=== PATIENT | female | born 1935 | race Caucasian/White ===

== ENCOUNTER 2016-11-08 08:08 | Inpatient (IN) | payer MEDICARE, OTHER ==
[~2016-11-08] VITALS: Ht 152.4 cm; Wt 62.0 kg
[~2016-11-08 08:08] MED LIST: ACAR25TA8 PO; ATOR80TA18 PO; BENA40TA41 PO; CALC1TAB80 PO; CHOL2000 GTB; CIPR500T4 PO; ESOM40CA PO; IBUP-1542 PO; KRIL1CAP22 PO; PHEN-537 PO; VALS160T20 PO
[2016-11-08 08:12] VITALS: Ht 152.4 cm; Wt 62.0 kg
[2016-11-08] MEDS ORDERED: FAMOTIDINE 20 MG INJ IV STA (08:20)
[2016-11-08] MEDS ORDERED: SOD CHLORIDE 0.9% 1,000 ML IV STA (08:20)
[2016-11-08] MEDS ORDERED: ONDANSETRON 4 MG INJ IV STA (08:20)
[2016-11-08] MEDS ORDERED: morphine 4 MG/ML VIAL IV STA ×2 (08:20→10:49)
[2016-11-08 09:04] LABS: ADD SCAN DIFF NO
[2016-11-08 09:08] LABS: BASOPHIL # 0.1 10^3/ul (0.0-0.1); BASOPHILS % 0.2 % (0.0-2.0); HEMOGLOBIN 10.7 g/dl (12.0-16.0); LYMPHOCYTES % 4.7 % (15.0-51.0); MEAN CORPUSCULAR HEMOGLOBIN 27.2 pg (29.0-33.0); MEAN CORPUSCULAR HGB CONC 32.4 g/dl (32.0-37.0); MEAN CORPUSCULAR VOLUME 83.8 fl (82.0-101.0); MEAN PLATELET VOLUME 9.3 fl (7.4-10.4); MONOCYTE # 1.4 10^3/ul (0.3-0.9); MONOCYTES % 6.9 % (0.0-11.0); NEUTROPHILS % 87.6 % (39.0-77.0); PLATELET COUNT 398 10^3/UL (140-415); RED BLOOD COUNT 3.94 10^6/ul (4.20-5.40); RED CELL DISTRIBUTION WIDTH 16.1 % (11.5-14.5); WHITE BLOOD COUNT 20.6 10^3/ul (4.8-10.8)
[2016-11-08 09:22] LABS: ALBUMIN 3.7 g/dl (3.3-4.9); ALBUMIN/GLOBULIN RATIO 1.02; BILIRUBIN,INDIRECT 0.7 mg/dl (0-1.1); BILIRUBIN,TOTAL 0.7 mg/dl (0.2-1.3); CREATININE 0.51 mg/dl (0.44-1.00); POTASSIUM 3.3 mmol/L (3.5-5.1); TOTAL PROTEIN 7.3 g/dl (6.1-8.1)
--- NOTE | 2016-11-08 09:34 | RADRPT ---
PROCEDURE: CT Abdomen and Pelvis without contrast. CLINICAL INDICATION: Right upper quadrant and flank pain. TECHNIQUE: CT scan of the abdomen and pelvis without contrast was performed on a multidetector hig h-resolution CT scanner. The patient was scanned without intravenous contrast. Coronal and sagittal reformatted images were obtained from the axial source images. Images were reviewed on a high-resol [employer] PACS workstation. The total exam CTDI equals 9.58 mGy and the total exam DLP equals 511.76 mGy -cm. One or more of the following dose reduction techniques were used: Automated exposure control. Adjustment of the mA and/or kV according to patient size. Use of iterative reconstruction technique. COMPARISON: CT abdomen and pelvis 11/26/2014. FINDINGS: CT abdomen: The lung bases are remarkable for focal bronchiectasis in the medial right middle lobe and lingular segment. The heart size is normal, without pericardial thickening or effusion. The liver is normal in size and density without focal mass or intrahepatic biliary dilatation. The spleen is normal in size and homogeneous in density. The stomach is partially collapsed, but is gr ossly unremarkable. The pancreas as visualized is normal. The gallbladder is markedly distended wi th mild surrounding fatty stranding. There is no evidence of biliary dilatation. The adrenal glands are symmetric and normal. The kidneys are symmetrically unremarkable as well. No renal calculus o r obstructive uropathy or mass lesion is seen. There are multiple bilateral renal cysts. The aorta is of normal caliber. Aortic vascular calcifications are present. There is no retroperit prieto lymphadenopathy. The ann marie hepatis region is clear. There is diverticulosis of the descending and sigmoid colon without evidence of acute diverticulitis. There is moderate hiatal hernia. CT pelvis: The small bowel loops situated within the pelvis are unremarkable. The pelvic organs are normal. T he pelvic sidewalls and inguinal regions are clear. The sigmoid colon and rectum are remarkable for sigmoid diverticulosis. No mass, lymphadenopathy, or free fluid is seen. No acute inflammation is seen. The surrounding osseous structures are remarkable for degenerative spondylosis of the spine. No osteolytic or osteoblastic lesion is detected. IMPRESSION: 1. Markedly distended gallbladder with mild surrounding inflammation suggesting acute cholecystitis. Consider ultrasound for further evaluation. 2. Diverticulosis of the descending and sigmoid colon without evidence of acute diverticulitis. 3. Multiple bilateral renal cortical and parapelvic cysts. 4. Aortoiliac atherosclerosis. 5. Moderate hiatal hernia. 6. Bronchiectasis in the right middle lobe and left lingular segment. RPTAT: BB .Rojas Crane MD, Date Time Electronically viewed and signed by .Rojas Crane MD, on 11/08/2016 09:33 .O/
[2016-11-08] MEDS ORDERED: CEFTRIAXONE 1 GM/50 ML (PMX) 50 ML IVPB ONE (10:00)
[2016-11-08] MEDS ORDERED: metroNIDAZOLE 500 MG/NS (PMX) 100 ML IVPB ONE (10:00)
[2016-11-08 10:08] LABS: ADD UMIC YES; URINE BILIRUBIN (Dip) NEGATIVE (NEGATIVE); URINE BLOOD (Dip) 3+ (NEGATIVE); URINE COLOR LT. YELLOW (YELLOW); URINE GLUCOSE (Dip) NEGATIVE (NEGATIVE); URINE KETONES (Dip) 40 (NEGATIVE); URINE LEUKOCYTE ESTERASE (Dip) NEGATIVE (NEGATIVE); URINE NITRITE (Dip) NEGATIVE (NEGATIVE); URINE TOTAL PROTEIN (Dip) NEGATIVE (NEGATIVE); URINE UROBILINOGEN (Dip) 2.0 E.U./dL (0.1-1.0)
[2016-11-08] MEDS ORDERED: ACAR50TA PO (10:22)
[2016-11-08] MEDS ORDERED: LEVO50TA71 PO (10:23)
[2016-11-08 10:24] LABS: BACTERIA,URINE FEW; URINE RBCS 25-50 /HPF (0)
[2016-11-08] MEDS ORDERED: CHOL100062 PO (10:24)
[2016-11-08] MEDS ORDERED: MET25 PO (10:24)
--- NOTE | 2016-11-08 10:29 | RADRPT ---
PROCEDURE: Right Upper Quadrant Ultrasound. CLINICAL INDICATION: cholecystitis, abdominal pain TECHNIQUE: Multiple real-time images were acquired of the patient's right upper quadrant abdomen a nd retroperitoneum utilizing a high resolution transducer. COMPARISON: None FINDINGS: The liver measures 12.4 cm, and demonstrates normal echogenicity. The main portal vein is patent wit h proper directional flow. There is no intrahepatic biliary ductal dilatation. The extrahepatic comm on bile duct measures 9 mm. The gallbladder is without stones, wall thickening, or pericholecystic fluid. The pancreas is not visualized. The right kidney measures 10.6 cm and demonstrates normal echotexture. There is no right renal calcu garcia or hydronephrosis. The visualized abdominal aorta and IVC are grossly unremarkable. IMPRESSION: There is no cholelithiasis or acute cholecystitis however the common bile duct is mild to moderately dilated to 9 mm. A HIDA scan or MRCP can be obtained for further evaluation of possible common felecia e duct obstruction. Correlation with a bilirubin level for signs of cholestasis is recommended. RPTAT: EE Physician Janessa Date Time Electronically viewed and signed by Physician Janessa on 11/08/2016 10:29 /
[2016-11-08] MEDS ORDERED: SOD CHLORIDE 0.9% 1,000 ML IV SCH (11:03)
--- NOTE | 2016-11-08 11:15 | ERA ---
ER Documentation Chief Complaint Date/Time DATE: 11/08/16 TIME: 11:11 Chief Complaint pt bib self with c/o abd pain starting a few days ago rad to right flank HPI This is an 80-year-old female who presents to the emergency room with her family for evaluation of abdominal pain. The patient states that she has had abdominal pain for the past 12 hours. She localizes it to the midportion of her abdomen, she states that it does radiate to her back. She states that it is sharp and achy pain associated with mild nausea. The patient denies any fevers associated with this, denies any relieving factors for her pain and came to the emergency room for evaluation ROS All systems reviewed and are negative except as per history of present illness. Medications Home Meds Reported Medications Cholecalciferol* (Vitamin D3*) 1,000 Unit Tablet, 5000 UNIT PO DAILY, TAB 11/08/16 Methotrexate* (Methotrexate*) 2.5 Mg Tab, 7.5 MG PO BID, TAB 11/08/16 Levothyroxine Sodium* (Levoxyl*) 50 Mcg Tablet, 50 MCG PO BEFORE BREAKFAST, #30 TAB 11/08/16 Acarbose* (Precose*) 50 Mg Tablet, 50 MG PO WITH BREAKFAST, TAB 11/08/16 Valsartan* (Diovan*) 160 Mg Tablet, 160 MG PO DAILY, TAB 07/09/16 Esomeprazole Mag Trihydrate (Nexium) 40 Mg Capsule.dr, 40 MG PO DAILY 05/23/12 Atorvastatin (Lipitor) 80 Mg Tablet, 80 MG PO DAILY 05/23/12 Discontinued Reported Medications Krill/Om-3/Dha/Epa/Phospho/Ast (Megared [place]-3 Krill Oil Sfgl) 1 Each Capsule, 1 EACH PO, CAP 07/09/16 Benazepril Hcl* (Benazepril Hcl*) 40 Mg Tablet, 40 MG PO DAILY, #30 TAB 07/09/16 Acarbose* (Precose*) 25 Mg Tablet, 25 MG PO WITH BREAKFAST, TAB 07/09/16 Ibuprofen* (Motrin*) 600 Mg Tab, 600 MG PO Q8H Y for PAIN, TAB 07/09/16 Calcium Carbonate/Vitamin D3 ([place] 500+D Tablet) 1 Tab Tablet, 1 TAB PO DAILY 05/23/12 Cholecalciferol* (Vitamin D3*) 2,000 Unit Cap, 2000 UNIT GTB DAILY 05/23/12 Discontinued Scripts Phenazopyridine Hcl* (Pyridium*) 100 Mg Tab, 100 MG PO TID Y for URINARY PAIN, # 8 TAB Prov:ZEYNEP VIVEROS DO 07/09/16 Ciprofloxacin Hcl* (Ciprofloxacin Hcl*) 500 Mg Tablet, 500 MG PO BID for 3 Days , TAB Prov:ZEYNEP VIVEROS DO 07/09/16 Allergies Allergies: Coded Allergies: penicillin G (Verified Allergy, Intermediate, RASH, HEADACHE, 07/09/16) PMhx/Soc History of Surgery: No Anesthesia Reaction: No Hx Neurological Disorder: No Hx Respiratory Disorders: No Hx Cardiac Disorders: Yes (HTN) Hx Psychiatric Problems: No Hx Miscellaneous Medical Probl: Yes (hyperlipidemia , OSTEOPOROSIS , ARTHRITIS ) Hx Alcohol Use: No Hx Substance Use: No Hx Tobacco Use: No Smoking Status: Never smoker Physical Exam Vitals Vital Signs Date Time Temp Pulse Resp B/P Pulse Ox O2 Delivery O2 Flow Rate FiO2 11/08/16 09:59 99.4 83 18 152/61 98 Room Air 11/08/16 08:55 98.8 83 18 119/73 100 Room Air 11/08/16 08:12 98.3 87 18 134/60 100 Physical Exam INITIAL VITAL SIGNS: Reviewed by me GENERAL: The patient is well developed and appropriate for usual state of health who appears to have mild abdominal pain HEENT: Pupils equal, round, and reactive to light. EOMI. There is no scleral icterus. NECK: C-spine is soft and supple, there is no meningismus. There is no cervical lymphadenopathy. LUNGS: Clear to auscultation bilaterally. There are no rales, wheezes or rhonchi. HEART: Regular rate and rhythm, no murmurs, clicks, rubs or gallops. ABDOMEN: Positive Pickering sign, otherwise no CVAT, soft, non-tender, non- distended. There are bowel sounds in all four quadrants. No rebound or guarding. EXTREMITIES: There is no peripheral cyanosis or edema. No focal swelling or erythema. NEUROLOGICAL: The patient moves all four extremities with 5/5 strength. Cranial nerves II - XII are intact. Normal gait. Alert and oriented SKIN: There is no apparent rash or petechiae. HEME/LYMPHATIC: There is no evidence of excessive bruising or lymphedema. PSYCHIATRIC: The patient does not appear anxious or depressed. Result Diagram: 11/08/16 0840 11/08/16 0840 Results 24 hrs Laboratory Tests Test 11/08/16 08:40 11/08/16 09:42 White Blood Count 20.610^3/ul Red Blood Count 3.9410^6/ul Hemoglobin 10.7g/dl Hematocrit 33.0% Mean Corpuscular Volume 83.8fl Mean Corpuscular Hemoglobin 27.2pg Mean Corpuscular Hemoglobin Concent 32.4g/dl Red Cell Distribution Width 16.1% Platelet Count 66077^3/UL Mean Platelet Volume 9.3fl Neutrophils % 87.6% Lymphocytes % 4.7% Monocytes % 6.9% Eosinophils % 0.0% Basophils % 0.2% Nucleated Red Blood Cells % 0.0/100WBC Neutrophils # 18.010^3/ul Lymphocytes # 1.010^3/ul Monocytes # 1.410^3/ul Eosinophils # 0.010^3/ul Basophils # 0.110^3/ul Nucleated Red Blood Cells # 0.010^3/ul Sodium Level 134mmol/L Potassium Level 3.3mmol/L Chloride Level 100mmol/L Carbon Dioxide Level 26mmol/L Anion Gap 11 Blood Urea Nitrogen 8mg/dl Creatinine 0.51mg/dl Glucose Level 154mg/dl Calcium Level 9.0mg/dl Total Bilirubin 0.7mg/dl Direct Bilirubin 0.00mg/dl Indirect Bilirubin 0.7mg/dl Aspartate Amino Transf (AST/SGOT) 20IU/L Alanine Aminotransferase (ALT/SGPT) 26IU/L Alkaline Phosphatase 182IU/L Troponin I < 0.010ng/ml Total Protein 7.3g/dl Albumin 3.7g/dl Globulin 3.60g/dl Albumin/Globulin Ratio 1.02 Lipase 18U/L Urine Color LT. YELLOW Urine Clarity CLEAR Urine pH 8.0 Urine Specific [place] 1.010 Urine Ketones 40 Urine Nitrite NEGATIVE Urine Bilirubin NEGATIVE Urine Urobilinogen 2.0 E.U./dL Urine Leukocyte Esterase NEGATIVE Urine Microscopic RBC 25-50/HPF Urine Microscopic WBC 0-2/HPF Urine Epithelial Cells FEW Urine Bacteria FEW Urine Hemoglobin 3+ Urine Glucose NEGATIVE% Urine Total Protein NEGATIVE Current Medications Medications (Trade) Dose Ordered Sig/Hector Route PRN Reason Start Time Stop Time Status Last Admin Dose Admin Sodium Chloride (NS) 1,000 ml @ 1,000 mls/hr Q1H STAT IV 11/08/16 08:20 11/08/16 09:19 DC 11/08/16 08:53 Morphine Sulfate (morphine) 4 mg ONCE STAT IV 11/08/16 08:20 11/08/16 08:21 DC 11/08/16 08:51 Ondansetron HCl (Zofran Inj) 4 mg ONCE STAT IV 11/08/16 08:20 11/08/16 08:21 DC 11/08/16 08:48 Famotidine 20 mg 20 mg ONCE STAT IV 11/08/16 08:20 11/08/16 08:21 DC 11/08/16 08:50 Ceftriaxone Sodium 50 ml @ 100 mls/hr ONCE ONCE IVPB 11/08/16 10:00 11/08/16 10:29 DC 11/08/16 10:38 Metronidazole (Flagyl 500 Mg (Pmx)) 100 ml @ 100 mls/hr ONCE ONCE IVPB 11/08/16 10:00 11/08/16 10:59 DC Morphine Sulfate 4 mg 4 mg ONCE STAT IV 11/08/16 10:49 11/08/16 10:50 DC Sodium Chloride (NS) 1,000 ml @ 80 mls/hr [id number] IV 11/08/16 11:03 11/08/16 23:32 Ondansetron HCl (Zofran Inj) 4 mg BRIDGE ORDER PRN IV NAUSEA AND/OR VOMITING 11/08/16 11:30 11/09/16 11:29 Acetaminophen (Tylenol Tab) 650 mg ER BRIDGE PRN PO MILD PAIN/FEVER 11/08/16 11:30 11/09/16 11:29 Procedures/MDM CT abdomen pelvis without: 1. Markedly distended gallbladder with mild surrounding inflammation suggesting acute cholecystitis. Consider ultrasound for further evaluation. 2. Diverticulosis of the descending and sigmoid colon without evidence of acute diverticulitis. 3. Multiple bilateral renal cortical and parapelvic cysts. 4. Aortoiliac atherosclerosis. 5. Moderate hiatal hernia. 6. Bronchiectasis in the right middle lobe and left lingular segment. Ultrasound gallbladder: There is no cholelithiasis or acute cholecystitis however the common bile duct is mild to moderately dilated to 9 mm. A HIDA scan or MRCP can be obtained for further evaluation of possible common bile duct obstruction. Correlation with a bilirubin level for signs of cholestasis is recommended. This 80-year-old female presents to the emergency room for evaluation of abdominal pain. When I did evaluate this patient she appeared to be in a mild amount of distress. Her pain was exacerbated with palpation of the right upper quadrant. I did obtain an ultrasound which shows a dilated gallbladder with a moderately dilated common bile duct at [address] of the abdomen and pelvis does not show any signs of appendicitis or any other intra-abdominal process. This patient was found to have a leukocytosis greater than 20,000. She was given Rocephin and Flagyl here in the emergency room. I have spoken to this patient' s admitting physician, Dr. Camejo, and I discussed my concern for possible choledocholithiasis. He agrees that this patient should be placed for admission at this time. I have paged our floorman that he requested, Dr. ba, and I am awaiting his call back. I did order an MRCP. This patient 's pain is controlled with morphine in the emergency room. Departure Diagnosis: Primary Impression: Choledocholithiasis Additional Impressions: Abdominal pain Leukocytosis Condition: DINORAH Martinez DO Nov 08, 2016 11:15
[2016-11-08] MEDS ORDERED: DIPHENHYDRAMINE 50 MG INJ IV ONE (11:30)
[2016-11-08] MEDS ORDERED: ONDANSETRON 4 MG INJ IV PRN (11:30)
[2016-11-08] MEDS ORDERED: ACETAMINOPHEN 325 MG TAB PO PRN (11:30)
--- NOTE | 2016-11-08 12:13 | CONS ---
DATE OF ADMISSION: 11/08/2016 DATE OF CONSULTATION: 11/08/2016 TYPE OF CONSULTATION: Gastroenterology. Dear Dr. Ambrose: Thank you for asking me to see Mrs. Salmon in GI consultation. HISTORY OF PRESENT ILLNESS: The patient, as you know, is an 80-year-old female who was bro ught to the hospital because of right upper quadrant pain she has been experiencing for the past 3 d ays. She has been nauseated. She has been vomiting. She has had some fever, but no chills, no shawna rrhea, no history of GI bleeding, no history of jaundice. MEDICATIONS: She has been on multiple medications prior to the admission, which include: 1. Methotrexate for rheumatoid arthritis. 2. Lipitor. 3. Diovan. 4. Nexium. 5. Precose 6. Levoxyl. 7. Vitamin D3. REVIEW OF SYSTEM: Positive for rheumatoid arthritis and also history of hypertension, history of di abetes. PAST SURGICAL HISTORY: No surgeries in the past. SOCIAL HISTORY: No history of alcoholism. PHYSICAL EXAMINATION: GENERAL: The patient is an 80-year-old female who at this time is alert, she is well built . VITAL SIGNS: She does have a temperature of 99.4, blood pressure 152/61, pulse 83. CARDIOVASCULAR: Normal heart sounds. RESPIRATORY: Normal breath sounds. ABDOMEN: Showed unremarkable findings except right upper quadrant tenderness. LABORATORY DATA: WBC is 20,600, hemoglobin is 10.7. The potassium 3.3, BUN 8, creatinine 0.5, bili ferrer 0.7, AST 20, ALT 26, alkaline phosphatase 182. The CAT scan of the abdomen showed evidence of dilated common bile duct, probably dilated gallbladde r as well. Ultrasound showed evidence of a dilated common bile duct. CLINICAL IMPRESSION: The patient presenting with history of abdominal pain, dilated bile duct on e CAT scan and ultrasound, elevated alkaline phosphatase, it is quite possible that we may be dealin g with choledocholithiasis. At this time, MRCP is pending. Depending upon MRCP, the patient may need ERCP. Once again, Dr. Ambrose, thank you for this consultation. Dictated By: ARLYN PAGE/HERACLIO Conf#: [id number] DID#: [id number] CC: MUSA AMBROSE MD; ARLYN MATIAS MD;*EndCC*
[2016-11-08 15:40] VITALS: TEMP 98.8
--- NOTE | 2016-11-08 15:46 | RADRPT ---
PROCEDURE: MRCP. CLINICAL INDICATION: Abdominal pain. TECHNIQUE: MRCP was performed. Patient was examined without contrast. 3-D coronal rotating MIP i mages of the biliary tree are available for review. COMPARISON: CT and ultrasound, 11/08/2016 FINDINGS: The gallbladder is distended. Gallbladder wall thickening and trace pericholecystic fluid are ident ified. No definite evidence of gallstone is seen. There is no intra or extrahepatic biliary dilata tion. No common duct stone, stricture or filling defect is seen. Pancreatic duct is normal in hermelinda killian. Liver, pancreas, spleen, adrenal glands and kidneys are unremarkable except for bilateral benign avtar al cysts. There is no obstructive uropathy. Moderate to large hiatal hernia is present. Abdominal aorta is normal in caliber. There is no retroperitoneal or ann marie hepatis lymphadenopathy. Colonic diverticulosis is seen without evidence for diverticulitis. There is no evidence of bowel obstruction. Urinary bladder appears significantly distended, concerning for urinary retention. T he surrounding osseous structures are remarkable for scoliosis and degenerative spondylosis of the s pine. IMPRESSION: 1. The gallbladder is distended. Gallbladder wall thickening and trace pericholecystic fluid are i dentified, concerning for cholecystitis. No definite evidence of gallstone is seen. Consider nucle ar medicine HIDA scan for further evaluation, if clinically warranted. 2. No biliary dilatation or choledocholithiasis is identified. Common bile duct maximal diameter i s 4 mm. 3. Moderate to large hiatal hernia is present. 4. Colonic diverticulosis is seen without diverticulitis. 5. Urinary bladder is significantly distended, concerning for urinary retention. RPTAT: PP .Lester Mansfield MD, Date Time Electronically viewed and signed by .Lester Mansfield MD, on 11/08/2016 15:45 .R/
[2016-11-08 16:25] VITALS: BP 137/64; PULSE 81; RESP 18
[2016-11-08] MEDS ORDERED: GLUCOSE GEL 15 GRAM TUBE BUCCAL PRN ×2 (18:00→19:00)
[2016-11-08] MEDS ORDERED: GLUCAGON 1 MG INJ IM PRN ×2 (18:00→19:00)
[2016-11-08] MEDS ORDERED: GLUCOSE GEL 15 GRAM TUBE PO PRN ×4 (18:00→19:00)
[2016-11-08] MEDS ORDERED: DEXTROSE 50% 50 ML SYRINGE IV PRN ×4 (18:00→19:00)
[2016-11-08] MEDS ORDERED: ACETAMINOPHEN 650 MG SUPP PR PRN (18:00)
[2016-11-08] MEDS ORDERED: morphine 2 MG INJ IV PRN (18:30)
--- NOTE | 2016-11-08 18:59 | HP ---
DATE OF ADMISSION: 11/08/2016 CHIEF COMPLAINT: Right upper quadrant pain. HISTORY OF PRESENT ILLNESS: The patient is an 80-year-old female with a past medical history positi ve for hypertension, hyperlipidemia, being prediabetic, rheumatoid arthritis and hypothyroidism. Gennaro man was in her usual health until 3 days ago when the patient developed right upper quadrant pain. It got extremely worse over the last 12 hours. The patient stated the pain was sharp and associat ed with mild nausea. Patient denies any fevers, denies chills, denies chest pain, denies shortness of breath, denies bilateral lower extremities edema. Denied vomiting. On admission to the emergenc y room, patient had leukocytosis with white blood cells being elevated at 20.6. Patient underwent a gallbladder ultrasound which revealed no cholelithiasis; however, the common bile duct is mild to m oderately dilated. The patient also underwent a CT of the abdomen and pelvis which revealed distended gallbladder with mild surrounding inflammation suggesting for acute cholecystitis, diverticulosis of the descending a nd sigmoid colon without evidence of diverticulitis, multiple bilateral renal cortical and parapelvi c cysts, aortoiliac atherosclerosis, moderate hiatal hernia, bronchiectasis in the right middle lobe and left lingular segment. The patient was given Zofran for nausea and morphine for pain and was admitted for further evaluatio n and management to medical/surgical floor. PAST MEDICAL HISTORY: Positive for hypertension, hyperlipidemia, gastritis, prediabetes and rheumat oid arthritis. Patient is followed by Dr. Jack in rheumatology consultation was started on meth otrexate and also a history of hypothyroidism. PAST SURGICAL HISTORY: Patient had a colonoscopy a couple of years ago. Denies any other surgeries . FAMILY HISTORY: Noncontributory. SOCIAL HISTORY: Patient lives at home with his son. Patient denies any tobacco use, denies any ill icit drug use and denies any alcohol use. ALLERGIES: PATIENT IS ALLERGIC TO PENICILLIN G. MEDICATIONS ON ADMISSION: 1. Acarbose 2. Methotrexate. 3. Valsartan. 4. Atorvastatin. 5. Esomeprazole. 6. Levothyroxine. REVIEW OF SYSTEMS: A 12-point review of systems is negative unless what mentioned in the HPI. PHYSICAL ASSESSMENT GENERAL: Well-developed, well-nourished female, awake, alert. VITAL SIGNS: Temperature is 99.1, pulse is 81, blood pressure is 137/64, respiratory rate 18, oxyge n saturation 95% on room air. HEENT: Head is atraumatic, normocephalic. Pupils equal bilaterally. Reactive to light and accommo dation. Oral mucosa is pink and moist. NECK: Supple, no cervical lymphadenopathy, no thyromegaly. RESPIRATORY: Lungs were clear bilaterally. There is no rhonchi, wheezes, rales noted. CARDIOVASCULAR: Normal S1, S2. No murmurs, gallops, clicks, rubs noted. GASTROINTESTINAL: Abdomen is round, soft, nondistended. Patient has right upper quadrant tendernes s. EXTREMITIES: There is no edema, clubbing, cyanosis. Pulses equal bilaterally 2+. SKIN: There is no rash, petechiae noted. NEUROLOGIC: Patient is alert and oriented x4. No focal deficits noted. Motor strength 5/5 in lowe r extremities. LABORATORY DATA: On admission, CBC: White blood cells 20.6, hemoglobin 10.7, hematocrit 33.0, plat elets 398. Chemistry: Sodium was 134, potassium 3.3, chloride 100, carbon dioxide 26, anion gap 11 , BUN is 8, creatinine 0.51 and glucose 154, AST 20, ALT 26, alkaline phosphatase 182. Troponin les s than 0.01. Lipase is 18. Urine is negative for nitrite, negative for leukocyte esterase. ASSESSMENT AND PLAN: 1. Possible acute cholecystitis. The patient is given Flagyl and Rocephin in the emergency room. Will start patient on Zosyn. 2. Systemic inflammatory response syndrome with leukocytosis secondary to acute cholecystitis. Con tinue antibiotics. Will obtain blood cultures to rule out bacteremia. 3. Rule out choledocholithiasis. The patient will undergo MRCP. Dr. Estrella was asked to see patie nt in gastroenterology consultation. We will ask Dr. Auguste to see patient in general surgery cons ultation. 4. Hypertension. We will continue the patient on Diovan 5. Hydralazine p.r.n. for systolic blood pressure above 170. 6. Rheumatoid arthritis. Continue methotrexate. 7. Hypoparathyroidism. Continue Synthroid. 8. Hyperlipidemia. Continue statin. 9. Gastritis by history. Continue Protonix for peptic ulcer disease prophylaxis. We will continue sequential compression device for deep venous thrombosis prophylaxis. Further recommendations base d on clinical course. Plan of care discussed with Dr. Ambrose. Dictated By: BOB HUBER MIDDLEWARE ADMINISTRATOR for MUSA AMBROSE MD SR/NTS Conf#: [id number] DID#: [id number]
[2016-11-08] MEDS: D5-NS + KCL 20 MEQ 1,000 ML IV SCH (19:53)
[2016-11-08] MEDS ORDERED: FLUCONAZOLE 100 MG/NS (PMX) 50 ML IVPB SCH (20:00)
[2016-11-08 20:51] VITALS: BP 101/62; RESP 19
[2016-11-08] MEDS: morphine 2 MG INJ IV PRN (21:51)
[2016-11-08] MEDS: metroNIDAZOLE 500 MG/NS (PMX) 100 ML IVPB SCH (21:53)
[2016-11-08] MEDS ORDERED: PIPER-TAZO 3.375 GM IV (PMX) 100 ML IVPB SCH (22:00)
[2016-11-09] VITALS (19 sets, daily range): BP systolic 131–173; BP diastolic 51–86; PULSE 58–68; RESP 14–20
--- NOTE | 2016-11-09 05:06 | CONS ---
DATE OF ADMISSION: 11/08/2016 DATE OF CONSULTATION: 11/08/2016 TYPE OF CONSULTATION: Surgical. REFERRING PHYSICIAN: 1. Dr. Ferdinand Estrella. 2. Janna Bergman DIRECTOR [employer]. CHIEF COMPLAINT: 1. Abdominal pain. 2. Significant leukocytosis. 3. Possible cholecystitis (possibly acalculous). 4. Dilated biliary tree, possible obstruction. 5. Anemia. 6. Abnormal and elevated alkaline phosphatase. HISTORY OF PRESENT ILLNESS: Mely Salmon is an 80-year-old female with multiple comorbidities who presents with 3 days of abdominal pain, worse in the past day, associated with nausea but no vom iting, fevers or chills. No chest pain or shortness of breath. No visual or neurologic changes. N o dysuria or vaginal discharge. No trauma or sick contacts. No cough. Positive bowel function. In the emergency room, she was found to be afebrile with stable vitals. White count, however, is el evated at 20,000. Sodium is low at 134, potassium low at 3.3. Alkaline phosphatase is elevated at 182. Urine is negative for leukocytes or nitrites. The patient had an abdominal ultrasound which does not identify cholelithiasis or acute cholecystiti s; however, there is common bile duct dilatation to 9 mm. The patient had a CT scan of the abdomen and pelvis with identification of a markedly distended gallbladder with mild surrounding inflammatio n suggestive of acute cholecystitis, diverticulosis and multiple bilateral renal cortical and parape lvic cysts. There is aortoiliac atherosclerosis and moderate hiatal hernia with bronchiectasis of t he right middle lobe and left lingular segment. The patient also had an MRCP which reports gallbladder distention with wall thickening and trace per icholecystic fluid. No other significant gallstones are seen. On the MRCP report, there is no bili allyson dilatation and choledocholithiasis. However, per my review, there is some dilation with possibl e papillary area paucity of contrast, which may suggest a lesion or stone. There is moderately larg e hiatal hernia, colonic diverticulosis and distended bladder. Surgical consult was obtained for f urther evaluation and treatment. PAST MEDICAL HISTORY 1. Prediabetes. 2. Hypertension. 3. Diverticulosis. 4. Bilateral renal cortical and parapelvic cysts. 5. Aortoiliac atherosclerosis. 6. Hiatal hernia. 7. Bronchiectasis. 8. Possibly dilated biliary tree with filling defect. 9. Significant leukocytosis. 10. Hyponatremia. 11. Hyperkalemia. 12. Elevated alkaline phosphatase. 13. Anemia. 14. Hypothyroidism. 15. Gastritis. 16. Arthritis. PAST SURGICAL HISTORY: Colonoscopy. MEDICATIONS: As per MAR includin. Methotrexate. 2. Cortisone shots. FAMILY HISTORY: Noncontributory. SOCIAL HISTORY: Denies alcohol, drugs or tobacco. REVIEW OF SYSTEMS: A 12-point of systems was negative unless addressed in the HPI. No significant weight changes. PHYSICAL EXAMINATION: VITAL SIGNS: Temperature 99.1, pulse 81, blood pressure 137/64, satting 95% on room air. GENERAL: No acute distress, however, uncomfortable. HEENT: Pupils equal, reactive. No scleral icterus. Mucous membranes are moist. NECK: Supple, no JVD, no lymphadenopathy. PULMONARY: Normal respiratory effort. No wheezing. HEART: S1, S2 present and regular. ABDOMEN: Soft, tender in her right upper quadrant without Pickering's. No rebound, no guarding, not rigid, but somewhat distended. EXTREMITIES: No edema. VASCULAR: Cap refill less than 2 seconds. NEUROLOGIC: Alert, oriented, moves all 4 extremities grossly. LABORATORY AND RADIOGRAPHIC: As per chart and HPI. ASSESSMENT AND PLAN: Mely Salmon is an 80-year-old female with multiple comorbidities. 1. Abdominal pain, leukocytosis, and multiple imagings are suggestive of a cholecystitis, possibly acalculous; however, may need to rule out cholangitis as well. Continue antibiotics, supportive car e, and based on my read, and Dr. Estrella's reads of the MRCP, the patient will benefit from an ERCP f or further investigation. 2. Possibly dilated biliary tree per some of the imagings. As above, we will proceed with ERCP per GI. 3. Significant leukocytosis secondary to above. Continue antibiotics and supportive care and treat ment as above. 4. Hypertension. Continue nutrition and medication optimization. 5. Prediabetes. Continue nutrition and medication optimization. 6. Rheumatoid arthritis, on methotrexate and steroids shots. Continue medical optimization. 7. Hypothyroidism. Continue Synthroid. 8. Hyperlipidemia. Continue diet and medication optimization. 9. History of gastritis. Continue proton pump inhibitor and encourage nutritional and lifestyle op timization. 10. Anemia without evidence of acute blood loss, continue monitoring. 11. Electrolyte abnormalities with hypokalemia and hyponatremia. Please correct with fluid and nut ritional management. Thank you very much for consulting me in this patient's care. Dictated By: RICK RAMEY/HERACLIO Conf#: [id number] DID#: [id number]
[2016-11-09] MEDS: LEVOTHYROXINE 50 MCG TAB PO SCH (05:28)
[2016-11-09] MEDS: metroNIDAZOLE 500 MG/NS (PMX) 100 ML IVPB SCH ×3 (05:30→21:56)
[2016-11-09] MEDS ORDERED: LEVOTHYROXINE 100 MCG VIAL IV SCH (06:00)
[2016-11-09 06:10] LABS: ADD SCAN DIFF NO
[2016-11-09 06:35] LABS: CREATININE 0.47 mg/dl (0.44-1.00)
[2016-11-09 06:36] LABS: CALCIUM 7.9 mg/dl (8.4-10.2)
[2016-11-09] MEDS ORDERED: LIDOCAINE 2% (SDV) 5 ML INJ ONE (07:00)
[2016-11-09] MEDS ORDERED: ROCURONIUM 50 MG INJ ONE (07:00)
[2016-11-09] MEDS ORDERED: GLYCOPYRROLATE 0.4 MG INJ ONE (07:00)
[2016-11-09] MEDS ORDERED: SUCCINYLCHOLINE CHLORIDE 100 MG/5 ML SYG IV ONE (07:00)
[2016-11-09] MEDS ORDERED: NEOSTIGMINE 3 MG/3 ML SYRINGE ONE (07:00)
[2016-11-09 07:21] LABS: BASOPHILS % 0.2 % (0.0-2.0); EOSINOPHILS # 0.1 10^3/ul (0.0-0.5); EOSINOPHILS % 0.4 % (0.0-7.0); HEMATOCRIT 28.6 % (37.0-47.0); HEMOGLOBIN 9.2 g/dl (12.0-16.0); LYMPHOCYTES # 1.4 10^3/ul (0.8-2.9); LYMPHOCYTES % 10.1 % (15.0-51.0); MEAN CORPUSCULAR HEMOGLOBIN 27.1 pg (29.0-33.0); MEAN CORPUSCULAR HGB CONC 32.2 g/dl (32.0-37.0); MEAN CORPUSCULAR VOLUME 84.1 fl (82.0-101.0); MEAN PLATELET VOLUME 9.5 fl (7.4-10.4); MONOCYTE # 1.2 10^3/ul (0.3-0.9); NEUTROPHIL # 10.9 10^3/ul (1.6-7.5); NEUTROPHILS % 79.8 % (39.0-77.0); PLATELET COUNT 389 10^3/UL (140-415); RED CELL DISTRIBUTION WIDTH 16.3 % (11.5-14.5); WHITE BLOOD COUNT 13.6 10^3/ul (4.8-10.8)
[2016-11-09] MEDS: ACARBOSE 50 MG TAB PO SCH ×3 (07:35→18:07)
[2016-11-09] MEDS: VALSARTAN 160 MG TAB PO SCH (08:21)
[2016-11-09] MEDS: METHOTREXATE 2.5 MG TAB PO SCH (08:22)
[2016-11-09] MEDS ORDERED: POTASSIUM CHLORIDE 250 ML IVPB ONE (08:30)
[2016-11-09] MEDS: D5-NS + KCL 20 MEQ 1,000 ML IV SCH ×2 (08:48→19:33)
[2016-11-09] MEDS: CEFTRIAXONE 1 GM/50 ML (PMX) 50 ML IVPB SCH (09:37)
[2016-11-09] MEDS ORDERED: IOHEXOL 300MG/ML 30 ML BTL ONE (09:59)
[2016-11-09] MEDS ORDERED: INDOMETHACIN 50 MG SUPP PR ONE (09:59)
[2016-11-09] MEDS ORDERED: ONDANSETRON 4 MG INJ IV PRN (12:30)
[2016-11-09] MEDS ORDERED: MEPERIDINE 25 MG INJ IV PRN (12:30)
[2016-11-09] MEDS ORDERED: DIPHENHYDRAMINE 50 MG INJ IV PRN (12:30)
[2016-11-09] MEDS ORDERED: METOCLOPRAMIDE 10 MG INJ IV PRN (12:30)
[2016-11-09] MEDS ORDERED: FENTAnyl 50 MCG/ML VIAL IV PRN (12:30)
[2016-11-09] MEDS ORDERED: HYDROmorphONE (0.2 MG/ML) 10ML SYG IV PRN ×2 (12:30)
--- NOTE | 2016-11-09 13:19 | RADRPT ---
PROCEDURE: Intraoperative imaging for ERCP with fluoroscopy. CLINICAL INDICATION: Right upper quadrant pain. Intraoperative. TECHNIQUE: 13 images of the right upper quadrant of the abdomen were obtained in the operating tyler m with an image intensifier. No radiologist was in attendance. 2 minutes, 44 seconds of fluoroscop y time was used. COMPARISON: MRCP dated 11/08/2016. FINDINGS: Images demonstrate the endoscope in position. Contrast was injected into the common bile duct and a common bile duct stent was placed. The pancreatic duct was not injected. IMPRESSION: 1. ERCP as described above. RPTAT: QQ .Jamie Strong MD, MD Date Time Electronically viewed and signed by .Jamie Strong MD, on 11/09/2016 13:19 .R/
[2016-11-09] MEDS ORDERED: PROPOFOL 100 ML ONE (13:33)
--- NOTE | 2016-11-09 15:23 | PN ---
Date/Time of Note Date/Time of Note DATE: 11/09/16 TIME: 15:16 Assessment/Plan VTE Prophylaxis VTE Prophylaxis Intervention: SCD's Lines/Catheters IV Catheter Type (from Nrs): Peripheral IV Assessment/Plan Assessment/Plan 1. Possible acute cholecystitis. - per GI -sp ERCP/Stent placement 2. Systemic inflammatory response syndrome with leukocytosis secondary to acute cholecystitis. Continue antibiotics. Will obtain blood cultures to rule out bacteremia. 3. Rule out choledocholithiasis. The patient will undergo MRCP. Dr. Estrella was asked to see patient in gastroenterology consultation. We will ask Dr. Auguste to see patient in general surgery consultation. 4. Hypertension. We will continue the patient on Diovan 5. Hydralazine p.r.n. for systolic blood pressure above 170. 6. Rheumatoid arthritis. Continue methotrexate. 7. Hypoparathyroidism. Continue Synthroid. 8. Hyperlipidemia. Continue statin. 9. Gastritis by history. - Protonix for peptic ulcer disease prophylaxis. 10. Hypokalemia- replet K, am labs 10.Sequential compression device for deep venous thrombosis prophylaxis. Further recommendations based on clinical course. Plan of care discussed with Dr. Shipman. Subjective 24 Hr Interval Summary Eyes: no complaints ENT: no complaints Respiratory: no complaints Cardiovascular: no complaints Gastrointestinal: pain Genitourinary: no complaints Musculoskeletal: no complaints Skin: no complaints Neurologic: no complaints Endocrine: no complaints Lymphatic: no complaints Psychological: no complaints Immunologic: no complaints Exam/Review of Systems Vital Signs Vitals Vital Signs Date Time Temp Pulse Resp B/P Pulse Ox O2 Delivery O2 Flow Rate FiO2 11/09/16 14:01 63 18 156/68 100 Nasal Cannula 2.0 11/09/16 12:13 98.2 Intake and Output 11/08/16 11/08/16 11/09/16 15:00 23:00 07:00 Intake Total 1050 ml 660 ml 800 ml Output Total 2000 ml Balance 1050 ml 660 ml -1200 ml Exam Constitutional: alert, other (sleepy but awakens when called by name.), well developed Psych: nl mood/affect Head: atraumatic Eyes: EOMI, nl sclera ENMT: nl external ears & nose Neck: non-tender Respiratory: clear to auscultation Cardiovascular: nl pulses Gastrointestinal: soft, tender (RUQ tenderness ) Musculoskeletal: nl extremities to inspection Extremities: normal pulses Neurological: BOTTLE PACKING MACHINE CLEANER II-XII intact, other Skin: nl turgor Lymph: nontender Results Result Diagram: 11/09/1652611/09/16526 Results 24 hrs Laboratory Tests Test 11/09/16 05:27 White Blood Count 13.6 #H Red Blood Count 3.40 L Hemoglobin 9.2 L Hematocrit 28.6 L Mean Corpuscular Volume 84.1 Mean Corpuscular Hemoglobin 27.1 L Mean Corpuscular Hemoglobin Concent 32.2 Red Cell Distribution Width 16.3 H Platelet Count 389 Mean Platelet Volume 9.5 Neutrophils % 79.8 H Lymphocytes % 10.1 L Monocytes % 9.0 Eosinophils % 0.4 Basophils % 0.2 Nucleated Red Blood Cells % 0.0 Neutrophils # 10.9 H Lymphocytes # 1.4 Monocytes # 1.2 H Eosinophils # 0.1 Basophils # 0.0 Nucleated Red Blood Cells # 0.0 Sodium Level 138 Potassium Level 3.0 L Chloride Level 106 Carbon Dioxide Level 24 Anion Gap 11 Blood Urea Nitrogen 8 Creatinine 0.47 Glucose Level 142 Calcium Level 7.9 L Medications Medications Current Medications Acetaminophen (Tylenol Supp) 650 mg Q6H PRN [place] fever; Start 11/08/16 at 18:00 Morphine Sulfate (morphine) 1 mg Q4H PRN IV PAIN Last administered on 11/08/16t 21:51; Admin Dose 1 MG; Start 11/08/16 at 18:00 Levothyroxine Sodium (Synthroid) 50 mcg DAILY@06 PO ; Start 11/09/16 at 06:00 Valsartan (Diovan) 160 mg DAILY PO ; Start 11/09/16 at 09:00 Methotrexate (Methotrexate) 2.5 mg DAILY PO ; Start 11/09/16 at 09:00 Miscellaneous Information 1 ea NOTE XX ; Start 11/08/16 at 18:00 Glucose (Glutose) 15 gm Q15M PRN PO DECREASED GLUCOSE; Start 11/08/16 at 18:00 Glucose (Glutose) 22.5 gm Q15M PRN PO DECREASED GLUCOSE; Start 11/08/16 at 18:00 Dextrose (D50w Syringe) 25 ml Q15M PRN IV DECREASED GLUCOSE; Start 11/08/16 at 18:00 Dextrose (D50w Syringe) 50 ml Q15M PRN IV DECREASED GLUCOSE; Start 11/08/16 at 18:00 Glucagon (Glucagen) 1 mg Q15M PRN IM DECREASED GLUCOSE; Start 11/08/16 at 18:00 Glucose 15 gm 15 gm Q15M PRN BUCCAL DECREASED GLUCOSE; Start 11/08/16 at 18:00 Potassium Chloride/Dextrose/ Sod Cl (D5-NS + KCl 20 Meq) 1,000 ml @ 70 mls/hr [id number] IV Last administered on 11/08/16 19:53; Admin Dose 70 MLS/HR; Start 11/08/16 at 18:30 Levothyroxine Sodium (Synthroid Iv) 25 mcg DAILY@06 IV Last administered on 11/09 05:32; Admin Dose 25 MCG; Start 11/09/16 at 06:00; Status Future Hold Hydralazine HCl (Apresoline) 10 mg Q6H PRN IV SBP>170; Start 11/08/16 at 18:30 Ondansetron HCl (Zofran Inj) 4 mg Q6H PRN IV NAUSEA AND/OR VOMITING; Start 11/08 at 18:30 Morphine Sulfate 2 mg 2 mg Q4H PRN IV PAIN; Start 11/08/16 at 18:30 Ceftriaxone Sodium 50 ml @ 100 mls/hr Q24H IVPB Last administered on 11/09/16 09:37; Admin Dose 100 MLS/HR; Start 11/09/16 at 10:00 Metronidazole (Flagyl 500 Mg (Pmx)) 100 ml @ 100 mls/hr Q8 IVPB Last administered on 11/09/16 05:30; Admin Dose 100 MLS/HR; Start 11/08/16 at 22:00 RONEY SAMPSON Nov 09, 2016 15:23
[2016-11-09] MEDS: ONDANSETRON 4 MG INJ IV PRN (15:40)
[2016-11-09] MEDS: AL HYDROX/MG HYDROX/SIMETH 30 ML CUP PO PRN (20:55)
[2016-11-10] MEDS: ONDANSETRON 4 MG INJ IV PRN (00:34)
[2016-11-10] MEDS: AL HYDROX/MG HYDROX/SIMETH 30 ML CUP PO PRN ×3 (03:18→23:51)
[2016-11-10 05:31] LABS: ADD SCAN DIFF NO
[2016-11-10 05:36] LABS: BASOPHILS % 0.3 % (0.0-2.0); EOSINOPHILS # 0.1 10^3/ul (0.0-0.5); EOSINOPHILS % 1.1 % (0.0-7.0); HEMATOCRIT 28.7 % (37.0-47.0); HEMOGLOBIN 9.3 g/dl (12.0-16.0); MEAN CORPUSCULAR HGB CONC 32.4 g/dl (32.0-37.0); MEAN CORPUSCULAR VOLUME 83.2 fl (82.0-101.0); MEAN PLATELET VOLUME 9.5 fl (7.4-10.4); MONOCYTE # 0.9 10^3/ul (0.3-0.9); NEUTROPHILS % 81.2 % (39.0-77.0); PLATELET COUNT 386 10^3/UL (140-415); RED BLOOD COUNT 3.45 10^6/ul (4.20-5.40); RED CELL DISTRIBUTION WIDTH 16.3 % (11.5-14.5)
[2016-11-10] MEDS: metroNIDAZOLE 500 MG/NS (PMX) 100 ML IVPB SCH ×3 (06:00→22:39)
[2016-11-10] MEDS: LEVOTHYROXINE 50 MCG TAB PO SCH (06:00)
[2016-11-10] MEDS: PANTOPRAZOLE (EC) 40 MG TAB PO SCH (06:00)
[2016-11-10 06:16] LABS: POTASSIUM 3.1 mmol/L (3.5-5.1)
[2016-11-10 06:19] LABS: CALCIUM 8.1 mg/dl (8.4-10.2); CREATININE 0.5 mg/dl (0.44-1.00)
[2016-11-10 08:00] VITALS: BP 139/63; RESP 18
[2016-11-10] MEDS ORDERED: POTASSIUM CHLORIDE 250 ML IVPB ONE (08:00)
[2016-11-10] MEDS: METHOTREXATE 2.5 MG TAB PO SCH (09:00)
[2016-11-10] MEDS: VALSARTAN 160 MG TAB PO SCH (09:20)
[2016-11-10] MEDS: ACARBOSE 50 MG TAB PO SCH ×3 (09:20→17:36)
[2016-11-10] MEDS: CEFTRIAXONE 1 GM/50 ML (PMX) 50 ML IVPB SCH (11:08)
[2016-11-10] MEDS: D5-NS + KCL 20 MEQ 1,000 ML IV SCH (13:24)
--- NOTE | 2016-11-10 14:37 | GILP ---
DATE OF PROCEDURE: PROCEDURE: Endoscopic retrograde cholangiopancreatography. PREOPERATIVE DIAGNOSIS: Patient presenting with a history of cholangitis and severe sepsis. Ultras ound and CAT scan showed a dilated gallbladder with pericholecystic fluid and thickening of the gall bladder, a dilated common bile duct up to 9 mm noted. MRCP was not very helpful in this regard. There is evidence of a lack of contrast in the distal part of the CBD. Stone or tumor cannot be exc luded, or a stricture. POSTOPERATIVE DIAGNOSES: 1. Pyobilia. 2. Sludge and pus drained from the common bile duct. A 10 x 7 Bledsoe type of CBD stent was placed. DESCRIPTION OF PROCEDURE: After the informed written consent was obtained, the patient was intubate d by anesthesiologist, Dr. Horta. While the patient was in the prone position the Olympus video side-viewing duodenoscope was inserted into the oropharynx, then into the esophagus, subsequently i nto the stomach, and then into the duodenum. The ampulla was located in the normal location, with n ormal morphology. There is evidence of a large diverticulum noted in the second part of the duodenu m. By using the Dreamtome, cannulation of the common bile duct was performed. There is evidence of no large filling defects noted, although there were some filling defects noted distally which may b e air bubbles or which may be sludge. At this time pus started draining out of the bile duct during this manipulation of the cannulation. At this time no major filling defects were noted in the bile duct. The gallbladder was visualized. A speckled appearance of the gallbladder was noted. This could be cholesterolosis, sludge, or adenomyosis; however, a sphincterotomy was performed. Abou t an 8-mm cut of the ampulla was made by using the cutting wire of the Dreamtome. Following the sph incterotomy the balloon was inserted into the common hepatic duct and balloon sweeping was performed . A large amount of pus was drained from the common bile duct, also mixed with sludge. At the end of multiple sweepings no more filling defects were noted and at this time a 10 x 7 Bledsoe-type of endobiliary prosthesis was inserted into the bile duct, across the ampulla, into the duodenum. Bev tographs were obtained and the procedure was terminated. PLAN: Recommend continued antibiotic therapy and recommend to proceed with a laparoscopic cholecyst ectomy. Dictated By: ARLYN MATIAS MD NC/NTS Conf#: [id number] DID#: [id number] CC: RICK JACKSON MD;*EndCC*
--- NOTE | 2016-11-10 19:09 | PN ---
Date/Time of Note Date/Time of Note DATE: 11/10/16 TIME: 19:08 Assessment/Plan Lines/Catheters IV C[facility]ter Type (from [facility]): Peripheral IV Urinary Cath still in place: No Assessment/Plan Assessment/Plan 1. Possible acute cholecystitis. - per GI -sp ERCP/Stent placement 2. Systemic inflammatory response syndrome with leukocytosis secondary to acute cholecystitis. Continue antibiotics. Will obtain blood cultures to rule out bacteremia. 3. Rule out choledocholithiasis. The patient will undergo MRCP. Dr. Estrella was asked to see patient in gastroenterology consultation. We will ask Dr. Auguste to see patient in general surgery consultation. 4. Hypertension. We will continue the patient on Diovan 5. Hydralazine p.r.n. for systolic blood pressure above 170. 6. Rheumatoid arthritis. Continue methotrexate. 7. Hypoparathyroidism. Continue Synthroid. 8. Hyperlipidemia. Continue statin. 9. Gastritis by history. - Protonix for peptic ulcer disease prophylaxis. 10. Hypokalemia- replet K, am labs 10.Sequential compression device for deep venous thrombosis prophylaxis. Further recommendations based on clinical course. Plan of care discussed with Dr. Shipman. Subjective 24 Hr Interval Summary Eyes: no complaints ENT: no complaints Respiratory: no complaints Cardiovascular: no complaints Gastrointestinal: pain Genitourinary: no complaints Musculoskeletal: no complaints Skin: no complaints Neurologic: no complaints Endocrine: no complaints Lymphatic: no complaints Psychological: no complaints Immunologic: no complaints Exam/Review of Systems Vital Signs Vitals Vital Signs Date Time Temp Pulse Resp B/P Pulse Ox O2 Delivery O2 Flow Rate FiO2 11/10/16 08:00 98.4 79 18 139/63 95 11/09/16 14:01 Nasal Cannula 2.0 Intake and Output 11/09/16 11/09/16 11/10/16 15:00 23:00 07:00 Intake Total 50 ml 750 ml 750 ml Balance 50 ml 750 ml 750 ml Exam Constitutional: alert, oriented Psych: nl mood/affect Head: atraumatic Eyes: EOMI ENMT: nl external ears & nose Neck: non-tender Respiratory: clear to auscultation Cardiovascular: nl pulses Gastrointestinal: soft, tender (diffuse ) Musculoskeletal: nl extremities to inspection Extremities: normal pulses Neurological: nl mental status, nl speech Skin: nl turgor Lymph: nontender Results Result Diagram: 11/10/16 0427 11/10/16 0427 Results 24 hrs Laboratory Tests Test 11/10/16 04:27 White Blood Count 11.0 H Red Blood Count 3.45 L Hemoglobin 9.3 L Hematocrit 28.7 L Mean Corpuscular Volume 83.2 Mean Corpuscular Hemoglobin 27.0 L Mean Corpuscular Hemoglobin Concent 32.4 Red Cell Distribution Width 16.3 H Platelet Count 386 Mean Platelet Volume 9.5 Neutrophils % 81.2 H Lymphocytes % 9.0 L Monocytes % 8.0 Eosinophils % 1.1 Basophils % 0.3 Nucleated Red Blood Cells % 0.0 Neutrophils # 9.0 H Lymphocytes # 1.0 Monocytes # 0.9 Eosinophils # 0.1 Basophils # 0.0 Nucleated Red Blood Cells # 0.0 Sodium Level 139 Potassium Level 3.1 L Chloride Level 106 Carbon Dioxide Level 25 Anion Gap 11 Blood Urea Nitrogen 8 Creatinine 0.50 Glucose Level 144 Calcium Level 8.1 L Medications Medications Current Medications Acetaminophen (Tylenol Supp) 650 mg Q6H PRN [place] fever; Start 11/08/16 at 18:00 Morphine Sulfate (morphine) 1 mg Q4H PRN IV PAIN Last administered on 11/08/16 21:51; Admin Dose 1 MG; Start 11/08/16 at 18:00 Levothyroxine Sodium (Synthroid) 50 mcg DAILY@06 PO Last administered on 06:00; Admin Dose 50 MCG; Start 11/09/16 at 06:00 Valsartan (Diovan) 160 mg DAILY PO Last administered on 11/10/16 09:20; Admin Dose 160 MG; Start 11/09/16 at 09:00 Miscellaneous Information 1 ea NOTE XX ; Start 11/08/16 at 18:00 Glucose (Glutose) 15 gm Q15M PRN PO DECREASED GLUCOSE; Start 11/08/16 at 18:00 Glucose (Glutose) 22.5 gm Q15M PRN PO DECREASED GLUCOSE; Start 11/08/16 at 18:00 Dextrose (D50w Syringe) 25 ml Q15M PRN IV DECREASED GLUCOSE; Start 11/08/16 at 18:00 Dextrose (D50w Syringe) 50 ml Q15M PRN IV DECREASED GLUCOSE; Start 11/08/16 at 18:00 Glucagon (Glucagen) 1 mg Q15M PRN IM DECREASED GLUCOSE; Start 11/08/16 at 18:00 Glucose 15 gm 15 gm Q15M PRN BUCCAL DECREASED GLUCOSE; Start 11/08/16 at 18:00 Potassium Chloride/Dextrose/ Sod Cl (D5-NS + KCl 20 Meq) 1,000 ml @ 70 mls/hr [id number] IV Last administered on 11/09/16 19:33; Admin Dose 70 MLS/HR; Start 11/08/16 at 18:30 Levothyroxine Sodium (Synthroid Iv) 25 mcg DAILY@06 IV Last administered on 11/09 05:32; Admin Dose 25 MCG; Start 11/09/16 at 06:00; Status Future Hold Hydralazine HCl (Apresoline) 10 mg Q6H PRN IV SBP>170; Start 11/08/16 at 18:30 Ondansetron HCl (Zofran Inj) 4 mg Q6H PRN IV NAUSEA AND/OR VOMITING Last administered on 11/10/16 00:34; Admin Dose 4 MG; Start 11/08/16 at 18:30 Morphine Sulfate 2 mg 2 mg Q4H PRN IV PAIN; Start 11/08/16 at 18:30 Ceftriaxone Sodium 50 ml @ 100 mls/hr Q24H IVPB Last administered on 11/10/16 11:08; Admin Dose 100 MLS/HR; Start 11/09/16 at 10:00 Metronidazole (Flagyl 500 Mg (Pmx)) 100 ml @ 100 mls/hr Q8 IVPB Last administered on 11/10/16 15:49; Admin Dose 100 MLS/HR; Start 11/08/16 at 22:00 Pantoprazole (Protonix Tab) 40 mg DAILY@06 PO Last administered on 11/10/16 06: 00; Admin Dose 40 MG; Start 11/10/16 at 06:00 Al Hydrox/Mg Hydrox/Simethicone (Mag-Al Plus) 30 ml Q6H PRN PO GASTROINTESTINAL UPSET Last administered on 11/10/16 09:26; Admin Dose 30 ML; Start 11/09/16 at 21:00 Docusate Sodium (Colace) 100 mg BID PO ; Start 11/10/16 at 21:00 RONEY SAMPSON Nov 10, 2016 19:09
--- NOTE | 2016-11-10 20:35 | PN ---
Date/Time of Note Date/Time of Note DATE: 11/09/16 TIME: 20:29 Assessment/Plan Lines/Catheters IV Catheter Type (from [facility]): Peripheral IV Mera in Place (from [facility]): No Assessment/Plan Chief Complaint/Hosp Course 1. Abdominal pain, & leukocytosis 2nd Cholangitis and ? Cholecystitis ( probably acalculous) s/p ERCP 11/09. -antibiotics -supportive care -lap homero may help but will allow her to become more optimized prior to surgery since acute process relieved by ERCP 2. Sepsis 2nd above. Improving -as above 3. Electrolyte abnormalities with hypokalemia. Please correct with fluid and nutritional management. 4. Hypertension. Continue nutrition and medication optimization. 5. Prediabetes. Continue nutrition and medication optimization. 6. Rheumatoid arthritis, on methotrexate and steroids shots. Continue medical optimization. 7. Hypothyroidism. Continue Synthroid. 8. Hyperlipidemia. Continue diet and medication optimization. 9. History of gastritis. Continue proton pump inhibitor and encourage nutritional and lifestyle optimization. 10. Anemia without evidence of acute blood loss, continue monitoring. Thank you Late entry 11/09 Problems: Subjective 24 Hr Interval Summary s/p ERCP and drainage of pus by Dr. Estrella 11/09. Fevers improved. No chills. No cough. No sz. No rash. No n/v. No cp/sob. Min pain. Exam/Review of Systems Vital Signs Vitals Vital Signs Date Time Temp Pulse Resp B/P Pulse Ox O2 Delivery O2 Flow Rate FiO2 11/10/16 08:00 98.4 79 18 139/63 95 11/09/16 14:01 Nasal Cannula 2.0 Intake and Output 11/09/16 11/09/16 11/10/16 15:00 23:00 07:00 Intake Total 50 ml 750 ml 750 ml Balance 50 ml 750 ml 750 ml Exam Free Text/Dictation GENERAL: No acute distress, however, uncomfortable. HEENT: Pupils equal, reactive. No scleral icterus. Mucous membranes are moist. NECK: Supple, no JVD, no lymphadenopathy. PULMONARY: Normal respiratory effort. No wheezing. HEART: S1, S2 present and regular. ABDOMEN: Soft, min tender in her right upper quadrant without Pickering's. No rebound, no guarding, not rigid, but somewhat distended. EXTREMITIES: No edema. VASCULAR: Cap refill less than 2 seconds. NEUROLOGIC: Alert, oriented, moves all 4 extremities grossly. Results Result Diagram: 11/10/16 0427 11/10/16 0427 RICK JACKSON MD Nov 10, 2016 20:35
--- NOTE | 2016-11-10 20:36 | PN ---
Date/Time of Note Date/Time of Note DATE: 11/10/16 TIME: 20:35 Assessment/Plan Lines/Catheters IV Catheter Type (from [facility]): Peripheral IV Mera in Place (from [facility]): No Assessment/Plan Chief Complaint/Hosp Course 1. Abdominal pain, & leukocytosis 2nd Cholangitis and ? Cholecystitis ( probably acalculous) s/p ERCP 11/09. Improving. -antibiotics -supportive care -patient and daughter not eager for surgery if it can be avoided. since leukocytosis resolving and pain improving, we maybe able to avoid surgery at this point. however, i advised that if not improving or worsening needs to proceed with surgery. i also advised that recommendation is to proceed with surgery at this point based on her clinical picture but once again they prefer to wait since she is improving. 2. Sepsis 2nd above. Improving -as above 3. Electrolyte abnormalities with hypokalemia. Please correct with fluid and nutritional management. 4. Hypertension. Continue nutrition and medication optimization. 5. Prediabetes. Continue nutrition and medication optimization. 6. Rheumatoid arthritis, on methotrexate and steroids shots. Continue medical optimization. 7. Hypothyroidism. Continue Synthroid. 8. Hyperlipidemia. Continue diet and medication optimization. 9. History of gastritis. Continue proton pump inhibitor and encourage nutritional and lifestyle optimization. 10. Anemia without evidence of acute blood loss, continue monitoring. Thank you Problems: Subjective 24 Hr Interval Summary s/p ERCP and drainage of pus by Dr. Estrella 11/09. No f/c. No cough. No sz. No rash. No n/v currently but vomited after ERCP. No cp/sob. Min pain (10>5). Bowel function. Patient and daughter not eager for surgery if it can be avoided. Exam/Review of Systems Vital Signs Vitals Vital Signs Date Time Temp Pulse Resp B/P Pulse Ox O2 Delivery O2 Flow Rate FiO2 11/10/16 21:25 98.4 68 18 181/79 97 11/09/16 14:01 Nasal Cannula 2.0 Intake and Output 11/09/16 11/09/16 11/10/16 15:00 23:00 07:00 Intake Total 50 ml 750 ml 750 ml Balance 50 ml 750 ml 750 ml Exam Free Text/Dictation GENERAL: No acute distress, however, uncomfortable. HEENT: Pupils equal, reactive. No scleral icterus. Mucous membranes are moist. NECK: Supple, no JVD, no lymphadenopathy. PULMONARY: Normal respiratory effort. No wheezing. HEART: S1, S2 present and regular. ABDOMEN: Soft, min tender in her right upper quadrant without Pickering's. No rebound, no guarding, not rigid, but somewhat distended. EXTREMITIES: No edema. VASCULAR: Cap refill less than 2 seconds. NEUROLOGIC: Alert, oriented, moves all 4 extremities grossly. Results Result Diagram: 11/10/16 0427 11/10/16 0427 RICK JACKSON MD Nov 10, 2016 20:36
[2016-11-10 21:25] VITALS: BP 181/79; RESP 18
[2016-11-10] MEDS: hydrALAzine 20 MG INJ IV PRN (22:38)
[2016-11-10] MEDS: DOCUSATE SODIUM 100 MG CAP PO SCH (22:38)
[2016-11-10] MEDS: morphine 2 MG INJ IV PRN (22:39)
[2016-11-10 23:05] VITALS: BP 145/72
[2016-11-11] MEDS: D5-NS + KCL 20 MEQ 1,000 ML IV SCH ×3 (01:12→23:30)
[2016-11-11] MEDS: LEVOTHYROXINE 50 MCG TAB PO SCH (05:29)
[2016-11-11] MEDS: PANTOPRAZOLE (EC) 40 MG TAB PO SCH (05:29)
[2016-11-11] MEDS: metroNIDAZOLE 500 MG/NS (PMX) 100 ML IVPB SCH ×3 (05:29→21:38)
[2016-11-11] MEDS: ACARBOSE 50 MG TAB PO SCH ×3 (07:35→18:10)
[2016-11-11] MEDS: DOCUSATE SODIUM 100 MG CAP PO SCH ×2 (08:17→20:42)
[2016-11-11] MEDS: ONDANSETRON 4 MG INJ IV PRN ×3 (08:17→21:28)
[2016-11-11] MEDS: VALSARTAN 160 MG TAB PO SCH (08:17)
[2016-11-11 08:42] VITALS: BP 164/76; RESP 18
[2016-11-11 09:27] LABS: ADD SCAN DIFF NO
[2016-11-11 09:33] LABS: BASOPHILS % 0.4 % (0.0-2.0); EOSINOPHILS # 0.2 10^3/ul (0.0-0.5); EOSINOPHILS % 1.9 % (0.0-7.0); HEMATOCRIT 31.1 % (37.0-47.0); HEMOGLOBIN 9.9 g/dl (12.0-16.0); LYMPHOCYTES # 1.3 10^3/ul (0.8-2.9); LYMPHOCYTES % 12.6 % (15.0-51.0); MEAN CORPUSCULAR HEMOGLOBIN 26.5 pg (29.0-33.0); MEAN CORPUSCULAR HGB CONC 31.8 g/dl (32.0-37.0); MEAN CORPUSCULAR VOLUME 83.4 fl (82.0-101.0); MEAN PLATELET VOLUME 8.9 fl (7.4-10.4); MONOCYTE # 0.8 10^3/ul (0.3-0.9); MONOCYTES % 7.8 % (0.0-11.0); NEUTROPHIL # 7.6 10^3/ul (1.6-7.5); NEUTROPHILS % 76.1 % (39.0-77.0); PLATELET COUNT 472 10^3/UL (140-415); RED BLOOD COUNT 3.73 10^6/ul (4.20-5.40); RED CELL DISTRIBUTION WIDTH 16.5 % (11.5-14.5)
[2016-11-11 09:42] LABS: CALCIUM 8.4 mg/dl (8.4-10.2); CREATININE 0.45 mg/dl (0.44-1.00); MAGNESIUM 2.2 mg/dl (1.7-2.5); POTASSIUM 3.7 mmol/L (3.5-5.1)
--- NOTE | 2016-11-11 11:06 | PN ---
DATE: 11/11/2016 COMPLAINT: At this time she has minimal right upper quadrant pain, no nausea, no vomiting, no fever , no jaundice at this time. No diarrhea, no GI bleeding. PHYSICAL EXAMINATION: GENERAL: The patient appears to be well, not in distress. VITAL SIGNS: Show pulse is 75, blood pressure is 164/76. ABDOMEN: Nontender, nondistended. LABORATORY: WBC is 10,000. CLINICAL IMPRESSION: The patient improving from the cholangitis. The patient has a cholecystitis. PLAN: Cholecystectomy is as per surgeon. Dictated By: ARLYN MATIAS MD NC/NTS Conf#: [id number] DID#: [id number] CC: ARLYN MATIAS MD;*EndCC*
[2016-11-11] MEDS: hydrALAzine 20 MG INJ IV PRN ×2 (11:44→20:56)
[2016-11-11] MEDS: CEFTRIAXONE 1 GM/50 ML (PMX) 50 ML IVPB SCH (11:44)
[2016-11-11 11:58] LABS: ALBUMIN 2.8 g/dl (3.3-4.9); BILIRUBIN,INDIRECT 0.2 mg/dl (0-1.1); BILIRUBIN,TOTAL 0.2 mg/dl (0.2-1.3); TOTAL PROTEIN 5.9 g/dl (6.1-8.1)
[2016-11-11] MEDS: INSULIN ASPART [NOVOLOG] 3 ML PEN SC SCH ×3 (12:00→21:00)
--- NOTE | 2016-11-11 12:18 | PN ---
Date/Time of Note Date/Time of Note DATE: 11/11/16 TIME: 12:17 Assessment/Plan Lines/Catheters IV Catheter Type (from Nrs): Peripheral IV Mera in Place (from Nrs): No Assessment/Plan Chief Complaint/Hosp Course 1. Abdominal pain, & leukocytosis 2nd Cholangitis and ? Cholecystitis ( probably acalculous) s/p ERCP 11/09. Improving. -antibiotics -supportive care -patient and daughter not eager for surgery if it can be avoided. since leukocytosis resolving and pain improving, we maybe able to avoid surgery at this point. however, i advised that if not improving or worsening needs to proceed with surgery. i also advised that recommendation is to proceed with surgery at this point based on her clinical picture but once again they prefer to wait since she is improving. 2. Sepsis 2nd above. Improved -as above 3. Electrolyte abnormalities with hypokalemia. Please correct with fluid and nutritional management. 4. Hypertension. Continue nutrition and medication optimization. 5. Prediabetes. Continue nutrition and medication optimization. 6. Rheumatoid arthritis, on methotrexate and steroids shots. Continue medical optimization. 7. Hypothyroidism. Continue Synthroid. 8. Hyperlipidemia. Continue diet and medication optimization. 9. History of gastritis. Continue proton pump inhibitor and encourage nutritional and lifestyle optimization. 10. Anemia without evidence of acute blood loss, continue monitoring. Thank you Problems: Subjective 24 Hr Interval Summary Feels better overall and prefers to avoid surgery at this time. s/p ERCP and drainage of pus by Dr. Estrella 11/09. No f/c. No cough. No sz. No rash. No n/ v. No cp/sob. Min pain (10>3 or 4). Bowel function. Exam/Review of Systems Vital Signs Vitals Vital Signs Date Time Temp Pulse Resp B/P Pulse Ox O2 Delivery O2 Flow Rate FiO2 11/11/16 08:42 98.1 75 18 164/76 98 11/09/16 14:01 Nasal Cannula 2.0 Intake and Output 11/10/16 11/10/16 11/11/16 15:00 23:00 07:00 Intake Total 300 ml 1440 ml 1340 ml Balance 300 ml 1440 ml 1340 ml Results Result Diagram: 11/11/16 0910 11/11/16 0910 RICK JACKSON MD Nov 11, 2016 12:18
[2016-11-11] MEDS: CHOLECALCIFEROL 2,000 UNIT CAP PO SCH (12:46)
--- NOTE | 2016-11-11 20:38 | DES ---
Date/Time of Note Date/Time of Note DATE: 11/11/16 TIME: 20:38 Discharge/ Summary Admission/Discharge Info Admit Date/Time Nov 08, 2016 at 11:04 Discharge Date/Time Hospital Course 1. Abdominal pain, & leukocytosis 2nd Cholangitis and ? Cholecystitis ( probably acalculous) s/p ERCP 11/09. Improving. -antibiotics -supportive care -patient and daughter not eager for surgery if it can be avoided. since leukocytosis resolving and pain improving, we maybe able to avoid surgery at this point. however, i advised that if not improving or worsening needs to proceed with surgery. i also advised that recommendation is to proceed with surgery at this point based on her clinical picture but once again they prefer to wait since she is improving. 2. Sepsis 2nd above. Improved -as above 3. Electrolyte abnormalities with hypokalemia. Please correct with fluid and nutritional management. 4. Hypertension. Continue nutrition and medication optimization. 5. Prediabetes. Continue nutrition and medication optimization. 6. Rheumatoid arthritis, on methotrexate and steroids shots. Continue medical optimization. 7. Hypothyroidism. Continue Synthroid. 8. Hyperlipidemia. Continue diet and medication optimization. 9. History of gastritis. Continue proton pump inhibitor and encourage nutritional and lifestyle optimization. 10. Anemia without evidence of acute blood loss, continue monitoring. Thank you Pending Labs/Cultures Laboratory Tests Test 11/11/16 09:10 11/11/16 12:18 11/11/16 17:27 White Blood Count 10.010^3/ul (4.8-10.8) Red Blood Count 3.7310^6/ul (4.20-5.40) Hemoglobin 9.9g/dl (12.0-16.0) Hematocrit 31.1% (37.0-47.0) Mean Corpuscular Volume 83.4fl (82.0-101.0) Mean Corpuscular Hemoglobin 26.5pg (29.0-33.0) Mean Corpuscular Hemoglobin Concent 31.8g/dl (32.0-37.0) Red Cell Distribution Width 16.5% (11.5-14.5) Platelet Count 80687^3/UL (140-415) Mean Platelet Volume 8.9fl (7.4-10.4) Neutrophils % 76.1% (39.0-77.0) Lymphocytes % 12.6% (15.0-51.0) Monocytes % 7.8% (0.0-11.0) Eosinophils % 1.9% (0.0-7.0) Basophils % 0.4% (0.0-2.0) Nucleated Red Blood Cells % 0.0/100WBC (0.0-0.0) Neutrophils # 7.610^3/ul (1.6-7.5) Lymphocytes # 1.310^3/ul (0.8-2.9) Monocytes # 0.810^3/ul (0.3-0.9) Eosinophils # 0.210^3/ul (0.0-0.5) Basophils # 0.010^3/ul (0.0-0.1) Nucleated Red Blood Cells # 0.010^3/ul (0.0-0.0) Sodium Level 133mmol/L (135-144) Potassium Level 3.7mmol/L (3.5-5.1) Chloride Level 107mmol/L (97-110) Carbon Dioxide Level 23mmol/L (21-31) Anion Gap 7 (8-16) Blood Urea Nitrogen 6mg/dl (7-20) Creatinine 0.45mg/dl (0.44-1.00) Glucose Level 152mg/dl (70-220) Calcium Level 8.4mg/dl (8.4-10.2) Magnesium Level 2.2mg/dl (1.7-2.5) Total Bilirubin 0.2mg/dl (0.2-1.3) Direct Bilirubin 0.00mg/dl (0.00-0.20) Indirect Bilirubin 0.2mg/dl (0-1.1) Aspartate Amino Transf (AST/SGOT) 29IU/L (15-46) Alanine Aminotransferase (ALT/SGPT) 90IU/L (13-69) Alkaline Phosphatase 238IU/L (42-121) Total Protein 5.9g/dl (6.1-8.1) Albumin 2.8g/dl (3.3-4.9) Bedside Glucose 171mg/dL (70-220) 133mg/dL (70-220) RONEY SAMPSON Nov 11, 2016 20:38
--- NOTE | 2016-11-11 20:38 | PN ---
Date/Time of Note Date/Time of Note DATE: 11/11/16 TIME: 20:36 Assessment/Plan VTE Prophylaxis VTE Prophylaxis Intervention: SCD's Lines/Catheters IV C[facility] Type [facility] Peripheral IV Urinary Cath still in place: No Assessment/Plan Assessment/Plan 1. Possible acute cholecystitis. - per GI -sp ERCP/Stent placement 2. Systemic inflammatory response syndrome with leukocytosis secondary to acute cholecystitis. Continue antibiotics. Will obtain blood cultures to rule out bacteremia. 3. Rule out choledocholithiasis. The patient will undergo MRCP. Dr. Estrella was asked to see patient in gastroenterology consultation. We will ask Dr. Auguste to see patient in general surgery consultation. 4. Hypertension. We will continue the patient on Diovan 5. Hydralazine p.r.n. for systolic blood pressure above 170. 6. Rheumatoid arthritis. Continue methotrexate. 7. Hypoparathyroidism. Continue Synthroid. 8. Hyperlipidemia. Continue statin. 9. Gastritis by history. - Protonix for peptic ulcer disease prophylaxis. 10. Hypokalemia- resolved 10.Sequential compression device for deep venous thrombosis prophylaxis. Further recommendations based on clinical Subjective 24 Hr Interval Summary Constitutional: improved Eyes: no complaints ENT: no complaints Respiratory: no complaints Cardiovascular: no complaints Gastrointestinal: pain Genitourinary: no complaints Musculoskeletal: no complaints Skin: no complaints Neurologic: no complaints Endocrine: no complaints Lymphatic: no complaints Psychological: no complaints Immunologic: no complaints Exam/Review of Systems Vital Signs Vitals Vital Signs Date Time Temp Pulse Resp B/P Pulse Ox O2 Delivery O2 Flow Rate FiO2 11/11/16 08:42 98.1 75 18 164/76 98 11/09/16 14:01 Nasal Cannula 2.0 Intake and Output 11/10/16 11/10/16 11/11/16 15:00 23:00 07:00 Intake Total 300 ml 1440 ml 1340 ml Balance 300 ml 1440 ml 1340 ml Exam Constitutional: alert, well developed Psych: nl mood/affect Head: atraumatic Eyes: EOMI ENMT: nl external ears & nose Neck: supple Cardiovascular: nl pulses Gastrointestinal: non-tender, soft Musculoskeletal: nl extremities to inspection Extremities: normal pulses Neurological: nl mental status, nl speech Skin: nl turgor Lymph: nontender Results Result Diagram: 11/11/16 0910 11/11/16 0910 Results 24 hrs Laboratory Tests Test 11/11/16 09:10 11/11/16 12:18 11/11/16 17:27 White Blood Count 10.0 Red Blood Count 3.73 L Hemoglobin 9.9 L Hematocrit 31.1 L Mean Corpuscular Volume 83.4 Mean Corpuscular Hemoglobin 26.5 L Mean Corpuscular Hemoglobin Concent 31.8 L Red Cell Distribution Width 16.5 H Platelet Count 472 #H Mean Platelet Volume 8.9 Neutrophils % 76.1 Lymphocytes % 12.6 L Monocytes % 7.8 Eosinophils % 1.9 Basophils % 0.4 Nucleated Red Blood Cells % 0.0 Neutrophils # 7.6 H Lymphocytes # 1.3 Monocytes # 0.8 Eosinophils # 0.2 Basophils # 0.0 Nucleated Red Blood Cells # 0.0 Sodium Level 133 L Potassium Level 3.7 Chloride Level 107 Carbon Dioxide Level 23 Anion Gap 7 L Blood Urea Nitrogen 6 L Creatinine 0.45 Glucose Level 152 Calcium Level 8.4 Magnesium Level 2.2 Total Bilirubin 0.2 Direct Bilirubin 0.00 Indirect Bilirubin 0.2 Aspartate Amino Transf (AST/SGOT) 29 Alanine Aminotransferase (ALT/SGPT) 90 H Alkaline Phosphatase 238 H Total Protein 5.9 L Albumin 2.8 L Bedside Glucose 171 133 Medications Medications Current Medications Acetaminophen (Tylenol Supp) 650 mg Q6H PRN [place] fever; Start 11/08/16 at 18:00 Morphine Sulfate (morphine) 1 mg Q4H PRN IV PAIN Last administered on 11/10/16 22:39; Admin Dose 1 MG; Start 11/08/16 at 18:00 Levothyroxine Sodium (Synthroid) 50 mcg DAILY@06 PO Last administered on 05:29; Admin Dose 50 MCG; Start 11/09/16 at 06:00 Valsartan (Diovan) 160 mg DAILY PO Last administered on 11/11/16 08:17; Admin Dose 160 MG; Start 11/09/16 at 09:00 Miscellaneous Information 1 ea NOTE XX ; Start 11/08/16 at 18:00 Glucose (Glutose) 15 gm Q15M PRN PO DECREASED GLUCOSE; Start 11/08/16 at 18:00 Glucose (Glutose) 22.5 gm Q15M PRN PO DECREASED GLUCOSE; Start 11/08/16 at 18:00 Dextrose (D50w Syringe) 25 ml Q15M PRN IV DECREASED GLUCOSE; Start 11/08/16 at 18:00 Dextrose (D50w Syringe) 50 ml Q15M PRN IV DECREASED GLUCOSE; Start 11/08/16 at 18:00 Glucagon (Glucagen) 1 mg Q15M PRN IM DECREASED GLUCOSE; Start 11/08/16 at 18:00 Glucose 15 gm 15 gm Q15M PRN BUCCAL DECREASED GLUCOSE; Start 11/08/16 at 18:00 Potassium Chloride/Dextrose/ Sod Cl (D5-NS + KCl 20 Meq) 1,000 ml @ 70 mls/hr [id number] IV Last administered on 11/11/16 01:12; Admin Dose 70 MLS/HR; Start at 18:30 Levothyroxine Sodium (Synthroid Iv) 25 mcg DAILY@06 IV Last administered on 11/09 05:32; Admin Dose 25 MCG; Start 11/09/16 at 06:00; Status Future Hold Hydralazine HCl (Apresoline) 10 mg Q6H PRN IV SBP>170 Last administered on 11/11 11:44; Admin Dose 10 MG; Start 11/08/16 at 18:30 Ondansetron HCl (Zofran Inj) 4 mg Q6H PRN IV NAUSEA AND/OR VOMITING Last administered on 11/11/16 18:10; Admin Dose 4 MG; Start 11/08/16 at 18:30 Morphine Sulfate 2 mg 2 mg Q4H PRN IV PAIN; Start 11/08/16 at 18:30 Ceftriaxone Sodium 50 ml @ 100 mls/hr Q24H IVPB Last administered on 11:44; Admin Dose 100 MLS/HR; Start 11/09/16 at 10:00 Metronidazole (Flagyl 500 Mg (Pmx)) 100 ml @ 100 mls/hr Q8 IVPB Last administered on 11/11/16 15:18; Admin Dose 100 MLS/HR; Start 11/08/16 at 22:00 Pantoprazole (Protonix Tab) 40 mg DAILY@06 PO Last administered on 11/11/16 05 :29; Admin Dose 40 MG; Start 11/10/16 at 06:00 Al Hydrox/Mg Hydrox/Simethicone (Mag-Al Plus) 30 ml Q6H PRN PO GASTROINTESTINAL UPSET Last administered on 11/10/16 23:51; Admin Dose 30 ML; Start 11/09/16 at 21:00 Docusate Sodium (Colace) 100 mg BID PO Last administered on 11/11/16 08:17; Admin Dose 100 MG; Start 11/10/16 at 21:00 Atorvastatin Calcium (Lipitor) 80 mg HS PO ; Start 11/11/16 at 21:00 Diagnostic Test (Pha) (Accu-Chek) 1 ea 02 XX ; Start 11/12/16 at 02:00 Cholecalciferol (Vitamin D) 4,000 unit DAILY PO Last administered on 11/11/16 12:46; Admin Dose 4,000 UNIT; Start 11/11/16 at 12:00 RONEY SAMPSON Nov 11, 2016 20:38
[2016-11-11] MEDS: ATORVASTATIN 80 MG TAB PO SCH (20:42)
[2016-11-11 20:48] VITALS: BP 178/76; RESP 19
[2016-11-11 21:34] VITALS: BP 149/74
[2016-11-12] MEDS: ACCU-CHEK XX SCH (02:00)
[2016-11-12] MEDS: LEVOTHYROXINE 50 MCG TAB PO SCH (06:07)
[2016-11-12] MEDS: metroNIDAZOLE 500 MG/NS (PMX) 100 ML IVPB SCH ×3 (06:07→21:36)
[2016-11-12] MEDS: PANTOPRAZOLE (EC) 40 MG TAB PO SCH (06:07)
[2016-11-12] MEDS: INSULIN ASPART [NOVOLOG] 3 ML PEN SC SCH ×5 (07:57→21:00)
[2016-11-12] MEDS: DOCUSATE SODIUM 100 MG CAP PO SCH ×2 (08:00→21:33)
[2016-11-12] MEDS: CHOLECALCIFEROL 2,000 UNIT CAP PO SCH (08:00)
[2016-11-12] MEDS: ONDANSETRON 4 MG INJ IV PRN (08:00)
[2016-11-12] MEDS: VALSARTAN 160 MG TAB PO SCH (08:01)
[2016-11-12] MEDS: ACARBOSE 50 MG TAB PO SCH ×3 (08:01→17:50)
[2016-11-12 08:23] VITALS: BP 164/74; RESP 18
--- NOTE | 2016-11-12 10:16 | RADRPT ---
Vent Rate: 71 bpm RR Interval: 0 msec FL Interval: 150 msec QRS Duration: 90 msec QT Interval: 398 msec QTC Interval: 432 msec P-R-T [place]: 50 - 7 - 31 degrees Normal sinus rhythm Inverted T in V3 Abnormal ECG Electronically Signed By: Tiago Adams [id number]
[2016-11-12] MEDS: CEFTRIAXONE 1 GM/50 ML (PMX) 50 ML IVPB SCH (10:37)
[2016-11-12 11:20] LABS: ADD SCAN DIFF NO
[2016-11-12 11:24] LABS: BASOPHIL # 0.1 10^3/ul (0.0-0.1); BASOPHILS % 0.6 % (0.0-2.0); EOSINOPHILS # 0.2 10^3/ul (0.0-0.5); EOSINOPHILS % 2.1 % (0.0-7.0); HEMATOCRIT 31.5 % (37.0-47.0); HEMOGLOBIN 10.1 g/dl (12.0-16.0); LYMPHOCYTES # 1.6 10^3/ul (0.8-2.9); LYMPHOCYTES % 15.4 % (15.0-51.0); MEAN CORPUSCULAR HEMOGLOBIN 26.9 pg (29.0-33.0); MEAN CORPUSCULAR HGB CONC 32.1 g/dl (32.0-37.0); MEAN CORPUSCULAR VOLUME 83.8 fl (82.0-101.0); MEAN PLATELET VOLUME 9.1 fl (7.4-10.4); MONOCYTE # 0.9 10^3/ul (0.3-0.9); MONOCYTES % 8.9 % (0.0-11.0); NEUTROPHIL # 7.3 10^3/ul (1.6-7.5); NEUTROPHILS % 70.2 % (39.0-77.0); PLATELET COUNT 539 10^3/UL (140-415); RED BLOOD COUNT 3.76 10^6/ul (4.20-5.40); WHITE BLOOD COUNT 10.3 10^3/ul (4.8-10.8)
[2016-11-12 11:49] LABS: CALCIUM 8.6 mg/dl (8.4-10.2); CREATININE 0.47 mg/dl (0.44-1.00); POTASSIUM 3.8 mmol/L (3.5-5.1)
[2016-11-12] MEDS: D5-NS + KCL 20 MEQ 1,000 ML IV SCH (17:50)
--- NOTE | 2016-11-12 19:17 | PN ---
Date/Time of Note Date/Time of Note DATE: 11/12/16 TIME: 19:16 Assessment/Plan Lines/Catheters IV Catheter Type (from [facility]): Peripheral IV Mera in Place (from [facility]): No Assessment/Plan Chief Complaint/Hosp Course 1. Abdominal pain, & leukocytosis 2nd Cholangitis and ? Cholecystitis ( probably acalculous) s/p ERCP 11/09. Improved -antibiotics -supportive care -dc planning ok from surgical standpoint > f/u as outpt for possible elective cholecystectomy -she had to f/u with dr ba for stent removal 2. Sepsis 2nd above. Resolved. -as above 3. Electrolyte abnormalities with hypokalemia. Please correct with fluid and nutritional management. 4. Hypertension. Continue nutrition and medication optimization. 5. Prediabetes. Continue nutrition and medication optimization. 6. Rheumatoid arthritis, on methotrexate and steroids shots. Continue medical optimization. 7. Hypothyroidism. Continue Synthroid. 8. Hyperlipidemia. Continue diet and medication optimization. 9. History of gastritis. Continue proton pump inhibitor and encourage nutritional and lifestyle optimization. 10. Anemia without evidence of acute blood loss, continue monitoring. Thank you Problems: Subjective 24 Hr Interval Summary Pain resolved. Feels great. No f/c. No cough. No sz. No rash. No n/v. No cp/sob. Bowel function. Exam/Review of Systems Vital Signs Vitals Vital Signs Date Time Temp Pulse Resp B/P Pulse Ox O2 Delivery O2 Flow Rate FiO2 11/12/16 08:23 98.3 77 18 164/74 96 11/09/16 14:01 Nasal Cannula 2.0 Intake and Output 11/11/16 11/11/16 11/12/16 15:00 23:00 07:00 Intake Total 50 ml 1210 ml 740 ml Balance 50 ml 1210 ml 740 ml Exam Free Text/Dictation GENERAL: No acute distress, however, uncomfortable. HEENT: Pupils equal, reactive. No scleral icterus. Mucous membranes are moist. NECK: Supple, no JVD, no lymphadenopathy. PULMONARY: Normal respiratory effort. No wheezing. HEART: S1, S2 present and regular. ABDOMEN: Soft, NT. No rebound, no guarding, not rigid EXTREMITIES: No edema. VASCULAR: Cap refill less than 2 seconds. NEUROLOGIC: Alert, oriented, moves all 4 extremities grossly. Results Result Diagram: 11/12/16 1043 11/12/16 1043 RICK JACKSON MD Nov 12, 2016 19:17 RICK JACKSON MD Nov 12, 2016 19:17
--- NOTE | 2016-11-12 19:25 | PN ---
DATE: SUBJECTIVE: The patient feels better, less abdominal pain, vomited this morning, but she was able t o keep the lunch. She has been eating food at this time, no history of GI bleeding, no fever. PHYSICAL EXAMINATION: VITAL SIGNS: Temperature 98.3. Pulse is 77, blood pressure 164/74. CARDIOVASCULAR: Normal heart sounds. RESPIRATORY: Normal breath sounds. ABDOMEN: Shows soft abdomen. LABORATORY WORKUP: WBC count 10,300, hemoglobin 10.1, potassium 3.8. The AST is 29, ALT 90. Alkal ine phosphatase is 238. CLINICAL IMPRESSION: The patient presenting with history of status post ERCP, stent placement . White count improved to 10,300. Liver function shows some cholangitis. The patient has acute ch olecystitis as well. PLAN: At this time, the patient's family is reluctant to have any surgery for gallbladder removal. We will continue present management with antibiotics. Dictated By: ARLYN PAGE/HERACLIO Conf#: [id number] DID#: [id number]
[2016-11-12] MEDS: ATORVASTATIN 80 MG TAB PO SCH (21:00)
[2016-11-12 21:29] VITALS: BP 174/77; RESP 20
--- NOTE | 2016-11-12 21:33 | PN ---
Date/Time of Note Date/Time of Note DATE: 11/12/16 TIME: 21:32 Assessment/Plan VTE Prophylaxis VTE Prophylaxis Intervention: SCD's Lines/Catheters IV C[facility]ter Type (from [facility]): Peripheral IV Urinary Cath still in place: No Assessment/Plan Assessment/Plan 1. Possible acute cholecystitis. - per GI -sp ERCP/Stent placement 2. Systemic inflammatory response syndrome with leukocytosis secondary to acute cholecystitis. Continue antibiotics. Will obtain blood cultures to rule out bacteremia. 3. Rule out choledocholithiasis. The patient will undergo MRCP. Dr. Estrella was asked to see patient in gastroenterology consultation. We will ask Dr. Auguste to see patient in general surgery consultation. 4. Hypertension. We will continue the patient on Diovan 5. Hydralazine p.r.n. for systolic blood pressure above 170. 6. Rheumatoid arthritis. Continue methotrexate. 7. Hypoparathyroidism. Continue Synthroid. 8. Hyperlipidemia. Continue statin. 9. Gastritis by history. - Protonix for peptic ulcer disease prophylaxis. 10. Hypokalemia- resolved 10.Sequential compression device for deep venous thrombosis prophylaxis. Further recommendations based on clinical Subjective 24 Hr Interval Summary Free Text/Dictation nad, up in bed, family at bed side. dw staff. Constitutional: improved Eyes: no complaints ENT: no complaints Respiratory: no complaints Cardiovascular: no complaints Gastrointestinal: no complaints, other (feels better) Genitourinary: no complaints Musculoskeletal: no complaints Skin: no complaints Neurologic: no complaints Endocrine: no complaints Lymphatic: no complaints Psychological: no complaints Immunologic: no complaints Exam/Review of Systems Vital Signs Vitals Vital Signs Date Time Temp Pulse Resp B/P Pulse Ox O2 Delivery O2 Flow Rate FiO2 11/12/16 21:29 98.0 76 20 174/77 98 11/09/16 14:01 Nasal Cannula 2.0 Intake and Output 11/11/16 11/11/16 11/12/16 15:00 23:00 07:00 Intake Total 50 ml 1210 ml 740 ml Balance 50 ml 1210 ml 740 ml Exam Constitutional: alert, oriented, well developed Psych: nl mood/affect Head: atraumatic Eyes: EOMI, PERRL, nl sclera ENMT: nl external ears & nose Neck: non-tender Respiratory: normal air movement Cardiovascular: nl pulses Gastrointestinal: non-tender, soft Musculoskeletal: nl extremities to inspection Neurological: nl mental status, nl speech Skin: nl turgor Lymph: nontender Results Result Diagram: 11/12/16 1043 11/12/16 1043 Results 24 hrs Laboratory Tests Test 11/12/16 07:53 11/12/16 10:43 11/12/16 11:58 11/12/16 16:26 Bedside Glucose 128 147 145 White Blood Count 10.3 Red Blood Count 3.76 L Hemoglobin 10.1 L Hematocrit 31.5 L Mean Corpuscular Volume 83.8 Mean Corpuscular Hemoglobin 26.9 L Mean Corpuscular Hemoglobin Concent 32.1 Red Cell Distribution Width 17.0 H Platelet Count 539 H Mean Platelet Volume 9.1 Neutrophils % 70.2 Lymphocytes % 15.4 Monocytes % 8.9 Eosinophils % 2.1 Basophils % 0.6 Nucleated Red Blood Cells % 0.0 Neutrophils # 7.3 Lymphocytes # 1.6 Monocytes # 0.9 Eosinophils # 0.2 Basophils # 0.1 Nucleated Red Blood Cells # 0.0 Sodium Level 134 L Potassium Level 3.8 Chloride Level 106 Carbon Dioxide Level 23 Anion Gap 9 Blood Urea Nitrogen 6 L Creatinine 0.47 Glucose Level 141 Calcium Level 8.6 Medications Medications Current Medications Acetaminophen (Tylenol Supp) 650 mg Q6H PRN [place] fever; Start 11/08/16 at 18:00 Morphine Sulfate (morphine) 1 mg Q4H PRN IV PAIN Last administered on 11/10/16 22:39; Admin Dose 1 MG; Start 11/08/16 at 18:00 Levothyroxine Sodium (Synthroid) 50 mcg DAILY@06 PO Last administered on 06:07; Admin Dose 50 MCG; Start 11/09/16 at 06:00 Valsartan (Diovan) 160 mg DAILY PO Last administered on 11/12/16 08:01; Admin Dose 160 MG; Start 11/09/16 at 09:00 Miscellaneous Information 1 ea NOTE XX ; Start 11/08/16 at 18:00 Glucose (Glutose) 15 gm Q15M PRN PO DECREASED GLUCOSE; Start 11/08/16 at 18:00 Glucose (Glutose) 22.5 gm Q15M PRN PO DECREASED GLUCOSE; Start 11/08/16 at 18:00 Dextrose (D50w Syringe) 25 ml Q15M PRN IV DECREASED GLUCOSE; Start 11/08/16 at 18:00 Dextrose (D50w Syringe) 50 ml Q15M PRN IV DECREASED GLUCOSE; Start 11/08/16 at 18:00 Glucagon (Glucagen) 1 mg Q15M PRN IM DECREASED GLUCOSE; Start 11/08/16 at 18:00 Glucose 15 gm 15 gm Q15M PRN BUCCAL DECREASED GLUCOSE; Start 11/08/16 at 18:00 Potassium Chloride/Dextrose/ Sod Cl (D5-NS + KCl 20 Meq) 1,000 ml @ 70 mls/hr [id number] IV Last administered on 11/12/16 17:50; Admin Dose 70 MLS/HR; Start at 18:30 Levothyroxine Sodium (Synthroid Iv) 25 mcg DAILY@06 IV Last administered on 11/09 05:32; Admin Dose 25 MCG; Start 11/09/16 at 06:00; Status Future Hold Hydralazine HCl (Apresoline) 10 mg Q6H PRN IV SBP>170 Last administered on 11/11 20:56; Admin Dose 10 MG; Start 11/08/16 at 18:30 Ondansetron HCl (Zofran Inj) 4 mg Q6H PRN IV NAUSEA AND/OR VOMITING Last administered on 11/12/16 08:00; Admin Dose 4 MG; Start 11/08/16 at 18:30 Morphine Sulfate 2 mg 2 mg Q4H PRN IV PAIN; Start 11/08/16 at 18:30 Ceftriaxone Sodium 50 ml @ 100 mls/hr Q24H IVPB Last administered on 10:37; Admin Dose 100 MLS/HR; Start 11/09/16 at 10:00 Metronidazole (Flagyl 500 Mg (Pmx)) 100 ml @ 100 mls/hr Q8 IVPB Last administered on 11/12/16 13:27; Admin Dose 100 MLS/HR; Start 11/08/16 at 22:00 Pantoprazole (Protonix Tab) 40 mg DAILY@06 PO Last administered on 11/12/16 06 :07; Admin Dose 40 MG; Start 11/10/16 at 06:00 Al Hydrox/Mg Hydrox/Simethicone (Mag-Al Plus) 30 ml Q6H PRN PO GASTROINTESTINAL UPSET Last administered on 11/10/16 23:51; Admin Dose 30 ML; Start 11/09/16 at 21:00 Docusate Sodium (Colace) 100 mg BID PO Last administered on 11/12/16 08:00; Admin Dose 100 MG; Start 11/10/16 at 21:00 Atorvastatin Calcium (Lipitor) 80 mg HS PO Last administered on 11/11/16 20:42 ; Admin Dose 80 MG; Start 11/11/16 at 21:00 Diagnostic Test (Pha) (Accu-Chek) 1 ea 02 XX ; Start 11/12/16 at 02:00 Cholecalciferol (Vitamin D) 4,000 unit DAILY PO Last administered on 11/12/16 08:00; Admin Dose 4,000 UNIT; Start 11/11/16 at 12:00 ORNEY SAMPSON Nov 12, 2016 21:33
[2016-11-12 22:00] VITALS: BP 148/70
[2016-11-13] MEDS: ACCU-CHEK XX SCH (02:00)
[2016-11-13] MEDS: metroNIDAZOLE 500 MG/NS (PMX) 100 ML IVPB SCH (06:00)
[2016-11-13] MEDS: PANTOPRAZOLE (EC) 40 MG TAB PO SCH (06:01)
[2016-11-13] MEDS: LEVOTHYROXINE 50 MCG TAB PO SCH (06:01)
[2016-11-13 07:35] VITALS: BP 152/68; RESP 20
[2016-11-13] MEDS: INSULIN ASPART [NOVOLOG] 3 ML PEN SC SCH ×2 (08:00→12:00)
[2016-11-13] MEDS: CHOLECALCIFEROL 2,000 UNIT CAP PO SCH (08:07)
[2016-11-13] MEDS: ACARBOSE 50 MG TAB PO SCH ×2 (08:07→12:34)
[2016-11-13] MEDS: VALSARTAN 160 MG TAB PO SCH (08:07)
[2016-11-13] MEDS: DOCUSATE SODIUM 100 MG CAP PO SCH (08:08)
[2016-11-13 09:42] LABS: ADD SCAN DIFF NO
[2016-11-13 09:46] LABS: BASOPHIL # 0.1 10^3/ul (0.0-0.1); BASOPHILS % 0.7 % (0.0-2.0); EOSINOPHILS # 0.3 10^3/ul (0.0-0.5); EOSINOPHILS % 2.6 % (0.0-7.0); HEMATOCRIT 34.4 % (37.0-47.0); HEMOGLOBIN 10.6 g/dl (12.0-16.0); LYMPHOCYTES # 2.2 10^3/ul (0.8-2.9); LYMPHOCYTES % 18.8 % (15.0-51.0); MEAN CORPUSCULAR HEMOGLOBIN 25.8 pg (29.0-33.0); MEAN CORPUSCULAR HGB CONC 30.8 g/dl (32.0-37.0); MEAN CORPUSCULAR VOLUME 83.7 fl (82.0-101.0); MONOCYTES % 8.4 % (0.0-11.0); NEUTROPHIL # 7.6 10^3/ul (1.6-7.5); NEUTROPHILS % 66.7 % (39.0-77.0); PLATELET COUNT 561 10^3/UL (140-415); RED BLOOD COUNT 4.11 10^6/ul (4.20-5.40); RED CELL DISTRIBUTION WIDTH 17.4 % (11.5-14.5); WHITE BLOOD COUNT 11.4 10^3/ul (4.8-10.8)
[2016-11-13 09:59] LABS: CALCIUM 8.9 mg/dl (8.4-10.2); CREATININE 0.45 mg/dl (0.44-1.00); POTASSIUM 3.7 mmol/L (3.5-5.1)
[2016-11-13] MEDS: D5-NS + KCL 20 MEQ 1,000 ML IV SCH (10:28)
[2016-11-13] MEDS: CEFTRIAXONE 1 GM/50 ML (PMX) 50 ML IVPB SCH (10:28)
[2016-11-13] MEDS ORDERED: DOCU-216 PO (12:32)
[2016-11-13] MEDS ORDERED: LEVO50TA83 PO (12:32)
[2016-11-13] MEDS ORDERED: PANT40TA4 PO (12:32)
[2016-11-13] MEDS ORDERED: LEVO500T72 PO (12:40)
[2016-11-13] MEDS ORDERED: HYDR-906 PO (12:40)
--- NOTE | 2016-11-13 13:39 | PN ---
Date/Time of Note Date/Time of Note DATE: 11/13/16 TIME: 13:38 Assessment/Plan Lines/Catheters IV Catheter Type (from [facility]): Peripheral IV Mera in Place (from [facility]): No Assessment/Plan Chief Complaint/Hosp Course 1. Abdominal pain, & leukocytosis 2nd Cholangitis and ? Cholecystitis ( probably acalculous) s/p ERCP 11/09. Improved -antibiotics -supportive care -dc planning ok from surgical standpoint > f/u as outpt for possible elective cholecystectomy -she had to f/u with dr ba for stent removal 2. Sepsis 2nd above. Resolved. -as above 3. Electrolyte abnormalities with hypokalemia. Please correct with fluid and nutritional management. 4. Hypertension. Continue nutrition and medication optimization. 5. Prediabetes. Continue nutrition and medication optimization. 6. Rheumatoid arthritis, on methotrexate and steroids shots. Continue medical optimization. 7. Hypothyroidism. Continue Synthroid. 8. Hyperlipidemia. Continue diet and medication optimization. 9. History of gastritis. Continue proton pump inhibitor and encourage nutritional and lifestyle optimization. 10. Anemia without evidence of acute blood loss, continue monitoring. Thank you Problems: Subjective 24 Hr Interval Summary Pain resolved. Feels great. No f/c. No cough. No sz. No rash. No n/v. No cp/sob. Bowel function. Exam/Review of Systems Vital Signs Vitals Vital Signs Date Time Temp Pulse Resp B/P Pulse Ox O2 Delivery O2 Flow Rate FiO2 11/13/16 07:35 98.2 76 20 152/68 96 11/09/16 14:01 Nasal Cannula 2.0 Intake and Output 11/12/16 11/12/16 11/13/16 14:59 22:59 06:59 Intake Total 50 ml 1265 ml 955 ml Balance 50 ml 1265 ml 955 ml Exam Free Text/Dictation GENERAL: No acute distress, however, uncomfortable. HEENT: Pupils equal, reactive. No scleral icterus. Mucous membranes are moist. NECK: Supple, no JVD, no lymphadenopathy. PULMONARY: Normal respiratory effort. No wheezing. HEART: S1, S2 present and regular. ABDOMEN: Soft, NT. No rebound, no guarding, not rigid EXTREMITIES: No edema. VASCULAR: Cap refill less than 2 seconds. NEUROLOGIC: Alert, oriented, moves all 4 extremities grossly. Results Result Diagram: 11/13/16 0940 11/13/16 0940 RICK JACKSON MD Nov 13, 2016 13:38
== END 2016-11-13 14:32 | disposition home or self-care (01) | DRG 872 ==
LOC: E/R 08:08 → PP2 11:04
PROVIDERS: ADMIT Internal Medicine; ATTEND Internal Medicine
PROC: 0F9C8ZZ Drainage of Ampulla of Vater, Via Natural or Artificial Opening Endoscopic (ICD-10-PCS; 2016-11-09)
PROC: BF111ZZ Fluoroscopy of Biliary and Pancreatic Ducts using Low Osmolar Contrast (ICD-10-PCS; 2016-11-09)
PROC: 0F798DZ Dilation of Common Bile Duct with Intraluminal Device, Via Natural or Artificial Opening Endoscopic (ICD-10-PCS; principal; 2016-11-09 10:30)
DX: A41.9 Sepsis, unspecified organism (principal); K83.0 Cholangitis; K80.42 Calculus of bile duct with acute cholecystitis without obstruction; E87.1 Hypo-osmolality and hyponatremia; M32.0 Drug-induced systemic lupus erythematosus; K83.8 Other specified diseases of biliary tract; M06.9 Rheumatoid arthritis, unspecified; K82.9 Disease of gallbladder, unspecified; E87.6 Hypokalemia; I10 Essential (primary) hypertension; E20.9 Hypoparathyroidism, unspecified; E78.5 Hyperlipidemia, unspecified; R73.03 Prediabetes; D64.9 Anemia, unspecified
CPT/HCPCS: 36415; 74176; 74181; 74330; 76705; 80048; 80053; 80076; 81001; 81003; 82247; 82248; 82962; 83690; 83735; 84484; 85025; 93005; 96361; 96365; 96375; 96376; C2617; J0330; J0360; J0696; J1170; J1200; J1450; J1815; J2270; J2405; J2710; J3480; J7030; Q9967

== ENCOUNTER 2016-11-19 12:29 | Inpatient (IN) | payer MEDICARE, OTHER ==
[~2016-11-19] VITALS: Ht 160 cm; Wt 59.0 kg
[~2016-11-19 12:29] MED LIST changes: -ACAR25TA8 PO; +ACAR50TA PO; -BENA40TA41 PO; -CALC1TAB80 PO; +CHOL100062 PO; -CHOL2000 GTB; -CIPR500T4 PO; +DOCU-216 PO; +HYDR-906 PO; -IBUP-1542 PO; -KRIL1CAP22 PO; +LEVO500T72 PO; +LEVO50TA71 PO; +LEVO50TA83 PO; +MET25 PO; +PANT40TA4 PO; -PHEN-537 PO
--- NOTE | 2016-11-19 14:49 | ERA ---
ER Documentation Chief Complaint Date/Time DATE: 11/19/16 TIME: 14:48 Chief Complaint ABNORMAL LAB WWORK.EELEVATED WBC.SENT BY PMD LAURO The patient is a 80-year-old female, presenting to the ER because of abnormal WBC of 36,000 from the blood test drawn yesterday by her physician. She was sent to the ER for further evaluation. She was recently treated for suspected cholangitis and cholecystitis with IV antibiotic. She is currently taking Levaquin, complains of constipation. She denies fever, chills, neck pain, chest pain, dyspnea. She complains of diffuse abdominal pain, no nausea no vomiting. She does not smoke or drink Past medical history: Hypertension, dyslipidemia, rheumatoid arthritis, hypothyroidism Past surgical history: ERCP recently by Dr. Sameer YO All systems reviewed and are negative except as per history of present illness. Medications Home Meds Active Scripts Levofloxacin* (Levaquin*) 500 Mg Tablet, 500 MG PO DAILY for 7 Days, TAB Prov:RONEY SAMPSON 11/13/16 Docusate Sodium (Dok) 100 Mg Capsule, 100 MG PO BID for 30 Days, CAP Prov:RONEY SAMPSON 11/13/16 Reported Medications Cholecalciferol* (Vitamin D3*) 1,000 Unit Tablet, 5000 UNIT PO DAILY, TAB 11/08/16 Levothyroxine Sodium* (Levoxyl*) 50 Mcg Tablet, 50 MCG PO BEFORE BREAKFAST, #30 TAB 11/08/16 Acarbose* (Precose*) 50 Mg Tablet, 50 MG PO WITH BREAKFAST, TAB 11/08/16 Valsartan* (Diovan*) 160 Mg Tablet, 160 MG PO DAILY, TAB 07/09/16 Esomeprazole Mag Trihydrate (Nexium) 40 Mg Capsule.dr, 40 MG PO DAILY 05/23/12 Discontinued Reported Medications Methotrexate* (Methotrexate*) 2.5 Mg Tab, 7.5 MG PO BID, TAB 11/08/16 Atorvastatin (Lipitor) 80 Mg Tablet, 80 MG PO DAILY 05/23/12 Discontinued Scripts Hydrocodone/Acetaminophen ([place] 5-325 Tablet) 1 Each Tablet, 1 EACH PO Q6 Y for PAIN LEVEL 7-10, #20 TAB Prov:RONEY SAMPSON 11/13/16 Pantoprazole* (Pantoprazole*) 40 Mg Tablet.dr, 40 MG PO DAILY@06 for 30 Days Prov:RONEY SAMPSON 11/13/16 Levothyroxine Sodium* (Synthroid*) 50 Mcg Tablet, 50 MCG PO DAILY@06 for 30 Days , TAB Prov:RONEY SAMPSON 11/13/16 Allergies Allergies: Coded Allergies: penicillin G (Verified Allergy, Intermediate, RASH, HEADACHE, 11/19/16) PMhx/Soc History of Surgery: Yes (Hx: biopsy) Anesthesia Reaction: No Hx Neurological Disorder: No Hx Respiratory Disorders: No Hx Cardiac Disorders: No Hx Psychiatric Problems: No Hx Miscellaneous Medical Probl: No Hx Alcohol Use: No Hx Substance Use: No Hx Tobacco Use: No Physical Exam Vitals Vital Signs Date Time Temp Pulse Resp B/P Pulse Ox O2 Delivery O2 Flow Rate FiO2 11/19/16 17:37 98.7 73 15 130/54 100 Room Air 11/19/16 12:52 98.6 78 18 136/63 98 Physical Exam Const: No acute distress. Head: Atraumatic. Eyes: Normal Conjunctiva. ENT: Normal External Ears, Nose and Mouth. Neck: Full range of motion. No meningismus. Resp: Clear to auscultation bilaterally. Cardio: Regular rate and rhythm, no murmurs. Abd: Soft, non distended, normal bowel sounds, diffuse abdominal tenderness, more tender than left lower quadrant, no rigidity, rebound, CVA tenderness Skin: No petechiae or rashes. Back: No midline or flank tenderness. Ext: No cyanosis, or edema. Neur: Awake and alert. No focal deficit Psych: Normal Mood and Affect. Result Diagram: 11/19/16 1510 11/19/16 1510 Results 24 hrs Laboratory Tests Test 11/19/16 15:10 11/19/16 15:30 11/19/16 16:49 11/19/16 17:11 White Blood Count 23.410^3/ul Red Blood Count 4.0910^6/ul Hemoglobin 10.7g/dl Hematocrit 33.8% Mean Corpuscular Volume 82.6fl Mean Corpuscular Hemoglobin 26.2pg Mean Corpuscular Hemoglobin Concent 31.7g/dl Red Cell Distribution Width 16.9% Platelet Count 82846^3/UL Mean Platelet Volume 9.4fl Neutrophils % 95.0% Lymphocytes % 3.0% Monocytes % 1.0% Eosinophils % 1.0% Neutrophils # 22.210^3/ul Lymphocytes # 0.710^3/ul Monocytes # 0.210^3/ul Eosinophils # 0.210^3/ul Platelet Estimate PLT APPEAR INCREASED Large Platelets OCCASIONAL Prothrombin Time 14.1Sec Prothrombin Time Ratio 1.1 INR International Normalized Ratio 1.09 Activated Partial Thromboplast Time 35.2Sec Sodium Level 133mmol/L Potassium Level 2.5mmol/L Chloride Level 94mmol/L Carbon Dioxide Level 27mmol/L Anion Gap 15 Blood Urea Nitrogen 8mg/dl Creatinine 0.58mg/dl Glucose Level 112mg/dl Calcium Level 9.3mg/dl Total Bilirubin 0.2mg/dl Direct Bilirubin 0.00mg/dl Indirect Bilirubin 0.2mg/dl Aspartate Amino Transf (AST/SGOT) 52IU/L Alanine Aminotransferase (ALT/SGPT) 58IU/L Alkaline Phosphatase 173IU/L Troponin I < 0.012ng/ml Total Protein 6.9g/dl Albumin 3.4g/dl Globulin 3.50g/dl Albumin/Globulin Ratio 0.97 Lactic Acid Level 2.0mmol/L Magnesium Level 2.3mg/dl Urine Color LT. YELLOW Urine Clarity CLEAR Urine pH 6.0 Urine Specific [place] <=1.005 Urine Ketones NEGATIVE Urine Nitrite NEGATIVE Urine Bilirubin NEGATIVE Urine Urobilinogen 0.2 E.U./dL Urine Leukocyte Esterase NEGATIVE Urine Microscopic RBC 0-2/HPF Urine Microscopic WBC 0-2/HPF Urine Squamous Epithelial Cells FEW Urine Hemoglobin 2+ Urine Glucose NEGATIVE% Urine Total Protein NEGATIVE Current Medications Medications (Trade) Dose Ordered Sig/Hector Route PRN Reason Start Time Stop Time Status Last Admin Dose Admin Sodium Chloride 1,640 ml @ 1,640 mls/hr BOLUS X1 ONCE IV 11/19/16 17:30 11/19/16 18:29 DC 11/19/16 17:36 Potassium Chloride 250 ml @ 62.5 mls/hr ONCE ONCE IVPB 11/19/16 17:30 11/19/16 21:29 Ciprofloxacin/ Dextrose 200 ml @ 200 mls/hr ONCE ONCE IVPB 11/19/16 17:30 11/19/16 18:29 DC 11/19/16 19:37 Metronidazole (Flagyl 500 Mg (Pmx)) 100 ml @ 100 mls/hr ONCE ONCE IVPB 11/19/16 17:30 11/19/16 18:29 DC 11/19/16 17:36 IV Flush 10 ml 10 ml STK-MED ONCE .ROUTE 11/19/16 18:06 11/19/16 18:07 DC 11/19/16 18:22 Sodium Chloride (NS) 100 ml @ ud STK-MED ONCE .ROUTE 11/19/16 18:06 11/19/16 18:07 DC 11/19/16 18:22 Iohexol (Omnipaque 300mg/ ml) 150 ml STK-MED ONCE .ROUTE 11/19/16 18:06 11/19/16 18:07 DC 11/19/16 18:22 Procedures/MDM [place] [address] Radiology Main Line: [phone] DIAGNOSTIC IMAGING REPORT Patient: MANDEEP DYER : 1935 Age: 80 Sex: F MR #: [id number] DOS: 11/19/16 1449 Ordering MD: OLEKSANDR POSADA MD Location: E/R Room/Bed: PROCEDURE: XR Chest. CLINICAL INDICATION: Sepsis TECHNIQUE: Single frontal chest x-ray. COMPARISON: None. FINDINGS: The lungs are clear of acute infiltrates, edema, effusions, or masses.. The cardiomediastinal silhouette is unremarkable. The osseous structures are intact. There is mild scoliosis of the thoracic spine. IMPRESSION: No acute cardiopulmonary disease. RPTAT: JJ .Harlan Rae MD, MD Date Time Electronically viewed and signed by .Harlan Rae MD, on 11/19/2016 15:42 .L/ CC: OLEKSANDR POSADA MD [place] [address] Radiology Main Line: [phone] DIAGNOSTIC IMAGING REPORT Patient: MANDEEP DYER : 1935 Age: 80 Sex: F MR #: [id number] [facility] #: [id number] DOS: 11/19/16 1537 Ordering MD: OLEKSANDR POSADA MD Location: E/R Room/Bed: PROCEDURE: CT abdomen and pelvis with contrast. CLINICAL INDICATION: Abdominal pain. TECHNIQUE: CT of the abdomen/pelvis was performed utilizing axial images with reconstructions in sagittal and coronal planes following the intravenous administration of 90 cc of Omnipaque-300 contrast. The administered radiation dose is CTDI 8.25 mGy, DLP 367.68 mGy-cm. COMPARISON: Noncontrast CT of the abdomen/pelvis from November 08, 2016. FINDINGS: Lung bases: The lung bases are clear.The heart is normal size without pericardial effusion. CT ABDOMEN: Gastrointestinal tract: There is a moderate hiatal hernia measuring 5.2 cm. There is no bowel obstruction.The appendix is normal size without inflammatory changes. There are extensive colonic diverticula with descending pericolonic stranding suggesting acute diverticulitis. There is no pericolonic fluid collection/abscess. There is no pneumoperitoneum. Liver: The liver is normal in size without focal lesion. A biliary stent is noted with distal tip within the duodenum. There is mild left hepatic pneumobilia which is likely postoperative. There is no intrahepatic ductal dilatation. Gallbladder: The gallbladder is grossly unremarkable. Pancreas: The pancreas is grossly unremarkable. Spleen: The spleen is normal in size without focal lesion. Kidneys: The kidneys are normal in size and contour.No renal calculi are identified.There is no evidence of hydronephrosis. There are bilateral renal cysts with the largest on the left measuring 2.7 cm. Adrenal glands: The bilateral adrenal glands are unremarkable. Retroperitoneum: There is no retroperitoneal adenopathy.The aorta is normal in caliber. CT PELVIS: Pelvic organs: The uterus is present. Bladder: The bladder is unremarkable. There is no pelvic free fluid.No pelvic adenopathy is identified. Osseous structures: No destructive lytic or blastic osseous lesion is identified. IMPRESSION: 1. Numerous colonic diverticula with descending pericolonic inflammatory changes most compatible with acute diverticulitis. There is no pericolonic fluid collection/abscess. 2. New biliary stent with mild left hepatic pneumobilia which is likely postoperative. The gallbladder is no longer distended. 3. Moderate hiatal hernia. 4. Bilateral renal cysts. Further findings as detailed above. RPTAT: PP .Fercho Mejia MD, MD Date Time Electronically viewed and signed by .Fercho Mejia MD, MD on 11/19/2016 18:49 .F/ CC: OLEKSANDR POSADA MD EKG: Read by emergency physician Rate/Rhythm: Normal Sinus Rhythm 70 beats/min QRS, ST, T-waves: No ST elevation, no T inversion, PAC, LVH Impression: Abnormal EKG MEDICAL MAKING DECISION: The patient is a 80-year-old female, presenting with acute diverticulitis, acute severe sepsis, acute hypokalemia. She was treated with normal saline 30 mL/kg IV, Cipro IV, Flagyl IV, potassium chloride 40 mEq IV The differential diagnoses considered include but are not limited to cholelithiasis, cholecystitis, cystitis, pancreatitis, hepatitis, gastritis, peptic ulcer disease, gastric ulcer, appendicitis, diverticulitis, cholangitis, choledocholithiasis, partial small bowel obstruction. Admit MDM: Patient's infectious symptoms have not stabilized and the patient is at risk of rapid decompensation. The patient will be admitted for careful hydration, antibiotic therapy, and infectious source control. Severe Sepsis criteria: Infectious source: Cholecystitis End organ damage indicated by: Lactate > 2.0 mmol/L Sepsis Management: Time of recognition of severe sepsis/septic shock:15:40 hr Within 3 hours of recognition: Blood cultures x 2 before broad-spectrum antibiotics: Yes 30 ml/kg NS bolus completed Initial lactate 2 Repeat lactate pending Critical Care: Critical care time 35 minutes Emergent fluid management while maintaining close respiratory support. Provision of immediate and broad-spectrum antibiotic therapy. Simultaneous assessment for possible sources in order to direct targeted therapy. Consideration for invasive and chemical support to prevent cardiopulmonary collapse. Septic Shock Assessment: Any lactic acid > 4.0 no Persistent hypotension (SBP < 90 or 40 mmHg drop, MAP < 65) despite 30 mL/kg IV fluid bolusno Consultation: I discussed the patient with her general surgeon Dr. Auguste and a manager engagement Dr. Estrella, who were made aware of the lab, treatment, the patient condition. They accepted the consults Departure Diagnosis: Primary Impression: Acute diverticulitis Additional Impressions: Severe sepsis Hypokalemia Anemia Condition: Stable Comments I discussed the findings with the patient. I discussed the patient with her physician Dr. Shipman who was made aware of the lab, the treatment, the patient condition and my discussion with the consultants the patient is admitted to [facility] at 5:55pm OLEKSANDR POSADA MD Nov 19, 2016 14:49
[2016-11-19 15:38] LABS: ADD SCAN DIFF NO
[2016-11-19 15:39] LABS: HEMATOCRIT 33.8 % (37.0-47.0); HEMOGLOBIN 10.7 g/dl (12.0-16.0); MEAN CORPUSCULAR HEMOGLOBIN 26.2 pg (29.0-33.0); MEAN CORPUSCULAR HGB CONC 31.7 g/dl (32.0-37.0); MEAN CORPUSCULAR VOLUME 82.6 fl (82.0-101.0); MEAN PLATELET VOLUME 9.4 fl (7.4-10.4); PLATELET COUNT 628 10^3/UL (140-415); RED BLOOD COUNT 4.09 10^6/ul (4.20-5.40); RED CELL DISTRIBUTION WIDTH 16.9 % (11.5-14.5); WHITE BLOOD COUNT 23.4 10^3/ul (4.8-10.8)
--- NOTE | 2016-11-19 15:43 | RADRPT ---
PROCEDURE: XR Chest. CLINICAL INDICATION: Sepsis TECHNIQUE: Single frontal chest x-ray. COMPARISON: None. FINDINGS: The lungs are clear of acute infiltrates, edema, effusions, or masses.. The cardiomediastinal silho uette is unremarkable. The osseous structures are intact. There is mild scoliosis of the thoracic s pine. IMPRESSION: No acute cardiopulmonary disease. RPTAT: JJ .Harlan Rae MD, MD Date Time Electronically viewed and signed by .Harlan Rae MD, MD on 11/19/2016 15:42 .L/
[2016-11-19 15:50] LABS: INR 1.09; PROTIME 14.1 Sec (12.2-14.2); PT RATIO 1.1
[2016-11-19 15:51] LABS: PARTIAL THROMBOPLASTIN TIME 35.2 Sec (25.0-35.0)
[2016-11-19 15:53] LABS: ALBUMIN 3.4 g/dl (3.3-4.9); CHLORIDE 94 mmol/L (97-110); SODIUM 133 mmol/L (135-144)
[2016-11-19 15:55] LABS: CREATININE 0.58 mg/dl (0.44-1.00)
[2016-11-19 15:56] LABS: ALANINE AMINOTRANSFERASE 58 IU/L (13-69); ALBUMIN/GLOBULIN RATIO 0.97; ALKALINE PHOSPHATASE 173 IU/L (42-121); ASPARTATE AMINO TRANSFERASE 52 IU/L (15-46); BILIRUBIN,INDIRECT 0.2 mg/dl (0-1.1); BILIRUBIN,TOTAL 0.2 mg/dl (0.2-1.3); BLOOD UREA NITROGEN 8 mg/dl (7-20); CALCIUM 9.3 mg/dl (8.4-10.2); CARBON DIOXIDE 27 mmol/L (21-31); GLUCOSE 112 mg/dl (70-220); TOTAL PROTEIN 6.9 g/dl (6.1-8.1)
[2016-11-19 16:11] LABS: ANION GAP 15 (8-16); TROPONIN-I < 0.012 ng/ml (0.00-0.12)
[2016-11-19 16:14] LABS: POTASSIUM 2.5 mmol/L (3.5-5.1)
[2016-11-19 16:45] LABS: EOSINOPHILS # 0.2 10^3/ul (0.0-0.5); LYMPHOCYTES # 0.7 10^3/ul (0.8-2.9); MONOCYTE # 0.2 10^3/ul (0.3-0.9); NEUTROPHIL # 22.2 10^3/ul (1.6-7.5)
[2016-11-19 16:48] LABS: PLATELET ESTIMATE PLT APPEAR INCREASED
[2016-11-19] MEDS ORDERED: POTASSIUM CHLORIDE 250 ML IVPB ONE (17:30)
[2016-11-19] MEDS ORDERED: CIPROFLOXACIN 400MG/D5W 200 ML IVPB ONE (17:30)
[2016-11-19] MEDS ORDERED: SOD CHLORIDE 0.9% IV ONE (17:30)
[2016-11-19] MEDS ORDERED: metroNIDAZOLE 500 MG/NS (PMX) 100 ML IVPB ONE (17:30)
[2016-11-19 17:37] VITALS: TEMP 98.7
[2016-11-19 17:41] LABS: ADD UMIC YES; URINE BILIRUBIN (Dip) NEGATIVE (NEGATIVE); URINE BLOOD (Dip) 2+ (NEGATIVE); URINE COLOR LT. YELLOW (YELLOW); URINE GLUCOSE (Dip) NEGATIVE (NEGATIVE); URINE KETONES (Dip) NEGATIVE (NEGATIVE); URINE LEUKOCYTE ESTERASE (Dip) NEGATIVE (NEGATIVE); URINE NITRITE (Dip) NEGATIVE (NEGATIVE); URINE TOTAL PROTEIN (Dip) NEGATIVE (NEGATIVE); URINE UROBILINOGEN (Dip) 0.2 E.U./dL (0.1-1.0)
[2016-11-19 18:03] LABS: URINE RBCS 0-2 /HPF (0)
[2016-11-19] MEDS ORDERED: SOD CHLORIDE 0.9% 100 ML ONE (18:06)
[2016-11-19] MEDS ORDERED: IOHEXOL 300MG/ML 150 ML BTL ONE (18:06)
[2016-11-19 18:11] LABS: SQUAMOUS EPITHELIAL CELL,UR FEW
--- NOTE | 2016-11-19 18:49 | RADRPT ---
PROCEDURE: CT abdomen and pelvis with contrast. CLINICAL INDICATION: Abdominal pain. TECHNIQUE: CT of the abdomen/pelvis was performed utilizing axial images with reconstructions in s agittal and coronal planes following the intravenous administration of 90 cc of Omnipaque-[address] The administered radiation dose is CTDI 8.25 mGy, DLP 367.68 mGy-cm. COMPARISON: Noncontrast CT of the abdomen/pelvis from November 08, 2016. FINDINGS: Lung bases: The lung bases are clear.The heart is normal size without pericardial effusion. CT ABDOMEN: Gastrointestinal tract: There is a moderate hiatal hernia measuring 5.2 cm. There is no bowel obstr uction.The appendix is normal size without inflammatory changes. There are extensive colonic diverti cula with descending pericolonic stranding suggesting acute diverticulitis. There is no pericolonic fluid collection/abscess. There is no pneumoperitoneum. Liver: The liver is normal in size without focal lesion. A biliary stent is noted with distal tip wi thin the duodenum. There is mild left hepatic pneumobilia which is likely postoperative. There is no intrahepatic ductal dilatation. Gallbladder: The gallbladder is grossly unremarkable. Pancreas: The pancreas is grossly unremarkable. Spleen: The spleen is normal in size without focal lesion. Kidneys: The kidneys are normal in size and contour.No renal calculi are identified.There is no evid ence of hydronephrosis. There are bilateral renal cysts with the largest on the left measuring 2.7 c m. Adrenal glands: The bilateral adrenal glands are unremarkable. Retroperitoneum: There is no retroperitoneal adenopathy.The aorta is normal in caliber. CT PELVIS: Pelvic organs: The uterus is present. Bladder: The bladder is unremarkable. There is no pelvic free fluid.No pelvic adenopathy is identified. Osseous structures: No destructive lytic or blastic osseous lesion is identified. IMPRESSION: 1. Numerous colonic diverticula with descending pericolonic inflammatory changes most compatible wi th acute diverticulitis. There is no pericolonic fluid collection/abscess. 2. New biliary stent with mild left hepatic pneumobilia which is likely postoperative. The gallblad melly is no longer distended. 3. Moderate hiatal hernia. 4. Bilateral renal cysts. Further findings as detailed above. RPTAT: PP .Fercho Mejia MD, MD Date Time Electronically viewed and signed by .Fercho Mejia MD, MD on 11/19/2016 18:49 .F/
[2016-11-20] VITALS: BP 136/63; RESP 20
[2016-11-20 00:07] VITALS: Ht 160 cm; Wt 59.0 kg
--- NOTE | 2016-11-20 00:14 | HP ---
DATE OF ADMISSION: 11/19/2016 CHIEF COMPLAINT: Abdominal pain. HISTORY OF PRESENT ILLNESS: The patient is an 80-year-old female with history of hypertension, dysl ipidemia, rheumatoid arthritis, hypothyroidism and also history of diverticulosis was recently admit call[facility] to [facility] for right upper quadrant pain and was diagnosed with possible ac [place] cholecystitis. The patient at that time was seen by Dr. Estrella and Dr. Auguste. The patient un derwent ERCP. Did have CT scan of abdomen and MRI at that time, which did reveal colonic diverticul osis and moderate to large hiatal hernia and possible acute cholecystitis without gallstones. The p atmakenzie underwent ERCP and stent placement and was discharged home recently on Levaquin after she rec eived several days of IV Zosyn. The patient went to see Dr. Grimm for routine followup and was com plaining of constipation and abdominal pain. The patient was given laxative and did have a bowel mo vement today. However, due to abdominal pain, patient underwent CBC and CMP as an outpatient. Her white count came back as 36,000 from the CBC drawn yesterday. The patient was sent to ER for furthe r evaluation and management. The patient did have a bowel movement today. Denies any vomiting. Th e patient does have abdominal pain mostly in the left lower quadrant and only minimal in the left lo wer quadrant. No reported leg edema. No reported chest pain, shortness of breath. No reported fev er or chills. No reported acute skin rash. No reported dysuria or hematuria. No reported bleeding from any site. No reported headache, dizziness, syncope. No history of sore throat, cough, shortn ess of breath. REVIEW OF SYSTEMS: A total of 12 systems were reviewed and all pertinent positive and negative find ings have been described in HPI. The patient was seen in the ER and a repeat evaluation. CBC today revealed white count 23.4 thousan d with 95% neutrophils. CT of the abdomen and pelvis done in the ER revealed acute diverticulitis w ithout pericolonic fluid or abscess, a new biliary stent with mild left hepatic pneumobilia, which i s likely postoperative, moderate hiatal hernia. The patient is being admitted for further evaluatio n and management. Gallbladder was not distended and was normal. Dr. Auguste has been called from s urgical standpoint by Dr. Arteaga. PAST MEDICAL HISTORY: As stated above. The patient did have a colonoscopy back in 2009, which had revealed extensive diverticulosis. That was done by Dr. Floyd. The patient has known hiatal kendal ia. Past medical history is significant for rheumatoid arthritis for which patient is being followe d by Dr. Jack and was recently started on methotrexate. PAST SURGICAL HISTORY: None. The patient is status post recent ERCP. FAMILY HISTORY: Noncontributory for patient's condition. SOCIAL HISTORY: The patient lives with the family. No smoking, no alcohol. ALLERGIES: PENICILLIN. MEDICATIONS: Prior to admission, the patient was on: 1. Levaquin. 2. Diovan. 3. Colace. 4. Nexium. 5. Precose for prediabetic condition. 6. Levoxyl. 7. Vitamin D. PHYSICAL EXAMINATION: GENERAL: The patient is conscious, awake, alert, fairly oriented. VITAL SIGNS: Temperature 98.7, pulse 70, respirations 15, blood pressure 130/54, O2 saturation 100% on room air. HEENT: Atraumatic, normocephalic. Conjunctivae and lids normal. Extraocular movements intact. Or opharynx clear. NECK: Supple. No mass, no thyromegaly. CHEST: Fairly clear. No use of accessory muscles. CARDIOVASCULAR: S1, S2 normal. No murmur, gallop, or rub. ABDOMEN: Soft, nondistended. Left lower quadrant tenderness present. There is minimal tenderness in the right side of the right upper abdomen also, but only minimal. No guarding or rigidity. Concha l sounds plus. EXTREMITIES: No leg edema. No clubbing or cyanosis. SKIN: Without acute rash or ulcer. NEUROLOGIC: The patient is awake, alert, fairly oriented with no gross focal deficit. LABORATORY: WBC 23.4, hemoglobin 10.7, platelets 628. Chemistry: Sodium 133, potassium 2.5, BUN 8 , creatinine 0.5, glucose 112. Lactic acid 2. Repeat lactic acid 1.3. AST 52, ALT 58, alkaline ph osphatase 173. Troponin negative. IMPRESSION: 1. Acute cholecystitis. 2. History of recent acute cholecystitis, although gallbladder ultrasound was negative for stone, s tatus post ERCP and stenting. 3. Hypertension. 4. Rheumatoid arthritis. 5. Hypothyroidism. 6. Dyslipidemia. PLAN: The patient will be admitted on medical floor. The patient will be started on aztreonam and Flagyl. The patient will be given IV fluid. For hypertension, the patient will be continued on Mahad van. As far as the hypothyroidism, will continue Levoxyl. Will hold off on her rheumatoid arthriti s medication for now, especially in fact will be seen by Dr. Jack as an outpatient for further f ollowup on her rheumatoid arthritis. The patient's glucose is only 112. Will continue to monitor. Will give Lovenox for DVT prophylaxis. We will start her on clear liquid diet for now and will adv ance as tolerated. Will do followup labs in the morning. Plan of care discussed with the ER physic marty, Dr. Arteaga, and the patient's daughter. Further recommendation depends on the patient's hospital course. Dictated By: MUSA MAYES/HERACLIO Conf#: [id number] DID#: [id number]
[2016-11-20] MEDS ORDERED: hydrALAzine 20 MG INJ IV PRN (00:30)
[2016-11-20] MEDS ORDERED: ONDANSETRON 4 MG INJ IV PRN (00:30)
[2016-11-20] MEDS ORDERED: morphine 2 MG INJ IV PRN (00:30)
[2016-11-20] MEDS ORDERED: ACETAMINOPHEN 500 MG TAB PO PRN (00:30)
[2016-11-20] MEDS: POTASSIUM CHLORIDE 30 MEQ in SOD CHLORIDE 0.45% 1,000 ML IV SCH ×2 (01:23→14:02)
[2016-11-20] MEDS: AZTREONAM 1 GM/NS (PMX) 50 ML IVPB SCH ×4 (01:29→22:05)
[2016-11-20] MEDS: metroNIDAZOLE 500 MG/NS (PMX) 100 ML IVPB SCH ×4 (02:05→22:43)
[2016-11-20] MEDS ORDERED: GLUCOSE GEL 15 GRAM TUBE BUCCAL PRN (03:45)
[2016-11-20] MEDS ORDERED: DEXTROSE 50% 50 ML SYRINGE IV PRN ×2 (03:45)
[2016-11-20] MEDS ORDERED: GLUCOSE GEL 15 GRAM TUBE PO PRN ×2 (03:45)
[2016-11-20] MEDS ORDERED: GLUCAGON 1 MG INJ IM PRN (03:45)
[2016-11-20 06:00] LABS: ADD SCAN DIFF NO
[2016-11-20 06:05] LABS: BASOPHIL # 0.1 10^3/ul (0.0-0.1); BASOPHILS % 0.6 % (0.0-2.0); EOSINOPHILS # 0.1 10^3/ul (0.0-0.5); EOSINOPHILS % 1.2 % (0.0-7.0); HEMATOCRIT 26.8 % (37.0-47.0); HEMOGLOBIN 8.6 g/dl (12.0-16.0); LYMPHOCYTES # 1.7 10^3/ul (0.8-2.9); LYMPHOCYTES % 14.6 % (15.0-51.0); MEAN CORPUSCULAR HEMOGLOBIN 26.8 pg (29.0-33.0); MEAN CORPUSCULAR HGB CONC 32.1 g/dl (32.0-37.0); MEAN CORPUSCULAR VOLUME 83.5 fl (82.0-101.0); MEAN PLATELET VOLUME 9.3 fl (7.4-10.4); MONOCYTE # 0.8 10^3/ul (0.3-0.9); MONOCYTES % 6.9 % (0.0-11.0); NEUTROPHILS % 75.9 % (39.0-77.0); PLATELET COUNT 501 10^3/UL (140-415); RED BLOOD COUNT 3.21 10^6/ul (4.20-5.40); RED CELL DISTRIBUTION WIDTH 16.9 % (11.5-14.5); WHITE BLOOD COUNT 11.9 10^3/ul (4.8-10.8)
[2016-11-20 06:20] LABS: CREATININE 0.42 mg/dl (0.44-1.00)
[2016-11-20 06:21] LABS: CALCIUM 7.8 mg/dl (8.4-10.2)
[2016-11-20 06:37] LABS: POTASSIUM 2.8 mmol/L (3.5-5.1)
[2016-11-20] MEDS ORDERED: POTASSIUM CHLORIDE 250 ML IVPB ONE (07:00)
[2016-11-20] MEDS ORDERED: POTASSIUM CHLORIDE (SR) 20 MEQ TAB PO ONE (07:00)
[2016-11-20 07:31] VITALS: BP 143/67; RESP 16
[2016-11-20] MEDS: LEVOTHYROXINE 50 MCG TAB PO SCH (07:33)
[2016-11-20] MEDS: PANTOPRAZOLE (EC) 40 MG TAB PO SCH (07:33)
[2016-11-20] MEDS: INSULIN ASPART [NOVOLOG] 3 ML PEN SC SCH ×3 (08:15→17:30)
[2016-11-20] MEDS: SENNA TAB PO SCH ×2 (08:56→21:00)
[2016-11-20] MEDS: CHOLECALCIFEROL 1,000 UNIT TAB PO SCH (08:56)
[2016-11-20] MEDS: VALSARTAN 160 MG TAB PO SCH (08:56)
[2016-11-20] MEDS: ACARBOSE 50 MG TAB PO SCH (09:00)
[2016-11-20] MEDS: ENOXAPARIN 40 MG/0.4 ML SYG SC SCH (09:00)
--- NOTE | 2016-11-20 14:45 | PN ---
Date/Time of Note Date/Time of Note DATE: 11/20/16 TIME: 14:39 Assessment/Plan VTE Prophylaxis VTE Prophylaxis Intervention: SCD's Lines/Catheters IV Catheter Type (from [facility]): Peripheral IV Urinary Cath still in place: No Assessment/Plan Chief Complaint/Hosp Course 1. Acute diverticulitis. Continue aztreonam and Flagyl. 2. History of recent acute cholecystitis, although gallbladder ultrasound was negative for stone, status post ERCP and stenting. 3. Hypertension. Continue Diovan. 4. Rheumatoid arthritis. 5. Hypothyroidism. Continue levothyroxine. 6. Dyslipidemia. Further recommendations based on clinical course. Plan of care discussed with Dr. Shipman. Problems: Subjective 24 Hr Interval Summary Free Text/Dictation Patient stated improvement in abdominal pain, able to tolerate liquid diet well , white blood cells trending down. Exam/Review of Systems Vital Signs Vitals Vital Signs Date Time Temp Pulse Resp B/P Pulse Ox O2 Delivery O2 Flow Rate FiO2 11/20/16 07:31 97.6 69 16 143/67 96 11/19/16 23:00 Room Air Intake and Output 11/19/16 11/19/16 11/20/16 15:00 23:00 07:00 Intake Total 1940 ml 670 ml Output Total 800 ml Balance 1940 ml -130 ml Exam Constitutional: alert, well developed Psych: no complaints Head: atraumatic, normocephalic Eyes: nl conjunctiva ENMT: nl external ears & nose Neck: non-tender, supple Respiratory: clear to auscultation, normal air movement Cardiovascular: nl pulses, regular rate and rhythm Gastrointestinal: soft, tender Musculoskeletal: nl extremities to inspection Extremities: normal pulses Neurological: CORROSION CONTROL FITTER II-XII intact Results Result Diagram: 11/20/16 0553 11/20/16 0533 Results 24 hrs Laboratory Tests Test 11/19/16 15:10 11/19/16 15:30 11/19/16 16:49 11/19/16 17:11 White Blood Count 23.4 #H Red Blood Count 4.09 L Hemoglobin 10.7 L Hematocrit 33.8 L Mean Corpuscular Volume 82.6 Mean Corpuscular Hemoglobin 26.2 L Mean Corpuscular Hemoglobin Concent 31.7 L Red Cell Distribution Width 16.9 H Platelet Count 628 H Mean Platelet Volume 9.4 Neutrophils % 95.0 H Lymphocytes % 3.0 L Monocytes % 1.0 Eosinophils % 1.0 Neutrophils # 22.2 H Lymphocytes # 0.7 L Monocytes # 0.2 L Eosinophils # 0.2 Platelet Estimate PLT APPEAR INCREASED Large Platelets OCCASIONAL Prothrombin Time 14.1 Prothrombin Time Ratio 1.1 INR International Normalized Ratio 1.09 Activated Partial Thromboplast Time 35.2 H Sodium Level 133 L Potassium Level 2.5 *L Chloride Level 94 L Carbon Dioxide Level 27 Anion Gap 15 Blood Urea Nitrogen 8 Creatinine 0.58 Glucose Level 112 Calcium Level 9.3 Total Bilirubin 0.2 Direct Bilirubin 0.00 Indirect Bilirubin 0.2 Aspartate Amino Transf (AST/SGOT) 52 H Alanine Aminotransferase (ALT/SGPT) 58 Alkaline Phosphatase 173 H Troponin I < 0.012 Total Protein 6.9 Albumin 3.4 Globulin 3.50 H Albumin/Globulin Ratio 0.97 Lactic Acid Level 2.0 Magnesium Level 2.3 Urine Color LT. YELLOW Urine Clarity CLEAR Urine pH 6.0 Urine Specific [place] <=1.005 L Urine Ketones NEGATIVE Urine Nitrite NEGATIVE Urine Bilirubin NEGATIVE Urine Urobilinogen 0.2 E.U./dL Urine Leukocyte Esterase NEGATIVE Urine Microscopic RBC 0-2 Urine Microscopic WBC 0-2 Urine Squamous Epithelial Cells FEW Urine Hemoglobin 2+ H Urine Glucose NEGATIVE Urine Total Protein NEGATIVE Test 11/19/16 19:45 11/19/16 21:25 11/20/16 05:33 11/20/16 05:53 Lactic Acid Level 1.3 1.8 Sodium Level 139 Potassium Level 2.8 *L Chloride Level 107 # Carbon Dioxide Level 24 Anion Gap 11 Blood Urea Nitrogen 4 L Creatinine 0.42 L Glucose Level 118 Calcium Level 7.8 L Magnesium Level 2.0 White Blood Count 11.9 #H Red Blood Count 3.21 #L Hemoglobin 8.6 L Hematocrit 26.8 #L Mean Corpuscular Volume 83.5 Mean Corpuscular Hemoglobin 26.8 L Mean Corpuscular Hemoglobin Concent 32.1 Red Cell Distribution Width 16.9 H Platelet Count 501 #H Mean Platelet Volume 9.3 Neutrophils % 75.9 Lymphocytes % 14.6 L Monocytes % 6.9 Eosinophils % 1.2 Basophils % 0.6 Nucleated Red Blood Cells % 0.0 Neutrophils # 9.0 H Lymphocytes # 1.7 Monocytes # 0.8 Eosinophils # 0.1 Basophils # 0.1 Nucleated Red Blood Cells # 0.0 Test 11/20/16 07:51 11/20/16 12:18 Bedside Glucose 108 114 Medications Medications Current Medications Hydralazine HCl 10 mg 10 mg Q6H PRN IV SBP ABOVE 170; Start 11/20/16 at 00:30 Aztreonam 50 ml @ 100 mls/hr Q8 IVPB Last administered on 11/20/16 07:31; Admin Dose 100 MLS/HR; Start 11/20/16 at 00:30 Metronidazole (Flagyl 500 Mg (Pmx)) 100 ml @ 100 mls/hr Q8 IVPB Last administered on 11/20/16 02:05; Admin Dose 100 MLS/HR; Start 11/20/16 at 00:30 Acetaminophen (Tylenol Tab) 500 mg Q4H PRN PO PAIN AND OR ELEVATED TEMP; Start 11/20/16 at 00:30 Morphine Sulfate (morphine) 2 mg Q4H PRN IV PAIN; Start 11/20/16 at 00:30 Enoxaparin Sodium 40 mg 40 mg DAILY SC ; Start 11/20/16 at 09:00 Potassium Chloride/Sodium Chloride (KCl/1/2 NS) 1,015 ml @ 75 mls/hr [id number] IV Last administered on 11/20/16 01:23; Admin Dose 75 MLS/HR; Start 11/20/16 at 00:30 Senna (Senokot) 2 tab BID PO Last administered on 11/20/16 08:56; Admin Dose 2 TAB; Start 11/20/16 at 09:00 Cholecalciferol (Vitamin D) 5,000 unit DAILY PO Last administered on 11/20/16 08:56; Admin Dose 5,000 UNIT; Start 11/20/16 at 09:00 Valsartan (Diovan) 160 mg DAILY PO Last administered on 11/20/16 08:56; Admin Dose 160 MG; Start 11/20/16 at 09:00 Pantoprazole (Protonix Tab) 40 mg DAILY@06 PO Last administered on 11/20/16 07 :33; Admin Dose 40 MG; Start 11/20/16 at 06:00 Ondansetron HCl (Zofran Inj) 4 mg Q4H PRN IV NAUSEA AND/OR VOMITING; Start at 00:30 Miscellaneous Information 1 ea NOTE XX ; Start 11/20/16 at 03:45 Glucose (Glutose) 15 gm Q15M PRN PO DECREASED GLUCOSE; Start 11/20/16 at 03:45 Glucose (Glutose) 22.5 gm Q15M PRN PO DECREASED GLUCOSE; Start 11/20/16 at 03: 45 Dextrose (D50w Syringe) 25 ml Q15M PRN IV DECREASED GLUCOSE; Start 11/20/16 at 03:45 Dextrose (D50w Syringe) 50 ml Q15M PRN IV DECREASED GLUCOSE; Start 11/20/16 at 03:45 Glucagon (Glucagen) 1 mg Q15M PRN IM DECREASED GLUCOSE; Start 11/20/16 at 03:45 Glucose (Glutose) 15 gm Q15M PRN BUCCAL DECREASED GLUCOSE; Start 11/20/16 at 03 :45 BOB HUBER Nov 20, 2016 14:45
[2016-11-20 21:59] VITALS: BP 146/63; RESP 18
--- NOTE | 2016-11-20 23:53 | CONS ---
Date/Time of Note Date/Time of Note DATE: 11/19/16 TIME: 23:38 Assessment/Plan Assessment/Plan Chief Complaint/Hosp Course 1. Abdominal pain, leukocytosis, and CT are suggestive of sigmoid diverticulitis -abx -ivf -supportive 2. Recent Cholangitis and ? Cholecystitis s/p abx, ercp, and stent -GI eval to rule out stent as source 3. Significant leukocytosis secondary to above. Continue antibiotics and supportive care and treatment as above. 4. Hypertension. Continue nutrition and medication optimization. 5. Prediabetes. Continue nutrition and medication optimization. 6. Rheumatoid arthritis, on methotrexate and steroids shots. Continue medical optimization. 7. Hypothyroidism. Continue Synthroid. 8. Hyperlipidemia. Continue diet and medication optimization. 9. History of gastritis. Continue proton pump inhibitor and encourage nutritional and lifestyle optimization. 10. Anemia without evidence of acute blood loss, continue monitoring. 11. Electrolyte abnormalities. Please correct with fluid and nutritional management. Thank you very much for consulting me in this patient's care. Late entry 11/19 Problems: Consultation Date/Type/Reason Admit Date/Time Nov 19, 2016 at 18:59 Date of Consultation: Nov 19, 2016 Type of Consultation: General Surgical Reason for Consultation Abdominal pain Leukocytosis Diverticulitis Recent cholangitis Referring Provider: MUSA AMBROSE MD Hx of Present Illness Mely Salmon is an 80-year-old female with multiple comorbidities who presents with abdominal pain, worse in the past day, associated with constipation but no nausea, vomiting, fevers or chills. No chest pain or shortness of breath. No visual or neurologic changes. No dysuria or vaginal discharge. No trauma or sick contacts. No cough. Positive bowel function. She was referred by Dr. Grimm for further evaluation and treatment. In the emergency room, she was found to be afebrile with stable vitals. White count, however, is elevated at 23,000. CT identifies improved gb but left sided diverticulitis. She is admitted for further care and treatment. Surgical consult was obtained for further evaluation and treatment. 12-point of systems was negative unless addressed in the HPI. No significant weight changes. Psychological: no complaints Past Medical History 1. Prediabetes. 2. Hypertension. 3. Diverticulosis & current diverticulitis 4. Bilateral renal cortical and parapelvic cysts. 5. Aortoiliac atherosclerosis. 6. Hiatal hernia. 7. Bronchiectasis. 8. Cholangitis & Cholecystitis 9. Significant leukocytosis. 10. Hyponatremia. 11. Hyperkalemia. 12. Elevated alkaline phosphatase. 13. Anemia. 14. Hypothyroidism. 15. Gastritis. 16. Arthritis. Past Surgical History Colonoscopy ERCP and stenting Family History Significant Family History: no pertinent family hx Social History Denies alcohol, drugs or tobacco Smoking Status: Never smoker Exam/Review of Systems Vital Signs Vitals Vital Signs Date Time Temp Pulse Resp B/P Pulse Ox O2 Delivery O2 Flow Rate FiO2 11/20/16 21:59 98.4 63 18 146/63 98 11/19/16 23:00 Room Air Intake and Output 11/19/16 11/19/16 11/20/16 15:00 23:00 07:00 Intake Total 1940 ml 670 ml Output Total 800 ml Balance 1940 ml -130 ml Exam GENERAL: No acute distress, however, uncomfortable. HEENT: Pupils equal, reactive. No scleral icterus. Mucous membranes are moist. NECK: Supple, no JVD, no lymphadenopathy. PULMONARY: Normal respiratory effort. No wheezing. HEART: S1, S2 present and regular. ABDOMEN: Soft, tender in left lower quadrant without rebound, nor guarding, nor rigidity. EXTREMITIES: No edema. VASCULAR: Cap refill less than 2 seconds. NEUROLOGIC: Alert, oriented, moves all 4 extremities grossly. Results Result Diagram: 11/20/16 0553 11/20/16 0533 Results 24 hrs Laboratory Tests Test 11/20/16 05:33 11/20/16 05:53 11/20/16 07:51 11/20/16 12:18 Sodium Level 139 Potassium Level 2.8 *L Chloride Level 107 # Carbon Dioxide Level 24 Anion Gap 11 Blood Urea Nitrogen 4 L Creatinine 0.42 L Glucose Level 118 Calcium Level 7.8 L Magnesium Level 2.0 White Blood Count 11.9 #H Red Blood Count 3.21 #L Hemoglobin 8.6 L Hematocrit 26.8 #L Mean Corpuscular Volume 83.5 Mean Corpuscular Hemoglobin 26.8 L Mean Corpuscular Hemoglobin Concent 32.1 Red Cell Distribution Width 16.9 H Platelet Count 501 #H Mean Platelet Volume 9.3 Neutrophils % 75.9 Lymphocytes % 14.6 L Monocytes % 6.9 Eosinophils % 1.2 Basophils % 0.6 Nucleated Red Blood Cells % 0.0 Neutrophils # 9.0 H Lymphocytes # 1.7 Monocytes # 0.8 Eosinophils # 0.1 Basophils # 0.1 Nucleated Red Blood Cells # 0.0 Bedside Glucose 108 114 Test 11/20/16 17:02 Bedside Glucose 100 Medications Medications Current Medications Hydralazine HCl 10 mg 10 mg Q6H PRN IV SBP ABOVE 170; Start 11/20/16 at 00:30 Aztreonam 50 ml @ 100 mls/hr Q8 IVPB Last administered on 11/20/16 22:05; Admin Dose 100 MLS/HR; Start 11/20/16 at 00:30 Metronidazole (Flagyl 500 Mg (Pmx)) 100 ml @ 100 mls/hr Q8 IVPB Last administered on 11/20/16 22:43; Admin Dose 100 MLS/HR; Start 11/20/16 at 00:30 Acetaminophen (Tylenol Tab) 500 mg Q4H PRN PO PAIN AND OR ELEVATED TEMP; Start 11/20/16 at 00:30 Morphine Sulfate (morphine) 2 mg Q4H PRN IV PAIN; Start 11/20/16 at 00:30 Enoxaparin Sodium 40 mg 40 mg DAILY SC ; Start 11/20/16 at 09:00 Potassium Chloride/Sodium Chloride (KCl/1/2 NS) 1,015 ml @ 75 mls/hr [id number] IV Last administered on 11/20/16 01:23; Admin Dose 75 MLS/HR; Start 11/20/16 at 00:30 Senna (Senokot) 2 tab BID PO Last administered on 11/20/16 08:56; Admin Dose 2 TAB; Start 11/20/16 at 09:00 Cholecalciferol (Vitamin D) 5,000 unit DAILY PO Last administered on 11/20/16 08:56; Admin Dose 5,000 UNIT; Start 11/20/16 at 09:00 Valsartan (Diovan) 160 mg DAILY PO Last administered on 11/20/16 08:56; Admin Dose 160 MG; Start 11/20/16 at 09:00 Pantoprazole (Protonix Tab) 40 mg DAILY@06 PO Last administered on 11/20/16 07 :33; Admin Dose 40 MG; Start 11/20/16 at 06:00 Ondansetron HCl (Zofran Inj) 4 mg Q4H PRN IV NAUSEA AND/OR VOMITING; Start at 00:30 Miscellaneous Information 1 ea NOTE XX ; Start 11/20/16 at 03:45 Glucose (Glutose) 15 gm Q15M PRN PO DECREASED GLUCOSE; Start 11/20/16 at 03:45 Glucose (Glutose) 22.5 gm Q15M PRN PO DECREASED GLUCOSE; Start 11/20/16 at 03: 45 Dextrose (D50w Syringe) 25 ml Q15M PRN IV DECREASED GLUCOSE; Start 11/20/16 at 03:45 Dextrose (D50w Syringe) 50 ml Q15M PRN IV DECREASED GLUCOSE; Start 11/20/16 at 03:45 Glucagon (Glucagen) 1 mg Q15M PRN IM DECREASED GLUCOSE; Start 11/20/16 at 03:45 Glucose (Glutose) 15 gm Q15M PRN BUCCAL DECREASED GLUCOSE; Start 11/20/16 at 03 :45 RICK JACKSON MD Nov 20, 2016 23:48
--- NOTE | 2016-11-20 23:56 | PN ---
Date/Time of Note Date/Time of Note DATE: 11/20/16 TIME: 23:53 Assessment/Plan Lines/Catheters IV Catheter Type (from [facility]): Peripheral IV Mera in Place (from [facility]): No Assessment/Plan Chief Complaint/Hosp Course 1. Abdominal pain, leukocytosis, and CT are suggestive of sigmoid diverticulitis. Improving -abx -ivf -supportive 2. Recent Cholangitis and ? Cholecystitis s/p abx, ercp, and stent -GI eval to rule out stent as source 3. Leukocytosis secondary to above. Continue antibiotics and supportive care and treatment as above. Improved. 4. Hypertension. Continue nutrition and medication optimization. 5. Prediabetes. Continue nutrition and medication optimization. 6. Rheumatoid arthritis, on methotrexate and steroids shots. Continue medical optimization. 7. Hypothyroidism. Continue Synthroid. 8. Hyperlipidemia. Continue diet and medication optimization. 9. History of gastritis. Continue proton pump inhibitor and encourage nutritional and lifestyle optimization. 10. Anemia without evidence of acute blood loss, continue monitoring. 11. Electrolyte abnormalities. Please correct with fluid and nutritional management. Thank you, Problems: Subjective 24 Hr Interval Summary No f/c. No n/v. No cp/sob. Pain has improved. No cough. No osorio/dizzy/visual or neurological changes. Leukocytosis improved. Exam/Review of Systems Vital Signs Vitals Vital Signs Date Time Temp Pulse Resp B/P Pulse Ox O2 Delivery O2 Flow Rate FiO2 11/20/16 21:59 98.4 63 18 146/63 98 11/19/16 23:00 Room Air Intake and Output 11/19/16 11/19/16 11/20/16 15:00 23:00 07:00 Intake Total 1940 ml 670 ml Output Total 800 ml Balance 1940 ml -130 ml Exam Free Text/Dictation GENERAL: No acute distress, however, uncomfortable. HEENT: Pupils equal, reactive. No scleral icterus. Mucous membranes are moist. NECK: Supple, no JVD, no lymphadenopathy. PULMONARY: Normal respiratory effort. No wheezing. HEART: S1, S2 present and regular. ABDOMEN: Soft, very min tenderness in left lower quadrant without rebound, nor guarding, nor rigidity. EXTREMITIES: No edema. VASCULAR: Cap refill less than 2 seconds. NEUROLOGIC: Alert, oriented, moves all 4 extremities grossly. Results Result Diagram: 11/20/16 0553 11/20/16 0533 RICK JACKSON MD Nov 20, 2016 23:55
[2016-11-21] MEDS: POTASSIUM CHLORIDE 30 MEQ in SOD CHLORIDE 0.45% 1,000 ML IV SCH ×3 (00:18→17:09)
[2016-11-21 05:55] LABS: ADD SCAN DIFF NO
[2016-11-21] MEDS: AZTREONAM 1 GM/NS (PMX) 50 ML IVPB SCH ×3 (06:11→21:44)
[2016-11-21] MEDS: LEVOTHYROXINE 50 MCG TAB PO SCH (06:13)
[2016-11-21] MEDS: PANTOPRAZOLE (EC) 40 MG TAB PO SCH (06:13)
[2016-11-21 06:18] LABS: BASOPHIL # 0.1 10^3/ul (0.0-0.1); BASOPHILS % 0.7 % (0.0-2.0); EOSINOPHILS # 0.2 10^3/ul (0.0-0.5); EOSINOPHILS % 2.2 % (0.0-7.0); HEMATOCRIT 28.1 % (37.0-47.0); HEMOGLOBIN 8.8 g/dl (12.0-16.0); LYMPHOCYTES # 1.7 10^3/ul (0.8-2.9); LYMPHOCYTES % 19.4 % (15.0-51.0); MEAN CORPUSCULAR HEMOGLOBIN 26.1 pg (29.0-33.0); MEAN CORPUSCULAR HGB CONC 31.3 g/dl (32.0-37.0); MEAN CORPUSCULAR VOLUME 83.4 fl (82.0-101.0); MEAN PLATELET VOLUME 9.3 fl (7.4-10.4); MONOCYTE # 0.6 10^3/ul (0.3-0.9); MONOCYTES % 6.9 % (0.0-11.0); NEUTROPHIL # 6.2 10^3/ul (1.6-7.5); NEUTROPHILS % 69.8 % (39.0-77.0); PLATELET COUNT 586 10^3/UL (140-415); RED BLOOD COUNT 3.37 10^6/ul (4.20-5.40); RED CELL DISTRIBUTION WIDTH 17.2 % (11.5-14.5); WHITE BLOOD COUNT 8.8 10^3/ul (4.8-10.8)
[2016-11-21 06:31] LABS: POTASSIUM 3.4 mmol/L (3.5-5.1)
[2016-11-21 06:33] LABS: CREATININE 0.41 mg/dl (0.44-1.00)
[2016-11-21 06:34] LABS: CALCIUM 8.5 mg/dl (8.4-10.2)
[2016-11-21] MEDS: metroNIDAZOLE 500 MG/NS (PMX) 100 ML IVPB SCH ×3 (06:53→23:08)
[2016-11-21 07:45] VITALS: BP 139/65; RESP 20
[2016-11-21] MEDS: INSULIN ASPART [NOVOLOG] 3 ML PEN SC SCH ×3 (08:15→17:24)
[2016-11-21] MEDS: SENNA TAB PO SCH ×3 (08:57→21:44)
[2016-11-21] MEDS: CHOLECALCIFEROL 1,000 UNIT TAB PO SCH ×2 (08:57→09:00)
[2016-11-21] MEDS: ACARBOSE 50 MG TAB PO SCH (08:57)
[2016-11-21] MEDS: VALSARTAN 160 MG TAB PO SCH (08:57)
[2016-11-21] MEDS: ENOXAPARIN 40 MG/0.4 ML SYG SC SCH (08:59)
--- NOTE | 2016-11-21 10:42 | PN ---
Date/Time of Note Date/Time of Note DATE: 11/21/16 TIME: 10:38 Assessment/Plan VTE Prophylaxis VTE Prophylaxis Intervention: SCD's Lines/Catheters IV Catheter Type (from [facility]): Peripheral IV Urinary Cath still in place: No Assessment/Plan Assessment/Plan -Hypokalemia-replete potassium, a.m. labs - Acute diverticulitis-denies any abdominal pain at present. Tolerates liquid diet will advance to soft diet. - Continue aztreonam and Flagyl. - History of recent acute cholecystitis, although gallbladder ultrasound was negative for stone, status post ERCP and stenting. - Hypertension. Continue Diovan. - Rheumatoid arthritis. - Hypothyroidism. Continue levothyroxine. - Dyslipidemia. Plan of care discussed with daughter Megan. Total time spent with patient regarding discussing plan of care with daughter, patient, staff =30 minutes. Further recommendations based on clinical course. Plan of care discussed with Dr. Shipman. Subjective 24 Hr Interval Summary Eyes: no complaints ENT: no complaints Respiratory: no complaints Cardiovascular: no complaints Gastrointestinal: no complaints, other (Complain of abdominal pain at times, none at present. Tolerating clear liquid diet denies any nausea vomiting) Genitourinary: no complaints Musculoskeletal: no complaints Skin: no complaints Neurologic: no complaints Exam/Review of Systems Vital Signs Vitals Vital Signs Date Time Temp Pulse Resp B/P Pulse Ox O2 Delivery O2 Flow Rate FiO2 11/21/16 07:45 98.4 68 20 139/65 99 11/19/16 23:00 Room Air Intake and Output 11/20/16 11/20/16 11/21/16 14:59 22:59 06:59 Intake Total 300 ml 2450 ml 1140 ml Output Total 1150 ml 2350 ml Balance 300 ml 1300 ml -1210 ml Exam Constitutional: alert, oriented, well developed Psych: nl mood/affect Head: atraumatic Eyes: EOMI, PERRL, nl sclera ENMT: nl external ears & nose Neck: non-tender Respiratory: clear to auscultation Cardiovascular: nl pulses Gastrointestinal: non-tender, other, soft Musculoskeletal: nl extremities to inspection Extremities: normal pulses Neurological: nl mental status, nl speech Skin: nl turgor Lymph: nontender Results Result Diagram: 11/21/16 0510 11/21/16 0510 Results 24 hrs Laboratory Tests Test 11/20/16 12:18 11/20/16 17:02 11/21/16 05:10 11/21/16 08:08 Bedside Glucose 114 100 101 White Blood Count 8.8 # Red Blood Count 3.37 L Hemoglobin 8.8 L Hematocrit 28.1 L Mean Corpuscular Volume 83.4 Mean Corpuscular Hemoglobin 26.1 L Mean Corpuscular Hemoglobin Concent 31.3 L Red Cell Distribution Width 17.2 H Platelet Count 586 H Mean Platelet Volume 9.3 Neutrophils % 69.8 Lymphocytes % 19.4 Monocytes % 6.9 Eosinophils % 2.2 Basophils % 0.7 Nucleated Red Blood Cells % 0.0 Neutrophils # 6.2 Lymphocytes # 1.7 Monocytes # 0.6 Eosinophils # 0.2 Basophils # 0.1 Nucleated Red Blood Cells # 0.0 Sodium Level 138 Potassium Level 3.4 L Chloride Level 107 Carbon Dioxide Level 23 Anion Gap 11 Blood Urea Nitrogen 2 L Creatinine 0.41 L Glucose Level 103 Calcium Level 8.5 Medications Medications Current Medications Hydralazine HCl 10 mg 10 mg Q6H PRN IV SBP ABOVE 170; Start 11/20/16 at 00:30 Aztreonam 50 ml @ 100 mls/hr Q8 IVPB Last administered on 11/21/16 06:11; Admin Dose 100 MLS/HR; Start 11/20/16 at 00:30 Metronidazole (Flagyl 500 Mg (Pmx)) 100 ml @ 100 mls/hr Q8 IVPB Last administered on 11/21/16 06:53; Admin Dose 100 MLS/HR; Start 11/20/16 at 00:30 Acetaminophen (Tylenol Tab) 500 mg Q4H PRN PO PAIN AND OR ELEVATED TEMP; Start 11/20/16 at 00:30 Morphine Sulfate (morphine) 2 mg Q4H PRN IV PAIN; Start 11/20/16 at 00:30 Enoxaparin Sodium 40 mg 40 mg DAILY SC ; Start 11/20/16 at 09:00 Potassium Chloride/Sodium Chloride (KCl/1/2 NS) 1,015 ml @ 75 mls/hr [id number] IV Last administered on 11/21/16 00:18; Admin Dose 75 MLS/HR; Start 11/20/16 at 00:30 Senna (Senokot) 2 tab BID PO Last administered on 11/20/16 08:56; Admin Dose 2 TAB; Start 11/20/16 at 09:00 Cholecalciferol (Vitamin D) 5,000 unit DAILY PO Last administered on 11/20/16 08:56; Admin Dose 5,000 UNIT; Start 11/20/16 at 09:00 Valsartan (Diovan) 160 mg DAILY PO Last administered on 11/21/16 08:57; Admin Dose 160 MG; Start 11/20/16 at 09:00 Pantoprazole (Protonix Tab) 40 mg DAILY@06 PO Last administered on 11/21/16 06 :13; Admin Dose 40 MG; Start 11/20/16 at 06:00 Ondansetron HCl (Zofran Inj) 4 mg Q4H PRN IV NAUSEA AND/OR VOMITING; Start at 00:30 Miscellaneous Information 1 ea NOTE XX ; Start 11/20/16 at 03:45 Glucose (Glutose) 15 gm Q15M PRN PO DECREASED GLUCOSE; Start 11/20/16 at 03:45 Glucose (Glutose) 22.5 gm Q15M PRN PO DECREASED GLUCOSE; Start 11/20/16 at 03: 45 Dextrose (D50w Syringe) 25 ml Q15M PRN IV DECREASED GLUCOSE; Start 11/20/16 at 03:45 Dextrose (D50w Syringe) 50 ml Q15M PRN IV DECREASED GLUCOSE; Start 11/20/16 at 03:45 Glucagon (Glucagen) 1 mg Q15M PRN IM DECREASED GLUCOSE; Start 11/20/16 at 03:45 Glucose (Glutose) 15 gm Q15M PRN BUCCAL DECREASED GLUCOSE; Start 11/20/16 at 03 :45 RONEY SAMPSON Nov 21, 2016 10:42
[2016-11-21 20:25] VITALS: BP 164/71; RESP 16
--- NOTE | 2016-11-21 20:46 | PN ---
Date/Time of Note Date/Time of Note DATE: 11/21/16 TIME: 20:46 Assessment/Plan Lines/Catheters IV Catheter Type (from [facility]): Saline Lock Mera in Place (from [facility]): No Assessment/Plan Chief Complaint/Hosp Course 1. Abdominal pain, leukocytosis, and CT are suggestive of sigmoid diverticulitis. Improving -abx -diet as tolerated 2. Recent Cholangitis and ? Cholecystitis s/p abx, ercp, and stent -GI eval to rule out stent as source 3. Leukocytosis secondary to above. Continue antibiotics and supportive care and treatment as above. Improved. 4. Hypertension. Continue nutrition and medication optimization. 5. Prediabetes. Continue nutrition and medication optimization. 6. Rheumatoid arthritis, on methotrexate and steroids shots. Continue medical optimization. 7. Hypothyroidism. Continue Synthroid. 8. Hyperlipidemia. Continue diet and medication optimization. 9. History of gastritis. Continue proton pump inhibitor and encourage nutritional and lifestyle optimization. 10. Anemia without evidence of acute blood loss, continue monitoring. 11. Electrolyte abnormalities. Please correct with fluid and nutritional management. Thank you, Problems: Subjective 24 Hr Interval Summary No f/c. No n/v. No cp/sob. Pain has improved. No cough. No osorio/dizzy/visual or neurological changes. Leukocytosis improved. Exam/Review of Systems Vital Signs Vitals Vital Signs Date Time Temp Pulse Resp B/P Pulse Ox O2 Delivery O2 Flow Rate FiO2 11/21/16 20:25 98.4 72 16 164/71 98 11/19/16 23:00 Room Air Intake and Output 11/20/16 11/20/16 11/21/16 15:00 23:00 07:00 Intake Total 300 ml 2450 ml 1140 ml Output Total 1150 ml 2350 ml Balance 300 ml 1300 ml -1210 ml Exam Free Text/Dictation GENERAL: No acute distress, however, uncomfortable. HEENT: Pupils equal, reactive. No scleral icterus. Mucous membranes are moist. NECK: Supple, no JVD, no lymphadenopathy. PULMONARY: Normal respiratory effort. No wheezing. HEART: S1, S2 present and regular. ABDOMEN: Soft, very min tenderness in left lower quadrant without rebound, nor guarding, nor rigidity. EXTREMITIES: No edema. VASCULAR: Cap refill less than 2 seconds. NEUROLOGIC: Alert, oriented, moves all 4 extremities grossly. Results Result Diagram: 11/21/16 0510 11/21/16 0510 RICK JACKSON MD Nov 21, 2016 20:46
[2016-11-21 23:00] VITALS: BP 143/65; RESP 16
[2016-11-22 06:06] LABS: ADD SCAN DIFF NO
[2016-11-22] MEDS: LEVOTHYROXINE 50 MCG TAB PO SCH (06:19)
[2016-11-22] MEDS: PANTOPRAZOLE (EC) 40 MG TAB PO SCH (06:19)
[2016-11-22] MEDS: metroNIDAZOLE 500 MG/NS (PMX) 100 ML IVPB SCH ×3 (06:19→23:08)
[2016-11-22] MEDS: AZTREONAM 1 GM/NS (PMX) 50 ML IVPB SCH ×3 (06:19→22:29)
[2016-11-22] MEDS: POTASSIUM CHLORIDE 30 MEQ in SOD CHLORIDE 0.45% 1,000 ML IV SCH ×3 (06:19→20:10)
[2016-11-22 07:01] LABS: CREATININE 0.45 mg/dl (0.44-1.00); POTASSIUM 3.8 mmol/L (3.5-5.1)
[2016-11-22 08:11] VITALS: BP 136/65; RESP 18
[2016-11-22] MEDS: INSULIN ASPART [NOVOLOG] 3 ML PEN SC SCH ×3 (08:15→17:07)
[2016-11-22] MEDS: ENOXAPARIN 40 MG/0.4 ML SYG SC SCH (09:00)
[2016-11-22] MEDS: SENNA TAB PO SCH ×2 (09:04→20:52)
[2016-11-22] MEDS: VALSARTAN 160 MG TAB PO SCH (09:04)
[2016-11-22] MEDS: CHOLECALCIFEROL 1,000 UNIT TAB PO SCH (09:05)
[2016-11-22] MEDS: ACARBOSE 50 MG TAB PO SCH (09:07)
--- NOTE | 2016-11-22 10:50 | PN ---
Date/Time of Note Date/Time of Note DATE: 11/22/16 TIME: 10:49 Assessment/Plan Lines/Catheters IV Catheter Type (from [facility]): Saline Lock Mera in Place (from [facility]): No Assessment/Plan Chief Complaint/Hosp Course 1. Abdominal pain, leukocytosis, and CT are suggestive of sigmoid diverticulitis. Improved -abx -diet as tolerated 2. Recent Cholangitis and ? Cholecystitis s/p abx, ercp, and stent -GI f/u 3. Leukocytosis secondary to above. Continue antibiotics and supportive care and treatment as above. Improved. 4. Hypertension. Continue nutrition and medication optimization. 5. Prediabetes. Continue nutrition and medication optimization. 6. Rheumatoid arthritis, on methotrexate and steroids shots. Continue medical optimization. 7. Hypothyroidism. Continue Synthroid. 8. Hyperlipidemia. Continue diet and medication optimization. 9. History of gastritis. Continue proton pump inhibitor and encourage nutritional and lifestyle optimization. 10. Anemia without evidence of acute blood loss, continue monitoring. 11. Electrolyte abnormalities. Please correct with fluid and nutritional management. Thank you, Problems: Subjective 24 Hr Interval Summary No f/c. No n/v. No cp/sob. Pain has improved. No cough. No osorio/dizzy/visual or neurological changes. Leukocytosis resolved. Exam/Review of Systems Vital Signs Vitals Vital Signs Date Time Temp Pulse Resp B/P Pulse Ox O2 Delivery O2 Flow Rate FiO2 11/22/16 08:11 97.9 64 18 136/65 98 11/19/16 23:00 Room Air Intake and Output 11/21/16 11/21/16 11/22/16 15:00 23:00 07:00 Intake Total 50 ml 1650 ml 1125 ml Balance 50 ml 1650 ml 1125 ml Exam Free Text/Dictation GENERAL: No acute distress, however, uncomfortable. HEENT: Pupils equal, reactive. No scleral icterus. Mucous membranes are moist. NECK: Supple, no JVD, no lymphadenopathy. PULMONARY: Normal respiratory effort. No wheezing. HEART: S1, S2 present and regular. ABDOMEN: Soft, very min tenderness in left lower quadrant without rebound, nor guarding, nor rigidity. EXTREMITIES: No edema. VASCULAR: Cap refill less than 2 seconds. NEUROLOGIC: Alert, oriented, moves all 4 extremities grossly. Results Result Diagram: 11/21/16 0510 11/22/16 0501 RICK JACKSON MD Nov 22, 2016 10:50
[2016-11-22] MEDS ORDERED: FOSFOMYCIN 3 GM PACKET PO ONE (11:30)
[2016-11-22 13:05] LABS: HEMATOCRIT 28.4 % (37.0-47.0); HEMOGLOBIN 8.9 g/dl (12.0-16.0); MEAN CORPUSCULAR HEMOGLOBIN 26.6 pg (29.0-33.0); MEAN CORPUSCULAR HGB CONC 31.3 g/dl (32.0-37.0); MEAN PLATELET VOLUME 9.4 fl (7.4-10.4); PLATELET COUNT 572 10^3/UL (140-415); RED BLOOD COUNT 3.34 10^6/ul (4.20-5.40); RED CELL DISTRIBUTION WIDTH 17.2 % (11.5-14.5); WHITE BLOOD COUNT 7.3 10^3/ul (4.8-10.8)
[2016-11-22 14:01] LABS: BASOPHIL # 0.1 10^3/ul (0.0-0.1); BASOPHILS % 1.4 % (0.0-2.0); EOSINOPHILS # 0.2 10^3/ul (0.0-0.5); EOSINOPHILS % 2.7 % (0.0-7.0); LYMPHOCYTES % 27.8 % (15.0-51.0); MONOCYTE # 0.6 10^3/ul (0.3-0.9); MONOCYTES % 8.7 % (0.0-11.0); NEUTROPHIL # 4.3 10^3/ul (1.6-7.5); NEUTROPHILS % 58.2 % (39.0-77.0)
[2016-11-22 15:10] LABS: TOTAL CELLS COUNTED % 100
--- NOTE | 2016-11-22 17:09 | PN ---
Date/Time of Note Date/Time of Note DATE: 11/22/16 TIME: 17:07 Assessment/Plan VTE Prophylaxis VTE Prophylaxis Intervention: SCD's Lines/Catheters IV C[facility]ter Type (from [facility]): Peripheral IV Urinary Cath still in place: No Assessment/Plan Chief Complaint/Hosp Course 1. Acute diverticulitis. Continue aztreonam and Flagyl. 2. History of recent acute cholecystitis, although gallbladder ultrasound was negative for stone, status post ERCP and stenting. 3. Hypertension. Continue Diovan. 4. Rheumatoid arthritis. 5. Hypothyroidism. Continue levothyroxine. 6. Dyslipidemia. 7. VRE urine, s/p Fosfomycin. Patient's condition and plan of care discussed in details with patient and patient's daughter at the bedside. Further recommendations based on clinical course. Plan of care discussed with Dr. Shipman. Problems: Subjective 24 Hr Interval Summary Free Text/Dictation Patient tolerates diet well, continues to have left lower quadrant pain however stated it decreased to compare to admission. Exam/Review of Systems Vital Signs Vitals Vital Signs Date Time Temp Pulse Resp B/P Pulse Ox O2 Delivery O2 Flow Rate FiO2 11/22/16 08:11 97.9 64 18 136/65 98 11/19/16 23:00 Room Air Intake and Output 11/21/16 11/21/16 11/22/16 15:00 23:00 07:00 Intake Total 50 ml 1650 ml 1125 ml Balance 50 ml 1650 ml 1125 ml Exam Constitutional: alert, well developed Psych: no complaints Head: atraumatic, normocephalic Eyes: nl conjunctiva ENMT: nl external ears & nose Neck: non-tender, supple Respiratory: clear to auscultation, normal air movement Cardiovascular: nl pulses, regular rate and rhythm Gastrointestinal: soft, tender Musculoskeletal: nl extremities to inspection Extremities: normal pulses Neurological: GUARD IMMIGRATION II-XII intact Results Result Diagram: 11/22/16 0501 11/22/16 0501 Results 24 hrs Laboratory Tests Test 11/22/16 05:01 11/22/16 08:14 11/22/16 11:47 White Blood Count 7.3 Red Blood Count 3.34 L Hemoglobin 8.9 L Hematocrit 28.4 L Mean Corpuscular Volume 85.0 Mean Corpuscular Hemoglobin 26.6 L Mean Corpuscular Hemoglobin Concent 31.3 L Red Cell Distribution Width 17.2 H Platelet Count 572 H Mean Platelet Volume 9.4 Neutrophils % 58.2 Lymphocytes % 27.8 Monocytes % 8.7 Eosinophils % 2.7 Basophils % 1.4 Nucleated Red Blood Cells % 0.0 Neutrophils # 4.3 Lymphocytes # 2.0 Monocytes # 0.6 Eosinophils # 0.2 Basophils # 0.1 Nucleated Red Blood Cells # 0.0 Sodium Level 136 Potassium Level 3.8 Chloride Level 108 Carbon Dioxide Level 25 Anion Gap 7 L Blood Urea Nitrogen 6 L Creatinine 0.45 Glucose Level 105 Calcium Level 9.0 Bedside Glucose 107 100 Medications Medications Current Medications Hydralazine HCl 10 mg 10 mg Q6H PRN IV SBP ABOVE 170; Start 11/20/16 at 00:30 Aztreonam 50 ml @ 100 mls/hr Q8 IVPB Last administered on 11/22/16 13:32; Admin Dose 100 MLS/HR; Start 11/20/16 at 00:30 Metronidazole (Flagyl 500 Mg (Pmx)) 100 ml @ 100 mls/hr Q8 IVPB Last administered on 11/22/16 14:25; Admin Dose 100 MLS/HR; Start 11/20/16 at 00:30 Acetaminophen (Tylenol Tab) 500 mg Q4H PRN PO PAIN AND OR ELEVATED TEMP; Start 11/20/16 at 00:30 Morphine Sulfate (morphine) 2 mg Q4H PRN IV PAIN; Start 11/20/16 at 00:30 Enoxaparin Sodium 40 mg 40 mg DAILY SC ; Start 11/20/16 at 09:00 Potassium Chloride/Sodium Chloride (KCl/1/2 NS) 1,015 ml @ 75 mls/hr [id number] IV Last administered on 11/22/16 12:37; Admin Dose 75 MLS/HR; Start 11/20/16 at 00:30 Senna (Senokot) 2 tab BID PO Last administered on 11/22/16 09:04; Admin Dose 2 TAB; Start 11/20/16 at 09:00 Cholecalciferol (Vitamin D) 5,000 unit DAILY PO Last administered on 11/22/16 09:05; Admin Dose 5,000 UNIT; Start 11/20/16 at 09:00 Valsartan (Diovan) 160 mg DAILY PO Last administered on 11/22/16 09:04; Admin Dose 160 MG; Start 11/20/16 at 09:00 Pantoprazole (Protonix Tab) 40 mg DAILY@06 PO Last administered on 11/22/16 06 :19; Admin Dose 40 MG; Start 11/20/16 at 06:00 Ondansetron HCl (Zofran Inj) 4 mg Q4H PRN IV NAUSEA AND/OR VOMITING; Start at 00:30 Miscellaneous Information 1 ea NOTE XX ; Start 11/20/16 at 03:45 Glucose (Glutose) 15 gm Q15M PRN PO DECREASED GLUCOSE; Start 11/20/16 at 03:45 Glucose (Glutose) 22.5 gm Q15M PRN PO DECREASED GLUCOSE; Start 11/20/16 at 03: 45 Dextrose (D50w Syringe) 25 ml Q15M PRN IV DECREASED GLUCOSE; Start 11/20/16 at 03:45 Dextrose (D50w Syringe) 50 ml Q15M PRN IV DECREASED GLUCOSE; Start 11/20/16 at 03:45 Glucagon (Glucagen) 1 mg Q15M PRN IM DECREASED GLUCOSE; Start 11/20/16 at 03:45 Glucose (Glutose) 15 gm Q15M PRN BUCCAL DECREASED GLUCOSE; Start 11/20/16 at 03 :45 Doxycycline Hyclate (Vibramycin) 100 mg BID PO ; Start 11/22/16 at 21:00 BOB HUBER Nov 22, 2016 17:09
[2016-11-22 19:33] VITALS: BP 141/66; RESP 18
[2016-11-22] MEDS: DOXYCYCLINE 100 MG TAB PO SCH (20:54)
[2016-11-23] MEDS: POTASSIUM CHLORIDE 30 MEQ in SOD CHLORIDE 0.45% 1,000 ML IV SCH ×3 (03:27→21:29)
[2016-11-23 06:23] LABS: ADD SCAN DIFF NO
[2016-11-23 06:25] LABS: BASOPHIL # 0.1 10^3/ul (0.0-0.1); BASOPHILS % 1.1 % (0.0-2.0); EOSINOPHILS # 0.2 10^3/ul (0.0-0.5); HEMATOCRIT 30.8 % (37.0-47.0); HEMOGLOBIN 9.6 g/dl (12.0-16.0); LYMPHOCYTES # 2.1 10^3/ul (0.8-2.9); LYMPHOCYTES % 24.7 % (15.0-51.0); MEAN CORPUSCULAR HEMOGLOBIN 26.3 pg (29.0-33.0); MEAN CORPUSCULAR HGB CONC 31.2 g/dl (32.0-37.0); MEAN CORPUSCULAR VOLUME 84.4 fl (82.0-101.0); MEAN PLATELET VOLUME 9.2 fl (7.4-10.4); MONOCYTE # 0.8 10^3/ul (0.3-0.9); MONOCYTES % 8.9 % (0.0-11.0); NEUTROPHIL # 5.2 10^3/ul (1.6-7.5); NEUTROPHILS % 61.1 % (39.0-77.0); PLATELET COUNT 547 10^3/UL (140-415); RED BLOOD COUNT 3.65 10^6/ul (4.20-5.40); RED CELL DISTRIBUTION WIDTH 17.4 % (11.5-14.5); WHITE BLOOD COUNT 8.6 10^3/ul (4.8-10.8)
[2016-11-23 06:48] LABS: POTASSIUM 3.6 mmol/L (3.5-5.1)
[2016-11-23 06:50] LABS: CREATININE 0.44 mg/dl (0.44-1.00)
[2016-11-23 06:51] LABS: CALCIUM 9.4 mg/dl (8.4-10.2)
[2016-11-23] MEDS: LEVOTHYROXINE 50 MCG TAB PO SCH (06:52)
[2016-11-23] MEDS: PANTOPRAZOLE (EC) 40 MG TAB PO SCH (06:52)
[2016-11-23] MEDS: AZTREONAM 1 GM/NS (PMX) 50 ML IVPB SCH ×3 (06:53→21:30)
[2016-11-23] MEDS: metroNIDAZOLE 500 MG/NS (PMX) 100 ML IVPB SCH ×3 (06:55→22:46)
[2016-11-23] MEDS: INSULIN ASPART [NOVOLOG] 3 ML PEN SC SCH ×3 (08:00→17:13)
[2016-11-23 08:01] VITALS: BP 151/67; PULSE 62; RESP 18
[2016-11-23] MEDS: SENNA TAB PO SCH ×2 (08:41→20:37)
[2016-11-23] MEDS: DOXYCYCLINE 100 MG TAB PO SCH ×2 (08:41→20:37)
[2016-11-23] MEDS: CHOLECALCIFEROL 1,000 UNIT TAB PO SCH (08:42)
[2016-11-23] MEDS: ACARBOSE 50 MG TAB PO SCH (08:43)
[2016-11-23] MEDS: VALSARTAN 160 MG TAB PO SCH (08:43)
[2016-11-23] MEDS: ENOXAPARIN 40 MG/0.4 ML SYG SC SCH (08:50)
--- NOTE | 2016-11-23 12:35 | PN ---
Date/Time of Note Date/Time of Note DATE: 11/23/16 TIME: 12:34 Assessment/Plan VTE Prophylaxis VTE Prophylaxis Intervention: other Lines/Catheters IV C[facility] Type (from [facility]): Peripheral IV Urinary Cath still in place: No Assessment/Plan Assessment/Plan 1. Acute diverticulitis. Continue aztreonam and Flagyl. 2. History of recent acute cholecystitis, although gallbladder ultrasound was negative for stone, status post ERCP and stenting. 3. Hypertension. Continue Diovan. 4. Rheumatoid arthritis. 5. Hypothyroidism. Continue levothyroxine. 6. Dyslipidemia. 7. VRE urine, s/p Fosfomycin. Further recommendations based on clinical course. Plan of care discussed with Dr. Shipman. Subjective 24 Hr Interval Summary Eyes: no complaints ENT: no complaints Respiratory: no complaints Cardiovascular: no complaints Gastrointestinal: no complaints Genitourinary: no complaints Musculoskeletal: no complaints Skin: no complaints Neurologic: no complaints Endocrine: no complaints Lymphatic: no complaints Psychological: no complaints Immunologic: no complaints Exam/Review of Systems Vital Signs Vitals Vital Signs Date Time Temp Pulse Resp B/P Pulse Ox O2 Delivery O2 Flow Rate FiO2 11/23/16 08:01 98.7 62 18 151/67 97 Room Air Intake and Output 11/22/16 11/22/16 11/23/16 15:00 23:00 07:00 Intake Total 1200 ml 1070 ml 1475 ml Balance 1200 ml 1070 ml 1475 ml Exam Constitutional: alert, oriented, well developed Psych: nl mood/affect Head: atraumatic Eyes: EOMI ENMT: nl external ears & nose Neck: non-tender Respiratory: clear to auscultation Cardiovascular: nl pulses Gastrointestinal: soft, tender (mild tenderness noted) Extremities: normal pulses Neurological: nl mental status, nl speech Skin: nl turgor Lymph: nontender Results Result Diagram: 11/23/16 0507 11/23/16 0507 Results 24 hrs Laboratory Tests Test 11/22/16 17:00 11/23/16 05:07 11/23/16 07:59 11/23/16 12:21 Bedside Glucose 108 98 78 White Blood Count 8.6 Red Blood Count 3.65 L Hemoglobin 9.6 L Hematocrit 30.8 L Mean Corpuscular Volume 84.4 Mean Corpuscular Hemoglobin 26.3 L Mean Corpuscular Hemoglobin Concent 31.2 L Red Cell Distribution Width 17.4 H Platelet Count 547 H Mean Platelet Volume 9.2 Neutrophils % 61.1 Lymphocytes % 24.7 Monocytes % 8.9 Eosinophils % 2.0 Basophils % 1.1 Nucleated Red Blood Cells % 0.0 Neutrophils # 5.2 Lymphocytes # 2.1 Monocytes # 0.8 Eosinophils # 0.2 Basophils # 0.1 Nucleated Red Blood Cells # 0.0 Sodium Level 138 Potassium Level 3.6 Chloride Level 106 Carbon Dioxide Level 24 Anion Gap 12 Blood Urea Nitrogen 6 L Creatinine 0.44 Glucose Level 98 Calcium Level 9.4 Medications Medications Current Medications Hydralazine HCl 10 mg 10 mg Q6H PRN IV SBP ABOVE 170; Start 11/20/16 at 00:30 Aztreonam 50 ml @ 100 mls/hr Q8 IVPB Last administered on 11/23/16 06:53; Admin Dose 100 MLS/HR; Start 11/20/16 at 00:30 Metronidazole (Flagyl 500 Mg (Pmx)) 100 ml @ 100 mls/hr Q8 IVPB Last administered on 11/23/16 06:55; Admin Dose 100 MLS/HR; Start 11/20/16 at 00:30 Acetaminophen (Tylenol Tab) 500 mg Q4H PRN PO PAIN AND OR ELEVATED TEMP; Start 11/20/16 at 00:30 Morphine Sulfate (morphine) 2 mg Q4H PRN IV PAIN; Start 11/20/16 at 00:30 Enoxaparin Sodium 40 mg 40 mg DAILY SC ; Start 11/20/16 at 09:00 Potassium Chloride/Sodium Chloride (KCl/1/2 NS) 1,015 ml @ 75 mls/hr [id number] IV Last administered on 11/23/16 03:27; Admin Dose 75 MLS/HR; Start 11/20/16 at 00:30 Senna (Senokot) 2 tab BID PO Last administered on 11/23/16 08:41; Admin Dose 2 TAB; Start 11/20/16 at 09:00 Cholecalciferol (Vitamin D) 5,000 unit DAILY PO Last administered on 11/23/16 08:42; Admin Dose 5,000 UNIT; Start 11/20/16 at 09:00 Valsartan (Diovan) 160 mg DAILY PO Last administered on 11/23/16 08:43; Admin Dose 160 MG; Start 11/20/16 at 09:00 Pantoprazole (Protonix Tab) 40 mg DAILY@06 PO Last administered on 11/23/16 06 :52; Admin Dose 40 MG; Start 11/20/16 at 06:00 Ondansetron HCl (Zofran Inj) 4 mg Q4H PRN IV NAUSEA AND/OR VOMITING; Start at 00:30 Miscellaneous Information 1 ea NOTE XX ; Start 11/20/16 at 03:45 Glucose (Glutose) 15 gm Q15M PRN PO DECREASED GLUCOSE; Start 11/20/16 at 03:45 Glucose (Glutose) 22.5 gm Q15M PRN PO DECREASED GLUCOSE; Start 11/20/16 at 03: 45 Dextrose (D50w Syringe) 25 ml Q15M PRN IV DECREASED GLUCOSE; Start 11/20/16 at 03:45 Dextrose (D50w Syringe) 50 ml Q15M PRN IV DECREASED GLUCOSE; Start 11/20/16 at 03:45 Glucagon (Glucagen) 1 mg Q15M PRN IM DECREASED GLUCOSE; Start 11/20/16 at 03:45 Glucose (Glutose) 15 gm Q15M PRN BUCCAL DECREASED GLUCOSE; Start 11/20/16 at 03 :45 Doxycycline Hyclate (Vibramycin) 100 mg BID PO Last administered on 11/23/16 08:41; Admin Dose 100 MG; Start 11/22/16 at 21:00 RONEY SAMPSON Nov 23, 2016 12:35
[2016-11-23 19:55] VITALS: BP 153/67; RESP 20
[2016-11-24] MEDS: AZTREONAM 1 GM/NS (PMX) 50 ML IVPB SCH ×2 (05:46→14:00)
[2016-11-24] MEDS: PANTOPRAZOLE (EC) 40 MG TAB PO SCH (05:46)
[2016-11-24] MEDS: metroNIDAZOLE 500 MG/NS (PMX) 100 ML IVPB SCH ×2 (05:46→14:00)
[2016-11-24] MEDS: LEVOTHYROXINE 50 MCG TAB PO SCH (06:12)
[2016-11-24 06:40] LABS: ADD SCAN DIFF NO
[2016-11-24 06:48] LABS: CALCIUM 9.4 mg/dl (8.4-10.2); CREATININE 0.44 mg/dl (0.44-1.00); POTASSIUM 3.9 mmol/L (3.5-5.1)
[2016-11-24 06:53] LABS: BASOPHIL # 0.1 10^3/ul (0.0-0.1); BASOPHILS % 1.1 % (0.0-2.0); EOSINOPHILS # 0.2 10^3/ul (0.0-0.5); EOSINOPHILS % 2.8 % (0.0-7.0); HEMATOCRIT 29.4 % (37.0-47.0); HEMOGLOBIN 9.3 g/dl (12.0-16.0); LYMPHOCYTES # 2.1 10^3/ul (0.8-2.9); LYMPHOCYTES % 24.5 % (15.0-51.0); MEAN CORPUSCULAR HEMOGLOBIN 26.2 pg (29.0-33.0); MEAN CORPUSCULAR HGB CONC 31.6 g/dl (32.0-37.0); MEAN CORPUSCULAR VOLUME 82.8 fl (82.0-101.0); MEAN PLATELET VOLUME 9.2 fl (7.4-10.4); MONOCYTE # 0.7 10^3/ul (0.3-0.9); MONOCYTES % 8.4 % (0.0-11.0); NEUTROPHIL # 5.2 10^3/ul (1.6-7.5); NEUTROPHILS % 61.3 % (39.0-77.0); PLATELET COUNT 596 10^3/UL (140-415); RED BLOOD COUNT 3.55 10^6/ul (4.20-5.40); RED CELL DISTRIBUTION WIDTH 17.5 % (11.5-14.5); WHITE BLOOD COUNT 8.5 10^3/ul (4.8-10.8)
[2016-11-24 07:24] VITALS: BP 151/67; RESP 19
[2016-11-24] MEDS: INSULIN ASPART [NOVOLOG] 3 ML PEN SC SCH ×2 (08:12→12:15)
[2016-11-24] MEDS: ENOXAPARIN 40 MG/0.4 ML SYG SC SCH (09:00)
[2016-11-24] MEDS: ACARBOSE 50 MG TAB PO SCH (09:25)
[2016-11-24] MEDS: VALSARTAN 160 MG TAB PO SCH (09:26)
[2016-11-24] MEDS: CHOLECALCIFEROL 1,000 UNIT TAB PO SCH (09:26)
[2016-11-24] MEDS: SENNA TAB PO SCH (09:26)
[2016-11-24] MEDS: DOXYCYCLINE 100 MG TAB PO SCH (09:26)
[2016-11-24] MEDS: POTASSIUM CHLORIDE 30 MEQ in SOD CHLORIDE 0.45% 1,000 ML IV SCH (12:46)
--- NOTE | 2016-11-24 13:21 | PDOCDIS ---
Discharge Instructions CONDITION Patient Condition: Stable HOME CARE INSTRUCTIONS: Special Diet: clear liquid ACTIVITY: Activity Restrictions: Slowly Increase Activity Rest between Activity Avoid heavy lifting Bathing Restrictions: Sponge Bath FOLLOW UP/APPOINTMENTS Appointments Follow with primary MD in 1 week Follow-up with surgery as recommended Call 911 or go to the nearest hospital if the symptoms get worse. Patient verbalized understanding of discharge instructions discussed with staff, Dr. Shipman, patient. SCHOOL/WORK RELEASE May return to School/Work on: Nov 28, 2016 School/Work Release Comment: Date of admission- 11/19/2016. Date of Discharge- . RONEY SAMPSON Nov 24, 2016 13:21
--- NOTE | 2016-11-24 13:22 | DS ---
Date/Time of Note Date/Time of Note DATE: 11/24/16 TIME: 13:22 Discharge Summary Admission/Discharge Info Admit Date/Time Nov 19, 2016 at 18:59 Discharge Date/Time Patient Condition: Stable Hospital Course 1. Acute diverticulitis. Continue aztreonam and Flagyl. 2. History of recent acute cholecystitis, although gallbladder ultrasound was negative for stone, status post ERCP and stenting. 3. Hypertension. Continue Diovan. 4. Rheumatoid arthritis. 5. Hypothyroidism. Continue levothyroxine. 6. Dyslipidemia. 7. VRE urine, s/p Fosfomycin. Patient's condition and plan of care discussed in details with patient and patient's daughter at the bedside. Further recommendations based on clinical course. Plan of care discussed with Dr. Shipman. Home Meds Active Scripts Levofloxacin* (Levaquin*) 500 Mg Tablet, 500 MG PO DAILY for 7 Days, TAB Prov:RONEY SAMPSON 11/13/16 Docusate Sodium (Dok) 100 Mg Capsule, 100 MG PO BID for 30 Days, CAP Prov:RONEY SAMPSON 11/13/16 Reported Medications Cholecalciferol* (Vitamin D3*) 1,000 Unit Tablet, 5000 UNIT PO DAILY, TAB 11/08/16 Levothyroxine Sodium* (Levoxyl*) 50 Mcg Tablet, 50 MCG PO BEFORE BREAKFAST, #30 TAB 11/08/16 Acarbose* (Precose*) 50 Mg Tablet, 50 MG PO WITH BREAKFAST, TAB 11/08/16 Valsartan* (Diovan*) 160 Mg Tablet, 160 MG PO DAILY, TAB 07/09/16 Esomeprazole Mag Trihydrate (Nexium) 40 Mg Capsule.dr, 40 MG PO DAILY 05/23/12 Discontinued Reported Medications Methotrexate* (Methotrexate*) 2.5 Mg Tab, 7.5 MG PO BID, TAB 11/08/16 Atorvastatin (Lipitor) 80 Mg Tablet, 80 MG PO DAILY 05/23/12 Discontinued Scripts Hydrocodone/Acetaminophen ([place] 5-325 Tablet) 1 Each Tablet, 1 EACH PO Q6 Y for PAIN LEVEL 7-10, #20 TAB Prov:RONEY SAMPSON 11/13/16 Pantoprazole* (Pantoprazole*) 40 Mg Tablet., 40 MG PO DAILY@06 for 30 Days Prov:RONEY SAMPSON 11/13/16 Levothyroxine Sodium* (Synthroid*) 50 Mcg Tablet, 50 MCG PO DAILY@06 for 30 Days , TAB Prov:RONEY SAMPSON 11/13/16 Pending Labs Laboratory Tests Test 11/23/16 17:12 11/24/16 05:34 11/24/16 08:03 11/24/16 12:04 Bedside Glucose 146mg/dL (70-220) 103mg/dL (70-220) 106mg/dL (70-220) White Blood Count 8.510^3/ul (4.8-10.8) Red Blood Count 3.5510^6/ul (4.20-5.40) Hemoglobin 9.3g/dl (12.0-16.0) Hematocrit 29.4% (37.0-47.0) Mean Corpuscular Volume 82.8fl (82.0-101.0) Mean Corpuscular Hemoglobin 26.2pg (29.0-33.0) Mean Corpuscular Hemoglobin Concent 31.6g/dl (32.0-37.0) Red Cell Distribution Width 17.5% (11.5-14.5) Platelet Count 36625^3/UL (140-415) Mean Platelet Volume 9.2fl (7.4-10.4) Neutrophils % 61.3% (39.0-77.0) Lymphocytes % 24.5% (15.0-51.0) Monocytes % 8.4% (0.0-11.0) Eosinophils % 2.8% (0.0-7.0) Basophils % 1.1% (0.0-2.0) Nucleated Red Blood Cells % 0.0/100WBC (0.0-0.0) Neutrophils # 5.210^3/ul (1.6-7.5) Lymphocytes # 2.110^3/ul (0.8-2.9) Monocytes # 0.710^3/ul (0.3-0.9) Eosinophils # 0.210^3/ul (0.0-0.5) Basophils # 0.110^3/ul (0.0-0.1) Nucleated Red Blood Cells # 0.010^3/ul (0.0-0.0) Sodium Level 135mmol/L (135-144) Potassium Level 3.9mmol/L (3.5-5.1) Chloride Level 107mmol/L (97-110) Carbon Dioxide Level 26mmol/L (21-31) Anion Gap 6 (8-16) Blood Urea Nitrogen 8mg/dl (7-20) Creatinine 0.44mg/dl (0.44-1.00) Glucose Level 98mg/dl (70-220) Calcium Level 9.4mg/dl (8.4-10.2) RONEY SAMPSON Nov 24, 2016 13:22
[2016-11-24] MEDS ORDERED: DOCU-144 PO (13:27)
[2016-11-24] MEDS ORDERED: HYDR-906 PO (13:27)
[2016-11-24] MEDS ORDERED: METR500T PO (13:48)
[2016-11-24] MEDS ORDERED: LEVO500T72 PO (13:48)
--- NOTE | 2016-11-25 12:45 | PN ---
Date/Time of Note Date/Time of Note DATE: 11/23/16 TIME: 12:45 Assessment/Plan Lines/Catheters IV Catheter Type (from [facility]): Saline Lock Mera in Place (from [facility]): No Assessment/Plan Chief Complaint/Hosp Course 1. Abdominal pain, leukocytosis, and CT are suggestive of sigmoid diverticulitis. Improved -abx -diet as tolerated 2. Recent Cholangitis and ? Cholecystitis s/p abx, ercp, and stent -GI f/u 3. Leukocytosis secondary to above. Continue antibiotics and supportive care and treatment as above. Improved. 4. Hypertension. Continue nutrition and medication optimization. 5. Prediabetes. Continue nutrition and medication optimization. 6. Rheumatoid arthritis, on methotrexate and steroids shots. Continue medical optimization. 7. Hypothyroidism. Continue Synthroid. 8. Hyperlipidemia. Continue diet and medication optimization. 9. History of gastritis. Continue proton pump inhibitor and encourage nutritional and lifestyle optimization. 10. Anemia without evidence of acute blood loss, continue monitoring. 11. Electrolyte abnormalities. Please correct with fluid and nutritional management. Thank you, Late entry 11/23 Problems: Subjective 24 Hr Interval Summary No f/c. No n/v. No cp/sob. Pain has improved. No cough. No osorio/dizzy/visual or neurological changes. Leukocytosis resolved. Exam/Review of Systems Vital Signs Vitals Vital Signs Date Time Temp Pulse Resp B/P Pulse Ox O2 Delivery O2 Flow Rate FiO2 11/24/16 07:24 98.2 74 19 151/67 98 11/23/16 08:01 Room Air Intake and Output 11/24/16 11/24/16 11/25/16 14:59 22:59 06:59 Intake Total 500 ml 1090 ml Balance 500 ml 1090 ml Exam Free Text/Dictation GENERAL: No acute distress, however, uncomfortable. HEENT: Pupils equal, reactive. No scleral icterus. Mucous membranes are moist. NECK: Supple, no JVD, no lymphadenopathy. PULMONARY: Normal respiratory effort. No wheezing. HEART: S1, S2 present and regular. ABDOMEN: Soft, very min tenderness in left lower quadrant without rebound, nor guarding, nor rigidity. EXTREMITIES: No edema. VASCULAR: Cap refill less than 2 seconds. NEUROLOGIC: Alert, oriented, moves all 4 extremities grossly. Results Result Diagram: 11/24/16 0534 11/24/1634 RICK JACKSON MD Nov 25, 2016 12:45
--- NOTE | 2016-11-25 12:47 | PN ---
Date/Time of Note Date/Time of Note DATE: 11/24/16 TIME: 12:45 Assessment/Plan Lines/Catheters IV Catheter Type (from [facility]): Saline Lock Mera in Place (from [facility]): No Assessment/Plan Chief Complaint/Hosp Course 1. Abdominal pain, leukocytosis, and CT are suggestive of sigmoid diverticulitis. Improved s/p abx -diet as tolerated 2. Recent Cholangitis and ? Cholecystitis s/p abx, ercp, and stent -GI f/u 3. Leukocytosis secondary to above. Continue antibiotics and supportive care and treatment as above. Improved. 4. Hypertension. Continue nutrition and medication optimization. 5. Prediabetes. Continue nutrition and medication optimization. 6. Rheumatoid arthritis, on methotrexate and steroids shots. Continue medical optimization. 7. Hypothyroidism. Continue Synthroid. 8. Hyperlipidemia. Continue diet and medication optimization. 9. History of gastritis. Continue proton pump inhibitor and encourage nutritional and lifestyle optimization. 10. Anemia without evidence of acute blood loss, continue monitoring. 11. Electrolyte abnormalities. Please correct with fluid and nutritional management. Thank you, Late entry 11/24 Problems: Subjective 24 Hr Interval Summary No f/c. No n/v. No cp/sob. Pain has improved. No cough. No osorio/dizzy/visual or neurological changes. Exam/Review of Systems Vital Signs Vitals Vital Signs Date Time Temp Pulse Resp B/P Pulse Ox O2 Delivery O2 Flow Rate FiO2 11/24/16 07:24 98.2 74 19 151/67 98 11/23/16 08:01 Room Air Intake and Output 11/24/16 11/24/16 11/25/16 14:59 22:59 06:59 Intake Total 500 ml 1090 ml Balance 500 ml 1090 ml Exam Free Text/Dictation GENERAL: No acute distress, however, uncomfortable. HEENT: Pupils equal, reactive. No scleral icterus. Mucous membranes are moist. NECK: Supple, no JVD, no lymphadenopathy. PULMONARY: Normal respiratory effort. No wheezing. HEART: S1, S2 present and regular. ABDOMEN: Soft,NT, no rebound, nor guarding, nor rigidity. EXTREMITIES: No edema. VASCULAR: Cap refill less than 2 seconds. NEUROLOGIC: Alert, oriented, moves all 4 extremities grossly. Results Result Diagram: 11/24/16 0534 11/24/16 0534 RICK JACKSON MD Nov 25, 2016 12:47
== END 2016-11-24 16:10 | disposition home or self-care (01) | DRG 392 ==
LOC: E/R 12:29 → MS2 18:59
PROVIDERS: ADMIT Internal Medicine; ATTEND Internal Medicine
DX: K57.32 Diverticulitis of large intestine without perforation or abscess without bleeding (principal); M06.9 Rheumatoid arthritis, unspecified; D64.9 Anemia, unspecified; I10 Essential (primary) hypertension; E87.6 Hypokalemia; E03.9 Hypothyroidism, unspecified; E78.5 Hyperlipidemia, unspecified; K44.9 Diaphragmatic hernia without obstruction or gangrene; Z87.19 Personal history of other diseases of the digestive system; R73.03 Prediabetes; Z79.52 Long term (current) use of systemic steroids; Z79.899 Other long term (current) drug therapy; Z96.89 Presence of other specified functional implants
CPT/HCPCS: 36415; 71010; 74177; 80048; 80053; 81001; 81003; 82962; 83605; 83735; 84484; 85025; 85610; 85730; 87040; 87045; 87081; 87086; 93005; 96365; 96366; 96367; 96368; J0744; J1650; J1815; J3480; J7030; Q9967

== ENCOUNTER 2017-06-19 11:54 | Inpatient (IN) | payer MEDICARE, OTHER ==
[~2017-06-19] VITALS: Ht 127 cm; Wt 51.1 kg
[~2017-06-19 11:54] MED LIST changes: -ATOR80TA18 PO; +DOCU-144 PO; -LEVO50TA83 PO; -MET25 PO; +METR500T PO; -PANT40TA4 PO
[2017-06-19 11:58] VITALS: Ht 127 cm; Wt 51.1 kg
--- NOTE | 2017-06-19 13:04 | RADRPT ---
PROCEDURE: CT ABDOMEN AND PELVIS WITHOUT CONTRAST. CLINICAL INDICATION: Abdominal pain and elevated WBC. TECHNIQUE: CT scan of the abdomen and pelvis without contrast was performed on a multidetector hig h-resolution CT scanner. The patient was scanned without intravenous contrast. Coronal and sagittal reformatted images were obtained from the axial source images. Images were reviewed on a high-resol [employer] PACS workstation. The total exam CTDI equals 6.9 mGy and the total exam DLP equals 354.8 mGy-c m. One or more of the following dose reduction techniques were used: Automated exposure control. Adjustment of the mA and/or kV according to patient size. Use of iterative reconstruction technique. DICOM images are available COMPARISON: CT 11/19/2016 FINDINGS: CT abdomen: The lung bases are clear. The heart size is within normal limits. There is no significant pericardia l effusion. Hepatic morphology is within limits. No gross contour deforming masses. Status post cholecystectomy. There is a complex ill-defined collection measuring 5.3 x 3.9 cm within the gallbladder fossa, cont aining several foci of air. The spleen and pancreas are within normal limits. Both adrenal glands are within normal limits. Both kidneys are and normal anatomic position. There is a right-sided renal cyst, measuring 2.2 cm. There is a left-sided renal cyst, measuring 2.2 cm. No gross renal/ureteric calculi. No evidence of obstruction or hydronephrosis. The visualized GI tract demonstrates possible mild inflammation of the adjacent hepatic flexure. The re is a yalnotjl-mo-jzvso hiatal hernia. There is diffuse colonic diverticulosis. No evidence of bow el obstruction. Atherosclerotic calcification of the aorta is identified. There is retroperitoneal lymphadenopathy. CT pelvis: The bladder is within limits. The uterus is retroverted and calcified. The rectosigmoid colon demons trates extensive diverticulosis. No significant free fluid. No same pelvic lymphadenopathy. The visualized osseous structures demonstrates mild scoliosis and degenerative changes of the spine. IMPRESSION: 1. COMPLEX COLLECTION WITH ILL-DEFINED BORDERS MEASURING 5.3 X 3.9 CM WITHIN THE GALLBLADDER FOSSA, WITH SEVERAL FOCI OF AIR. ALTHOUGH FINDINGS MAY REPRESENT POSTSURGICAL CHANGES, EARLY ABSCESS FORMAT ION OR BILOMA IS NOT EXCLUDED. 2. There may be mild inflammation of the adjacent hepatic flexure. Diffuse colonic diverticulosis. N o evidence of bowel obstruction. Several fluid filled loops of small bowel within the abdomen sugges tive of ileus. 3. Eoowzrhi-ze-mvtzt hiatal hernia. 4. Bilateral renal cysts. No obstruction or hydronephrosis. 5. Atherosclerotic disease of the aorta. RPTAT: AAPP Dorothea Veliz Physician Date Time Electronically viewed and signed by Dorothea Veliz Physician on 06/19/2017 13:04 DAVID/
--- NOTE | 2017-06-19 13:15 | RADRPT ---
PROCEDURE: XR Chest. CLINICAL INDICATION: Shortness of breath TECHNIQUE: Single portable view of the chest was obtained COMPARISON: November 26, 2014 FINDINGS: The trachea is midline. The cardiac silhouette and pulmonary vascularity are within normal limits. T he lungs are clear. The costophrenic angles are sharp. IMPRESSION: 1. No evidence of acute cardiopulmonary disease. RPTAT: AAPP Physician Zachary Date Time Electronically viewed and signed by Dorothea Veliz Physician on 06/19/2017 13:14 DAVID/
[2017-06-19 13:20] LABS: BASOPHIL # 0.1 10^3/ul (0.0-0.1); BASOPHILS % 0.5 % (0.0-2.0); EOSINOPHILS # 0.1 10^3/ul (0.0-0.5); EOSINOPHILS % 0.5 % (0.0-7.0); HEMATOCRIT 30.1 % (37.0-47.0); HEMOGLOBIN 9.4 g/dl (12.0-16.0); LYMPHOCYTES # 1.9 10^3/ul (0.8-2.9); LYMPHOCYTES % 15.3 % (15.0-51.0); MEAN CORPUSCULAR HEMOGLOBIN 26.3 pg (29.0-33.0); MEAN CORPUSCULAR HGB CONC 31.2 g/dl (32.0-37.0); MEAN CORPUSCULAR VOLUME 84.1 fl (82.0-101.0); MEAN PLATELET VOLUME 9.3 fl (7.4-10.4); MONOCYTE # 0.6 10^3/ul (0.3-0.9); MONOCYTES % 5.1 % (0.0-11.0); NEUTROPHIL # 9.8 10^3/ul (1.6-7.5); NEUTROPHILS % 78.2 % (39.0-77.0); PLATELET COUNT 520 10^3/UL (140-415); RED BLOOD COUNT 3.58 10^6/ul (4.20-5.40); RED CELL DISTRIBUTION WIDTH 16.8 % (11.5-14.5); WHITE BLOOD COUNT 12.5 10^3/ul (4.8-10.8)
[2017-06-19] MEDS ORDERED: EZET10TA3 PO (13:25)
[2017-06-19 13:29] LABS: ADD UMIC YES; UR ASCORBIC ACID NEGATIVE (NEGATIVE); UR BILIRUBIN (Dip) NEGATIVE (NEGATIVE); UR BLOOD (Dip) 1+ mg/dL (NEGATIVE); UR CLARITY CLEAR (CLEAR); UR COLOR YELLOW (YELLOW); UR GLUCOSE (Dip) NEGATIVE (NEGATIVE); UR KETONES (Dip) NEGATIVE (NEGATIVE); UR LEUKOCYTE ESTERASE (Dip) NEGATIVE Leu/ul (NEGATIVE); UR NITRITE (Dip) NEGATIVE (NEGATIVE); UR RBC 1 /HPF (0-5); UR SPECIFIC GRAVITY (Dip) 1.005 (1.003-1.030); UR TOTAL PROTEIN (Dip) NEGATIVE (NEGATIVE); UR UROBILINOGEN (Dip) 2+ mg/dL (NEGATIVE)
[2017-06-19 13:39] LABS: ALBUMIN 3.5 g/dl (3.3-4.9); BILIRUBIN,INDIRECT 0.2 mg/dl (0-1.1); BILIRUBIN,TOTAL 0.2 mg/dl (0.2-1.3); CALCIUM 9.1 mg/dl (8.4-10.2); CREATININE 0.65 mg/dl (0.44-1.00); POTASSIUM 3.7 mmol/L (3.5-5.1)
[2017-06-19] MEDS ORDERED: SODIUM CHLORIDE 0.9% 1L BAG IV* STA (13:47)
[2017-06-19] MEDS ORDERED: AZTREONAM 1 GM/NS (PMX) 50 ML IVPB STA (13:47)
[2017-06-19] MEDS ORDERED: ONDANSETRON 4 MG INJ IV PRN (14:00)
[2017-06-19] MEDS ORDERED: VANCOMYCIN 1 GM (PMX) 250 ML IVPB ONE (14:00)
[2017-06-19] MEDS ORDERED: ACETAMINOPHEN 325 MG TAB PO PRN (14:00)
--- NOTE | 2017-06-19 14:03 | ERD ---
ER Documentation Chief Complaint Chief Complaint pt bib family for eval of high WBC, sent for blood work and CT HPI Patient is a 81-year-old female who presents with abdominal pain and high white blood cell count. The patient was sent by Dr. Auguste the surgeon who did a cholecystectomy on May 28. The patient had a high white blood cell count of 17 and dysuria over the past few days. Dr. Auguste wanted the patient to get a CT scan of the abdomen pelvis, urinalysis, CBC, and CMP. The patient denies fevers. She has had no recent antibiotics. The pain is in the right upper quadrant. ROS All systems reviewed and are negative except as per history of present illness. Medications Home Meds Active Scripts Docusate Sodium* (Colace*) 100 Mg Capsule, 100 MG PO DAILY, #30 CAP Prov:RONEY SAMPSON 11/24/16 Hydrocodone/Acetaminophen ([place] 5-325 Tablet) 1 Each Tablet, 1 EACH PO Q6, #14 TAB Prov:RONEY SAMPSON 11/24/16 Reported Medications Ezetimibe* (Zetia*) 10 Mg Tablet, 10 MG PO HS, TAB 06/19/17 Cholecalciferol* (Vitamin D3*) 1,000 Unit Tablet, 5000 UNIT PO DAILY, TAB 11/08/16 Levothyroxine Sodium* (Levoxyl*) 50 Mcg Tablet, 50 MCG PO BEFORE BREAKFAST, #30 TAB 11/08/16 Acarbose* (Precose*) 50 Mg Tablet, 50 MG PO WITH BREAKFAST, TAB 11/08/16 Valsartan* (Diovan*) 160 Mg Tablet, 160 MG PO DAILY, TAB 07/09/16 Esomeprazole Mag Trihydrate (Nexium) 40 Mg Capsule.dr, 40 MG PO DAILY 05/23/12 Discontinued Scripts Metronidazole* (Flagyl*) 500 Mg Tablet, 500 MG PO TID for 7 Days, TAB Prov:RONEY SAMPSON 11/24/16 Levofloxacin* (Levaquin*) 500 Mg Tablet, 500 MG PO DAILY for 7 Days, TAB Prov:RONEY SAMPSON 11/24/16 Levofloxacin* (Levaquin*) 500 Mg Tablet, 500 MG PO DAILY for 7 Days, TAB Prov:RONEY SAMPSON 11/13/16 Docusate Sodium (Dok) 100 Mg Capsule, 100 MG PO BID for 30 Days, CAP Prov:RONEY SAMPSON 11/13/16 Allergies Allergies: Coded Allergies: penicillin G (Verified Allergy, Intermediate, RASH, HEADACHE, 11/19/16) PMhx/Soc History of Surgery: No Anesthesia Reaction: No Hx Neurological Disorder: No Hx Respiratory Disorders: No Hx Cardiac Disorders: Yes (htn) Hx Psychiatric Problems: No Hx Miscellaneous Medical Probl: No Hx Alcohol Use: No Hx Substance Use: No Hx Tobacco Use: No FmHx Family History: No diabetes Physical Exam Vitals Vital Signs Date Time Temp Pulse Resp B/P Pulse Ox O2 Delivery O2 Flow Rate FiO2 06/19/17 11:58 97.4 82 16 195/77 98 Physical Exam Const: No acute distress Head: Atraumatic Eyes: Normal Conjunctiva ENT: Normal External Ears, Nose and Mouth. Neck: Full range of motion..~ No meningismus. Resp: Clear to auscultation bilaterally Cardio: Regular rate and rhythm, no murmurs Abd: Soft, right upper quadrant tenderness to palpation without rebound or guarding Skin: No petechiae or rashes Back: No midline or flank tenderness Ext: No cyanosis, or edema Neur: Awake and alert Psych: Normal Mood and Affect Result Diagram: 06/19/17 1235 06/19/17 1235 Results 24 hrs Laboratory Tests Test 06/19/17 12:35 06/19/17 13:00 White Blood Count 12.510^3/ul Red Blood Count 3.5810^6/ul Hemoglobin 9.4g/dl Hematocrit 30.1% Mean Corpuscular Volume 84.1fl Mean Corpuscular Hemoglobin 26.3pg Mean Corpuscular Hemoglobin Concent 31.2g/dl Red Cell Distribution Width 16.8% Platelet Count 50394^3/UL Mean Platelet Volume 9.3fl Neutrophils % 78.2% Lymphocytes % 15.3% Monocytes % 5.1% Eosinophils % 0.5% Basophils % 0.5% Nucleated Red Blood Cells % 0.0/100WBC Neutrophils # 9.810^3/ul Lymphocytes # 1.910^3/ul Monocytes # 0.610^3/ul Eosinophils # 0.110^3/ul Basophils # 0.110^3/ul Nucleated Red Blood Cells # 0.010^3/ul Sodium Level 140mmol/L Potassium Level 3.7mmol/L Chloride Level 104mmol/L Carbon Dioxide Level 24mmol/L Anion Gap 16 Blood Urea Nitrogen 9mg/dl Creatinine 0.65mg/dl Glucose Level 143mg/dl Calcium Level 9.1mg/dl Total Bilirubin 0.2mg/dl Direct Bilirubin 0.00mg/dl Indirect Bilirubin 0.2mg/dl Aspartate Amino Transf (AST/SGOT) 23IU/L Alanine Aminotransferase (ALT/SGPT) 36IU/L Alkaline Phosphatase 161IU/L Total Protein 7.0g/dl Albumin 3.5g/dl Globulin 3.50g/dl Albumin/Globulin Ratio 1.00 Lipase 40U/L Urine Color YELLOW Urine Clarity CLEAR Urine pH 7.0 Urine Specific [place] 1.005 Urine Ketones NEGATIVEmg/dL Urine Nitrite NEGATIVEmg/dL Urine Bilirubin NEGATIVEmg/dL Urine Urobilinogen 2+mg/dL Urine Leukocyte Esterase NEGATIVELeu/ul Urine Microscopic RBC 1/HPF Urine Microscopic WBC 1/HPF Urine Hemoglobin 1+mg/dL Urine Glucose NEGATIVEmg/dL Urine Total Protein NEGATIVEmg/dl Lactic Acid Level 1.8mmol/L Current Medications Medications (Trade) Dose Ordered Sig/Hector Route PRN Reason Start Time Stop Time Status Last Admin Dose Admin Sodium Chloride 1610 ml 1,610 ml BOLUS OVER 2 HOURS STAT IV* 06/19/17 13:47 06/19/17 13:48 DC 06/19/17 13:58 Vancomycin HCl 250 ml @ 125 mls/hr ONCE ONCE IVPB 06/19/17 14:00 06/19/17 15:59 Aztreonam (Azactam 1gm/NS (Pmx)) 50 ml @ 100 mls/hr ONCE STAT IVPB 06/19/17 13:47 06/19/17 14:16 Procedures/MDM CT abdomen and pelvis shows a 5 x 3 cm fluid collection in the right upper quadrant consistent with postop infection versus biloma per radiology. Patient is a 81-year-old female who presents with a postop infection from previous cholecystectomy. The patient was given broad-spectrum antibiotics with vancomycin and aztreonam after blood cultures were drawn. At this point I doubt sepsis as she has no SIRS criteria. The patient will be admitted to the care of Dr. Bard ojeda who is covering for Dr. Grimm the patient's primary doctor. I spoke with Dr. Auguste the surgeon who will see the patient in consultation. The patient will likely benefit from percutaneous drainage. Departure Diagnosis: Primary Impression: Postoperative abscess Encounter type: initial encounter Qualified Code: T81.4XXA - Postoperative abscess, initial encounter Condition: ANJEL Smith MD Jun 19, 2017 14:02
[2017-06-19 15:00] VITALS: TEMP 98.3
--- NOTE | 2017-06-19 15:58 | HP ---
Date/Time of Note Date/Time of Note DATE: 06/19/17 TIME: 15:46 Assessment/Plan VTE Prophylaxis VTE Prophylaxis Intervention: other Lines/Catheters Central line still needed: Yes Assessment/Plan Assessment/Plan -Postoperative abscess -S/p laparoscopic cholecystectomy 06/29/17. -Status post ERCP with stent placement status post subsequent stent removal -Hypertension -Hypothyroidism -RA Further recommendations based on clinical course. Plan of care discussed with Dr. Shipman HPI/ROS Admit Date/Time Admit Date/Time Hx of Present Illness Patient is 81-year-old pleasant female who underwent laparoscopic cholecystectomy in [address] Auguste. Patient was evaluated by Dr. Auguste in the office and noted to have leukocytosis and patient was sent for further evaluation and management to emergency room. Patient complains of nausea, especially in the morning, also complains of dysuria, denies any shortness of breath, denies any chest pain. Patient underwent CT abdomen and pelvis revealed fluid collection in the right upper quadrant consistent with postop infection versus biloma per radiology. Urinalysis did not reveal reveal any signs of infection. Chest x-ray is unremarkable. Patient will be admitted for further evaluation and management. ROS Per HPI PMH/Family/Social Past Medical History Medical History: hypertension, hypothyroid, other (Rheumatoid arthritis) Past Surgical History That is post laparoscopic cholecystectomy in May 28, 2017 That is post ERCP and stent placement and status post subsequent subsequent stent removal Dr. [place] Family History Significant Family History: no pertinent family hx Social History Alcohol Use: none Smoking Status: Never smoker Drug Use: none Exam/Review of Systems Vital Signs Vitals Vital Signs Date Time Temp Pulse Resp B/P Pulse Ox O2 Delivery O2 Flow Rate FiO2 06/19/17 15:00 98.3 72 18 143/46 100 Room Air Exam Constitutional: alert, oriented Head: normocephalic Neck: supple Respiratory: normal air movement Cardiovascular: nl pulses Gastrointestinal: non-tender, soft Musculoskeletal: nl extremities to inspection Extremities: normal pulses Neurological: nl mental status Labs Result Diagram: 06/19/17 1235 06/19/17 1235 Medications Medications Current Medications Vancomycin HCl (Vancocin) 250 ml @ 125 mls/hr ONCE ONCE IVPB Last administered on 06/19/17t 15:34; Admin Dose 125 MLS/HR; Start 06/19/17 at 14: 00; Stop 06/19/17 at 15:59 BOB HUBER Jun 19, 2017 15:57
[2017-06-19 16:00] VITALS: BP 151/67; PULSE 77; RESP 16
--- NOTE | 2017-06-19 17:32 | CONS ---
Date/Time of Note Date/Time of Note DATE: 06/19/17 TIME: 17:24 Assessment/Plan Assessment/Plan Chief Complaint/Hosp Course 1. Complex collection in gb fossa: ?abscess vs biloma -ir drain -abx -pain management 2. Leukocytosis: likely 2/2 #1 -as above 3. Elevated alk phos: likely 2/2 #1 -as above 4. Diverticulosis -medical management 3. Hiatal hernia: asymptomatic -outpatient surgical correction if becomes symptomatic 4. Atherosclerosis -medical management Thank you. Patient seen and examined in collaboration with Dr. Varun Auguste. Problems: Consultation Date/Type/Reason Admit Date/Time Date of Consultation: Jun 19, 2017 Type of Consultation: surgical Reason for Consultation s/p cholecystectomy Referring Provider: BOB FLORES of Present Illness Mely Salmon is an 81-year-old pleasant female who underwent laparoscopic cholecystectomy on May 28 by our service. She was seen today in the office and noted to have persistent leukocytosis and dysuria and was sent for further evaluation and management to emergency room. Associated symptoms include nausea , especially in the morning. She denies shortness of breath, chest pain, palpitations, nausea, vomiting, diarrhea. CT abdomen and pelvis showed fluid collection in the right upper quadrant consistent with postop infection versus biloma per radiology. Urinalysis did not reveal reveal any signs of infection. General surgery was asked to evaluate. Constitutional: No chills, No febrile Eyes: No discharge, No visual change ENT: No congestion, No sore throat Respiratory: No cough, No shortness of breath Cardiovascular: No chest pain, No edema, No lightheadedness Gastrointestinal: No constipation, No diarrhea, No nausea, No pain, No vomiting Genitourinary: dysuria, No hematuria Musculoskeletal: No restricted range of motion Skin: No bruising, No erythema Neurologic: No focal-weakness Psychological: No anxiety, No confusion Past Medical History Medical History: hypertension, hypothyroid, other (Rheumatoid arthritis) Past Surgical History ERCP and stent placement and status post subsequent subsequent stent removal laparoscopic cholecystectomy in May 28, 2017 Social History Alcohol Use: none Smoking Status: Never smoker Drug Use: none Exam/Review of Systems Vital Signs Vitals Vital Signs Date Time Temp Pulse Resp B/P Pulse Ox O2 Delivery O2 Flow Rate FiO2 06/19/17 15:00 98.3 72 18 143/46 100 Room Air Exam Constitutional: alert, oriented Psych: nl mood/affect Head: atraumatic, normocephalic Eyes: nl lids, nl sclera ENMT: mucosa pink and moist, nl nasal mucosa & septum Neck: non-tender, supple Respiratory: clear to auscultation, normal air movement Cardiovascular: nl pulses, regular rate and rhythm Gastrointestinal: non-tender, soft, surgical scars (dry without drainage/ bruising/discoloration) Genitourinary - Female: nl adnexae, nl external genitalia Musculoskeletal: nl extremities to inspection, nl gait and stance Extremities: normal pulses Neurological: nl mental status, nl speech, nl strength Skin: nl turgor, rash or lesions Lymph: nl lymph nodes Results Result Diagram: 06/19/17 1235 06/19/17 1235 Results 24 hrs Laboratory Tests Test 06/19/17 12:35 06/19/17 13:00 06/19/17 16:22 White Blood Count 12.5 #H Red Blood Count 3.58 L Hemoglobin 9.4 L Hematocrit 30.1 L Mean Corpuscular Volume 84.1 Mean Corpuscular Hemoglobin 26.3 L Mean Corpuscular Hemoglobin Concent 31.2 L Red Cell Distribution Width 16.8 H Platelet Count 520 H Mean Platelet Volume 9.3 Neutrophils % 78.2 H Lymphocytes % 15.3 Monocytes % 5.1 Eosinophils % 0.5 Basophils % 0.5 Nucleated Red Blood Cells % 0.0 Neutrophils # 9.8 H Lymphocytes # 1.9 Monocytes # 0.6 Eosinophils # 0.1 Basophils # 0.1 Nucleated Red Blood Cells # 0.0 Sodium Level 140 Potassium Level 3.7 Chloride Level 104 Carbon Dioxide Level 24 Anion Gap 16 Blood Urea Nitrogen 9 Creatinine 0.65 Glucose Level 143 Calcium Level 9.1 Total Bilirubin 0.2 Direct Bilirubin 0.00 Indirect Bilirubin 0.2 Aspartate Amino Transf (AST/SGOT) 23 Alanine Aminotransferase (ALT/SGPT) 36 Alkaline Phosphatase 161 H Total Protein 7.0 Albumin 3.5 Globulin 3.50 H Albumin/Globulin Ratio 1.00 Lipase 40 Urine Color YELLOW Urine Clarity CLEAR Urine pH 7.0 Urine Specific [place] 1.005 Urine Ketones NEGATIVE Urine Nitrite NEGATIVE Urine Bilirubin NEGATIVE Urine Urobilinogen 2+ H Urine Leukocyte Esterase NEGATIVE Urine Microscopic RBC 1 Urine Microscopic WBC 1 Urine Hemoglobin 1+ H Urine Glucose NEGATIVE Urine Total Protein NEGATIVE Lactic Acid Level 1.8 Bedside Glucose 115 Medications Medications Current Medications Meropenem/Sodium Chloride (Merrem 500mg/50 ml(Pmx)) 50 ml @ 100 mls/hr Q8 IVPB ; Start 06/19/17 at 22:00 MARGARETTE MENJIVAR NP Jun 19, 2017 17:32
[2017-06-19 20:00] VITALS: BP 141/63; RESP 19
[2017-06-19] MEDS: MEROPENEM 500MG/50 ML (PMX) 50 ML IVPB SCH (21:30)
[2017-06-20 03:00] VITALS: BP 132/82; RESP 19
[2017-06-20 05:58] LABS: BASOPHIL # 0.1 10^3/ul (0.0-0.1); BASOPHILS % 0.7 % (0.0-2.0); EOSINOPHILS # 0.2 10^3/ul (0.0-0.5); EOSINOPHILS % 1.6 % (0.0-7.0); HEMATOCRIT 26.5 % (37.0-47.0); HEMOGLOBIN 8.3 g/dl (12.0-16.0); LYMPHOCYTES # 2.2 10^3/ul (0.8-2.9); LYMPHOCYTES % 23.7 % (15.0-51.0); MEAN CORPUSCULAR HEMOGLOBIN 26.8 pg (29.0-33.0); MEAN CORPUSCULAR HGB CONC 31.3 g/dl (32.0-37.0); MEAN CORPUSCULAR VOLUME 85.5 fl (82.0-101.0); MEAN PLATELET VOLUME 9.4 fl (7.4-10.4); MONOCYTE # 0.6 10^3/ul (0.3-0.9); MONOCYTES % 6.9 % (0.0-11.0); NEUTROPHIL # 6.1 10^3/ul (1.6-7.5); NEUTROPHILS % 66.7 % (39.0-77.0); RED CELL DISTRIBUTION WIDTH 16.7 % (11.5-14.5); WHITE BLOOD COUNT 9.1 10^3/ul (4.8-10.8)
[2017-06-20] MEDS: MEROPENEM 500MG/50 ML (PMX) 50 ML IVPB SCH ×3 (06:16→21:15)
[2017-06-20 06:21] LABS: INR 1.04; PROTIME 13.6 Sec (12.2-14.2); PT RATIO 1.1
[2017-06-20 06:22] LABS: PARTIAL THROMBOPLASTIN TIME 29.9 Sec (25.0-35.0)
[2017-06-20 06:26] LABS: CALCIUM 8.5 mg/dl (8.4-10.2); CREATININE 0.57 mg/dl (0.44-1.00); POTASSIUM 3.6 mmol/L (3.5-5.1)
[2017-06-20 07:10] LABS: PLATELET COUNT 413 10^3/UL (140-415)
[2017-06-20 08:00] VITALS: BP 132/60; RESP 18
[2017-06-20] MEDS ORDERED: FENTAnyl 50 MCG/ML VIAL ONE (09:16)
[2017-06-20] MEDS ORDERED: SOD CHLORIDE 0.9% 500 ML ONE (09:16)
[2017-06-20] MEDS ORDERED: LIDOCAINE 1% (MDV) 20 ML INJ ONE (09:16)
[2017-06-20] MEDS ORDERED: MIDAZOLAM 1 MG/ML 2 ML INJ ONE (09:16)
--- NOTE | 2017-06-20 11:00 | RADRPT ---
PROCEDURE: CT guided drainage of the abscess in the cholecystectomy bed drainage. CLINICAL INDICATION: Abscess in the cholecystectomy bed TECHNIQUE: Informed consent was obtained. The procedure, risks, benefits, complications and alternatives were explained to the patient or the patient's family. Risks including bleeding and infection were explai moises. The patient or the patient's family understood and was willing to proceed. A procedural pause was performed. The patient's name, date of , and procedure to be performed were verified. One or more of the following dose reduction techniques were used: Automated exposure control, adjustmen t of the mA and/or kV according to patient size, use of iterative reconstruction technique. DICOM im ages are available. Using local anesthetic, sterile technique and CT guidance, a 19-gauge Yueh needle was advanced into the fluid collection in the cholecystectomy bed. CT scan was performed confirming position. Purule nt fluid was also aspirated confirming position. The needle from the Yueh catheter was removed, demetrius ving the Yueh catheter in place within the fluid collection. A 0.035-inch Amplatz guidewire was adv anced through the Yueh catheter into the fluid collection. The Yueh catheter was removed. The trac t was dilated to 10-[place] and a 10-[place] multipurpose drainage catheter was advanced over the guid ewire into the fluid collection. The guidewire was removed. Additional scanning was performed conf irming position. The catheter was then sutured to the patient's skin with 2-0 silk. Approximately 49 ml of purulent fluid was aspirated. The catheter was connected to a drainage bag. A dressing wa s applied. The patient tolerated procedure well. COMPARISON: CT scan of the abdomen and pelvis dated 06/19/2017. FINDINGS: Final images demonstrate the drainage catheter in satisfactory position within the abscess in the ch olecystectomy bed. IMPRESSION: 1. Successful CT guided drainage of the abscess in the cholecystectomy bed . RPTAT: QQ .Jamie Strong MD, Date Time Electronically viewed and signed by .Jamie Strong MD, on 06/20/2017 10:59 .R/
--- NOTE | 2017-06-20 11:09 | PN ---
Date/Time of Note Date/Time of Note DATE: 06/20/17 TIME: 11:07 Assessment/Plan VTE Prophylaxis VTE Prophylaxis Intervention: SCD's Lines/Catheters [facility] Saline Lock Urinary Cath still in place: No Assessment/Plan Chief Complaint/Hosp Course Pt is taken to radiology for abscess drainage, no acute events reported prior to procedure. Assessment/Plan -Postoperative abscess, undergoing drainage by radiology -S/p laparoscopic cholecystectomy 06/29/17. -Status post ERCP with stent placement status post subsequent stent removal -Hypertension -Hypothyroidism -RA Further recommendations based on clinical course. Plan of care discussed with Dr. Shipman Problems: Exam/Review of Systems Vital Signs Vitals Vital Signs Date Time Temp Pulse Resp B/P Pulse Ox O2 Delivery O2 Flow Rate FiO2 06/20/17 08:00 98.3 62 18 132/60 99 06/19/17 16:00 Room Air Intake and Output 06/19/17 06/19/17 06/20/17 15:00 23:00 07:00 Intake Total 350 ml 530 ml Balance 350 ml 530 ml Results Result Diagram: 06/20/17 0524 06/20/17 0524 Results 24 hrs Laboratory Tests Test 06/19/17 12:35 06/19/17 13:00 06/19/17 16:22 06/20/17 05:24 White Blood Count 12.5 #H 9.1 # Red Blood Count 3.58 L 3.10 L Hemoglobin 9.4 L 8.3 L Hematocrit 30.1 L 26.5 L Mean Corpuscular Volume 84.1 85.5 Mean Corpuscular Hemoglobin 26.3 L 26.8 L Mean Corpuscular Hemoglobin Concent 31.2 L 31.3 L Red Cell Distribution Width 16.8 H 16.7 H Platelet Count 520 H 413 # Mean Platelet Volume 9.3 9.4 Neutrophils % 78.2 H 66.7 Lymphocytes % 15.3 23.7 Monocytes % 5.1 6.9 Eosinophils % 0.5 1.6 Basophils % 0.5 0.7 Nucleated Red Blood Cells % 0.0 0.0 Neutrophils # 9.8 H 6.1 Lymphocytes # 1.9 2.2 Monocytes # 0.6 0.6 Eosinophils # 0.1 0.2 Basophils # 0.1 0.1 Nucleated Red Blood Cells # 0.0 0.0 Sodium Level 140 141 Potassium Level 3.7 3.6 Chloride Level 104 111 H Carbon Dioxide Level 24 25 Anion Gap 16 9 # Blood Urea Nitrogen 9 7 Creatinine 0.65 0.57 Glucose Level 143 99 # Calcium Level 9.1 8.5 Total Bilirubin 0.2 Direct Bilirubin 0.00 Indirect Bilirubin 0.2 Aspartate Amino Transf (AST/SGOT) 23 Alanine Aminotransferase (ALT/SGPT) 36 Alkaline Phosphatase 161 H Total Protein 7.0 Albumin 3.5 Globulin 3.50 H Albumin/Globulin Ratio 1.00 Lipase 40 Urine Color YELLOW Urine Clarity CLEAR Urine pH 7.0 Urine Specific [place] 1.005 Urine Ketones NEGATIVE Urine Nitrite NEGATIVE Urine Bilirubin NEGATIVE Urine Urobilinogen 2+ H Urine Leukocyte Esterase NEGATIVE Urine Microscopic RBC 1 Urine Microscopic WBC 1 Urine Hemoglobin 1+ H Urine Glucose NEGATIVE Urine Total Protein NEGATIVE Lactic Acid Level 1.8 Bedside Glucose 115 Prothrombin Time 13.6 Prothrombin Time Ratio 1.1 INR International Normalized Ratio 1.04 Activated Partial Thromboplast Time 29.9 Medications Medications Current Medications Meropenem/Sodium Chloride (Merrem 500mg/50 ml(Pmx)) 50 ml @ 100 mls/hr Q8 IVPB Last administered on 06/20/17 06:16; Admin Dose 100 MLS/HR; Start 06/19/17 at 22:00 BOB HUBER Jun 20, 2017 11:09
[2017-06-20] MEDS ORDERED: hydrALAzine 20 MG INJ IV PRN (11:30)
[2017-06-20 12:10] VITALS: BP 164/70; RESP 18
[2017-06-20] MEDS: morphine 2 MG INJ IV PRN ×2 (13:38→21:00)
[2017-06-20] MEDS: ONDANSETRON 4 MG INJ IV PRN (13:38)
[2017-06-20 16:01] VITALS: BP 129/61; RESP 18
--- NOTE | 2017-06-20 17:19 | PN ---
Date/Time of Note Date/Time of Note DATE: 06/20/17 TIME: 17:08 Assessment/Plan Lines/Catheters IV [facility] Saline Lock Mera in Place (from Nrs): No Assessment/Plan Chief Complaint/Hosp Course 1. Complex collection in gb fossa: abscess: s/p ir drain -abx -pain management 2. Leukocytosis: likely 2/2 #1 -as above 3. Elevated alk phos: likely 2/2 #1 -as above 4. Diverticulosis -medical management 3. Hiatal hernia: asymptomatic -outpatient surgical correction if becomes symptomatic 4. Atherosclerosis -medical management Thank you. Patient seen and examined in collaboration with Dr. Varun Auguste. Problems: Subjective 24 Hr Interval Summary S/p CT guided abscess drainage. Min tenderness. No fevers, chills, sob, congested cough, cp, palpitations, osorio, dizziness, n/v/d/dysuria. Exam/Review of Systems Vital Signs Vitals Vital Signs Date Time Temp Pulse Resp B/P Pulse Ox O2 Delivery O2 Flow Rate FiO2 06/20/17 16:01 98.6 82 18 129/61 97 06/19/17 16:00 Room Air Intake and Output 06/19/17 06/19/17 06/20/17 15:00 23:00 07:00 Intake Total 350 ml 530 ml Balance 350 ml 530 ml Exam Free Text/Dictation Constitutional: alert, oriented Psych: nl mood/affect Head: atraumatic, normocephalic Eyes: nl lids, nl sclera ENMT: mucosa pink and moist, nl nasal mucosa & septum Neck: non-tender, supple Respiratory: clear to auscultation, normal air movement Cardiovascular: nl pulses, regular rate and rhythm Gastrointestinal: non-tender, soft, surgical scars (dry without drainage/ bruising/discoloration), krystal drain Genitourinary - Female: nl adnexae, nl external genitalia Musculoskeletal: nl extremities to inspection, nl gait and stance Extremities: normal pulses Neurological: nl mental status, nl speech, nl strength Skin: nl turgor, rash or lesions Lymph: nl lymph nodes Results Result Diagram: 06/20/17 0524 06/20/17 0524 MARGARETTE MENJIVAR NP Jun 20, 2017 17:19
[2017-06-20 20:00] VITALS: BP 121/56; RESP 18
[2017-06-20] MEDS ORDERED: AL HYDROX/MG HYDROX/SIMETH 30 ML CUP PO PRN (20:00)
[2017-06-21 03:14] VITALS: BP 113/53; RESP 19
[2017-06-21] MEDS: MEROPENEM 500MG/50 ML (PMX) 50 ML IVPB SCH ×3 (05:21→21:45)
[2017-06-21] MEDS: ONDANSETRON 4 MG INJ IV PRN (05:21)
[2017-06-21] MEDS: PANTOPRAZOLE (EC) 40 MG TAB PO SCH (05:21)
[2017-06-21] MEDS ORDERED: FOLI-49 PO (06:45)
[2017-06-21] MEDS ORDERED: IBUP800T25 PO ×2 (06:45→06:48)
[2017-06-21] MEDS ORDERED: ACAR50TA PO (06:50)
[2017-06-21 08:00] VITALS: BP_SYST 134; BP_SYST 168; BP_DIAS 74; RESP 16; RESP 19
[2017-06-21] MEDS ORDERED: CHOLECALCIFEROL 1,000 UNIT TAB PO SCH (10:00)
[2017-06-21] MEDS: FOLIC ACID 1 MG TAB PO SCH (11:25)
[2017-06-21] MEDS: VALSARTAN 160 MG TAB PO SCH (11:26)
--- NOTE | 2017-06-21 12:11 | PN ---
Date/Time of Note Date/Time of Note DATE: 06/21/17 TIME: 11:59 Assessment/Plan VTE Prophylaxis VTE Prophylaxis Intervention: ambulation Lines/Catheters IV Catheter Type (from Nrs): Saline Lock Urinary Cath still in place: No Assessment/Plan Assessment/Plan -S/p CT guided abscess drainage- 06/20/2017Min tenderness at site. - Inadequate po fluid intake- Cont IVF -S/p laparoscopic cholecystectomy 05/29/17. -Status post ERCP with stent placement status post subsequent stent removal -Hypertension -Hypothyroidism -RA Further recommendations based on clinical course. Plan of care discussed with Dr. Shipman Subjective 24 Hr Interval Summary Constitutional: requiring IVF Respiratory: no complaints Cardiovascular: no complaints Gastrointestinal: pain Genitourinary: no complaints Musculoskeletal: no complaints Exam/Review of Systems Vital Signs Vitals Vital Signs Date Time Temp Pulse Resp B/P Pulse Ox O2 Delivery O2 Flow Rate FiO2 06/21/17 08:00 98.2 69 16 134/74 95 06/19/17 16:00 Room Air Intake and Output 06/20/17 06/20/17 06/21/17 15:00 23:00 07:00 Intake Total 400 ml 480 ml 250 ml Output Total 98 ml Balance 302 ml 480 ml 250 ml Exam Constitutional: alert, oriented, well developed Respiratory: clear to auscultation, diminished breath sounds Cardiovascular: nl pulses, other (s1s2) Gastrointestinal: other (surgical drain noted), soft, tender Musculoskeletal: nl extremities to inspection Extremities: normal pulses Neurological: nl mental status, nl speech Results Result Diagram: 06/20/17 0506/20/17 0524 Results 24 hrs Laboratory Tests Test 06/20/17 12:30 Bedside Glucose 101 Medications Medications Current Medications Meropenem/Sodium Chloride (Merrem 500mg/50 ml(Pmx)) 50 ml @ 100 mls/hr Q8 IVPB Last administered on 06/21/17 05:21; Admin Dose 100 MLS/HR; Start 06/19/17 at 22:00 Hydralazine HCl (Apresoline) 10 mg Q6H PRN IV SBP>170; Start 06/20/17 at 11:30 Morphine Sulfate (morphine) 1 mg Q4H PRN IV PAIN Last administered on 21:00; Admin Dose 1 MG; Start 11/17/17 at 12:30 Ondansetron HCl (Zofran Inj) 4 mg Q4H PRN IV NAUSEA AND/OR VOMITING Last administered on 06/21/17 05:21; Admin Dose 4 MG; Start 06/20/17 at 13:00 Acetaminophen (Tylenol Tab) 650 mg Q4H PRN PO PAIN AND OR ELEVATED TEMP; Start 06/20/17 at 13:00 Pantoprazole (Protonix Tab) 40 mg DAILY@06 PO Last administered on 06/21/17 05:21; Admin Dose 40 MG; Start 06/21/17 at 06:00 Al Hydrox/Mg Hydrox/Simethicone (Mag-Al Plus) 30 ml Q6H PRN PO GASTROINTESTINAL UPSET; Start 06/20/17 at 20:00 Folic Acid (Folic Acid) 1 mg DAILY PO Last administered on 06/21/17 11:25; Admin Dose 1 MG; Start 06/21/17 at 10:00 Levothyroxine Sodium (Synthroid) 50 mcg DAILY@06 PO ; Start 06/22/17 at 06:00 Valsartan (Diovan) 160 mg DAILY PO Last administered on 06/21/17 11:26; Admin Dose 160 MG; Start 06/21/17 at 10:00 EZETIMIBE (Zetia) 10 mg DAILY PO ; Start 06/21/17 at 10:00 Ibuprofen (Motrin) 800 mg Q6H PRN PO PAIN; Start 06/21/17 at 10:00 Cholecalciferol (Vitamin D) 5,000 unit DAILY PO Last administered on 11:22; Admin Dose 5,000 UNIT; Start 06/21/17 at 10:00 RONEY SAMPSON Jun 21, 2017 12:10 RONEY SAMPSON Jun 21, 2017 12:10
[2017-06-21] MEDS: EZETIMIBE 10 MG TAB PO SCH (12:20)
[2017-06-21] MEDS: SOD CHLORIDE 0.9% 1,000 ML IV SCH (12:26)
[2017-06-21] MEDS ORDERED: traMADol 50 MG TAB PO PRN (12:30)
[2017-06-21 13:28] LABS: ALBUMIN 3.5 g/dl (3.3-4.9); BILIRUBIN,INDIRECT 0.3 mg/dl (0-1.1); BILIRUBIN,TOTAL 0.3 mg/dl (0.2-1.3); TOTAL PROTEIN 7.1 g/dl (6.1-8.1)
--- NOTE | 2017-06-21 15:29 | PN ---
Date/Time of Note Date/Time of Note DATE: 06/21/17 TIME: 15:27 Assessment/Plan Lines/Catheters IV Catheter Type (from Nrs): Saline Lock Mera in Place (from Nrs): No Assessment/Plan Chief Complaint/Hosp Course 1. Gallbladder fossa abscess s/p ir drain. Color more dark brown/?green -hida -abx -pain management 2. Leukocytosis: likely 2/2 #1. Resolved -as above 3. Elevated alk phos: likely 2/2 #1 -as above 4. Diverticulosis -diet/lifestyle optimization 3. Hiatal hernia: asymptomatic -monitor 4. Atherosclerosis -diet/exercise optimization Thank you, Problems: Subjective 24 Hr Interval Summary Leukocytosis resolved. Drain color changed. Min tenderness at drain site. No fevers, chills, sob, congested cough, cp, palpitations, osorio, dizziness, n/v/d/ dysuria. Exam/Review of Systems Vital Signs Vitals Vital Signs Date Time Temp Pulse Resp B/P Pulse Ox O2 Delivery O2 Flow Rate FiO2 06/21/17 08:00 98.2 69 16 134/74 95 06/19/17 16:00 Room Air Intake and Output 06/20/17 06/20/17 06/21/17 15:00 23:00 07:00 Intake Total 400 ml 480 ml 250 ml Output Total 98 ml Balance 302 ml 480 ml 250 ml Exam Free Text/Dictation Constitutional: alert, oriented Psych: nl mood/affect Head: atraumatic, normocephalic Eyes: nl lids, nl sclera ENMT: mucosa pink and moist, nl nasal mucosa & septum Neck: non-tender, supple Respiratory: clear to auscultation, normal air movement Cardiovascular: nl pulses, regular rate and rhythm Gastrointestinal: min-tender at drain site, soft, surgical scars (dry without drainage/bruising/discoloration), drain with dark brown fluid Musculoskeletal: nl extremities to inspection, nl gait and stance Extremities: normal pulses Neurological: nl mental status, nl speech, nl strength Skin: nl turgor, rash or lesions Lymph: nl lymph nodes Results Result Diagram: 06/20/17 0524 06/20/17 0524 RICK JACKSON MD Jun 21, 2017 15:29
--- NOTE | 2017-06-21 20:47 | RADRPT ---
PROCEDURE: Nuclear medicine HIDA scan CLINICAL INDICATION: Abdominal pain. Postoperative abscess after cholecystectomy. TECHNIQUE: 8.3 mCi of technetium-99m Choletec was administered intravenously. Planar imaging of th e hepatobiliary system was performed. Delayed images were obtained. Images were reviewed on the hi gh resolution PACS workstation. COMPARISON: CT for aspiration procedure dated 06/20/[address] dated 06/19/2017. FINDINGS: There is normal uptake throughout the hepatobiliary system. There is excretion of radiot racer into the biliary tract. There is a small area of radiotracer accumulation in the gallbladder f kathy with subsequent radiotracer identified within the patients drainage catheter, consistent with a bile leak. The common bile duct is patent and there is normal emptying into the small bowel. IMPRESSION: 1. Abnormal examination demonstrating a bile leak in the region of the gallbladder fossa. 2. Patent common bile duct. RPTAT: HLBP .Sammy Ospina MD, Date Time Electronically viewed and signed by .Sammy Ospina MD, MD on 06/21/2017 20:47 .P/
[2017-06-21 21:10] VITALS: BP 132/62; RESP 16
[2017-06-21] MEDS: ACETAMINOPHEN 325 MG TAB PO PRN (23:15)
[2017-06-22] MEDS: SOD CHLORIDE 0.9% 1,000 ML IV SCH ×2 (02:48→06:25)
[2017-06-22 03:07] VITALS: BP 107/53; RESP 16
[2017-06-22] MEDS ORDERED: PANTOPRAZOLE (EC) 40 MG TAB PO SCH (06:00)
[2017-06-22] MEDS: MEROPENEM 500MG/50 ML (PMX) 50 ML IVPB SCH ×3 (06:25→22:06)
[2017-06-22] MEDS: LEVOTHYROXINE 50 MCG TAB PO SCH (06:26)
[2017-06-22] MEDS: PANTOPRAZOLE (EC) 40 MG TAB PO SCH (06:26)
[2017-06-22 06:32] LABS: BASOPHIL # 0.1 10^3/ul (0.0-0.1); BASOPHILS % 0.7 % (0.0-2.0); EOSINOPHILS # 0.2 10^3/ul (0.0-0.5); EOSINOPHILS % 1.9 % (0.0-7.0); HEMATOCRIT 26.9 % (37.0-47.0); HEMOGLOBIN 8.4 g/dl (12.0-16.0); LYMPHOCYTES # 1.6 10^3/ul (0.8-2.9); MEAN CORPUSCULAR HEMOGLOBIN 26.4 pg (29.0-33.0); MEAN CORPUSCULAR HGB CONC 31.2 g/dl (32.0-37.0); MEAN CORPUSCULAR VOLUME 84.6 fl (82.0-101.0); MEAN PLATELET VOLUME 9.4 fl (7.4-10.4); MONOCYTE # 0.9 10^3/ul (0.3-0.9); MONOCYTES % 10.1 % (0.0-11.0); NEUTROPHIL # 6.3 10^3/ul (1.6-7.5); NEUTROPHILS % 68.7 % (39.0-77.0); PLATELET COUNT 383 10^3/UL (140-415); RED BLOOD COUNT 3.18 10^6/ul (4.20-5.40); RED CELL DISTRIBUTION WIDTH 16.6 % (11.5-14.5); WHITE BLOOD COUNT 9.1 10^3/ul (4.8-10.8)
[2017-06-22 06:52] LABS: CALCIUM 8.1 mg/dl (8.4-10.2); CREATININE 0.51 mg/dl (0.44-1.00); POTASSIUM 3.2 mmol/L (3.5-5.1)
[2017-06-22] MEDS: ACARBOSE 50 MG TAB PO SCH ×2 (07:30→17:35)
[2017-06-22] MEDS: ACCU-CHEK XX SCH ×4 (07:30→21:00)
[2017-06-22 08:00] VITALS: BP 135/62; RESP 18
[2017-06-22] MEDS: EZETIMIBE 10 MG TAB PO SCH (09:08)
[2017-06-22] MEDS: CHOLECALCIFEROL 2,000 UNIT CAP PO SCH (09:08)
[2017-06-22] MEDS: FOLIC ACID 1 MG TAB PO SCH (09:09)
[2017-06-22] MEDS: VALSARTAN 160 MG TAB PO SCH (09:09)
[2017-06-22] MEDS: CHOLECALCIFEROL 1,000 UNIT TAB PO SCH (09:09)
--- NOTE | 2017-06-22 12:48 | PN ---
Date/Time of Note Date/Time of Note DATE: 06/22/17 TIME: 12:44 Assessment/Plan VTE Prophylaxis VTE Prophylaxis Intervention: other Lines/Catheters [facility] Peripheral IV Urinary Cath still in place: No Assessment/Plan Assessment/Plan - hypokalemia- replace K, am BMP - VRE Wound - ID consult- Dr Mckeon notified - contact isolation -S/p CT guided abscess drainage- 06/20/2017Min tenderness at site. - Inadequate po fluid intake- cont IVF -S/p laparoscopic cholecystectomy 05/29/17. -Status post ERCP with stent placement status post subsequent stent removal -Hypertension -Hypothyroidism -RA Further recommendations based on clinical course. Plan of care discussed with Dr. Shipman Subjective 24 Hr Interval Summary Free Text/Dictation sitting up in chair, seems comfortable - VRE wound- Dr Mckeon notified - talked to her daughter Megan- all Qs answered- dw staff Respiratory: no complaints Cardiovascular: no complaints Gastrointestinal: pain Musculoskeletal: no complaints Exam/Review of Systems Vital Signs Vitals Vital Signs Date Time Temp Pulse Resp B/P Pulse Ox O2 Delivery O2 Flow Rate FiO2 06/22/17 08:00 98.1 67 18 135/62 96 06/19/17 16:00 Room Air Intake and Output 06/21/17 06/21/17 06/22/17 15:00 23:00 07:00 Intake Total 840 ml 1275 ml Output Total 100 ml 20 ml Balance -100 ml 840 ml 1255 ml Exam Constitutional: alert, well developed Respiratory: clear to auscultation, diminished breath sounds Cardiovascular: nl pulses, other (s1s2) Gastrointestinal: other (RUQ drain ), soft, tender Musculoskeletal: nl extremities to inspection Extremities: normal pulses Neurological: nl mental status, nl speech Results Result Diagram: 06/22/17 0605 06/22/17 0535 Results 24 hrs Laboratory Tests Test 06/21/17 12:45 06/21/17 17:55 06/22/17 05:35 06/22/17 06:05 Total Bilirubin 0.3 Direct Bilirubin 0.00 Indirect Bilirubin 0.3 Aspartate Amino Transf (AST/SGOT) 20 Alanine Aminotransferase (ALT/SGPT) 31 Alkaline Phosphatase 142 H Total Protein 7.1 Albumin 3.5 Bedside Glucose 115 Sodium Level 140 Potassium Level 3.2 L Chloride Level 110 Carbon Dioxide Level 27 Anion Gap 6 L Blood Urea Nitrogen 5 L Creatinine 0.51 Glucose Level 102 Calcium Level 8.1 L White Blood Count 9.1 Red Blood Count 3.18 L Hemoglobin 8.4 L Hematocrit 26.9 L Mean Corpuscular Volume 84.6 Mean Corpuscular Hemoglobin 26.4 L Mean Corpuscular Hemoglobin Concent 31.2 L Red Cell Distribution Width 16.6 H Platelet Count 383 Mean Platelet Volume 9.4 Neutrophils % 68.7 Lymphocytes % 18.0 Monocytes % 10.1 Eosinophils % 1.9 Basophils % 0.7 Nucleated Red Blood Cells % 0.0 Neutrophils # 6.3 Lymphocytes # 1.6 Monocytes # 0.9 Eosinophils # 0.2 Basophils # 0.1 Nucleated Red Blood Cells # 0.0 Test 06/22/17 08:18 06/22/17 12:21 Bedside Glucose 106 116 Medications Medications Current Medications Meropenem/Sodium Chloride (Merrem 500mg/50 ml(Pmx)) 50 ml @ 100 mls/hr Q8 IVPB Last administered on 06/22/17 06:25; Admin Dose 100 MLS/HR; Start 06/19/17 at 22:00 Hydralazine HCl (Apresoline) 10 mg Q6H PRN IV SBP>170; Start 06/20/17 at 11:30 Morphine Sulfate (morphine) 1 mg Q4H PRN IV PAIN Last administered on 21:00; Admin Dose 1 MG; Start 06/20/17 at 12:30 Ondansetron HCl (Zofran Inj) 4 mg Q4H PRN IV NAUSEA AND/OR VOMITING Last administered on 06/21/17 05:21; Admin Dose 4 MG; Start 06/20/17 at 13:00 Acetaminophen (Tylenol Tab) 650 mg Q4H PRN PO PAIN AND OR ELEVATED TEMP Last administered on 06/21/17 23:15; Admin Dose 650 MG; Start 06/20/17 at 13:00 Pantoprazole (Protonix Tab) 40 mg DAILY@06 PO Last administered on 06/22/17 06:26; Admin Dose 40 MG; Start 06/21/17 at 06:00 Al Hydrox/Mg Hydrox/Simethicone (Mag-Al Plus) 30 ml Q6H PRN PO GASTROINTESTINAL UPSET; Start 06/20/17 at 20:00 Folic Acid (Folic Acid) 1 mg DAILY PO Last administered on 06/22/17 09:09; Admin Dose 1 MG; Start 06/21/17 at 10:00 Levothyroxine Sodium (Synthroid) 50 mcg DAILY@06 PO Last administered on 06:26; Admin Dose 50 MCG; Start 06/22/17 at 06:00 Valsartan (Diovan) 160 mg DAILY PO Last administered on 06/22/17 09:09; Admin Dose 160 MG; Start 06/21/17 at 10:00 EZETIMIBE (Zetia) 10 mg DAILY PO Last administered on 06/22/17 09:08; Admin Dose 10 MG; Start 06/21/17 at 10:00 Ibuprofen 800 mg 800 mg Q6H PRN PO PAIN; Start 06/21/17 at 10:00 Sodium Chloride (NS) 1,000 ml @ 70 mls/hr [id number] IV Last administered on 06:25; Admin Dose 70 MLS/HR; Start 06/21/17 at 12:30 Tramadol HCl (Ultram) 50 mg Q6H PRN PO PAIN LEVEL 7-10; Start 06/21/17 at 12: 30 Cholecalciferol (Vitamin D) 4,000 unit DAILY PO Last administered on 09:08; Admin Dose 4,000 UNIT; Start 06/22/17 at 09:00 Cholecalciferol (Vitamin D) 1,000 unit DAILY PO Last administered on 09:09; Admin Dose 1,000 UNIT; Start 06/22/17 at 09:00 RONYE SAMPSON Jun 22, 2017 12:48
--- NOTE | 2017-06-22 13:13 | CONS ---
Date/Time of Note Date/Time of Note DATE: 06/22/17 TIME: 13:13 Consultation Date/Type/Reason Admit Date/Time Constitutional: No chills, No febrile Eyes: No discharge, No visual change ENT: No congestion, No sore throat Respiratory: no complaints Cardiovascular: no complaints Gastrointestinal: pain Genitourinary: dysuria, No hematuria Musculoskeletal: no complaints Skin: No bruising, No erythema Neurologic: No focal-weakness Psychological: nl mood/affect Past Medical History Medical History: hypertension, hypothyroid, other (Rheumatoid arthritis) Social History Alcohol Use: none Smoking Status: Never smoker Drug Use: none Exam/Review of Systems Vital Signs Vitals Vital Signs Date Time Temp Pulse Resp B/P Pulse Ox O2 Delivery O2 Flow Rate FiO2 06/22/17 08:00 98.1 67 18 135/62 96 06/19/17 16:00 Room Air Intake and Output 06/21/17 06/21/17 06/22/17 15:00 23:00 07:00 Intake Total 840 ml 1275 ml Output Total 100 ml 20 ml Balance -100 ml 840 ml 1255 ml Results Result Diagram: 06/22/17 0605 06/22/17 0535 Results 24 hrs Laboratory Tests Test 06/21/17 17:55 06/22/17 05:35 06/22/17 06:05 06/22/17 08:18 Bedside Glucose 115 106 Sodium Level 140 Potassium Level 3.2 L Chloride Level 110 Carbon Dioxide Level 27 Anion Gap 6 L Blood Urea Nitrogen 5 L Creatinine 0.51 Glucose Level 102 Calcium Level 8.1 L White Blood Count 9.1 Red Blood Count 3.18 L Hemoglobin 8.4 L Hematocrit 26.9 L Mean Corpuscular Volume 84.6 Mean Corpuscular Hemoglobin 26.4 L Mean Corpuscular Hemoglobin Concent 31.2 L Red Cell Distribution Width 16.6 H Platelet Count 383 Mean Platelet Volume 9.4 Neutrophils % 68.7 Lymphocytes % 18.0 Monocytes % 10.1 Eosinophils % 1.9 Basophils % 0.7 Nucleated Red Blood Cells % 0.0 Neutrophils # 6.3 Lymphocytes # 1.6 Monocytes # 0.9 Eosinophils # 0.2 Basophils # 0.1 Nucleated Red Blood Cells # 0.0 Test 06/22/17 12:21 Bedside Glucose 116 Medications Medications Current Medications Meropenem/Sodium Chloride (Merrem 500mg/50 ml(Pmx)) 50 ml @ 100 mls/hr Q8 IVPB Last administered on 06/22/17 06:25; Admin Dose 100 MLS/HR; Start 06/19/17 at 22:00 Hydralazine HCl (Apresoline) 10 mg Q6H PRN IV SBP>170; Start 06/20/17 at 11:30 Morphine Sulfate (morphine) 1 mg Q4H PRN IV PAIN Last administered on 21:00; Admin Dose 1 MG; Start 06/20/17 at 12:30 Ondansetron HCl (Zofran Inj) 4 mg Q4H PRN IV NAUSEA AND/OR VOMITING Last administered on 06/21/17 05:21; Admin Dose 4 MG; Start 06/20/17 at 13:00 Acetaminophen (Tylenol Tab) 650 mg Q4H PRN PO PAIN AND OR ELEVATED TEMP Last administered on 06/21/17 23:15; Admin Dose 650 MG; Start 06/20/17 at 13:00 Pantoprazole (Protonix Tab) 40 mg DAILY@06 PO Last administered on 06/22/17 06:26; Admin Dose 40 MG; Start 06/21/17 at 06:00 Al Hydrox/Mg Hydrox/Simethicone (Mag-Al Plus) 30 ml Q6H PRN PO GASTROINTESTINAL UPSET; Start 06/20/17 at 20:00 Folic Acid (Folic Acid) 1 mg DAILY PO Last administered on 06/22/17 09:09; Admin Dose 1 MG; Start 06/21/17 at 10:00 Levothyroxine Sodium (Synthroid) 50 mcg DAILY@06 PO Last administered on 06:26; Admin Dose 50 MCG; Start 06/22/17 at 06:00 Valsartan (Diovan) 160 mg DAILY PO Last administered on 06/22/17 09:09; Admin Dose 160 MG; Start 06/21/17 at 10:00 EZETIMIBE (Zetia) 10 mg DAILY PO Last administered on 06/22/17 09:08; Admin Dose 10 MG; Start 06/21/17 at 10:00 Ibuprofen 800 mg 800 mg Q6H PRN PO PAIN; Start 06/21/17 at 10:00 Sodium Chloride (NS) 1,000 ml @ 70 mls/hr [id number] IV Last administered on 06:25; Admin Dose 70 MLS/HR; Start 06/21/17 at 12:30 Tramadol HCl (Ultram) 50 mg Q6H PRN PO PAIN LEVEL 7-10; Start 06/21/17 at 12: 30 Cholecalciferol (Vitamin D) 4,000 unit DAILY PO Last administered on 09:08; Admin Dose 4,000 UNIT; Start 06/22/17 at 09:00 Cholecalciferol (Vitamin D) 1,000 unit DAILY PO Last administered on 09:09; Admin Dose 1,000 UNIT; Start 06/22/17 at 09:00 TING BERRY MD Jun 22, 2017 13:13
[2017-06-22 14:00] VITALS: BP 122/60; RESP 19
[2017-06-22] MEDS: LINEZOLID 600 MG/D5W (PMX) 300 ML IVPB SCH (17:22)
--- NOTE | 2017-06-22 18:34 | PN ---
Date/Time of Note Date/Time of Note DATE: 06/22/17 TIME: 18:33 Assessment/Plan Lines/Catheters IV Catheter Type (from Nrs): Peripheral IV Mera in Place (from Nrs): No Assessment/Plan Chief Complaint/Hosp Course 1. Gallbladder fossa abscess/bile leak. +HIDA -continue drain -d/w Dr. Estrella for ERCP and ? stent -abx -pain management 2. Leukocytosis: likely 2/2 #1. Resolved -as above 3. Elevated alk phos: likely 2/2 #1 -as above 4. Diverticulosis -diet/lifestyle optimization 3. Hiatal hernia: asymptomatic -monitor 4. Atherosclerosis -diet/exercise optimization Thank you, Problems: Subjective 24 Hr Interval Summary HIDA with leak but patent cbd. Leukocytosis resolved. Drain color dark green/ brown. Min tenderness at drain site. No fevers, chills, sob, congested cough, cp, palpitations, osorio, dizziness, n/v/d/dysuria. Exam/Review of Systems Vital Signs Vitals Vital Signs Date Time Temp Pulse Resp B/P Pulse Ox O2 Delivery O2 Flow Rate FiO2 06/22/17 08:00 98.1 67 18 135/62 96 06/19/17 16:00 Room Air Intake and Output 06/21/17 06/21/17 06/22/17 15:00 23:00 07:00 Intake Total 840 ml 1275 ml Output Total 100 ml 20 ml Balance -100 ml 840 ml 1255 ml Exam Free Text/Dictation Constitutional: alert, oriented Psych: nl mood/affect Head: atraumatic, normocephalic Eyes: nl lids, nl sclera ENMT: mucosa pink and moist, nl nasal mucosa & septum Neck: non-tender, supple Respiratory: clear to auscultation, normal air movement Cardiovascular: nl pulses, regular rate and rhythm Gastrointestinal: min-tender at drain site, soft, surgical scars (dry without drainage/bruising/discoloration), drain with dark green/brown fluid Musculoskeletal: nl extremities to inspection, nl gait and stance Extremities: normal pulses Neurological: nl mental status, nl speech, nl strength Skin: nl turgor, rash or lesions Lymph: nl lymph nodes Results Result Diagram: 06/22/17 0605 06/22/17 0535 RICK JACKSON MD Jun 22, 2017 18:34
[2017-06-22 20:35] VITALS: BP 154/70; RESP 18
[2017-06-22] MEDS ORDERED: VITAMIN A & D 5 GM OINT PACKET TOP ONE (20:59)
[2017-06-23] MEDS ORDERED: POTASSIUM CHLORIDE 20 MEQ in DEXTROSE 5% 100 ML IVPB ONE (00:45)
[2017-06-23] MEDS: SOD CHLORIDE 0.9% 1,000 ML IV SCH ×2 (01:55→21:42)
[2017-06-23] MEDS: ACETAMINOPHEN 325 MG TAB PO PRN (02:37)
[2017-06-23 02:44] VITALS: BP 144/65; RESP 16
[2017-06-23 05:58] LABS: BASOPHIL # 0.1 10^3/ul (0.0-0.1); BASOPHILS % 0.6 % (0.0-2.0); EOSINOPHILS # 0.2 10^3/ul (0.0-0.5); EOSINOPHILS % 2.2 % (0.0-7.0); HEMATOCRIT 25.9 % (37.0-47.0); HEMOGLOBIN 8.3 g/dl (12.0-16.0); LYMPHOCYTES # 1.6 10^3/ul (0.8-2.9); LYMPHOCYTES % 15.5 % (15.0-51.0); MEAN CORPUSCULAR HEMOGLOBIN 26.9 pg (29.0-33.0); MEAN CORPUSCULAR VOLUME 83.8 fl (82.0-101.0); MEAN PLATELET VOLUME 9.4 fl (7.4-10.4); MONOCYTE # 0.8 10^3/ul (0.3-0.9); MONOCYTES % 8.2 % (0.0-11.0); NEUTROPHIL # 7.4 10^3/ul (1.6-7.5); NEUTROPHILS % 72.9 % (39.0-77.0); PLATELET COUNT 413 10^3/UL (140-415); RED BLOOD COUNT 3.09 10^6/ul (4.20-5.40); RED CELL DISTRIBUTION WIDTH 16.6 % (11.5-14.5); WHITE BLOOD COUNT 10.2 10^3/ul (4.8-10.8)
[2017-06-23] MEDS: PANTOPRAZOLE (EC) 40 MG TAB PO SCH (06:00)
[2017-06-23] MEDS: MEROPENEM 500MG/50 ML (PMX) 50 ML IVPB SCH ×2 (06:13→13:41)
[2017-06-23] MEDS: LEVOTHYROXINE 50 MCG TAB PO SCH (06:14)
[2017-06-23] MEDS: LINEZOLID 600 MG/D5W (PMX) 300 ML IVPB SCH ×2 (06:23→16:03)
[2017-06-23 06:42] LABS: CALCIUM 8.1 mg/dl (8.4-10.2); CREATININE 0.49 mg/dl (0.44-1.00); POTASSIUM 3.7 mmol/L (3.5-5.1)
[2017-06-23] MEDS ORDERED: ROCURONIUM 50 MG INJ ONE (07:00)
[2017-06-23] MEDS ORDERED: PROPOFOL 200 MG INJ ONE (07:00)
[2017-06-23] MEDS ORDERED: LIDOCAINE 2% (SDV) 5 ML INJ ONE (07:00)
[2017-06-23] MEDS: ACCU-CHEK XX SCH ×4 (07:30→22:46)
[2017-06-23] MEDS: ACARBOSE 50 MG TAB PO SCH ×2 (07:30→16:08)
[2017-06-23 07:57] VITALS: BP 171/77; RESP 18
[2017-06-23] MEDS: CHOLECALCIFEROL 1,000 UNIT TAB PO SCH (08:03)
[2017-06-23] MEDS: FOLIC ACID 1 MG TAB PO SCH (08:03)
[2017-06-23] MEDS: VALSARTAN 160 MG TAB PO SCH (08:03)
[2017-06-23] MEDS: CHOLECALCIFEROL 2,000 UNIT CAP PO SCH (08:03)
[2017-06-23] MEDS: EZETIMIBE 10 MG TAB PO SCH (08:04)
[2017-06-23] MEDS: ONDANSETRON 4 MG INJ IV PRN (10:24)
[2017-06-23] MEDS: DEXTROSE 5%-0.45% NACL 1,000 ML IV SCH ×2 (10:52→21:40)
--- NOTE | 2017-06-23 12:28 | PN ---
Date/Time of Note Date/Time of Note DATE: 06/23/17 TIME: 12:25 Assessment/Plan Lines/Catheters IV Catheter Type (from Nrs): Peripheral IV Mera in Place (from Nrs): No Assessment/Plan Chief Complaint/Hosp Course 1. Gallbladder fossa abscess/bile leak. +HIDA. ERCP today. I had a long d/w patient and daughter regarding the leak, possible source, and treatment plan. They both understand. -continue drain -abx -pain management 2. Leukocytosis: likely 2/2 #1. Resolved -as above 3. Elevated alk phos: likely 2/2 #1 -as above 4. Diverticulosis -diet/lifestyle optimization 3. Hiatal hernia: asymptomatic -monitor 4. Atherosclerosis -diet/exercise optimization Thank you, Problems: Subjective 24 Hr Interval Summary Drain 120>40>20/day. HIDA with leak but patent cbd. ERCP this afternoon by Dr. Estrella. Min tenderness at drain site. No fevers, chills, sob, congested cough, cp, palpitations, osorio, dizziness, n/v/d/dysuria. Exam/Review of Systems Vital Signs Vitals Vital Signs Date Time Temp Pulse Resp B/P Pulse Ox O2 Delivery O2 Flow Rate FiO2 06/23/17 07:57 97.8 65 18 171/77 98 06/19/17 16:00 Room Air Intake and Output 06/22/17 06/22/17 06/23/17 15:00 23:00 07:00 Intake Total 50 ml 1560 ml 1020 ml Output Total 40 ml Balance 50 ml 1520 ml 1020 ml Exam Free Text/Dictation Constitutional: alert, oriented Psych: nl mood/affect Head: atraumatic, normocephalic Eyes: nl lids, nl sclera ENMT: mucosa pink and moist, nl nasal mucosa & septum Neck: non-tender, supple Respiratory: clear to auscultation, normal air movement Cardiovascular: nl pulses, regular rate and rhythm Gastrointestinal: min-tender at drain site, soft, surgical scars (dry without drainage/bruising/discoloration), drain with dark green/brown fluid (min) Musculoskeletal: nl extremities to inspection, nl gait and stance Extremities: normal pulses Neurological: nl mental status, nl speech, nl strength Skin: nl turgor, rash or lesions Lymph: nl lymph nodes Results Result Diagram: 06/23/17 0519 06/23/17 0519 RICK JACKSON MD Jun 23, 2017 12:28
--- NOTE | 2017-06-23 12:30 | PN ---
Date/Time of Note Date/Time of Note DATE: 06/23/17 TIME: 12:26 Assessment/Plan VTE Prophylaxis VTE Prophylaxis Intervention: other Lines/Catheters IV [facility]ter Type (from [facility]): Peripheral IV Urinary Cath still in place: No Assessment/Plan Assessment/Plan -S/p CT guided abscess drainage- 06/20/2017Min tenderness at site. - ERCP today - hypokalemia- reSOLVED - VRE Wound -per ID- Dr Mckeon - contact isolation - Inadequate po fluid intake- cont IVF -S/p laparoscopic cholecystectomy 05/29/17. -Status post ERCP with stent placement status post subsequent stent removal -Hypertension -Hypothyroidism -RA Further recommendations based on clinical course. Plan of care discussed with Dr. Shipman Subjective 24 Hr Interval Summary Free Text/Dictation - Schedule for ERCP today, daughter at the bedside all questions answered- - VRE wound ID follow-up- -discussed with staff Respiratory: no complaints Cardiovascular: no complaints Gastrointestinal: blood Genitourinary: no complaints Musculoskeletal: no complaints Exam/Review of Systems Vital Signs Vitals Vital Signs Date Time Temp Pulse Resp B/P Pulse Ox O2 Delivery O2 Flow Rate FiO2 06/23/17 07:57 97.8 65 18 171/77 98 06/19/17 16:00 Room Air Intake and Output 06/22/17 06/22/17 06/23/17 15:00 23:00 07:00 Intake Total 50 ml 1560 ml 1020 ml Output Total 40 ml Balance 50 ml 1520 ml 1020 ml Exam Constitutional: alert, well developed Respiratory: diminished breath sounds, normal air movement Cardiovascular: nl pulses, other Gastrointestinal: soft, tender Musculoskeletal: nl extremities to inspection Extremities: normal pulses Neurological: nl mental status, nl speech Results Result Diagram: 06/23/1751806/23/17518 Results 24 hrs Laboratory Tests Test 06/22/17 17:44 06/22/17 22:01 06/23/17 05:19 06/23/17 07:54 Bedside Glucose 111 123 142 White Blood Count 10.2 Red Blood Count 3.09 L Hemoglobin 8.3 L Hematocrit 25.9 L Mean Corpuscular Volume 83.8 Mean Corpuscular Hemoglobin 26.9 L Mean Corpuscular Hemoglobin Concent 32.0 Red Cell Distribution Width 16.6 H Platelet Count 413 Mean Platelet Volume 9.4 Neutrophils % 72.9 Lymphocytes % 15.5 Monocytes % 8.2 Eosinophils % 2.2 Basophils % 0.6 Nucleated Red Blood Cells % 0.0 Neutrophils # 7.4 Lymphocytes # 1.6 Monocytes # 0.8 Eosinophils # 0.2 Basophils # 0.1 Nucleated Red Blood Cells # 0.0 Sodium Level 138 Potassium Level 3.7 Chloride Level 108 Carbon Dioxide Level 27 Anion Gap 7 L Blood Urea Nitrogen 3 L Creatinine 0.49 Glucose Level 113 Calcium Level 8.1 L Test 06/23/17 11:00 Bedside Glucose 96 Medications Medications Current Medications Meropenem/Sodium Chloride (Merrem 500mg/50 ml(Pmx)) 50 ml @ 100 mls/hr Q8 IVPB Last administered on 06/23/17 06:13; Admin Dose 100 MLS/HR; Start 06/19/17 at 22:00 Hydralazine HCl (Apresoline) 10 mg Q6H PRN IV SBP>170; Start 06/20/17 at 11:30 Morphine Sulfate (morphine) 1 mg Q4H PRN IV PAIN Last administered on 21:00; Admin Dose 1 MG; Start 06/20/17 at 12:30 Ondansetron HCl (Zofran Inj) 4 mg Q4H PRN IV NAUSEA AND/OR VOMITING Last administered on 06/23/17 10:24; Admin Dose 4 MG; Start 06/20/17 at 13:00 Acetaminophen (Tylenol Tab) 650 mg Q4H PRN PO PAIN AND OR ELEVATED TEMP Last administered on 06/23/17 02:37; Admin Dose 650 MG; Start 06/20/17 at 13:00 Pantoprazole (Protonix Tab) 40 mg DAILY@06 PO Last administered on 06/22/17 06:26; Admin Dose 40 MG; Start 06/21/17 at 06:00 Al Hydrox/Mg Hydrox/Simethicone (Mag-Al Plus) 30 ml Q6H PRN PO GASTROINTESTINAL UPSET; Start 06/20/17 at 20:00 Folic Acid (Folic Acid) 1 mg DAILY PO Last administered on 06/22/17 09:09; Admin Dose 1 MG; Start 06/21/17 at 10:00 Levothyroxine Sodium (Synthroid) 50 mcg DAILY@06 PO Last administered on 06:14; Admin Dose 50 MCG; Start 06/22/17 at 06:00 Valsartan (Diovan) 160 mg DAILY PO Last administered on 06/23/17 08:03; Admin Dose 160 MG; Start 06/21/17 at 10:00 EZETIMIBE (Zetia) 10 mg DAILY PO Last administered on 06/22/17 09:08; Admin Dose 10 MG; Start 06/21/17 at 10:00 Ibuprofen 800 mg 800 mg Q6H PRN PO PAIN; Start 06/21/17 at 10:00 Sodium Chloride (NS) 1,000 ml @ 70 mls/hr [id number] IV Last administered on 01:55; Admin Dose 70 MLS/HR; Start 06/21/17 at 12:30 Tramadol HCl (Ultram) 50 mg Q6H PRN PO PAIN LEVEL 7-10 Last administered on 13:46; Admin Dose 50 MG; Start 06/21/17 at 12:30; Status Future Hold Cholecalciferol (Vitamin D) 4,000 unit DAILY PO Last administered on 09:08; Admin Dose 4,000 UNIT; Start 06/22/17 at 09:00 Cholecalciferol 1000 unit 1,000 unit DAILY PO Last administered on 06/22/17 09:09; Admin Dose 1,000 UNIT; Start 06/22/17 at 09:00 Linezolid 300 ml @ 200 mls/hr Q12H IVPB Last administered on 06/23/17 06:23 ; Admin Dose 200 MLS/HR; Start 06/22/17 at 17:00 Dextrose/Sodium Chloride (D5-1/2ns) 1,000 ml @ 70 mls/hr [id number] IV Last administered on 06/23/17 10:52; Admin Dose 70 MLS/HR; Start 06/23/17 at 11:00 RONEY SAMPSON Jun 23, 2017 12:30
[2017-06-23 15:04] VITALS: BP 124/80; RESP 20
--- NOTE | 2017-06-23 15:13 | CONS ---
Date/Time of Note Date/Time of Note DATE: 06/23/17 TIME: 15:09 Assessment/Plan Assessment/Plan Chief Complaint/Hosp Course 1. Gall bladder fossa abscess with VRE and Bacteroides s/p drainage 2. Hx of HTN and hypothy 3. hx of pcn allergy; tolerated Meropenem R: Linezolid/Metronidazole x 14 days at least repeat imaging prior to cessation of abx will follow closely with you. Problems: Consultation Date/Type/Reason Admit Date/Time Date of Consultation: Jun 23, 2017 Type of Consultation: id Reason for Consultation abx recs Referring Provider: MUSA AMBROSE MD Hx of Present Illness 81 yo female with apparent pcn allergy, s/p Cholecystectomy at tend of May 2017, admitted for post op fever and leukocytosis accompanied by n/v/d. Imaging studies in er revealed a gallbladder fossa abscess. She is s/p Ct guided drainage and HIDA scan. Her recent cxs have revealed VRE and Bacteroides. She was originally empirically on Meropenem which she tolerted well. Constitutional: requiring IVF Eyes: No discharge, No visual change ENT: No congestion, No sore throat Respiratory: no complaints Cardiovascular: no complaints Gastrointestinal: blood Genitourinary: no complaints Musculoskeletal: no complaints Skin: No bruising, No erythema Neurologic: No focal-weakness Psychological: nl mood/affect Past Medical History Medical History: hypertension, hypothyroid, other (Rheumatoid arthritis) Social History Alcohol Use: none Smoking Status: Never smoker Drug Use: none Exam/Review of Systems Vital Signs Vitals Vital Signs Date Time Temp Pulse Resp B/P Pulse Ox O2 Delivery O2 Flow Rate FiO2 06/23/17 15:04 98.3 94 20 124/80 99 06/19/17 16:00 Room Air Intake and Output 06/22/17 06/22/17 06/23/17 14:59 22:59 06:59 Intake Total 100 ml 1560 ml 910 ml Output Total 40 ml Balance 100 ml 1520 ml 910 ml Exam Constitutional: alert, oriented, well developed Psych: nl mood/affect, no complaints Eyes: EOMI, PERRL, nl conjunctiva, nl lids, nl sclera Respiratory: clear to auscultation, normal air movement Cardiovascular: nl pulses, regular rate and rhythm Gastrointestinal: nl liver, spleen, non-tender, other (drain in place; serosanguinous ), soft Results Result Diagram: 06/23/17 0519 06/23/17 0519 Results 24 hrs Laboratory Tests Test 06/22/17 17:44 06/22/17 22:01 06/23/17 05:19 06/23/17 07:54 Bedside Glucose 111 123 142 White Blood Count 10.2 Red Blood Count 3.09 L Hemoglobin 8.3 L Hematocrit 25.9 L Mean Corpuscular Volume 83.8 Mean Corpuscular Hemoglobin 26.9 L Mean Corpuscular Hemoglobin Concent 32.0 Red Cell Distribution Width 16.6 H Platelet Count 413 Mean Platelet Volume 9.4 Neutrophils % 72.9 Lymphocytes % 15.5 Monocytes % 8.2 Eosinophils % 2.2 Basophils % 0.6 Nucleated Red Blood Cells % 0.0 Neutrophils # 7.4 Lymphocytes # 1.6 Monocytes # 0.8 Eosinophils # 0.2 Basophils # 0.1 Nucleated Red Blood Cells # 0.0 Sodium Level 138 Potassium Level 3.7 Chloride Level 108 Carbon Dioxide Level 27 Anion Gap 7 L Blood Urea Nitrogen 3 L Creatinine 0.49 Glucose Level 113 Calcium Level 8.1 L Test 06/23/17 11:00 Bedside Glucose 96 Medications Medications Current Medications Meropenem/Sodium Chloride (Merrem 500mg/50 ml(Pmx)) 50 ml @ 100 mls/hr Q8 IVPB Last administered on 06/23/17 13:41; Admin Dose 100 MLS/HR; Start 06/19/17 at 22:00 Hydralazine HCl (Apresoline) 10 mg Q6H PRN IV SBP>170; Start 06/20/17 at 11:30 Morphine Sulfate (morphine) 1 mg Q4H PRN IV PAIN Last administered on 21:00; Admin Dose 1 MG; Start 06/20/17 at 12:30 Ondansetron HCl (Zofran Inj) 4 mg Q4H PRN IV NAUSEA AND/OR VOMITING Last administered on 06/23/17 10:24; Admin Dose 4 MG; Start 06/20/17 at 13:00 Acetaminophen (Tylenol Tab) 650 mg Q4H PRN PO PAIN AND OR ELEVATED TEMP Last administered on 06/23/17 02:37; Admin Dose 650 MG; Start 06/20/17 at 13:00 Pantoprazole (Protonix Tab) 40 mg DAILY@06 PO Last administered on 06/22/17 06:26; Admin Dose 40 MG; Start 06/21/17 at 06:00 Al Hydrox/Mg Hydrox/Simethicone (Mag-Al Plus) 30 ml Q6H PRN PO GASTROINTESTINAL UPSET; Start 06/20/17 at 20:00 Folic Acid (Folic Acid) 1 mg DAILY PO Last administered on 06/22/17 09:09; Admin Dose 1 MG; Start 06/21/17 at 10:00 Levothyroxine Sodium (Synthroid) 50 mcg DAILY@06 PO Last administered on 06:14; Admin Dose 50 MCG; Start 06/22/17 at 06:00 Valsartan (Diovan) 160 mg DAILY PO Last administered on 06/23/17 08:03; Admin Dose 160 MG; Start 06/21/17 at 10:00 EZETIMIBE (Zetia) 10 mg DAILY PO Last administered on 06/22/17 09:08; Admin Dose 10 MG; Start 06/21/17 at 10:00 Ibuprofen 800 mg 800 mg Q6H PRN PO PAIN; Start 06/21/17 at 10:00 Sodium Chloride (NS) 1,000 ml @ 70 mls/hr [id number] IV Last administered on 01:55; Admin Dose 70 MLS/HR; Start 06/21/17 at 12:30 Tramadol HCl (Ultram) 50 mg Q6H PRN PO PAIN LEVEL 7-10 Last administered on 13:46; Admin Dose 50 MG; Start 06/21/17 at 12:30; Status Future Hold Cholecalciferol (Vitamin D) 4,000 unit DAILY PO Last administered on 09:08; Admin Dose 4,000 UNIT; Start 06/22/17 at 09:00 Cholecalciferol 1000 unit 1,000 unit DAILY PO Last administered on 06/22/17 09:09; Admin Dose 1,000 UNIT; Start 06/22/17 at 09:00 Linezolid 300 ml @ 200 mls/hr Q12H IVPB Last administered on 06/23/17 06:23 ; Admin Dose 200 MLS/HR; Start 06/22/17 at 17:00 Dextrose/Sodium Chloride (D5-1/2ns) 1,000 ml @ 70 mls/hr [id number] IV Last administered on 06/23/17t 10:52; Admin Dose 70 MLS/HR; Start 06/23/17 at 11:00 TING BERRY MD Jun 23, 2017 15:13
[2017-06-23] MEDS ORDERED: FENTAnyl 50 MCG/ML VIAL ONE ×2 (18:06→19:10)
[2017-06-23] MEDS ORDERED: IOHEXOL 300MG/ML 30 ML BTL ONE (18:14)
[2017-06-23] MEDS ORDERED: INDOMETHACIN 50 MG SUPP PR ONE (18:30)
[2017-06-23] MEDS ORDERED: KETOROLAC 30 MG INJ ONE (19:02)
[2017-06-23] MEDS ORDERED: ONDANSETRON 4 MG INJ ONE (19:02)
[2017-06-23] MEDS ORDERED: DEXAMETHASONE 4 MG/ML 1 ML INJ ONE (19:02)
[2017-06-23] MEDS ORDERED: PROPOFOL 80 ML ONE (19:02)
[2017-06-23 20:00] VITALS: BP 177/76; RESP 19
[2017-06-23] MEDS ORDERED: SUGAMMADEX SODIUM 200 MG/2 ML VIAL IV ONE (20:07)
--- NOTE | 2017-06-23 20:26 | OPR ---
Date/Time of Note Date/Time of Note DATE: 06/23/17 TIME: 20:12 Operative Report Preoperative Diagnosis biliary leak Postoperative Diagnosis biliary leak prob from branch of rt hepatic duct 05/10 cbd placed nancy to rt hepatic duct 05/12 stent placed in to lft hepatic duct Operation/Procedure Performed ercp felecia hepatic ducts stents placement Surgeon see signature line Manager Logistic none Anesthesia Type: general Anesthesiologist: MJ PALACIOS Estimated Blood Loss: none Transfusion none Specimen none Grafts/Implants none Tubes/Drains 2 cbd stents placed Complications none Pt Condition Post Procedure: stable Disposition: PACU Indications biliary leak Procedure Description ercp performed poss leak of branch of rt hepatic duct seen one stent placed in to rt hep duct one stent placed in to lft hep duvt ARLYN MATIAS MD Jun 23, 2017 20:23
[2017-06-23] MEDS ORDERED: FENTAnyl 50 MCG/ML VIAL IV PRN ×3 (20:30)
[2017-06-23] MEDS ORDERED: hydrALAzine 20 MG INJ IV PRN (20:30)
[2017-06-23] MEDS ORDERED: ONDANSETRON 4 MG INJ IV PRN (20:30)
[2017-06-23] MEDS ORDERED: EPHEDrine SULFATE 50 MG/5 ML SYG IV PRN (20:30)
[2017-06-23] MEDS ORDERED: morphine (1 MG/ML) 10ML SYRINGE IV PRN ×2 (20:30)
[2017-06-23] MEDS ORDERED: MIDAZOLAM 1 MG/ML 2 ML INJ IV PRN (20:30)
[2017-06-23] MEDS ORDERED: LABETALOL HCL 20MG INJ IV PRN (20:30)
[2017-06-23] MEDS ORDERED: METOCLOPRAMIDE 10 MG INJ IV PRN (20:30)
[2017-06-23] MEDS ORDERED: KETOROLAC 30 MG INJ IV PRN (20:30)
[2017-06-23] MEDS ORDERED: DIPHENHYDRAMINE 50 MG INJ IV PRN (20:30)
[2017-06-23] MEDS: SENNA/DOCUSATE NA (8.6MG/50MG) TAB PO SCH (21:34)
[2017-06-23] MEDS: metroNIDAZOLE 500 MG/NS (PMX) 100 ML IVPB SCH (22:46)
[2017-06-24 02:00] VITALS: BP 123/58; RESP 17
[2017-06-24] MEDS: PANTOPRAZOLE (EC) 40 MG TAB PO SCH (04:33)
[2017-06-24] MEDS: LEVOTHYROXINE 50 MCG TAB PO SCH (04:33)
[2017-06-24] MEDS: metroNIDAZOLE 500 MG/NS (PMX) 100 ML IVPB SCH ×3 (04:33→20:44)
[2017-06-24] MEDS: LINEZOLID 600 MG/D5W (PMX) 300 ML IVPB SCH ×2 (04:33→17:31)
--- NOTE | 2017-06-24 05:40 | GILP ---
DATE OF PROCEDURE: NAME OF PROCEDURE: ERCP and stent placement into the right hepatic duct and left hepatic duct. PREOPERATIVE DIAGNOSIS: Patient presenting with history of a biliary leak after the laparoscopic ch olecystectomy as noted on the CAT scan and also as noted on the HIDA scan. At this time, a biliary leak is suspected. POSTOPERATIVE DIAGNOSES: There seems to be leak of the branch of the right hepatic duct, this could also be leak from the cystic duct. One stent placed into the right hepatic duct, 1 stent placed into the left hepatic duct. DESCRIPTION OF PROCEDURE: After the informed written consent was obtained, the patient was intubate d by anesthesiologist, Dr. Salcedo. While the patient was in the prone position, Olympus video side-vi ovalle duodenoscope was inserted into the oropharynx, then into the esophagus and subsequently into t he stomach and duodenum. Ampulla was located in normal location with normal morphology. At this ti me, by using the Dreamtome, cannulation was performed. When the cannulation was performed bile duct was visualized. Whether there is a leak from the cystic duct or not of the contrast is not very cl ear. When more contrast was injected with the help of a balloon occlusion technique, the branch of the right hepatic duct noted to show evidence of some leakage of the contrast. No other source of l eakage was noted. At this time, there was 1 wire inserted through the Dreamtome into the left hepat ic duct and another wire left into the right hepatic duct. A 10 x 7 [place] type of endobiliary p rosthesis was inserted into the right hepatic duct. Another 10 x 9 [place] type of CBD stent was placed into the left hepatic duct and bile seems to be flowing freely through both these ducts and a t this time photographs were obtained, scope was withdrawn and the procedure was terminated. PLAN: Recommend watch the patient closely. Dictated By: ARLYN MATIAS MD NC/NTS Conf#: [id number] DID#: [id number] CC: RICK JACKSON MD; MUSA AMBROSE MD;*[facility]*
[2017-06-24 06:48] LABS: ABNORMAL IP MESSAGE 1; HEMATOCRIT 26.5 % (37.0-47.0); HEMOGLOBIN 8.5 g/dl (12.0-16.0); LYMPHOCYTES # 0.6 10^3/ul (0.8-2.9); LYMPHOCYTES % 7.4 % (15.0-51.0); MEAN CORPUSCULAR HEMOGLOBIN 26.4 pg (29.0-33.0); MEAN CORPUSCULAR HGB CONC 32.1 g/dl (32.0-37.0); MEAN CORPUSCULAR VOLUME 82.3 fl (82.0-101.0); MEAN PLATELET VOLUME 9.2 fl (7.4-10.4); MONOCYTE # 0.1 10^3/ul (0.3-0.9); MONOCYTES % 1.1 % (0.0-11.0); NEUTROPHIL # 6.7 10^3/ul (1.6-7.5); PLATELET COUNT 424 10^3/UL (140-415); RED BLOOD COUNT 3.22 10^6/ul (4.20-5.40); RED CELL DISTRIBUTION WIDTH 16.1 % (11.5-14.5); WHITE BLOOD COUNT 7.4 10^3/ul (4.8-10.8)
[2017-06-24 07:02] LABS: POSITIVE DIFF @See below
[2017-06-24 07:22] LABS: CALCIUM 7.7 mg/dl (8.4-10.2); CREATININE 0.46 mg/dl (0.44-1.00); POTASSIUM 3.6 mmol/L (3.5-5.1)
[2017-06-24] MEDS: ACCU-CHEK XX SCH ×4 (07:49→20:49)
[2017-06-24] MEDS: ACARBOSE 50 MG TAB PO SCH ×2 (07:49→17:31)
--- NOTE | 2017-06-24 09:01 | RADRPT ---
PROCEDURE: Intraoperative imaging for ERCP with fluoroscopy. CLINICAL INDICATION: Right upper quadrant pain. Intraoperative. TECHNIQUE: 8 images of the right upper quadrant of the abdomen were obtained in the operating room with an image intensifier. No radiologist was in attendance. Fluoroscopy time is 377 seconds. COMPARISON: Nuclear medicine hepatobiliary scan dated 06/21/2017. FINDINGS: The initial images demonstrate the pigtail drainage catheter in the gallbladder bed. Subsequent imag es demonstrate the endoscope in position with contrast injected into the common bile duct. Surgical clips are present from previous cholecystectomy. Stents were placed in the right and left intrahepat ic bile ducts extending into the common bile duct. IMPRESSION: 1. Placement of stents in the right and left intrahepatic bile ducts extending into the common bile duct. RPTAT: QQ .Jamie Strong MD, Date Time Electronically viewed and signed by .Jamie Strong MD, on 06/24/2017 09:01 .R/
[2017-06-24] MEDS: CHOLECALCIFEROL 1,000 UNIT TAB PO SCH (09:34)
[2017-06-24] MEDS: FOLIC ACID 1 MG TAB PO SCH (09:35)
[2017-06-24] MEDS: VALSARTAN 160 MG TAB PO SCH (09:35)
[2017-06-24] MEDS: IBUPROFEN 800 MG TAB PO PRN ×2 (09:35→09:39)
[2017-06-24] MEDS: SENNA/DOCUSATE NA (8.6MG/50MG) TAB PO SCH ×3 (09:35→20:51)
[2017-06-24] MEDS: CHOLECALCIFEROL 2,000 UNIT CAP PO SCH (09:35)
[2017-06-24] MEDS: EZETIMIBE 10 MG TAB PO SCH (09:36)
[2017-06-24] MEDS: ACETAMINOPHEN 325 MG TAB PO PRN (09:42)
[2017-06-24] MEDS: SOD CHLORIDE 0.9% 1,000 ML IV SCH (11:47)
--- NOTE | 2017-06-24 12:02 | CONS ---
KEVIN ELDRIDGE NP 06/24/17 1201: Date/Time of Note Date/Time of Note DATE: 06/24/17 TIME: 11:57 Assessment/Plan Assessment/Plan Chief Complaint/Hosp Course - Gall bladder fossa abscess with VRE and Bacteroides; s/p CT guided drainage - Biliary leak, s/p ERCP and stent placement into the right hepatic duct and left hepatic duct 06/23/2017 - S/p laparoscopic cholecystectomy 05/28/17. - HTN - Hypothyroid - PCN allergy; tolerated meropenem Recommendations: - Continue Linezolid (06/22/2017-) and Metronidazole (06/23/2017-) x 14 days at least - Repeat imaging prior to cessation of abx Management d/w patient, RN DAMARIS, and Dr. Mckeon Problems: Consultation Date/Type/Reason Admit Date/Time Jun 19, 2017 at 14:00 Initial Consult Date 06/23/17 Type of Consultation: Infectious Disease Referring Provider: MUSA AMBROSE MD 24 HR Interval Summary Free Text/Dictation s/p ERCP and stent placement yesterday; tolerating full liquid diet; needs new HL d/t infiltration per d/w nursing Denies abd pain, n/v/d, dysuria. C/o RUE pain 2/2 infiltrated HL Exam/Review of Systems Vital Signs Vitals Vital Signs Date Time Temp Pulse Resp B/P Pulse Ox O2 Delivery O2 Flow Rate FiO2 06/24/17 02:00 97.6 63 17 123/58 96 Intake and Output 06/23/17 06/23/17 06/24/17 15:00 23:00 07:00 Intake Total 590 ml 1010 ml 750 ml Output Total 20 ml 1910 ml 1012 ml Balance 570 ml -900 ml -262 ml Exam Constitutional: alert, oriented, other (sitting in chair in NAD with RN attempting new HL), well developed Psych: nl mood/affect Head: atraumatic, normocephalic Eyes: nl sclera Neck: supple Respiratory: clear to auscultation, normal air movement Cardiovascular: nl pulses, regular rate and rhythm Gastrointestinal: non-tender, other (R sided external drain with dark purulent output), soft Musculoskeletal: nl extremities to inspection Extremities: normal pulses, No edema Neurological: nl mental status Skin: nl turgor, No rash or lesions Results Result Diagram: 06/24/17 0617 06/24/17 0617 Results 24 hrs Laboratory Tests Test 06/23/17 16:07 06/23/17 22:45 06/24/17 06:17 06/24/17 07:47 Bedside Glucose 102 197 224 H White Blood Count 7.4 # Red Blood Count 3.22 L Hemoglobin 8.5 L Hematocrit 26.5 L Mean Corpuscular Volume 82.3 Mean Corpuscular Hemoglobin 26.4 L Mean Corpuscular Hemoglobin Concent 32.1 Red Cell Distribution Width 16.1 H Platelet Count 424 H Mean Platelet Volume 9.2 Neutrophils % 91.0 H Lymphocytes % 7.4 L Monocytes % 1.1 Eosinophils % 0.0 Basophils % 0.0 Nucleated Red Blood Cells % 0.0 Neutrophils # 6.7 Lymphocytes # 0.6 L Monocytes # 0.1 L Eosinophils # 0.0 Basophils # 0.0 Nucleated Red Blood Cells # 0.0 Sodium Level 139 Potassium Level 3.6 Chloride Level 108 Carbon Dioxide Level 24 Anion Gap 11 Blood Urea Nitrogen 6 L Creatinine 0.46 Glucose Level 215 # Calcium Level 7.7 L Test 06/24/17 11:42 Bedside Glucose 194 Medications Medications Current Medications Hydralazine HCl (Apresoline) 10 mg Q6H PRN IV SBP>170; Start 06/20/17 at 11:30 Morphine Sulfate (morphine) 1 mg Q4H PRN IV PAIN Last administered on 21:00; Admin Dose 1 MG; Start 06/20/17 at 12:30 Ondansetron HCl (Zofran Inj) 4 mg Q4H PRN IV NAUSEA AND/OR VOMITING Last administered on 06/23/17 10:24; Admin Dose 4 MG; Start 06/20/17 at 13:00 Acetaminophen (Tylenol Tab) 650 mg Q4H PRN PO PAIN AND OR ELEVATED TEMP Last administered on 06/24/17 09:42; Admin Dose 650 MG; Start 06/20/17 at 13:00 Pantoprazole (Protonix Tab) 40 mg DAILY@06 PO Last administered on 06/24/17 04:33; Admin Dose 40 MG; Start 06/21/17 at 06:00 Al Hydrox/Mg Hydrox/Simethicone (Mag-Al Plus) 30 ml Q6H PRN PO GASTROINTESTINAL UPSET; Start 06/20/17 at 20:00 Folic Acid (Folic Acid) 1 mg DAILY PO Last administered on 06/24/17 09:35; Admin Dose 1 MG; Start 06/21/17 at 10:00 Levothyroxine Sodium (Synthroid) 50 mcg DAILY@06 PO Last administered on 04:33; Admin Dose 50 MCG; Start 06/22/17 at 06:00 Valsartan (Diovan) 160 mg DAILY PO Last administered on 06/24/17 09:35; Admin Dose 160 MG; Start 06/21/17 at 10:00 EZETIMIBE (Zetia) 10 mg DAILY PO Last administered on 06/24/17 09:36; Admin Dose 10 MG; Start 06/21/17 at 10:00 Ibuprofen 800 mg 800 mg Q6H PRN PO PAIN; Start 06/21/17 at 10:00 Sodium Chloride (NS) 1,000 ml @ 70 mls/hr [id number] IV Last administered on 11:47; Admin Dose 70 MLS/HR; Start 06/21/17 at 12:30 Tramadol HCl (Ultram) 50 mg Q6H PRN PO PAIN LEVEL 7-10 Last administered on 13:46; Admin Dose 50 MG; Start 06/21/17 at 12:30; Status Future Hold Cholecalciferol (Vitamin D) 4,000 unit DAILY PO Last administered on 09:35; Admin Dose 4,000 UNIT; Start 06/22/17 at 09:00 Cholecalciferol 1000 unit 1,000 unit DAILY PO Last administered on 06/24/17 09:34; Admin Dose 1,000 UNIT; Start 06/22/17 at 09:00 Linezolid 300 ml @ 200 mls/hr Q12H IVPB Last administered on 06/24/17 04:33 ; Admin Dose 200 MLS/HR; Start 06/22/17 at 17:00 Dextrose/Sodium Chloride 1,000 ml @ 70 mls/hr [id number] IV Last administered on 06/23/17 10:52; Admin Dose 70 MLS/HR; Start 06/23/17 at 11:00 Metronidazole (Flagyl 500 Mg (Pmx)) 100 ml @ 100 mls/hr Q8 IVPB Last administered on 06/24/17 04:33; Admin Dose 100 MLS/HR; Start 06/23/17 at 22: 00 Senna/Docusate Sodium (Senokot-S) 1 tab BID PO Last administered on 06/24/17 09:35; Admin Dose 1 TAB; Start 06/23/17 at 21:00 TING MCKEON MD 06/25/1719: Assessment/Plan Assessment/Plan Chief Complaint/Hosp Course emr reviewed. case d/w military logistics specialist. we will be in shortly for further eval. today. ty Problems: Exam/Review of Systems Results Result Diagram: 06/24/1761606/24/1717 KEVIN ELDRIDGE NP Jun 24, 2017 12:01 TING MCKEON MD Jun 25, 2017 06:19
--- NOTE | 2017-06-24 15:17 | PN ---
Date/Time of Note Date/Time of Note DATE: 06/24/17 TIME: 15:14 Assessment/Plan VTE Prophylaxis VTE Prophylaxis Intervention: SCD's Lines/Catheters IV [facility] Type (from [facility] Peripheral IV Urinary Cath still in place: No Assessment/Plan Chief Complaint/Hosp Course Patient's complains of poor appetite however however denies any nausea and vomiting Assessment/Plan -Gallbladder fossa abscess/bile leak. S/p drainage by radiology. Positive HIDA scan. S/p ERCP and stent placement into the right hepatic duct and left hepatic duct on 06/[address] Estrella. -S/p laparoscopic cholecystectomy 06/29/17. -Status post ERCP with stent placement status post subsequent stent removal -Hypertension -Hypothyroidism -RA Further recommendations based on clinical course. Plan of care discussed with Dr. Shipman Problems: Exam/Review of Systems Vital Signs Vitals Vital Signs Date Time Temp Pulse Resp B/P Pulse Ox O2 Delivery O2 Flow Rate FiO2 06/24/17 02:00 97.6 63 17 123/58 96 Intake and Output 06/23/17 06/23/17 06/24/17 15:00 23:00 07:00 Intake Total 590 ml 1010 ml 750 ml Output Total 20 ml 1910 ml 1012 ml Balance 570 ml -900 ml -262 ml Exam Constitutional: alert, oriented Neck: supple Respiratory: normal air movement Cardiovascular: nl pulses Gastrointestinal: other (Right upper quadrant drain), soft Musculoskeletal: nl extremities to inspection Extremities: normal pulses Neurological: nl mental status Results Result Diagram: 06/24/17 0617 06/24/17 0617 Results 24 hrs Laboratory Tests Test 06/23/17 16:07 06/23/17 22:45 06/24/17 06:17 06/24/17 07:47 Bedside Glucose 102 197 224 H White Blood Count 7.4 # Red Blood Count 3.22 L Hemoglobin 8.5 L Hematocrit 26.5 L Mean Corpuscular Volume 82.3 Mean Corpuscular Hemoglobin 26.4 L Mean Corpuscular Hemoglobin Concent 32.1 Red Cell Distribution Width 16.1 H Platelet Count 424 H Mean Platelet Volume 9.2 Neutrophils % 91.0 H Lymphocytes % 7.4 L Monocytes % 1.1 Eosinophils % 0.0 Basophils % 0.0 Nucleated Red Blood Cells % 0.0 Neutrophils # 6.7 Lymphocytes # 0.6 L Monocytes # 0.1 L Eosinophils # 0.0 Basophils # 0.0 Nucleated Red Blood Cells # 0.0 Sodium Level 139 Potassium Level 3.6 Chloride Level 108 Carbon Dioxide Level 24 Anion Gap 11 Blood Urea Nitrogen 6 L Creatinine 0.46 Glucose Level 215 # Calcium Level 7.7 L Test 06/24/17 11:42 Bedside Glucose 194 Medications Medications Current Medications Hydralazine HCl (Apresoline) 10 mg Q6H PRN IV SBP>170; Start 06/20/17 at 11:30 Morphine Sulfate (morphine) 1 mg Q4H PRN IV PAIN Last administered on 21:00; Admin Dose 1 MG; Start 06/20/17 at 12:30 Ondansetron HCl (Zofran Inj) 4 mg Q4H PRN IV NAUSEA AND/OR VOMITING Last administered on 06/23/17 10:24; Admin Dose 4 MG; Start 06/20/17 at 13:00 Acetaminophen (Tylenol Tab) 650 mg Q4H PRN PO PAIN AND OR ELEVATED TEMP Last administered on 06/24/17 09:42; Admin Dose 650 MG; Start 06/20/17 at 13:00 Pantoprazole (Protonix Tab) 40 mg DAILY@06 PO Last administered on 06/24/17 04:33; Admin Dose 40 MG; Start 06/21/17 at 06:00 Al Hydrox/Mg Hydrox/Simethicone (Mag-Al Plus) 30 ml Q6H PRN PO GASTROINTESTINAL UPSET; Start 06/20/17 at 20:00 Folic Acid (Folic Acid) 1 mg DAILY PO Last administered on 06/24/17 09:35; Admin Dose 1 MG; Start 06/21/17 at 10:00 Levothyroxine Sodium (Synthroid) 50 mcg DAILY@06 PO Last administered on 04:33; Admin Dose 50 MCG; Start 06/22/17 at 06:00 Valsartan (Diovan) 160 mg DAILY PO Last administered on 06/24/17 09:35; Admin Dose 160 MG; Start 06/21/17 at 10:00 EZETIMIBE (Zetia) 10 mg DAILY PO Last administered on 06/24/17 09:36; Admin Dose 10 MG; Start 06/21/17 at 10:00 Ibuprofen 800 mg 800 mg Q6H PRN PO PAIN; Start 06/21/17 at 10:00 Sodium Chloride (NS) 1,000 ml @ 70 mls/hr [id number] IV Last administered on 11:47; Admin Dose 70 MLS/HR; Start 06/21/17 at 12:30 Tramadol HCl (Ultram) 50 mg Q6H PRN PO PAIN LEVEL 7-10 Last administered on 13:46; Admin Dose 50 MG; Start 06/21/17 at 12:30; Status Future Hold Cholecalciferol (Vitamin D) 4,000 unit DAILY PO Last administered on 09:35; Admin Dose 4,000 UNIT; Start 06/22/17 at 09:00 Cholecalciferol 1000 unit 1,000 unit DAILY PO Last administered on 06/24/17 09:34; Admin Dose 1,000 UNIT; Start 06/22/17 at 09:00 Linezolid 300 ml @ 200 mls/hr Q12H IVPB Last administered on 06/24/17 04:33 ; Admin Dose 200 MLS/HR; Start 06/22/17 at 17:00 Metronidazole (Flagyl 500 Mg (Pmx)) 100 ml @ 100 mls/hr Q8 IVPB Last administered on 06/24/17 14:29; Admin Dose 100 MLS/HR; Start 06/23/17 at 22: 00 Senna/Docusate Sodium (Senokot-S) 1 tab BID PO Last administered on 06/24/17 09:35; Admin Dose 1 TAB; Start 06/23/17 at 21:00 BOB HUBER Jun 24, 2017 15:17
--- NOTE | 2017-06-24 16:15 | PN ---
Date/Time of Note Date/Time of Note DATE: 06/24/17 TIME: 16:11 Assessment/Plan Lines/Catheters IV Catheter Type (from Nrs): Peripheral IV Mera in Place (from Nrs): No Assessment/Plan Chief Complaint/Hosp Course 1. Gallbladder fossa abscess/bile leak. +HIDA. s/p ERCP with stenting. + cultures -continue drain -abx per sensitivity -pain management 2. Anemia: no acute bleed noted -monitor -transfuse as needed 3. Hypocalcemia -replete and monitor 4. Diverticulosis -diet/lifestyle optimization 3. Hiatal hernia: asymptomatic -monitor 4. Atherosclerosis -diet/exercise optimization Thank you. Patient seen and examined in collaboration with Dr. Varun Auguste. Problems: Subjective 24 Hr Interval Summary Feels well. S/p stenting of right and left hepatic duct. Right drain with green output. No fevers, chills, sob, congested cough, cp, palpitations, osorio, dizziness , n/v/d/dysuria. Exam/Review of Systems Vital Signs Vitals Vital Signs Date Time Temp Pulse Resp B/P Pulse Ox O2 Delivery O2 Flow Rate FiO2 06/24/17 02:00 97.6 63 17 123/58 96 Intake and Output 06/23/17 06/23/17 06/24/17 15:00 23:00 07:00 Intake Total 590 ml 1010 ml 750 ml Output Total 20 ml 1910 ml 1012 ml Balance 570 ml -900 ml -262 ml Exam Free Text/Dictation Constitutional: alert, oriented Psych: nl mood/affect Head: atraumatic, normocephalic Eyes: nl lids, nl sclera ENMT: mucosa pink and moist, nl nasal mucosa & septum Neck: non-tender, supple Respiratory: clear to auscultation, normal air movement Cardiovascular: nl pulses, regular rate and rhythm Gastrointestinal: min-tender at drain site, soft, surgical scars (dry without drainage/bruising/discoloration), drain with dark green/brown fluid Musculoskeletal: nl extremities to inspection, nl gait and stance Extremities: normal pulses Neurological: nl mental status, nl speech, nl strength Skin: nl turgor, rash or lesions Lymph: nl lymph nodes Results Result Diagram: 06/24/17 0617 06/24/17 0617 MARGARETTE MENJIVAR NP Jun 24, 2017 16:15
[2017-06-24 20:22] VITALS: BP 164/70; RESP 18
--- NOTE | 2017-06-24 20:39 | PN ---
DATE: 06/24/2017 At this time the patient is alert. She has no complaints. She has history of having a biliary leak that was reported on HIDA scan. She had a percutaneous drainage of the abscess in the right gallbl adder fossa and subsequently it was decided that she has a biliary leak and hence ERCP was performed and 2 stents were placed, one into the right hepatic duct, one in the left hepatic duct. At this t saúl it was noted the percutaneous drainage is still having about 75 mL of bilious material for the p ast 12 hours. On examination, patient is alert. Abdomen is soft. LABORATORY WORKUP: WBC count 7400, hemoglobin 8.5. CLINICAL IMPRESSION: Status post ERCP, placement of one stent into the left duct, one stent into th e right hepatic duct. The patient still continues to have biliary drainage. This could very well b e old liquid which was placed prior to the stent placement. PLAN: Continue to observe the patient. Dictated By: ARLYN PAGE/HERACLIO Conf#: [id number] DID#: [id number]
[2017-06-25] MEDS: SOD CHLORIDE 0.9% 1,000 ML IV SCH ×2 (01:36→17:12)
[2017-06-25 02:16] VITALS: BP 118/56; RESP 18
[2017-06-25] MEDS: LINEZOLID 600 MG/D5W (PMX) 300 ML IVPB SCH ×2 (05:29→17:11)
[2017-06-25] MEDS: LEVOTHYROXINE 50 MCG TAB PO SCH (05:31)
[2017-06-25] MEDS: metroNIDAZOLE 500 MG/NS (PMX) 100 ML IVPB SCH ×3 (05:31→22:06)
[2017-06-25] MEDS: PANTOPRAZOLE (EC) 40 MG TAB PO SCH (05:31)
[2017-06-25 05:50] LABS: BASOPHIL # 0.1 10^3/ul (0.0-0.1); BASOPHILS % 0.6 % (0.0-2.0); EOSINOPHILS # 0.1 10^3/ul (0.0-0.5); EOSINOPHILS % 1.4 % (0.0-7.0); LYMPHOCYTES # 2.1 10^3/ul (0.8-2.9); LYMPHOCYTES % 25.2 % (15.0-51.0); MEAN CORPUSCULAR HEMOGLOBIN 26.3 pg (29.0-33.0); MEAN CORPUSCULAR VOLUME 82.2 fl (82.0-101.0); MEAN PLATELET VOLUME 9.3 fl (7.4-10.4); MONOCYTE # 0.7 10^3/ul (0.3-0.9); MONOCYTES % 8.2 % (0.0-11.0); NEUTROPHIL # 5.4 10^3/ul (1.6-7.5); NEUTROPHILS % 64.1 % (39.0-77.0); PLATELET COUNT 440 10^3/UL (140-415); RED BLOOD COUNT 3.04 10^6/ul (4.20-5.40); RED CELL DISTRIBUTION WIDTH 16.5 % (11.5-14.5); WHITE BLOOD COUNT 8.3 10^3/ul (4.8-10.8)
[2017-06-25 06:19] LABS: CALCIUM 7.4 mg/dl (8.4-10.2); CREATININE 0.54 mg/dl (0.44-1.00); POTASSIUM 3.2 mmol/L (3.5-5.1)
--- NOTE | 2017-06-25 06:21 | CONS ---
Date/Time of Note Date/Time of Note DATE: 06/25/17 TIME: 06:20 Assessment/Plan Assessment/Plan Chief Complaint/Hosp Course emr reviewed. case d/w [employer] supervisor. we will be in shortly for further eval. today. ty Problems: Consultation Date/Type/Reason Admit Date/Time Jun 19, 2017 at 14:00 Initial Consult Date 06/23/17 Type of Consultation: Infectious Disease Referring Provider: MUSA AMBROSE MD Exam/Review of Systems Vital Signs Vitals Vital Signs Date Time Temp Pulse Resp B/P Pulse Ox O2 Delivery O2 Flow Rate FiO2 06/25/17 02:16 98.3 67 18 118/56 98 Intake and Output 06/24/17 06/24/17 06/25/17 14:59 22:59 06:59 Intake Total 2350 ml 650 ml Balance 2350 ml 650 ml Results Result Diagram: 06/25/17 0500 06/24/17 0617 Results 24 hrs Laboratory Tests Test 06/24/17 07:47 06/24/17 11:42 06/24/17 17:29 06/24/17 20:48 Bedside Glucose 224 H 194 114 146 Test 06/25/17 05:00 White Blood Count 8.3 Red Blood Count 3.04 L Hemoglobin 8.0 L Hematocrit 25.0 L Mean Corpuscular Volume 82.2 Mean Corpuscular Hemoglobin 26.3 L Mean Corpuscular Hemoglobin Concent 32.0 Red Cell Distribution Width 16.5 H Platelet Count 440 H Mean Platelet Volume 9.3 Neutrophils % 64.1 Lymphocytes % 25.2 Monocytes % 8.2 Eosinophils % 1.4 Basophils % 0.6 Nucleated Red Blood Cells % 0.0 Neutrophils # 5.4 Lymphocytes # 2.1 Monocytes # 0.7 Eosinophils # 0.1 Basophils # 0.1 Nucleated Red Blood Cells # 0.0 Medications Medications Current Medications Hydralazine HCl (Apresoline) 10 mg Q6H PRN IV SBP>170; Start 06/20/17 at 11:30 Morphine Sulfate (morphine) 1 mg Q4H PRN IV PAIN Last administered on 21:00; Admin Dose 1 MG; Start 06/20/17 at 12:30 Ondansetron HCl (Zofran Inj) 4 mg Q4H PRN IV NAUSEA AND/OR VOMITING Last administered on 06/23/17 10:24; Admin Dose 4 MG; Start 06/20/17 at 13:00 Acetaminophen (Tylenol Tab) 650 mg Q4H PRN PO PAIN AND OR ELEVATED TEMP Last administered on 06/24/17 09:42; Admin Dose 650 MG; Start 06/20/17 at 13:00 Pantoprazole (Protonix Tab) 40 mg DAILY@06 PO Last administered on 06/25/17 05:31; Admin Dose 40 MG; Start 06/21/17 at 06:00 Al Hydrox/Mg Hydrox/Simethicone (Mag-Al Plus) 30 ml Q6H PRN PO GASTROINTESTINAL UPSET; Start 06/20/17 at 20:00 Folic Acid (Folic Acid) 1 mg DAILY PO Last administered on 06/24/17 09:35; Admin Dose 1 MG; Start 06/21/17 at 10:00 Levothyroxine Sodium (Synthroid) 50 mcg DAILY@06 PO Last administered on 05:31; Admin Dose 50 MCG; Start 06/22/17 at 06:00 Valsartan (Diovan) 160 mg DAILY PO Last administered on 06/24/17 09:35; Admin Dose 160 MG; Start 06/21/17 at 10:00 EZETIMIBE (Zetia) 10 mg DAILY PO Last administered on 06/24/17 09:36; Admin Dose 10 MG; Start 06/21/17 at 10:00 Ibuprofen 800 mg 800 mg Q6H PRN PO PAIN; Start 06/21/17 at 10:00 Sodium Chloride (NS) 1,000 ml @ 70 mls/hr [id number] IV Last administered on 01:36; Admin Dose 70 MLS/HR; Start 06/21/17 at 12:30 Tramadol HCl (Ultram) 50 mg Q6H PRN PO PAIN LEVEL 7-10 Last administered on 13:46; Admin Dose 50 MG; Start 06/21/17 at 12:30; Status Future Hold Cholecalciferol (Vitamin D) 4,000 unit DAILY PO Last administered on 09:35; Admin Dose 4,000 UNIT; Start 06/22/17 at 09:00 Cholecalciferol 1000 unit 1,000 unit DAILY PO Last administered on 06/24/17 09:34; Admin Dose 1,000 UNIT; Start 06/22/17 at 09:00 Linezolid 300 ml @ 200 mls/hr Q12H IVPB Last administered on 06/25/17 05:29 ; Admin Dose 200 MLS/HR; Start 06/22/17 at 17:00 Metronidazole (Flagyl 500 Mg (Pmx)) 100 ml @ 100 mls/hr Q8 IVPB Last administered on 06/25/17 05:31; Admin Dose 100 MLS/HR; Start 06/23/17 at 22: 00 Senna/Docusate Sodium (Senokot-S) 1 tab BID PO Last administered on 06/24/17 09:35; Admin Dose 1 TAB; Start 06/23/17 at 21:00 TING BERRY MD Jun 25, 2017 06:21
[2017-06-25] MEDS: ACCU-CHEK XX SCH ×4 (07:30→21:00)
[2017-06-25] MEDS: ONDANSETRON 4 MG INJ IV PRN ×2 (07:51→17:11)
[2017-06-25 08:12] VITALS: BP 142/62; RESP 18
[2017-06-25] MEDS: VALSARTAN 160 MG TAB PO SCH (09:15)
[2017-06-25] MEDS: EZETIMIBE 10 MG TAB PO SCH (09:15)
[2017-06-25] MEDS: CHOLECALCIFEROL 1,000 UNIT TAB PO SCH (09:15)
[2017-06-25] MEDS: CHOLECALCIFEROL 2,000 UNIT CAP PO SCH (09:15)
[2017-06-25] MEDS: SENNA/DOCUSATE NA (8.6MG/50MG) TAB PO SCH ×2 (09:16→21:00)
[2017-06-25] MEDS: ACARBOSE 50 MG TAB PO SCH ×2 (09:16→17:23)
[2017-06-25] MEDS: FOLIC ACID 1 MG TAB PO SCH (09:16)
--- NOTE | 2017-06-25 10:33 | PN ---
Date/Time of Note Date/Time of Note DATE: 06/25/17 TIME: 10:11 Assessment/Plan Lines/Catheters IV Catheter Type (from Nrs): Peripheral IV Mera in Place (from Nrs): No Assessment/Plan Chief Complaint/Hosp Course 1. Gallbladder fossa abscess/bile leak. +HIDA. s/p ERCP with stenting. + cultures -continue drain -abx per sensitivity -pain management 2. Anemia: no acute bleed noted -monitor -transfuse as needed 3. Hypocalcemia -replete and monitor 4. Diverticulosis -diet/lifestyle optimization 3. Hiatal hernia: asymptomatic -monitor 4. Atherosclerosis -diet/exercise optimization 5. Electrolyte imbalance -optimize lytes Thank you. Patient seen and examined in collaboration with Dr. Varun Auguste. Problems: Subjective 24 Hr Interval Summary Continues to have output from drain. Min nausea today and hypertensive. No fevers, chills, sob, congested cough, cp, palpitations, osorio, dizziness, n/v/d/ dysuria. Exam/Review of Systems Vital Signs Vitals Vital Signs Date Time Temp Pulse Resp B/P Pulse Ox O2 Delivery O2 Flow Rate FiO2 06/25/17 08:12 97.7 58 18 142/62 99 Intake and Output 06/24/17 06/24/17 06/25/17 15:00 23:00 07:00 Intake Total 2350 ml 1330 ml Balance 2350 ml 1330 ml Exam Free Text/Dictation Constitutional: alert, oriented Psych: sad Head: atraumatic, normocephalic Eyes: nl lids, nl sclera ENMT: mucosa pink and moist, nl nasal mucosa & septum Neck: non-tender, supple Respiratory: clear to auscultation, normal air movement Cardiovascular: nl pulses, regular rate and rhythm Gastrointestinal: min-tender at drain site, soft, surgical scars (dry without drainage/bruising/discoloration), drain with dark green/brown fluid Musculoskeletal: nl extremities to inspection, nl gait and stance Extremities: normal pulses Neurological: nl mental status, nl speech, nl strength Skin: nl turgor, rash or lesions Lymph: nl lymph nodes Results Result Diagram: 06/25/17 0500 06/25/17 0501 MARGARETTE MENJIVAR NP Jun 25, 2017 10:31
[2017-06-25 15:33] VITALS: BP 139/61; RESP 20
--- NOTE | 2017-06-25 17:08 | PN ---
Date/Time of Note Date/Time of Note DATE: 06/25/17 TIME: 17:06 Assessment/Plan VTE Prophylaxis VTE Prophylaxis Intervention: SCD's Lines/Catheters IV [facility] Peripheral IV Urinary Cath still in place: No Assessment/Plan Chief Complaint/Hosp Course Assessment/Plan -Gallbladder fossa abscess/bile leak. S/p drainage by radiology. Positive HIDA scan. S/p ERCP and stent placement into the right hepatic duct and left hepatic duct on 06/[address] Estrella. Cyst fluid culture positive for VRE, continue Zyvox. Dr. Mckeon is following in infection disease consultation -S/p laparoscopic cholecystectomy 06/29/17. -Status post ERCP with stent placement status post subsequent stent removal -Hypertension -Hypothyroidism -RA Further recommendations based on clinical course. Plan of care discussed with Dr. Shipman Problems: Exam/Review of Systems Vital Signs Vitals Vital Signs Date Time Temp Pulse Resp B/P Pulse Ox O2 Delivery O2 Flow Rate FiO2 06/25/17 15:33 98.7 89 20 139/61 96 Intake and Output 06/24/17 06/24/17 06/25/17 15:00 23:00 07:00 Intake Total 2350 ml 1330 ml Balance 2350 ml 1330 ml Exam Constitutional: alert, oriented Neck: supple Respiratory: normal air movement Cardiovascular: nl pulses Gastrointestinal: other (Right upper quadrant drain), soft Musculoskeletal: nl extremities to inspection Extremities: normal pulses Neurological: nl mental status Results Result Diagram: 06/25/17 0500 06/25/17 0501 Results 24 hrs Laboratory Tests Test 06/24/17 17:29 06/24/17 20:48 06/25/17 05:00 06/25/17 05:01 Bedside Glucose 114 146 White Blood Count 8.3 Red Blood Count 3.04 L Hemoglobin 8.0 L Hematocrit 25.0 L Mean Corpuscular Volume 82.2 Mean Corpuscular Hemoglobin 26.3 L Mean Corpuscular Hemoglobin Concent 32.0 Red Cell Distribution Width 16.5 H Platelet Count 440 H Mean Platelet Volume 9.3 Neutrophils % 64.1 Lymphocytes % 25.2 Monocytes % 8.2 Eosinophils % 1.4 Basophils % 0.6 Nucleated Red Blood Cells % 0.0 Neutrophils # 5.4 Lymphocytes # 2.1 Monocytes # 0.7 Eosinophils # 0.1 Basophils # 0.1 Nucleated Red Blood Cells # 0.0 Sodium Level 142 Potassium Level 3.2 L Chloride Level 112 H Carbon Dioxide Level 24 Anion Gap 9 Blood Urea Nitrogen 7 Creatinine 0.54 Glucose Level 98 # Calcium Level 7.4 L Test 06/25/17 08:00 06/25/17 11:39 Bedside Glucose 132 164 Medications Medications Current Medications Hydralazine HCl (Apresoline) 10 mg Q6H PRN IV SBP>170; Start 06/20/17 at 11:30 Morphine Sulfate (morphine) 1 mg Q4H PRN IV PAIN Last administered on 21:00; Admin Dose 1 MG; Start 06/20/17 at 12:30 Ondansetron HCl (Zofran Inj) 4 mg Q4H PRN IV NAUSEA AND/OR VOMITING Last administered on 06/25/17 07:51; Admin Dose 4 MG; Start 06/20/17 at 13:00 Acetaminophen (Tylenol Tab) 650 mg Q4H PRN PO PAIN AND OR ELEVATED TEMP Last administered on 06/24/17 09:42; Admin Dose 650 MG; Start 06/20/17 at 13:00 Pantoprazole (Protonix Tab) 40 mg DAILY@06 PO Last administered on 06/25/17 05:31; Admin Dose 40 MG; Start 06/21/17 at 06:00 Al Hydrox/Mg Hydrox/Simethicone (Mag-Al Plus) 30 ml Q6H PRN PO GASTROINTESTINAL UPSET; Start 06/20/17 at 20:00 Folic Acid (Folic Acid) 1 mg DAILY PO Last administered on 06/25/17 09:16; Admin Dose 1 MG; Start 06/21/17 at 10:00 Levothyroxine Sodium (Synthroid) 50 mcg DAILY@06 PO Last administered on 05:31; Admin Dose 50 MCG; Start 06/22/17 at 06:00 Valsartan (Diovan) 160 mg DAILY PO Last administered on 06/25/17 09:15; Admin Dose 160 MG; Start 06/21/17 at 10:00 EZETIMIBE (Zetia) 10 mg DAILY PO Last administered on 06/25/17 09:15; Admin Dose 10 MG; Start 06/21/17 at 10:00 Ibuprofen 800 mg 800 mg Q6H PRN PO PAIN; Start 06/21/17 at 10:00 Sodium Chloride (NS) 1,000 ml @ 70 mls/hr [id number] IV Last administered on 01:36; Admin Dose 70 MLS/HR; Start 06/21/17 at 12:30 Tramadol HCl (Ultram) 50 mg Q6H PRN PO PAIN LEVEL 7-10 Last administered on 13:46; Admin Dose 50 MG; Start 06/21/17 at 12:30; Status Future Hold Cholecalciferol (Vitamin D) 4,000 unit DAILY PO Last administered on 09:15; Admin Dose 4,000 UNIT; Start 06/22/17 at 09:00 Cholecalciferol 1000 unit 1,000 unit DAILY PO Last administered on 06/25/17 09:15; Admin Dose 1,000 UNIT; Start 06/22/17 at 09:00 Linezolid 300 ml @ 200 mls/hr Q12H IVPB Last administered on 06/25/17 05:29 ; Admin Dose 200 MLS/HR; Start 06/22/17 at 17:00 Metronidazole (Flagyl 500 Mg (Pmx)) 100 ml @ 100 mls/hr Q8 IVPB Last administered on 06/25/17 14:01; Admin Dose 100 MLS/HR; Start 06/23/17 at 22: 00 Senna/Docusate Sodium (Senokot-S) 1 tab BID PO Last administered on 06/25/17 09:16; Admin Dose 1 TAB; Start 06/23/17 at 21:00 BOB HUBER Jun 25, 2017 17:08
[2017-06-25] MEDS ORDERED: POTASSIUM CHLORIDE (SR) 10 MEQ TAB PO ONE (18:00)
--- NOTE | 2017-06-25 19:30 | CONS ---
DATE OF ADMISSION: 06/19/2017 DATE OF CONSULTATION: 06/25/2017 PROGRESS NOTE: The patient at this time has no complaints. She underwent a laparoscopic cholecyste ctomy in another hospital several weeks ago. The patient presented to the [facility] with right gallbladder fossa fluid collection and this was drained percutaneously. Subsequently , HIDA scan showed evidence of a persistent biliary leak. The source was not clear. ERCP showed ev idence of a possibility that the branch of the right hepatic duct may be showing a biliary leak and also the cystic duct may be showing a leak, but these are very difficult to confirm on the images. Two stents were placed, one into the right hepatic duct and one into the left hepatic duct, 10-Frenc h each. She had drainage of 150 mL up to yesterday at 7 p.m. Since 7:00 p.m. yesterday up to 5 p.m. today s he only drained about 30 mL, so indicating that the stents may be causing the occlusion of the cysti c duct and the branch of the right hepatic duct which is desirable. PLAN: Continue to observe for more drainage to stop. Dictated By: ARLYN MATIAS MD NC/NTS Conf#: [id number] DID#: [id number] CC: RICK JACKSON MD; MUSA AMBROSE MD;*End*
[2017-06-25 20:51] VITALS: BP 154/70; RESP 18
[2017-06-26 02:16] VITALS: BP 148/65; RESP 18
[2017-06-26] MEDS: LINEZOLID 600 MG/D5W (PMX) 300 ML IVPB SCH ×2 (05:17→16:04)
[2017-06-26] MEDS: ONDANSETRON 4 MG INJ IV PRN ×2 (05:19→14:09)
[2017-06-26] MEDS: PANTOPRAZOLE (EC) 40 MG TAB PO SCH (05:29)
[2017-06-26] MEDS: LEVOTHYROXINE 50 MCG TAB PO SCH (05:30)
[2017-06-26] MEDS: metroNIDAZOLE 500 MG/NS (PMX) 100 ML IVPB SCH ×3 (06:48→21:40)
[2017-06-26 06:51] LABS: BASOPHIL # 0.1 10^3/ul (0.0-0.1); BASOPHILS % 0.9 % (0.0-2.0); EOSINOPHILS # 0.3 10^3/ul (0.0-0.5); EOSINOPHILS % 3.3 % (0.0-7.0); HEMATOCRIT 27.3 % (37.0-47.0); HEMOGLOBIN 8.8 g/dl (12.0-16.0); LYMPHOCYTES # 1.6 10^3/ul (0.8-2.9); LYMPHOCYTES % 19.6 % (15.0-51.0); MEAN CORPUSCULAR HEMOGLOBIN 26.7 pg (29.0-33.0); MEAN CORPUSCULAR HGB CONC 32.2 g/dl (32.0-37.0); MEAN PLATELET VOLUME 9.1 fl (7.4-10.4); MONOCYTE # 0.7 10^3/ul (0.3-0.9); MONOCYTES % 8.6 % (0.0-11.0); NEUTROPHIL # 5.5 10^3/ul (1.6-7.5); NEUTROPHILS % 67.2 % (39.0-77.0); PLATELET COUNT 444 10^3/UL (140-415); RED BLOOD COUNT 3.29 10^6/ul (4.20-5.40); RED CELL DISTRIBUTION WIDTH 16.9 % (11.5-14.5); WHITE BLOOD COUNT 8.2 10^3/ul (4.8-10.8)
[2017-06-26] MEDS: SOD CHLORIDE 0.9% 1,000 ML IV SCH (06:54)
[2017-06-26 07:12] LABS: CALCIUM 7.8 mg/dl (8.4-10.2); CREATININE 0.5 mg/dl (0.44-1.00); POTASSIUM 3.2 mmol/L (3.5-5.1)
[2017-06-26] MEDS: ACCU-CHEK XX SCH ×4 (07:30→20:40)
[2017-06-26 08:06] VITALS: BP 138/78; RESP 18
[2017-06-26] MEDS: SENNA/DOCUSATE NA (8.6MG/50MG) TAB PO SCH ×2 (08:51→20:40)
[2017-06-26] MEDS: VALSARTAN 160 MG TAB PO SCH (08:53)
[2017-06-26] MEDS: CHOLECALCIFEROL 1,000 UNIT TAB PO SCH (08:53)
[2017-06-26] MEDS: CHOLECALCIFEROL 2,000 UNIT CAP PO SCH (08:53)
[2017-06-26] MEDS: ACARBOSE 50 MG TAB PO SCH ×2 (08:53→17:35)
[2017-06-26] MEDS: EZETIMIBE 10 MG TAB PO SCH (08:53)
[2017-06-26] MEDS: FOLIC ACID 1 MG TAB PO SCH (08:54)
[2017-06-26] MEDS ORDERED: POTASSIUM CHLORIDE (SR) 20 MEQ TAB PO STA (10:30)
--- NOTE | 2017-06-26 10:30 | PN ---
Date/Time of Note Date/Time of Note DATE: 06/26/17 TIME: 10:15 Assessment/Plan VTE Prophylaxis VTE Prophylaxis Intervention: other Lines/Catheters [facility] (from [facility] Saline Lock Urinary Cath still in place: No Assessment/Plan Assessment/Plan - Hypokalemia- replace K, BMP am -Gallbladder fossa abscess/bile leak. S/p drainage by radiology. Positive HIDA scan. S/p ERCP and stent placement into the right hepatic duct and left hepatic duct on 06/[address] Estrella. Cyst fluid culture positive for VRE, continue Zyvox. Dr. Mckeon is following in infection disease consultation -S/p laparoscopic cholecystectomy 06/29/17. -Status post ERCP with stent placement status post subsequent stent removal -Hypertension -Hypothyroidism -RA Further recommendations based on clinical course. Plan of care discussed with Dr. Shipman Subjective 24 Hr Interval Summary Free Text/Dictation sitting up in chair, afebrile, denies any abdominal pain Respiratory: no complaints Cardiovascular: no complaints Gastrointestinal: no complaints Genitourinary: no complaints Musculoskeletal: no complaints Exam/Review of Systems Vital Signs Vitals Vital Signs Date Time Temp Pulse Resp B/P Pulse Ox O2 Delivery O2 Flow Rate FiO2 06/26/17 08:06 97.9 71 18 138/78 96 Intake and Output 06/25/17 06/25/17 06/26/17 14:59 22:59 06:59 Intake Total 300 ml 2160 ml 1740 ml Balance 300 ml 2160 ml 1740 ml Exam Constitutional: alert, oriented Cardiovascular: nl pulses Gastrointestinal: other (RUQ- drain noted- intact 20 cc yeloow fluid drained per staff), soft, tender (at drain site ) Musculoskeletal: nl extremities to inspection Results Result Diagram: 06/26/1722 06/26/17 0622 Results 24 hrs Laboratory Tests Test 06/25/17 11:39 06/25/17 17:19 06/25/17 20:39 06/26/17 06:22 Bedside Glucose 164 98 101 White Blood Count 8.2 Red Blood Count 3.29 L Hemoglobin 8.8 L Hematocrit 27.3 L Mean Corpuscular Volume 83.0 Mean Corpuscular Hemoglobin 26.7 L Mean Corpuscular Hemoglobin Concent 32.2 Red Cell Distribution Width 16.9 H Platelet Count 444 H Mean Platelet Volume 9.1 Neutrophils % 67.2 Lymphocytes % 19.6 Monocytes % 8.6 Eosinophils % 3.3 Basophils % 0.9 Nucleated Red Blood Cells % 0.0 Neutrophils # 5.5 Lymphocytes # 1.6 Monocytes # 0.7 Eosinophils # 0.3 Basophils # 0.1 Nucleated Red Blood Cells # 0.0 Sodium Level 141 Potassium Level 3.2 L Chloride Level 109 Carbon Dioxide Level 27 Anion Gap 8 Blood Urea Nitrogen 3 L Creatinine 0.50 Glucose Level 148 # Calcium Level 7.8 L Test 06/26/17 07:36 Bedside Glucose 136 Medications Medications Current Medications Hydralazine HCl (Apresoline) 10 mg Q6H PRN IV SBP>170; Start 06/20/17 at 11:30 Morphine Sulfate (morphine) 1 mg Q4H PRN IV PAIN Last administered on 21:00; Admin Dose 1 MG; Start 06/20/17 at 12:30 Ondansetron HCl (Zofran Inj) 4 mg Q4H PRN IV NAUSEA AND/OR VOMITING Last administered on 06/26/17 05:19; Admin Dose 4 MG; Start 06/20/17 at 13:00 Acetaminophen (Tylenol Tab) 650 mg Q4H PRN PO PAIN AND OR ELEVATED TEMP Last administered on 06/24/17 09:42; Admin Dose 650 MG; Start 06/20/17 at 13:00 Pantoprazole (Protonix Tab) 40 mg DAILY@06 PO Last administered on 06/26/17 05:29; Admin Dose 40 MG; Start 06/21/17 at 06:00 Al Hydrox/Mg Hydrox/Simethicone (Mag-Al Plus) 30 ml Q6H PRN PO GASTROINTESTINAL UPSET; Start 06/20/17 at 20:00 Folic Acid (Folic Acid) 1 mg DAILY PO Last administered on 06/26/17 08:54; Admin Dose 1 MG; Start 06/21/17 at 10:00 Levothyroxine Sodium (Synthroid) 50 mcg DAILY@06 PO Last administered on 05:30; Admin Dose 50 MCG; Start 06/22/17 at 06:00 Valsartan (Diovan) 160 mg DAILY PO Last administered on 06/26/17 08:53; Admin Dose 160 MG; Start 06/21/17 at 10:00 EZETIMIBE (Zetia) 10 mg DAILY PO Last administered on 06/26/17 08:53; Admin Dose 10 MG; Start 06/21/17 at 10:00 Ibuprofen 800 mg 800 mg Q6H PRN PO PAIN; Start 06/21/17 at 10:00 Sodium Chloride (NS) 1,000 ml @ 70 mls/hr [id number] IV Last administered on 17:12; Admin Dose 70 MLS/HR; Start 06/21/17 at 12:30 Tramadol HCl (Ultram) 50 mg Q6H PRN PO PAIN LEVEL 7-10 Last administered on 13:46; Admin Dose 50 MG; Start 06/21/17 at 12:30; Status Future Hold Cholecalciferol (Vitamin D) 4,000 unit DAILY PO Last administered on 08:53; Admin Dose 4,000 UNIT; Start 06/22/17 at 09:00 Cholecalciferol 1000 unit 1,000 unit DAILY PO Last administered on 06/26/17 08:53; Admin Dose 1,000 UNIT; Start 06/22/17 at 09:00 Linezolid 300 ml @ 200 mls/hr Q12H IVPB Last administered on 06/26/17 05:17 ; Admin Dose 200 MLS/HR; Start 06/22/17 at 17:00 Metronidazole (Flagyl 500 Mg (Pmx)) 100 ml @ 100 mls/hr Q8 IVPB Last administered on 06/26/17 06:48; Admin Dose 100 MLS/HR; Start 06/23/17 at 22: 00 Senna/Docusate Sodium (Senokot-S) 1 tab BID PO Last administered on 06/25/17 09:16; Admin Dose 1 TAB; Start 06/23/17 at 21:00 RONEY SAMPSON Jun 26, 2017 10:25
[2017-06-26] MEDS ORDERED: POTASSIUM CHLORIDE 20 MEQ POWDER FOR ORAL SOLN PO ONE (11:30)
--- NOTE | 2017-06-26 13:26 | CONS ---
Date/Time of Note Date/Time of Note DATE: 06/26/17 TIME: 13:25 Assessment/Plan Assessment/Plan Chief Complaint/Hosp Course - Gall bladder fossa abscess with VRE and Bacteroides; s/p CT guided drainage - Biliary leak, s/p ERCP and stent placement into the right hepatic duct and left hepatic duct 06/23/2017 - S/p laparoscopic cholecystectomy 05/28/17. - HTN - Hypothyroid - PCN allergy; tolerated meropenem Recommendations: - Continue Linezolid (06/22/2017-) and Metronidazole (06/23/2017-) x 14 days at least - Repeat imaging prior to cessation of abx Problems: Consultation Date/Type/Reason Admit Date/Time Jun 19, 2017 at 14:00 Initial Consult Date 06/23/17 Type of Consultation: Infectious Disease Referring Provider: MUSA AMBROSE MD 24 HR Interval Summary Free Text/Dictation tolerating abx. notes fluid color change today Exam/Review of Systems Vital Signs Vitals Vital Signs Date Time Temp Pulse Resp B/P Pulse Ox O2 Delivery O2 Flow Rate FiO2 06/26/17 08:06 97.9 71 18 138/78 96 Intake and Output 06/25/17 06/25/17 06/26/17 15:00 23:00 07:00 Intake Total 2160 ml 1740 ml Output Total 20 ml Balance 2140 ml 1740 ml Exam Constitutional: alert, oriented, well developed Psych: nl mood/affect, no complaints Head: atraumatic, normocephalic Eyes: EOMI, PERRL, nl conjunctiva, nl lids, nl sclera Respiratory: clear to auscultation, normal air movement Cardiovascular: nl pulses, regular rate and rhythm Results Result Diagram: 06/26/1762106/26/17 0622 Results 24 hrs Laboratory Tests Test 06/25/17 17:19 06/25/17 20:39 06/26/17 06:22 06/26/17 07:36 Bedside Glucose 98 101 136 White Blood Count 8.2 Red Blood Count 3.29 L Hemoglobin 8.8 L Hematocrit 27.3 L Mean Corpuscular Volume 83.0 Mean Corpuscular Hemoglobin 26.7 L Mean Corpuscular Hemoglobin Concent 32.2 Red Cell Distribution Width 16.9 H Platelet Count 444 H Mean Platelet Volume 9.1 Neutrophils % 67.2 Lymphocytes % 19.6 Monocytes % 8.6 Eosinophils % 3.3 Basophils % 0.9 Nucleated Red Blood Cells % 0.0 Neutrophils # 5.5 Lymphocytes # 1.6 Monocytes # 0.7 Eosinophils # 0.3 Basophils # 0.1 Nucleated Red Blood Cells # 0.0 Sodium Level 141 Potassium Level 3.2 L Chloride Level 109 Carbon Dioxide Level 27 Anion Gap 8 Blood Urea Nitrogen 3 L Creatinine 0.50 Glucose Level 148 # Calcium Level 7.8 L Test 06/26/17 11:07 Bedside Glucose 113 Medications Medications Current Medications Hydralazine HCl (Apresoline) 10 mg Q6H PRN IV SBP>170; Start 06/20/17 at 11:30 Morphine Sulfate (morphine) 1 mg Q4H PRN IV PAIN Last administered on 21:00; Admin Dose 1 MG; Start 06/20/17 at 12:30 Ondansetron HCl (Zofran Inj) 4 mg Q4H PRN IV NAUSEA AND/OR VOMITING Last administered on 06/26/17 05:19; Admin Dose 4 MG; Start 06/20/17 at 13:00 Acetaminophen (Tylenol Tab) 650 mg Q4H PRN PO PAIN AND OR ELEVATED TEMP Last administered on 06/24/17 09:42; Admin Dose 650 MG; Start 06/20/17 at 13:00 Pantoprazole (Protonix Tab) 40 mg DAILY@06 PO Last administered on 06/26/17 05:29; Admin Dose 40 MG; Start 06/21/17 at 06:00 Al Hydrox/Mg Hydrox/Simethicone (Mag-Al Plus) 30 ml Q6H PRN PO GASTROINTESTINAL UPSET; Start 06/20/17 at 20:00 Folic Acid (Folic Acid) 1 mg DAILY PO Last administered on 06/26/17 08:54; Admin Dose 1 MG; Start 06/21/17 at 10:00 Levothyroxine Sodium (Synthroid) 50 mcg DAILY@06 PO Last administered on 05:30; Admin Dose 50 MCG; Start 06/22/17 at 06:00 Valsartan (Diovan) 160 mg DAILY PO Last administered on 06/26/17 08:53; Admin Dose 160 MG; Start 06/21/17 at 10:00 EZETIMIBE (Zetia) 10 mg DAILY PO Last administered on 06/26/17 08:53; Admin Dose 10 MG; Start 06/21/17 at 10:00 Ibuprofen 800 mg 800 mg Q6H PRN PO PAIN; Start 06/21/17 at 10:00 Sodium Chloride (NS) 1,000 ml @ 70 mls/hr [id number] IV Last administered on 17:12; Admin Dose 70 MLS/HR; Start 06/21/17 at 12:30 Tramadol HCl (Ultram) 50 mg Q6H PRN PO PAIN LEVEL 7-10 Last administered on 13:46; Admin Dose 50 MG; Start 06/21/17 at 12:30; Status Future Hold Cholecalciferol (Vitamin D) 4,000 unit DAILY PO Last administered on 08:53; Admin Dose 4,000 UNIT; Start 06/22/17 at 09:00 Cholecalciferol 1000 unit 1,000 unit DAILY PO Last administered on 06/26/17 08:53; Admin Dose 1,000 UNIT; Start 06/22/17 at 09:00 Linezolid 300 ml @ 200 mls/hr Q12H IVPB Last administered on 06/26/17 05:17 ; Admin Dose 200 MLS/HR; Start 06/22/17 at 17:00 Metronidazole (Flagyl 500 Mg (Pmx)) 100 ml @ 100 mls/hr Q8 IVPB Last administered on 06/26/17 06:48; Admin Dose 100 MLS/HR; Start 06/23/17 at 22: 00 Senna/Docusate Sodium (Senokot-S) 1 tab BID PO Last administered on 06/25/17 09:16; Admin Dose 1 TAB; Start 06/23/17 at 21:00 TING BERRY MD Jun 26, 2017 13:26
[2017-06-26 14:30] VITALS: BP 128/78; RESP 18
[2017-06-26] MEDS: ACETAMINOPHEN 325 MG TAB PO PRN (19:08)
[2017-06-26 20:00] VITALS: BP 151/65; RESP 19
[2017-06-26] MEDS: morphine 2 MG INJ IV PRN (22:42)
--- NOTE | 2017-06-26 23:57 | PN ---
Date/Time of Note Date/Time of Note DATE: 06/26/17 TIME: 23:57 Assessment/Plan Lines/Catheters IV Catheter Type (from Nrs): Saline Lock Mera in Place (from Nrs): No Assessment/Plan Chief Complaint/Hosp Course 1. Gallbladder fossa abscess/bile leak. +HIDA s/p ERCP with 2 stents. -continue drain -abx -pain management 2. Leukocytosis: likely 2/2 #1. Resolved -as above 3. Elevated alk phos: likely 2/2 #1 -as above 4. Diverticulosis -diet/lifestyle optimization 3. Hiatal hernia: asymptomatic -monitor 4. Atherosclerosis -diet/exercise optimization Thank you, Problems: Subjective 24 Hr Interval Summary Min output from drain. Min nausea today and hypertensive. No vomiting, abdominal pain, fevers, chills, sob, congested cough, cp, palpitations, osorio, dizziness, diarrhea, dysuria. Exam/Review of Systems Vital Signs Vitals Vital Signs Date Time Temp Pulse Resp B/P Pulse Ox O2 Delivery O2 Flow Rate FiO2 06/27/17 02:00 98.8 82 18 161/69 94 Intake and Output 06/26/17 06/26/17 06/27/17 14:59 22:59 06:59 Intake Total 100 ml 1550 ml 1365 ml Output Total 30 ml 1000 ml Balance 100 ml 1520 ml 365 ml Exam Free Text/Dictation Constitutional: alert, oriented Psych: sad Head: atraumatic, normocephalic Eyes: nl lids, nl sclera ENMT: mucosa pink and moist, nl nasal mucosa & septum Neck: non-tender, supple Respiratory: clear to auscultation, normal air movement Cardiovascular: nl pulses, regular rate and rhythm Gastrointestinal: min-tender at drain site, soft, surgical scars (dry without drainage/bruising/discoloration), drain with dark green dc Musculoskeletal: nl extremities to inspection, nl gait and stance Extremities: normal pulses Neurological: nl mental status, nl speech, nl strength Skin: nl turgor, rash or lesions Lymph: nl lymph nodes Results Result Diagram: 06/27/17 0457 06/27/17 0457 RICK JACKSON MD Jun 26, 2017 23:57
[2017-06-27] MEDS: SOD CHLORIDE 0.9% 1,000 ML IV SCH ×2 (01:25→11:09)
[2017-06-27 02:00] VITALS: BP 161/69; RESP 18
[2017-06-27] MEDS: morphine 2 MG INJ IV PRN (03:56)
[2017-06-27] MEDS: LINEZOLID 600 MG/D5W (PMX) 300 ML IVPB SCH ×2 (04:14→17:05)
[2017-06-27] MEDS: PANTOPRAZOLE (EC) 40 MG TAB PO SCH (05:37)
[2017-06-27] MEDS: LEVOTHYROXINE 50 MCG TAB PO SCH (05:37)
[2017-06-27 05:54] LABS: BASOPHIL # 0.1 10^3/ul (0.0-0.1); BASOPHILS % 0.4 % (0.0-2.0); EOSINOPHILS # 0.1 10^3/ul (0.0-0.5); EOSINOPHILS % 0.5 % (0.0-7.0); HEMATOCRIT 27.3 % (37.0-47.0); HEMOGLOBIN 8.6 g/dl (12.0-16.0); LYMPHOCYTES # 0.8 10^3/ul (0.8-2.9); LYMPHOCYTES % 5.6 % (15.0-51.0); MEAN CORPUSCULAR HEMOGLOBIN 26.4 pg (29.0-33.0); MEAN CORPUSCULAR HGB CONC 31.5 g/dl (32.0-37.0); MEAN CORPUSCULAR VOLUME 83.7 fl (82.0-101.0); MEAN PLATELET VOLUME 9.3 fl (7.4-10.4); MONOCYTE # 0.7 10^3/ul (0.3-0.9); MONOCYTES % 4.8 % (0.0-11.0); NEUTROPHIL # 12.9 10^3/ul (1.6-7.5); NEUTROPHILS % 88.2 % (39.0-77.0); PLATELET COUNT 415 10^3/UL (140-415); RED BLOOD COUNT 3.26 10^6/ul (4.20-5.40); WHITE BLOOD COUNT 14.7 10^3/ul (4.8-10.8)
[2017-06-27] MEDS: metroNIDAZOLE 500 MG/NS (PMX) 100 ML IVPB SCH ×3 (05:59→22:32)
[2017-06-27] MEDS: ONDANSETRON 4 MG INJ IV PRN ×2 (05:59→22:38)
[2017-06-27 06:09] LABS: CALCIUM 7.8 mg/dl (8.4-10.2); CREATININE 0.52 mg/dl (0.44-1.00); POTASSIUM 3.1 mmol/L (3.5-5.1)
[2017-06-27] MEDS: ACARBOSE 50 MG TAB PO SCH ×3 (07:30→17:05)
[2017-06-27] MEDS: ACCU-CHEK XX SCH ×4 (07:30→20:37)
[2017-06-27 08:00] VITALS: BP 167/71; RESP 19
[2017-06-27] MEDS: CHOLECALCIFEROL 2,000 UNIT CAP PO SCH (08:30)
[2017-06-27] MEDS: CHOLECALCIFEROL 1,000 UNIT TAB PO SCH (08:31)
[2017-06-27] MEDS: SENNA/DOCUSATE NA (8.6MG/50MG) TAB PO SCH ×3 (08:31→20:31)
[2017-06-27] MEDS: FOLIC ACID 1 MG TAB PO SCH ×2 (08:31→08:37)
[2017-06-27] MEDS: VALSARTAN 160 MG TAB PO SCH ×3 (08:31→09:46)
[2017-06-27] MEDS: EZETIMIBE 10 MG TAB PO SCH (08:35)
[2017-06-27] MEDS: IBUPROFEN 800 MG TAB PO PRN (09:46)
[2017-06-27] MEDS: ACETAMINOPHEN 325 MG TAB PO PRN (09:55)
--- NOTE | 2017-06-27 12:44 | PN ---
Date/Time of Note Date/Time of Note DATE: 06/27/17 TIME: 12:41 Assessment/Plan VTE Prophylaxis VTE Prophylaxis Intervention: SCD's Lines/Catheters [facility] Peripheral IV Urinary Cath still in place: No Assessment/Plan Chief Complaint/Hosp Course Patient was leukocytosis white blood cells increased to 14,000, patient is currently on Zyvox and Flagyl IV, patient's complains of poor appetite however denies any nausea and vomiting patient's complains of right flank pain. Will obtain a urine and blood cultures. Assessment/Plan -Gallbladder fossa abscess/bile leak. S/p drainage by radiology. Positive HIDA scan. S/p ERCP and stent placement into the right hepatic duct and left hepatic duct on 06/[address] Estrella. Abdominal fluid culture positive for VRE, continue Zyvox. Dr. Mckeon is following in infection disease consultation -S/p laparoscopic cholecystectomy 06/29/17. Dr. Auguste is following in surgical consultation. -Status post ERCP with stent placement status post subsequent stent removal -Hypertension -Hypothyroidism -RA Further recommendations based on clinical course. Plan of care discussed with Dr. Shipman Problems: Exam/Review of Systems Vital Signs Vitals Vital Signs Date Time Temp Pulse Resp B/P Pulse Ox O2 Delivery O2 Flow Rate FiO2 06/27/17 02:00 98.8 82 18 161/69 94 Intake and Output 06/26/17 06/26/17 06/27/17 14:59 22:59 06:59 Intake Total 100 ml 1550 ml 1365 ml Output Total 30 ml 1000 ml Balance 100 ml 1520 ml 365 ml Exam Constitutional: alert, oriented Neck: supple Respiratory: normal air movement Cardiovascular: nl pulses Gastrointestinal: other (Right upper quadrant drain), soft Musculoskeletal: nl extremities to inspection Extremities: normal pulses Neurological: nl mental status Results Result Diagram: 06/27/17 0457 06/27/17 0457 Results 24 hrs Laboratory Tests Test 06/26/17 17:08 06/26/17 20:28 06/27/17 04:57 06/27/17 08:32 Bedside Glucose 147 143 125 White Blood Count 14.7 #H Red Blood Count 3.26 L Hemoglobin 8.6 L Hematocrit 27.3 L Mean Corpuscular Volume 83.7 Mean Corpuscular Hemoglobin 26.4 L Mean Corpuscular Hemoglobin Concent 31.5 L Red Cell Distribution Width 17.0 H Platelet Count 415 Mean Platelet Volume 9.3 Neutrophils % 88.2 H Lymphocytes % 5.6 L Monocytes % 4.8 Eosinophils % 0.5 Basophils % 0.4 Nucleated Red Blood Cells % 0.0 Neutrophils # 12.9 H Lymphocytes # 0.8 Monocytes # 0.7 Eosinophils # 0.1 Basophils # 0.1 Nucleated Red Blood Cells # 0.0 Sodium Level 138 Potassium Level 3.1 L Chloride Level 106 Carbon Dioxide Level 26 Anion Gap 9 Blood Urea Nitrogen 3 L Creatinine 0.52 Glucose Level 166 Calcium Level 7.8 L Test 06/27/17 11:10 Bedside Glucose 146 Medications Medications Current Medications Hydralazine HCl (Apresoline) 10 mg Q6H PRN IV SBP>170; Start 06/20/17 at 11:30 Morphine Sulfate (morphine) 1 mg Q4H PRN IV PAIN Last administered on 03:56; Admin Dose 1 MG; Start 06/20/17 at 12:30 Ondansetron HCl (Zofran Inj) 4 mg Q4H PRN IV NAUSEA AND/OR VOMITING Last administered on 06/27/17 05:59; Admin Dose 4 MG; Start 06/20/17 at 13:00 Acetaminophen (Tylenol Tab) 650 mg Q4H PRN PO PAIN AND OR ELEVATED TEMP Last administered on 06/27/17 09:55; Admin Dose 650 MG; Start 06/20/17 at 13:00 Pantoprazole (Protonix Tab) 40 mg DAILY@06 PO Last administered on 06/27/17 05:37; Admin Dose 40 MG; Start 06/21/17 at 06:00 Al Hydrox/Mg Hydrox/Simethicone (Mag-Al Plus) 30 ml Q6H PRN PO GASTROINTESTINAL UPSET; Start 06/20/17 at 20:00 Folic Acid (Folic Acid) 1 mg DAILY PO Last administered on 06/26/17 08:54; Admin Dose 1 MG; Start 06/21/17 at 10:00 Levothyroxine Sodium (Synthroid) 50 mcg DAILY@06 PO Last administered on 05:37; Admin Dose 50 MCG; Start 06/22/17 at 06:00 Valsartan (Diovan) 160 mg DAILY PO Last administered on 06/27/17 09:46; Admin Dose 160 MG; Start 06/21/17 at 10:00 EZETIMIBE (Zetia) 10 mg DAILY PO Last administered on 06/26/17 08:53; Admin Dose 10 MG; Start 06/21/17 at 10:00 Ibuprofen 800 mg 800 mg Q6H PRN PO PAIN; Start 06/21/17 at 10:00 Sodium Chloride (NS) 1,000 ml @ 70 mls/hr [id number] IV Last administered on 11:09; Admin Dose 70 MLS/HR; Start 06/21/17 at 12:30 Tramadol HCl (Ultram) 50 mg Q6H PRN PO PAIN LEVEL 7-10 Last administered on 13:46; Admin Dose 50 MG; Start 06/21/17 at 12:30; Status Future Hold Cholecalciferol (Vitamin D) 4,000 unit DAILY PO Last administered on 08:30; Admin Dose 4,000 UNIT; Start 06/22/17 at 09:00 Cholecalciferol 1000 unit 1,000 unit DAILY PO Last administered on 06/27/17 08:31; Admin Dose 1,000 UNIT; Start 06/22/17 at 09:00 Linezolid 300 ml @ 200 mls/hr Q12H IVPB Last administered on 06/27/17 04:14 ; Admin Dose 200 MLS/HR; Start 06/22/17 at 17:00 Metronidazole (Flagyl 500 Mg (Pmx)) 100 ml @ 100 mls/hr Q8 IVPB Last administered on 06/27/17 05:59; Admin Dose 100 MLS/HR; Start 06/23/17 at 22: 00 Senna/Docusate Sodium (Senokot-S) 1 tab BID PO Last administered on 06/26/17 20:40; Admin Dose 1 TAB; Start 06/23/17 at 21:00 BOB HUBER Jun 27, 2017 12:44
[2017-06-27 14:00] VITALS: BP 187/76; RESP 18
--- NOTE | 2017-06-27 14:00 | CONS ---
DATE OF ADMISSION: 06/19/2017 DATE OF CONSULTATION: 06/27/2017 At this time, patient is not having any complaints. She has a history of laparoscopic cholecystecto my and a biliary leak, ERCP was done and 2 stents were placed, one into the left hepatic duct and on e in the right hepatic duct a few days ago because of the HIDA scan showing evidence of persistent b iliary leak. PHYSICAL EXAMINATION: ABDOMEN: Soft. She has the drainage tube that was put in to drain the biloma continues to show evidence of bile at least 20 mL a day. CLINICAL IMPRESSION: Persistent biliary leak after placement of 2, biliary stents. PLAN: We will discuss with Dr. Auguste. The patient had developed fever and white count elevation and because of that MRCP has been ordered. We will wait and see what the MRCP will show based on th at, we will make further plans. Dictated By: ARLYN PAGE/HERACLIO Conf#: [id number] DID#: [id number]
--- NOTE | 2017-06-27 14:03 | RADRPT ---
PROCEDURE: XR Chest. CLINICAL INDICATION: Shortness of breath. TECHNIQUE: Single frontal view. COMPARISON: 06/19/2017. FINDINGS: There is mild atelectasis at the lung bases with right worse than left. The lungs are otherwise brandee r. The heart is mildly enlarged. There is a small right pleural effusion. There is no left pleural effusion. There is a cholecystosto my tube in the right upper quadrant of the abdomen. There is no pneumothorax. IMPRESSION: 1. Mild atelectasis at the lung bases with right worse than left. 2. Mild cardiomegaly. 3. Small right pleural effusion. 4. Cholecystostomy tube in the right upper quadrant of the abdomen. 5. Otherwise unremarkable chest radiograph. RPTAT: QQ .Jamie Strong MD, MD Date Time Electronically viewed and signed by .Jamie Strong MD, MD on 06/27/2017 14:03 .R/
--- NOTE | 2017-06-27 14:56 | CONS ---
Date/Time of Note Date/Time of Note DATE: 06/27/17 TIME: 14:56 Assessment/Plan Assessment/Plan Chief Complaint/Hosp Course - Gall bladder fossa abscess with VRE and Bacteroides; s/p CT guided drainage - Biliary leak, s/p ERCP and stent placement into the right hepatic duct and left hepatic duct 06/23/2017 - S/p laparoscopic cholecystectomy 05/28/17. - HTN - Hypothyroid - PCN allergy; tolerated meropenem Recommendations: - Continue Linezolid (06/22/2017-) and Metronidazole (06/23/2017-) x 14 days at least - F/u MRCP results - Trend WBC and check procalcitonin Management d/w MONROE Baltazar and Dr. Mckeon Problems: Consultation Date/Type/Reason Admit Date/Time Jun 19, 2017 at 14:00 Initial Consult Date 06/23/17 Type of Consultation: Infectious Disease Referring Provider: MUSA AMBROSE MD 24 HR Interval Summary Free Text/Dictation Chart reviewed. Pt went for MRCP d/t elevated WBC and remains afebrile per d/w nursing. Exam/Review of Systems Vital Signs Vitals Vital Signs Date Time Temp Pulse Resp B/P Pulse Ox O2 Delivery O2 Flow Rate FiO2 06/27/17 08:00 98.3 82 19 167/71 92 Intake and Output 06/26/17 06/26/17 06/27/17 15:00 23:00 07:00 Intake Total 100 ml 1550 ml 1465 ml Output Total 30 ml 1000 ml Balance 100 ml 1520 ml 465 ml Exam Unable to perform as pt is not in room Results Result Diagram: 06/27/17 0457 06/27/17 0457 Results 24 hrs Laboratory Tests Test 06/26/17 17:08 06/26/17 20:28 06/27/17 04:57 06/27/17 08:32 Bedside Glucose 147 143 125 White Blood Count 14.7 #H Red Blood Count 3.26 L Hemoglobin 8.6 L Hematocrit 27.3 L Mean Corpuscular Volume 83.7 Mean Corpuscular Hemoglobin 26.4 L Mean Corpuscular Hemoglobin Concent 31.5 L Red Cell Distribution Width 17.0 H Platelet Count 415 Mean Platelet Volume 9.3 Neutrophils % 88.2 H Lymphocytes % 5.6 L Monocytes % 4.8 Eosinophils % 0.5 Basophils % 0.4 Nucleated Red Blood Cells % 0.0 Neutrophils # 12.9 H Lymphocytes # 0.8 Monocytes # 0.7 Eosinophils # 0.1 Basophils # 0.1 Nucleated Red Blood Cells # 0.0 Sodium Level 138 Potassium Level 3.1 L Chloride Level 106 Carbon Dioxide Level 26 Anion Gap 9 Blood Urea Nitrogen 3 L Creatinine 0.52 Glucose Level 166 Calcium Level 7.8 L Test 06/27/17 11:10 Bedside Glucose 146 Medications Medications Current Medications Hydralazine HCl (Apresoline) 10 mg Q6H PRN IV SBP>170; Start 06/20/17 at 11:30 Morphine Sulfate (morphine) 1 mg Q4H PRN IV PAIN Last administered on 03:56; Admin Dose 1 MG; Start 06/20/17 at 12:30 Ondansetron HCl (Zofran Inj) 4 mg Q4H PRN IV NAUSEA AND/OR VOMITING Last administered on 06/27/17 05:59; Admin Dose 4 MG; Start 06/20/17 at 13:00 Acetaminophen (Tylenol Tab) 650 mg Q4H PRN PO PAIN AND OR ELEVATED TEMP Last administered on 06/27/17 09:55; Admin Dose 650 MG; Start 06/20/17 at 13:00 Pantoprazole (Protonix Tab) 40 mg DAILY@06 PO Last administered on 06/27/17 05:37; Admin Dose 40 MG; Start 06/21/17 at 06:00 Al Hydrox/Mg Hydrox/Simethicone (Mag-Al Plus) 30 ml Q6H PRN PO GASTROINTESTINAL UPSET; Start 06/20/17 at 20:00 Folic Acid (Folic Acid) 1 mg DAILY PO Last administered on 06/26/17 08:54; Admin Dose 1 MG; Start 06/21/17 at 10:00 Levothyroxine Sodium (Synthroid) 50 mcg DAILY@06 PO Last administered on 05:37; Admin Dose 50 MCG; Start 06/22/17 at 06:00 Valsartan (Diovan) 160 mg DAILY PO Last administered on 06/27/17 09:46; Admin Dose 160 MG; Start 06/21/17 at 10:00 EZETIMIBE (Zetia) 10 mg DAILY PO Last administered on 06/26/17 08:53; Admin Dose 10 MG; Start 06/21/17 at 10:00 Ibuprofen 800 mg 800 mg Q6H PRN PO PAIN; Start 06/21/17 at 10:00 Sodium Chloride (NS) 1,000 ml @ 70 mls/hr [id number] IV Last administered on 11:09; Admin Dose 70 MLS/HR; Start 06/21/17 at 12:30 Tramadol HCl (Ultram) 50 mg Q6H PRN PO PAIN LEVEL 7-10 Last administered on 13:46; Admin Dose 50 MG; Start 06/21/17 at 12:30; Status Future Hold Cholecalciferol (Vitamin D) 4,000 unit DAILY PO Last administered on 08:30; Admin Dose 4,000 UNIT; Start 06/22/17 at 09:00 Cholecalciferol 1000 unit 1,000 unit DAILY PO Last administered on 06/27/17 08:31; Admin Dose 1,000 UNIT; Start 06/22/17 at 09:00 Linezolid 300 ml @ 200 mls/hr Q12H IVPB Last administered on 06/27/17 04:14 ; Admin Dose 200 MLS/HR; Start 06/22/17 at 17:00 Metronidazole (Flagyl 500 Mg (Pmx)) 100 ml @ 100 mls/hr Q8 IVPB Last administered on 06/27/17 05:59; Admin Dose 100 MLS/HR; Start 06/23/17 at 22: 00 Senna/Docusate Sodium (Senokot-S) 1 tab BID PO Last administered on 06/26/17 20:40; Admin Dose 1 TAB; Start 06/23/17 at 21:00 KEVIN ELDRIDGE NP Jun 27, 2017 14:56
[2017-06-27 15:22] LABS: ADD UMIC YES; UR ASCORBIC ACID NEGATIVE (NEGATIVE); UR BILIRUBIN (Dip) NEGATIVE (NEGATIVE); UR BLOOD (Dip) 1+ mg/dL (NEGATIVE); UR CLARITY CLEAR (CLEAR); UR COLOR YELLOW (YELLOW); UR GLUCOSE (Dip) 1+ mg/dL (NEGATIVE); UR KETONES (Dip) 1+ mg/dL (NEGATIVE); UR LEUKOCYTE ESTERASE (Dip) NEGATIVE Leu/ul (NEGATIVE); UR NITRITE (Dip) NEGATIVE (NEGATIVE); UR RBC 3 /HPF (0-5); UR SPECIFIC GRAVITY (Dip) 1.009 (1.003-1.030); UR TOTAL PROTEIN (Dip) NEGATIVE (NEGATIVE); UR UROBILINOGEN (Dip) NEGATIVE (NEGATIVE)
--- NOTE | 2017-06-27 16:24 | RADRPT ---
PROCEDURE: MRCP. CLINICAL INDICATION: Leukocytosis, recent cholecystectomy. TECHNIQUE: MRCP was performed. Patient was examined without contrast. 3-D coronal rotating MIP i mages of the biliary tree are available for review. DICOM images are available. COMPARISON: ERCP, 06/23/2017; CT, 06/19/2017 FINDINGS: Mild right and small left pleural effusions are noted. The gallbladder is surgically absent. Percuta neous drainage catheter remains in place, with tip in the gallbladder fossa. There has been near-com plete resolution of previously seen complex collection in this location. No intra or extrahepatic bi liary dilatation is identified. No evidence of common duct stone is identified. Pancreatic duct is n ormal in caliber. Liver, pancreas, spleen, adrenal glands and kidneys are unremarkable except for benign renal cysts. There is no obstructive uropathy. Moderate to large hiatal hernia is noted. The stomach is otherwise grossly unremarkable. There is no abdominal aortic aneurysm. No retroperitoneal or ann marie hepatis ly mphadenopathy is identified. Colonic diverticulosis is noted without diverticulitis. No bowel obstru ction is identified. The appendix is well visualized and normal. The surrounding osseous structures are remarkable for scoliosis and degenerative enthesopathy of the spine. No focal osseous lesion is seen. IMPRESSION: 1. Gallbladder is surgically absent. Percutaneous drainage catheter tip remains within the gallblad melly fossa. There has been near-complete interval resolution of previously seen complex collection in this area. 2. No biliary dilatation or evidence of choledocholithiasis is identified. 3. Mild right and small left pleural effusions are noted, increased from the prior CT. 4. Moderate to large hiatal hernia is again noted, grossly unchanged. 5. Colonic diverticulosis is seen without diverticulitis. RPTAT: AAQQ .Lester Mansfield MD, MD Date Time Electronically viewed and signed by .Lester Mansfield MD, on 06/27/2017 16:24 .R/
[2017-06-27] MEDS ORDERED: POTASSIUM CHLORIDE (SR) 20 MEQ TAB PO STA (18:55)
[2017-06-27] MEDS ORDERED: ZOLPIDEM 5 MG TAB PO PRN (19:00)
[2017-06-27 20:00] VITALS: BP 161/70; RESP 19
[2017-06-27] MEDS ORDERED: POTASSIUM CHLORIDE 20 MEQ POWDER FOR ORAL SOLN PO SCH (20:39)
[2017-06-28] MEDS: SOD CHLORIDE 0.9% 1,000 ML IV SCH ×2 (01:48→06:50)
[2017-06-28 02:00] VITALS: BP 145/65; RESP 19
[2017-06-28] MEDS: ACETAMINOPHEN 325 MG TAB PO PRN ×2 (03:20→15:08)
[2017-06-28] MEDS: PANTOPRAZOLE (EC) 40 MG TAB PO SCH (05:16)
[2017-06-28] MEDS: LINEZOLID 600 MG/D5W (PMX) 300 ML IVPB SCH ×2 (05:16→17:08)
[2017-06-28 05:39] LABS: BASOPHIL # 0.1 10^3/ul (0.0-0.1); BASOPHILS % 0.5 % (0.0-2.0); EOSINOPHILS # 0.3 10^3/ul (0.0-0.5); EOSINOPHILS % 2.4 % (0.0-7.0); HEMATOCRIT 25.8 % (37.0-47.0); HEMOGLOBIN 8.2 g/dl (12.0-16.0); LYMPHOCYTES # 1.3 10^3/ul (0.8-2.9); LYMPHOCYTES % 9.6 % (15.0-51.0); MEAN CORPUSCULAR HEMOGLOBIN 26.2 pg (29.0-33.0); MEAN CORPUSCULAR HGB CONC 31.8 g/dl (32.0-37.0); MEAN CORPUSCULAR VOLUME 82.4 fl (82.0-101.0); MEAN PLATELET VOLUME 8.9 fl (7.4-10.4); MONOCYTE # 0.8 10^3/ul (0.3-0.9); MONOCYTES % 6.4 % (0.0-11.0); NEUTROPHIL # 10.6 10^3/ul (1.6-7.5); NEUTROPHILS % 80.9 % (39.0-77.0); PLATELET COUNT 384 10^3/UL (140-415); RED BLOOD COUNT 3.13 10^6/ul (4.20-5.40); WHITE BLOOD COUNT 13.1 10^3/ul (4.8-10.8)
[2017-06-28 05:56] LABS: ALBUMIN 2.4 g/dl (3.3-4.9); ALBUMIN/GLOBULIN RATIO 0.72; BILIRUBIN,INDIRECT 0.4 mg/dl (0-1.1); BILIRUBIN,TOTAL 0.4 mg/dl (0.2-1.3); CALCIUM 7.7 mg/dl (8.4-10.2); CREATININE 0.5 mg/dl (0.44-1.00); POTASSIUM 3.4 mmol/L (3.5-5.1); TOTAL PROTEIN 5.7 g/dl (6.1-8.1)
[2017-06-28] MEDS: metroNIDAZOLE 500 MG/NS (PMX) 100 ML IVPB SCH ×3 (06:49→23:03)
[2017-06-28] MEDS: LEVOTHYROXINE 50 MCG TAB PO SCH (06:50)
[2017-06-28] MEDS: ACCU-CHEK XX SCH ×4 (07:30→21:23)
--- NOTE | 2017-06-28 08:10 | CONS ---
Date/Time of Note Date/Time of Note DATE: 06/28/17 TIME: 08:09 Assessment/Plan Assessment/Plan Chief Complaint/Hosp Course EMR reviewed document review attorney note to follow shortly complete course of abx await procalcitonin monitor fever,wbc,lft,plts Problems: Consultation Date/Type/Reason Admit Date/Time Jun 19, 2017 at 14:00 Initial Consult Date 06/23/17 Type of Consultation: Infectious Disease Referring Provider: MUSA AMBROSE MD Exam/Review of Systems Vital Signs Vitals Vital Signs Date Time Temp Pulse Resp B/P Pulse Ox O2 Delivery O2 Flow Rate FiO2 06/28/17 02:00 99.0 85 19 145/65 96 Intake and Output 06/27/17 06/27/17 06/28/17 15:00 23:00 07:00 Intake Total 420 ml 920 ml 1480 ml Output Total 5 ml 905 ml Balance 420 ml 915 ml 575 ml Results Result Diagram: 06/28/17 0510 06/28/17 0510 Results 24 hrs Laboratory Tests Test 06/27/17 08:32 06/27/17 11:10 06/27/17 12:55 06/27/17 17:00 Bedside Glucose 125 146 123 Urine Color YELLOW Urine Clarity CLEAR Urine pH 7.0 Urine Specific [place] 1.009 Urine Ketones 1+ H Urine Nitrite NEGATIVE Urine Bilirubin NEGATIVE Urine Urobilinogen NEGATIVE Urine Leukocyte Esterase NEGATIVE Urine Microscopic RBC 3 Urine Microscopic WBC 1 Urine Hemoglobin 1+ H Urine Glucose 1+ H Urine Total Protein NEGATIVE Test 06/27/17 20:36 06/28/17 05:10 Bedside Glucose 133 White Blood Count 13.1 H Red Blood Count 3.13 L Hemoglobin 8.2 L Hematocrit 25.8 L Mean Corpuscular Volume 82.4 Mean Corpuscular Hemoglobin 26.2 L Mean Corpuscular Hemoglobin Concent 31.8 L Red Cell Distribution Width 17.0 H Platelet Count 384 Mean Platelet Volume 8.9 Neutrophils % 80.9 H Lymphocytes % 9.6 L Monocytes % 6.4 Eosinophils % 2.4 Basophils % 0.5 Nucleated Red Blood Cells % 0.0 Neutrophils # 10.6 H Lymphocytes # 1.3 Monocytes # 0.8 Eosinophils # 0.3 Basophils # 0.1 Nucleated Red Blood Cells # 0.0 Sodium Level 139 Potassium Level 3.4 L Chloride Level 108 Carbon Dioxide Level 24 Anion Gap 10 Blood Urea Nitrogen 4 L Creatinine 0.50 Glucose Level 108 # Calcium Level 7.7 L Total Bilirubin 0.4 Direct Bilirubin 0.00 Indirect Bilirubin 0.4 Aspartate Amino Transf (AST/SGOT) 14 L Alanine Aminotransferase (ALT/SGPT) 34 Alkaline Phosphatase 132 H Total Protein 5.7 L Albumin 2.4 L Globulin 3.30 H Albumin/Globulin Ratio 0.72 Medications Medications Current Medications Hydralazine HCl (Apresoline) 10 mg Q6H PRN IV SBP>170; Start 06/20/17 at 11:30 Morphine Sulfate (morphine) 1 mg Q4H PRN IV PAIN Last administered on 03:56; Admin Dose 1 MG; Start 06/20/17 at 12:30 Ondansetron HCl (Zofran Inj) 4 mg Q4H PRN IV NAUSEA AND/OR VOMITING Last administered on 06/27/17 22:38; Admin Dose 4 MG; Start 06/20/17 at 13:00 Acetaminophen (Tylenol Tab) 650 mg Q4H PRN PO PAIN AND OR ELEVATED TEMP Last administered on 06/28/17 03:20; Admin Dose 650 MG; Start 06/20/17 at 13:00 Pantoprazole (Protonix Tab) 40 mg DAILY@06 PO Last administered on 06/28/17 05:16; Admin Dose 40 MG; Start 06/21/17 at 06:00 Al Hydrox/Mg Hydrox/Simethicone (Mag-Al Plus) 30 ml Q6H PRN PO GASTROINTESTINAL UPSET; Start 06/20/17 at 20:00 Folic Acid (Folic Acid) 1 mg DAILY PO Last administered on 06/26/17 08:54; Admin Dose 1 MG; Start 06/21/17 at 10:00 Levothyroxine Sodium (Synthroid) 50 mcg DAILY@06 PO Last administered on 06:50; Admin Dose 50 MCG; Start 06/22/17 at 06:00 Valsartan (Diovan) 160 mg DAILY PO Last administered on 06/27/17 09:46; Admin Dose 160 MG; Start 06/21/17 at 10:00 EZETIMIBE (Zetia) 10 mg DAILY PO Last administered on 06/26/17 08:53; Admin Dose 10 MG; Start 06/21/17 at 10:00 Ibuprofen 800 mg 800 mg Q6H PRN PO PAIN; Start 06/21/17 at 10:00 Sodium Chloride (NS) 1,000 ml @ 70 mls/hr [id number] IV Last administered on 06:50; Admin Dose 70 MLS/HR; Start 06/21/17 at 12:30 Tramadol HCl (Ultram) 50 mg Q6H PRN PO PAIN LEVEL 7-10 Last administered on 13:46; Admin Dose 50 MG; Start 06/21/17 at 12:30; Status Future Hold Cholecalciferol (Vitamin D) 4,000 unit DAILY PO Last administered on 08:30; Admin Dose 4,000 UNIT; Start 06/22/17 at 09:00 Cholecalciferol 1000 unit 1,000 unit DAILY PO Last administered on 06/27/17 08:31; Admin Dose 1,000 UNIT; Start 06/22/17 at 09:00 Linezolid 300 ml @ 200 mls/hr Q12H IVPB Last administered on 06/28/17 05:16 ; Admin Dose 200 MLS/HR; Start 06/22/17 at 17:00 Metronidazole (Flagyl 500 Mg (Pmx)) 100 ml @ 100 mls/hr Q8 IVPB Last administered on 06/28/17 06:49; Admin Dose 100 MLS/HR; Start 06/23/17 at 22: 00 Senna/Docusate Sodium (Senokot-S) 1 tab BID PO Last administered on 06/26/17 20:40; Admin Dose 1 TAB; Start 06/23/17 at 21:00 Zolpidem Tartrate (Ambien) 5 mg HS PRN PO INSOMNIA; Start 06/27/17 at 19:00 TING BERRY MD Jun 28, 2017 08:10
[2017-06-28] MEDS: ONDANSETRON 4 MG INJ IV PRN ×2 (08:50→21:17)
[2017-06-28] MEDS: ACARBOSE 50 MG TAB PO SCH ×2 (08:50→17:14)
[2017-06-28] MEDS: VALSARTAN 160 MG TAB PO SCH (08:51)
[2017-06-28] MEDS: CHOLECALCIFEROL 2,000 UNIT CAP PO SCH (08:54)
[2017-06-28] MEDS: CHOLECALCIFEROL 1,000 UNIT TAB PO SCH (08:54)
[2017-06-28] MEDS: SENNA/DOCUSATE NA (8.6MG/50MG) TAB PO SCH ×2 (08:54→21:00)
[2017-06-28] MEDS: EZETIMIBE 10 MG TAB PO SCH (08:54)
[2017-06-28] MEDS: FOLIC ACID 1 MG TAB PO SCH (08:54)
[2017-06-28 09:47] VITALS: BP 152/65; RESP 17
--- NOTE | 2017-06-28 11:26 | CONS ---
Date/Time of Note Date/Time of Note DATE: 06/28/17 TIME: 11:20 Assessment/Plan Assessment/Plan Additional Assessment/Plan - Gall bladder fossa abscess with VRE and Bacteroides; s/p CT guided drainage - Biliary leak, s/p ERCP and stent placement into the right hepatic duct and left hepatic duct 06/23/2017 - S/p laparoscopic cholecystectomy 05/28/17. - HTN - Hypothyroid - PCN allergy; tolerated meropenem - Hypokalemia- replace per primary Recommendations: - Continue Linezolid (06/22/2017-) and Metronidazole (06/23/2017-) x 14 days at least - F/u MRCP results - - Down Trend WBC and check procalcitonin Management d/w RN Delaney and Dr. Mckeon Consultation Date/Type/Reason Admit Date/Time Jun 19, 2017 at 14:00 Initial Consult Date 06/23/17 Type of Consultation: Infectious Disease Referring Provider: MUSA AMBROSE MD 24 HR Interval Summary Free Text/Dictation -SP MRCP abdomen d/t elevated WBC and remains afebrile per d/w nursing. -WBC trended down - C/O abd pain while drain is flushed Exam/Review of Systems Vital Signs Vitals Vital Signs Date Time Temp Pulse Resp B/P Pulse Ox O2 Delivery O2 Flow Rate FiO2 06/28/17 09:47 98.4 74 17 152/65 96 Intake and Output 06/27/17 06/27/17 06/28/17 15:00 23:00 07:00 Intake Total 420 ml 920 ml 1480 ml Output Total 5 ml 905 ml Balance 420 ml 915 ml 575 ml Exam Constitutional: alert Respiratory: diminished breath sounds Gastrointestinal: soft, tender (RU abdomed d/t surgical drain placement) Musculoskeletal: nl extremities to inspection Extremities: normal pulses Neurological: nl speech Results Result Diagram: 06/28/17 0510 06/28/17 0510 Results 24 hrs Laboratory Tests Test 06/27/17 12:55 06/27/17 17:00 06/27/17 20:36 06/28/17 05:10 Urine Color YELLOW Urine Clarity CLEAR Urine pH 7.0 Urine Specific [place] 1.009 Urine Ketones 1+ H Urine Nitrite NEGATIVE Urine Bilirubin NEGATIVE Urine Urobilinogen NEGATIVE Urine Leukocyte Esterase NEGATIVE Urine Microscopic RBC 3 Urine Microscopic WBC 1 Urine Hemoglobin 1+ H Urine Glucose 1+ H Urine Total Protein NEGATIVE Bedside Glucose 123 133 White Blood Count 13.1 H Red Blood Count 3.13 L Hemoglobin 8.2 L Hematocrit 25.8 L Mean Corpuscular Volume 82.4 Mean Corpuscular Hemoglobin 26.2 L Mean Corpuscular Hemoglobin Concent 31.8 L Red Cell Distribution Width 17.0 H Platelet Count 384 Mean Platelet Volume 8.9 Neutrophils % 80.9 H Lymphocytes % 9.6 L Monocytes % 6.4 Eosinophils % 2.4 Basophils % 0.5 Nucleated Red Blood Cells % 0.0 Neutrophils # 10.6 H Lymphocytes # 1.3 Monocytes # 0.8 Eosinophils # 0.3 Basophils # 0.1 Nucleated Red Blood Cells # 0.0 Sodium Level 139 Potassium Level 3.4 L Chloride Level 108 Carbon Dioxide Level 24 Anion Gap 10 Blood Urea Nitrogen 4 L Creatinine 0.50 Glucose Level 108 # Calcium Level 7.7 L Total Bilirubin 0.4 Direct Bilirubin 0.00 Indirect Bilirubin 0.4 Aspartate Amino Transf (AST/SGOT) 14 L Alanine Aminotransferase (ALT/SGPT) 34 Alkaline Phosphatase 132 H Total Protein 5.7 L Albumin 2.4 L Globulin 3.30 H Albumin/Globulin Ratio 0.72 Test 06/28/17 08:45 06/28/17 11:11 Bedside Glucose 113 111 Medications Medications Current Medications Hydralazine HCl (Apresoline) 10 mg Q6H PRN IV SBP>170; Start 06/20/17 at 11:30 Morphine Sulfate (morphine) 1 mg Q4H PRN IV PAIN Last administered on 03:56; Admin Dose 1 MG; Start 06/20/17 at 12:30 Ondansetron HCl (Zofran Inj) 4 mg Q4H PRN IV NAUSEA AND/OR VOMITING Last administered on 06/28/17 08:50; Admin Dose 4 MG; Start 06/20/17 at 13:00 Acetaminophen (Tylenol Tab) 650 mg Q4H PRN PO PAIN AND OR ELEVATED TEMP Last administered on 06/28/17 03:20; Admin Dose 650 MG; Start 06/20/17 at 13:00 Pantoprazole (Protonix Tab) 40 mg DAILY@06 PO Last administered on 06/28/17 05:16; Admin Dose 40 MG; Start 06/21/17 at 06:00 Al Hydrox/Mg Hydrox/Simethicone (Mag-Al Plus) 30 ml Q6H PRN PO GASTROINTESTINAL UPSET; Start 06/20/17 at 20:00 Folic Acid (Folic Acid) 1 mg DAILY PO Last administered on 06/26/17 08:54; Admin Dose 1 MG; Start 06/21/17 at 10:00 Levothyroxine Sodium (Synthroid) 50 mcg DAILY@06 PO Last administered on 06:50; Admin Dose 50 MCG; Start 06/22/17 at 06:00 Valsartan (Diovan) 160 mg DAILY PO Last administered on 06/28/17 08:51; Admin Dose 160 MG; Start 06/21/17 at 10:00 EZETIMIBE (Zetia) 10 mg DAILY PO Last administered on 06/26/17 08:53; Admin Dose 10 MG; Start 06/21/17 at 10:00 Ibuprofen 800 mg 800 mg Q6H PRN PO PAIN; Start 06/21/17 at 10:00 Sodium Chloride (NS) 1,000 ml @ 70 mls/hr [id number] IV Last administered on 06:50; Admin Dose 70 MLS/HR; Start 06/21/17 at 12:30 Tramadol HCl (Ultram) 50 mg Q6H PRN PO PAIN LEVEL 7-10 Last administered on 13:46; Admin Dose 50 MG; Start 06/21/17 at 12:30; Status Future Hold Cholecalciferol (Vitamin D) 4,000 unit DAILY PO Last administered on 08:30; Admin Dose 4,000 UNIT; Start 06/22/17 at 09:00 Cholecalciferol 1000 unit 1,000 unit DAILY PO Last administered on 06/27/17 08:31; Admin Dose 1,000 UNIT; Start 06/22/17 at 09:00 Linezolid 300 ml @ 200 mls/hr Q12H IVPB Last administered on 06/28/17 05:16 ; Admin Dose 200 MLS/HR; Start 06/22/17 at 17:00 Metronidazole (Flagyl 500 Mg (Pmx)) 100 ml @ 100 mls/hr Q8 IVPB Last administered on 11/25/17at 06:49; Admin Dose 100 MLS/HR; Start 06/23/17 at 22: 00 Senna/Docusate Sodium (Senokot-S) 1 tab BID PO Last administered on 06/26/17t 20:40; Admin Dose 1 TAB; Start 06/23/17 at 21:00 Zolpidem Tartrate (Ambien) 5 mg HS PRN PO INSOMNIA; Start 06/27/17 at 19:00 RONEY SAMPSON Jun 28, 2017 11:26
--- NOTE | 2017-06-28 12:49 | PN ---
Date/Time of Note Date/Time of Note DATE: 06/28/17 TIME: 12:49 Assessment/Plan VTE Prophylaxis VTE Prophylaxis Intervention: other Lines/Catheters IV [facility]ter Type (from [facility] Peripheral IV Urinary Cath still in place: No Assessment/Plan Chief Complaint/Hosp Course -Gallbladder fossa abscess/bile leak. S/p drainage by radiology. Positive HIDA scan. S/p ERCP and stent placement into the right hepatic duct and left hepatic duct on 06/[address] Estrella. Abdominal fluid culture positive for VRE, continue Zyvox. Dr. Mckeon is following in infection disease consultation -S/p laparoscopic cholecystectomy 06/29/17. Dr. Auguste is following in surgical consultation. -Status post ERCP with stent placement status post subsequent stent removal -Hypertension -Hypothyroidism -RA Problems: Subjective 24 Hr Interval Summary Free Text/Dictation Patient still have abdominal pain Exam/Review of Systems Vital Signs Vitals Vital Signs Date Time Temp Pulse Resp B/P Pulse Ox O2 Delivery O2 Flow Rate FiO2 06/28/17 09:47 98.4 74 17 152/65 96 Intake and Output 06/27/17 06/27/17 06/28/17 14:59 22:59 06:59 Intake Total 520 ml 920 ml 1480 ml Output Total 5 ml 905 ml Balance 520 ml 915 ml 575 ml Exam Constitutional: well developed Head: atraumatic, normocephalic Neck: supple Respiratory: clear to auscultation Cardiovascular: regular rate and rhythm Gastrointestinal: non-tender, soft Extremities: normal pulses Results Result Diagram: 06/28/17 0510 06/28/17 0510 Results 24 hrs Laboratory Tests Test 06/27/17 12:55 06/27/17 17:00 06/27/17 20:36 06/28/17 05:10 Urine Color YELLOW Urine Clarity CLEAR Urine pH 7.0 Urine Specific [place] 1.009 Urine Ketones 1+ H Urine Nitrite NEGATIVE Urine Bilirubin NEGATIVE Urine Urobilinogen NEGATIVE Urine Leukocyte Esterase NEGATIVE Urine Microscopic RBC 3 Urine Microscopic WBC 1 Urine Hemoglobin 1+ H Urine Glucose 1+ H Urine Total Protein NEGATIVE Bedside Glucose 123 133 White Blood Count 13.1 H Red Blood Count 3.13 L Hemoglobin 8.2 L Hematocrit 25.8 L Mean Corpuscular Volume 82.4 Mean Corpuscular Hemoglobin 26.2 L Mean Corpuscular Hemoglobin Concent 31.8 L Red Cell Distribution Width 17.0 H Platelet Count 384 Mean Platelet Volume 8.9 Neutrophils % 80.9 H Lymphocytes % 9.6 L Monocytes % 6.4 Eosinophils % 2.4 Basophils % 0.5 Nucleated Red Blood Cells % 0.0 Neutrophils # 10.6 H Lymphocytes # 1.3 Monocytes # 0.8 Eosinophils # 0.3 Basophils # 0.1 Nucleated Red Blood Cells # 0.0 Sodium Level 139 Potassium Level 3.4 L Chloride Level 108 Carbon Dioxide Level 24 Anion Gap 10 Blood Urea Nitrogen 4 L Creatinine 0.50 Glucose Level 108 # Calcium Level 7.7 L Total Bilirubin 0.4 Direct Bilirubin 0.00 Indirect Bilirubin 0.4 Aspartate Amino Transf (AST/SGOT) 14 L Alanine Aminotransferase (ALT/SGPT) 34 Alkaline Phosphatase 132 H Total Protein 5.7 L Albumin 2.4 L Globulin 3.30 H Albumin/Globulin Ratio 0.72 Test 06/28/17 08:45 06/28/17 11:11 Bedside Glucose 113 111 Medications Medications Current Medications Hydralazine HCl (Apresoline) 10 mg Q6H PRN IV SBP>170; Start 06/20/17 at 11:30 Morphine Sulfate (morphine) 1 mg Q4H PRN IV PAIN Last administered on 03:56; Admin Dose 1 MG; Start 06/20/17 at 12:30 Ondansetron HCl (Zofran Inj) 4 mg Q4H PRN IV NAUSEA AND/OR VOMITING Last administered on 06/28/17 08:50; Admin Dose 4 MG; Start 06/20/17 at 13:00 Acetaminophen (Tylenol Tab) 650 mg Q4H PRN PO PAIN AND OR ELEVATED TEMP Last administered on 06/28/17 03:20; Admin Dose 650 MG; Start 06/20/17 at 13:00 Pantoprazole (Protonix Tab) 40 mg DAILY@06 PO Last administered on 06/28/17 05:16; Admin Dose 40 MG; Start 06/21/17 at 06:00 Al Hydrox/Mg Hydrox/Simethicone (Mag-Al Plus) 30 ml Q6H PRN PO GASTROINTESTINAL UPSET; Start 06/20/17 at 20:00 Folic Acid (Folic Acid) 1 mg DAILY PO Last administered on 06/26/17 08:54; Admin Dose 1 MG; Start 06/21/17 at 10:00 Levothyroxine Sodium (Synthroid) 50 mcg DAILY@06 PO Last administered on 06:50; Admin Dose 50 MCG; Start 06/22/17 at 06:00 Valsartan (Diovan) 160 mg DAILY PO Last administered on 06/28/17 08:51; Admin Dose 160 MG; Start 06/21/17 at 10:00 EZETIMIBE (Zetia) 10 mg DAILY PO Last administered on 06/26/17 08:53; Admin Dose 10 MG; Start 06/21/17 at 10:00 Ibuprofen 800 mg 800 mg Q6H PRN PO PAIN; Start 06/21/17 at 10:00 Sodium Chloride (NS) 1,000 ml @ 70 mls/hr [id number] IV Last administered on 06:50; Admin Dose 70 MLS/HR; Start 06/21/17 at 12:30 Tramadol HCl (Ultram) 50 mg Q6H PRN PO PAIN LEVEL 7-10 Last administered on 13:46; Admin Dose 50 MG; Start 06/21/17 at 12:30; Status Future Hold Cholecalciferol (Vitamin D) 4,000 unit DAILY PO Last administered on 08:30; Admin Dose 4,000 UNIT; Start 06/22/17 at 09:00 Cholecalciferol 1000 unit 1,000 unit DAILY PO Last administered on 06/27/17 08:31; Admin Dose 1,000 UNIT; Start 06/22/17 at 09:00 Linezolid 300 ml @ 200 mls/hr Q12H IVPB Last administered on 06/28/17 05:16 ; Admin Dose 200 MLS/HR; Start 06/22/17 at 17:00 Metronidazole (Flagyl 500 Mg (Pmx)) 100 ml @ 100 mls/hr Q8 IVPB Last administered on 06/28/17 06:49; Admin Dose 100 MLS/HR; Start 06/23/17 at 22: 00 Senna/Docusate Sodium (Senokot-S) 1 tab BID PO Last administered on 06/26/17 20:40; Admin Dose 1 TAB; Start 06/23/17 at 21:00 Zolpidem Tartrate (Ambien) 5 mg HS PRN PO INSOMNIA; Start 06/27/17 at 19:00 ALEX NORIEGA Jun 28, 2017 12:49
[2017-06-28 15:38] VITALS: BP 160/70; PULSE 87
[2017-06-28 16:25] VITALS: BP 187/74; RESP 16
--- NOTE | 2017-06-28 18:10 | PN ---
Date/Time of Note Date/Time of Note DATE: 06/27/17 TIME: 18:07 Assessment/Plan Lines/Catheters IV Catheter Type (from [facility]): Peripheral IV Mera in Place (from [facility]): No Assessment/Plan Chief Complaint/Hosp Course 1. Gallbladder fossa abscess/bile leak. +HIDA s/p ERCP with 2 stents. Leukocytosis ? etiology -durant cx -mrcp -continue drain -abx -pain management 2. Leukocytosis: Recurred -as above 3. Elevated alk phos: likely 2/2 #1. Slowly improving. -as above 4. Diverticulosis -diet/lifestyle optimization 3. Hiatal hernia: asymptomatic -monitor 4. Atherosclerosis -diet/exercise optimization Thank you, Late entry 06/27 Problems: Subjective 24 Hr Interval Summary Leukocytosis today. Epigastric pain since last night. Min output from drain. Min nausea. No vomiting, fevers, chills, sob, congested cough, cp, palpitations , osorio, dizziness, diarrhea, dysuria. Exam/Review of Systems Vital Signs Vitals Vital Signs Date Time Temp Pulse Resp B/P Pulse Ox O2 Delivery O2 Flow Rate FiO2 06/28/17 16:25 98.7 77 16 187/74 99 Intake and Output 06/27/17 06/27/17 06/28/17 14:59 22:59 06:59 Intake Total 520 ml 920 ml 1480 ml Output Total 5 ml 905 ml Balance 520 ml 915 ml 575 ml Exam Free Text/Dictation Constitutional: alert, oriented Psych: sad Head: atraumatic, normocephalic Eyes: nl lids, nl sclera ENMT: mucosa pink and moist, nl nasal mucosa & septum Neck: non-tender, supple Respiratory: clear to auscultation, normal air movement Cardiovascular: nl pulses, regular rate and rhythm Gastrointestinal: min-tender at drain site, soft, surgical scars (dry without drainage/bruising/discoloration), drain with dark green dc Musculoskeletal: nl extremities to inspection, nl gait and stance Extremities: normal pulses Neurological: nl mental status, nl speech, nl strength Skin: nl turgor, rash or lesions Lymph: nl lymph nodes Results Result Diagram: 06/28/17 0510 06/28/17 0510 RICK JACKSON MD Jun 28, 2017 18:09
--- NOTE | 2017-06-28 18:14 | PN ---
Date/Time of Note Date/Time of Note DATE: 06/28/17 TIME: 18:10 Assessment/Plan Lines/Catheters IV Catheter Type (from [facility]): Peripheral IV Mera in Place (from [facility]): No Assessment/Plan Chief Complaint/Hosp Course 1. Gallbladder fossa abscess/bile leak. +HIDA s/p ERCP with 2 stents. Leukocytosis ? etiology. MRCP noted. -durant cx -continue drain -abx -pain management -pulmonary toilette -?pulmonary consult -check amylase/lipase -other labs pending per ID 2. Leukocytosis: Recurred but slowly improving. -as above 3. Elevated alk phos: likely 2/2 #1. Slowly improving. -as above 4. Diverticulosis -diet/lifestyle optimization 3. Hiatal hernia: asymptomatic -monitor 4. Atherosclerosis -diet/exercise optimization Thank you, Problems: Subjective 24 Hr Interval Summary MRCP non diagnostic except for bilateral pleural effusion, otherwise, fluid collection almost fully resolved. Leukocytosis slightly improved (? etiology). Epigastric pain. Min output from drain. Min nausea. No vomiting, fevers, chills, sob, congested cough, cp, palpitations, osorio, dizziness, diarrhea, dysuria. Exam/Review of Systems Vital Signs Vitals Vital Signs Date Time Temp Pulse Resp B/P Pulse Ox O2 Delivery O2 Flow Rate FiO2 06/28/17 16:25 98.7 77 16 187/74 99 Intake and Output 06/27/17 06/27/17 06/28/17 14:59 22:59 06:59 Intake Total 520 ml 920 ml 1480 ml Output Total 5 ml 905 ml Balance 520 ml 915 ml 575 ml Exam Free Text/Dictation Constitutional: alert, oriented Psych: sad Head: atraumatic, normocephalic Eyes: nl lids, nl sclera ENMT: mucosa pink and moist, nl nasal mucosa & septum Neck: non-tender, supple Respiratory: clear to auscultation, normal air movement Cardiovascular: nl pulses, regular rate and rhythm Gastrointestinal: min-tender at drain site, soft, surgical scars (dry without drainage/bruising/discoloration), drain with dark green dc Musculoskeletal: nl extremities to inspection, nl gait and stance Extremities: normal pulses Neurological: nl mental status, nl speech, nl strength Skin: nl turgor, rash or lesions Lymph: nl lymph nodes Results Free Text/Dictation MRCP: 1. Gallbladder is surgically absent. Percutaneous drainage catheter tip remains within the gallbladder fossa. There has been near-complete interval resolution of previously seen complex collection in this area. 2. No biliary dilatation or evidence of choledocholithiasis is identified. 3. Mild right and small left pleural effusions are noted, increased from the prior CT. 4. Moderate to large hiatal hernia is again noted, grossly unchanged. 5. Colonic diverticulosis is seen without diverticulitis. Result Diagram: 06/28/17 0510 06/28/17 0510 RICK JACKSON MD Jun 28, 2017 18:14
[2017-06-28 20:00] VITALS: BP_SYST 133; BP_SYST 154; BP_DIAS 50; BP_DIAS 67; RESP 20
[2017-06-29] MEDS: ACETAMINOPHEN 325 MG TAB PO PRN (01:28)
[2017-06-29 02:00] VITALS: BP 146/64; RESP 20
[2017-06-29] MEDS: SOD CHLORIDE 0.9% 500 ML IV SCH ×3 (03:57→16:41)
[2017-06-29] MEDS: LINEZOLID 600 MG/D5W (PMX) 300 ML IVPB SCH ×2 (04:57→16:37)
[2017-06-29] MEDS: LEVOTHYROXINE 50 MCG TAB PO SCH (06:05)
[2017-06-29] MEDS: PANTOPRAZOLE (EC) 40 MG TAB PO SCH (06:05)
[2017-06-29] MEDS: SOD CHLORIDE 0.9% 1,000 ML IV SCH ×2 (06:24→20:42)
[2017-06-29] MEDS: metroNIDAZOLE 500 MG/NS (PMX) 100 ML IVPB SCH ×3 (06:28→21:07)
[2017-06-29] MEDS: ONDANSETRON 4 MG INJ IV PRN ×3 (08:02→21:06)
[2017-06-29] MEDS: SENNA/DOCUSATE NA (8.6MG/50MG) TAB PO SCH ×2 (08:07→20:43)
[2017-06-29] MEDS: CHOLECALCIFEROL 2,000 UNIT CAP PO SCH (08:07)
[2017-06-29] MEDS: CHOLECALCIFEROL 1,000 UNIT TAB PO SCH (08:07)
[2017-06-29] MEDS: FOLIC ACID 1 MG TAB PO SCH (08:08)
[2017-06-29] MEDS: ACARBOSE 50 MG TAB PO SCH ×2 (08:12→16:37)
[2017-06-29] MEDS: VALSARTAN 160 MG TAB PO SCH (08:14)
[2017-06-29] MEDS: ACCU-CHEK XX SCH ×4 (08:15→20:43)
[2017-06-29] MEDS: EZETIMIBE 10 MG TAB PO SCH (08:15)
[2017-06-29 10:00] VITALS: BP 143/73; PULSE 80
--- NOTE | 2017-06-29 11:36 | CONS ---
Date/Time of Note Date/Time of Note DATE: 06/29/17 TIME: 11:34 Assessment/Plan Assessment/Plan Additional Assessment/Plan - Gall bladder fossa abscess with VRE and Bacteroides; s/p CT guided drainage - Biliary leak, s/p ERCP and stent placement into the right hepatic duct and left hepatic duct 06/23/2017 - S/p laparoscopic cholecystectomy 05/28/17. - HTN - Hypothyroid - PCN allergy; tolerated meropenem - Hypokalemia- replace per primary Recommendations: - Continue Linezolid (06/22/2017-) and Metronidazole (06/23/2017-) x 14 days at least - F/u MRCP results - - Down Trend WBC and check procalcitonin Management d/w MONROE Baltazar and Dr. Mckeon Consultation Date/Type/Reason Admit Date/Time Jun 19, 2017 at 14:00 Initial Consult Date 06/23/17 Type of Consultation: Infectious Disease Referring Provider: MUSA AMBROSE MD 24 HR Interval Summary Free Text/Dictation sitting up in chair, afebrile, Wbc trended down. RUQ drain- feww cc clear drainage, dw staff Constitutional: improved Detailed Summary Respiratory: no complaints Cardiovascular: no complaints Gastrointestinal: pain Genitourinary: no complaints Musculoskeletal: no complaints Neurologic: no complaints Exam/Review of Systems Vital Signs Vitals Vital Signs Date Time Temp Pulse Resp B/P Pulse Ox O2 Delivery O2 Flow Rate FiO2 06/29/17 02:00 98.7 82 20 146/64 100 Intake and Output 06/28/17 06/28/17 06/29/17 15:00 23:00 07:00 Intake Total 200 ml 1790 ml 1180 ml Output Total 5 ml 5 ml Balance 200 ml 1785 ml 1175 ml Exam Constitutional: alert, well developed Psych: nl mood/affect Respiratory: diminished breath sounds, normal air movement Cardiovascular: nl pulses Gastrointestinal: other, soft, tender Musculoskeletal: nl extremities to inspection Neurological: nl mental status Results Result Diagram: 06/28/17 0510 06/28/17 0510 Results 24 hrs Laboratory Tests Test 06/28/17 17:13 06/28/17 21:22 06/29/17 08:05 Bedside Glucose 119 162 113 Medications Medications Current Medications Hydralazine HCl (Apresoline) 10 mg Q6H PRN IV SBP>170 Last administered on 15:11; Admin Dose 10 MG; Start 06/20/17 at 11:30 Morphine Sulfate (morphine) 1 mg Q4H PRN IV PAIN Last administered on 03:56; Admin Dose 1 MG; Start 06/20/17 at 12:30 Ondansetron HCl (Zofran Inj) 4 mg Q4H PRN IV NAUSEA AND/OR VOMITING Last administered on 06/29/17 08:02; Admin Dose 4 MG; Start 06/20/17 at 13:00 Acetaminophen (Tylenol Tab) 650 mg Q4H PRN PO PAIN AND OR ELEVATED TEMP Last administered on 06/29/17 01:28; Admin Dose 650 MG; Start 06/20/17 at 13:00 Pantoprazole (Protonix Tab) 40 mg DAILY@06 PO Last administered on 06/29/17 06:05; Admin Dose 40 MG; Start 06/21/17 at 06:00 Al Hydrox/Mg Hydrox/Simethicone (Mag-Al Plus) 30 ml Q6H PRN PO GASTROINTESTINAL UPSET; Start 06/20/17 at 20:00 Folic Acid (Folic Acid) 1 mg DAILY PO Last administered on 06/29/17 08:08; Admin Dose 1 MG; Start 06/21/17 at 10:00 Levothyroxine Sodium (Synthroid) 50 mcg DAILY@06 PO Last administered on 06:05; Admin Dose 50 MCG; Start 06/22/17 at 06:00 Valsartan (Diovan) 160 mg DAILY PO Last administered on 06/29/17 08:14; Admin Dose 160 MG; Start 06/21/17 at 10:00 EZETIMIBE (Zetia) 10 mg DAILY PO Last administered on 06/29/17 08:15; Admin Dose 10 MG; Start 06/21/17 at 10:00 Ibuprofen 800 mg 800 mg Q6H PRN PO PAIN; Start 06/21/17 at 10:00 Sodium Chloride (NS) 1,000 ml @ 70 mls/hr [id number] IV Last administered on 06:50; Admin Dose 70 MLS/HR; Start 06/21/17 at 12:30 Tramadol HCl (Ultram) 50 mg Q6H PRN PO PAIN LEVEL 7-10 Last administered on 13:46; Admin Dose 50 MG; Start 06/21/17 at 12:30; Status Future Hold Cholecalciferol (Vitamin D) 4,000 unit DAILY PO Last administered on 08:07; Admin Dose 4,000 UNIT; Start 06/22/17 at 09:00 Cholecalciferol 1000 unit 1,000 unit DAILY PO Last administered on 06/29/17 08:07; Admin Dose 1,000 UNIT; Start 06/22/17 at 09:00 Linezolid 300 ml @ 200 mls/hr Q12H IVPB Last administered on 06/29/17 04:57 ; Admin Dose 200 MLS/HR; Start 06/22/17 at 17:00 Metronidazole (Flagyl 500 Mg (Pmx)) 100 ml @ 100 mls/hr Q8 IVPB Last administered on 06/29/17 06:28; Admin Dose 100 MLS/HR; Start 06/23/17 at 22: 00 Senna/Docusate Sodium (Senokot-S) 1 tab BID PO Last administered on 06/29/17 08:07; Admin Dose 1 TAB; Start 06/23/17 at 21:00 Zolpidem Tartrate 5 mg 5 mg HS PRN PO INSOMNIA; Start 06/27/17 at 19:00 Sodium Chloride (NS) 500 ml @ 70 mls/hr Q7H9M IV Last administered on 03:57; Admin Dose 70 MLS/HR; Start 06/29/17 at 04:00 RONEY SAMPSON Jun 29, 2017 11:36
--- NOTE | 2017-06-29 12:08 | PN ---
Date/Time of Note Date/Time of Note DATE: 06/29/17 TIME: 12:07 Assessment/Plan VTE Prophylaxis VTE Prophylaxis Intervention: other Lines/Catheters IV C[facility] Type (from [facility] Peripheral IV Urinary Cath still in place: No Assessment/Plan Chief Complaint/Hosp Course -Gallbladder fossa abscess/bile leak. S/p drainage by radiology. Positive HIDA scan. S/p ERCP and stent placement into the right hepatic duct and left hepatic duct on 06/[address] Estrella. Abdominal fluid culture positive for VRE, continue Zyvox. Dr. Mckeon is following in infection disease consultation -S/p laparoscopic cholecystectomy 06/29/17. Dr. Auguste is following in surgical consultation. -Status post ERCP with stent placement status post subsequent stent removal -Hypertension -Hypothyroidism -RA Problems: Subjective 24 Hr Interval Summary Free Text/Dictation Patient has no complaints Exam/Review of Systems Vital Signs Vitals Vital Signs Date Time Temp Pulse Resp B/P Pulse Ox O2 Delivery O2 Flow Rate FiO2 06/29/17 02:00 98.7 82 20 146/64 100 Intake and Output 06/28/17 06/28/17 06/29/17 15:00 23:00 07:00 Intake Total 200 ml 1790 ml 1180 ml Output Total 5 ml 5 ml Balance 200 ml 1785 ml 1175 ml Exam Constitutional: well developed Head: atraumatic, normocephalic Neck: supple Respiratory: clear to auscultation Cardiovascular: regular rate and rhythm Gastrointestinal: non-tender, soft Extremities: normal pulses Results Result Diagram: 06/28/17 0510 06/28/17 0510 Results 24 hrs Laboratory Tests Test 06/28/17 17:13 06/28/17 21:22 06/29/17 08:05 Bedside Glucose 119 162 113 Medications Medications Current Medications Hydralazine HCl (Apresoline) 10 mg Q6H PRN IV SBP>170 Last administered on 15:11; Admin Dose 10 MG; Start 06/20/17 at 11:30 Morphine Sulfate (morphine) 1 mg Q4H PRN IV PAIN Last administered on 03:56; Admin Dose 1 MG; Start 06/20/17 at 12:30 Ondansetron HCl (Zofran Inj) 4 mg Q4H PRN IV NAUSEA AND/OR VOMITING Last administered on 06/29/17 08:02; Admin Dose 4 MG; Start 06/20/17 at 13:00 Acetaminophen (Tylenol Tab) 650 mg Q4H PRN PO PAIN AND OR ELEVATED TEMP Last administered on 06/29/17 01:28; Admin Dose 650 MG; Start 06/20/17 at 13:00 Pantoprazole (Protonix Tab) 40 mg DAILY@06 PO Last administered on 06/29/17 06:05; Admin Dose 40 MG; Start 06/21/17 at 06:00 Al Hydrox/Mg Hydrox/Simethicone (Mag-Al Plus) 30 ml Q6H PRN PO GASTROINTESTINAL UPSET; Start 06/20/17 at 20:00 Folic Acid (Folic Acid) 1 mg DAILY PO Last administered on 06/29/17 08:08; Admin Dose 1 MG; Start 06/21/17 at 10:00 Levothyroxine Sodium (Synthroid) 50 mcg DAILY@06 PO Last administered on 06:05; Admin Dose 50 MCG; Start 06/22/17 at 06:00 Valsartan (Diovan) 160 mg DAILY PO Last administered on 06/29/17 08:14; Admin Dose 160 MG; Start 06/21/17 at 10:00 EZETIMIBE (Zetia) 10 mg DAILY PO Last administered on 06/29/17 08:15; Admin Dose 10 MG; Start 06/21/17 at 10:00 Ibuprofen 800 mg 800 mg Q6H PRN PO PAIN; Start 06/21/17 at 10:00 Sodium Chloride (NS) 1,000 ml @ 70 mls/hr [id number] IV Last administered on 06:50; Admin Dose 70 MLS/HR; Start 06/21/17 at 12:30 Tramadol HCl (Ultram) 50 mg Q6H PRN PO PAIN LEVEL 7-10 Last administered on 13:46; Admin Dose 50 MG; Start 06/21/17 at 12:30; Status Future Hold Cholecalciferol (Vitamin D) 4,000 unit DAILY PO Last administered on 08:07; Admin Dose 4,000 UNIT; Start 06/22/17 at 09:00 Cholecalciferol 1000 unit 1,000 unit DAILY PO Last administered on 06/29/17 08:07; Admin Dose 1,000 UNIT; Start 06/22/17 at 09:00 Linezolid 300 ml @ 200 mls/hr Q12H IVPB Last administered on 06/29/17 04:57 ; Admin Dose 200 MLS/HR; Start 06/22/17 at 17:00 Metronidazole (Flagyl 500 Mg (Pmx)) 100 ml @ 100 mls/hr Q8 IVPB Last administered on 06/29/17 06:28; Admin Dose 100 MLS/HR; Start 06/23/17 at 22: 00 Senna/Docusate Sodium (Senokot-S) 1 tab BID PO Last administered on 06/29/17 08:07; Admin Dose 1 TAB; Start 06/23/17 at 21:00 Zolpidem Tartrate 5 mg 5 mg HS PRN PO INSOMNIA; Start 06/27/17 at 19:00 Sodium Chloride (NS) 500 ml @ 70 mls/hr Q7H9M IV Last administered on 03:57; Admin Dose 70 MLS/HR; Start 06/29/17 at 04:00 ALEX NORIEGA Jun 29, 2017 12:08
[2017-06-29 14:34] LABS: CALCIUM 7.7 mg/dl (8.4-10.2); CREATININE 0.45 mg/dl (0.44-1.00)
[2017-06-29 14:38] LABS: POTASSIUM 2.7 mmol/L (3.5-5.1)
[2017-06-29] MEDS: POTASSIUM CHLORIDE (SR) 20 MEQ TAB PO SCH ×2 (15:30→16:28)
[2017-06-29] MEDS ORDERED: POTASSIUM CHLORIDE 20 MEQ POWDER FOR ORAL SOLN PO ONE (17:13)
[2017-06-29] MEDS: POTASSIUM CHLORIDE 20 MEQ POWDER FOR ORAL SOLN PO SCH ×2 (17:44→20:40)
--- NOTE | 2017-06-29 19:12 | CONS ---
DATE OF ADMISSION: 06/19/2017 DATE OF CONSULTATION: 06/29/2017 CHIEF COMPLAINT: The patient at this time has no complaints. Patient has history of laparoscopic c holecystectomy and she was found to have a biliary leak by means of ERCP. Two stents were placed. Now, the drainage seems to be almost nil yesterday she had 5 night's all night long and also today i s not even 5 mL. LABORATORY WORKUP: Hemoglobin is 8.2. WBC count 13,100. CLINICAL IMPRESSION: Status post placement of hepatic ducts bilaterally for the biliary leak. At t his time, the bleeding or leakage from the biliary drainage was put externally into the gallbladder fossa seems to be almost nothing. PLAN: Consider to remove the percutaneous drainage. Dictated By: ARLYN MATIAS MD NC/NTS Conf#: [id number] DID#: [id number] CC: MUSA AMBROSE MD; RICK JACKSON MD;*EndCC*
[2017-06-29 20:04] VITALS: BP 163/70; RESP 18
--- NOTE | 2017-06-29 22:02 | PN ---
Date/Time of Note Date/Time of Note DATE: 06/29/17 TIME: 22:00 Assessment/Plan Lines/Catheters IV Catheter Type (from [facility]): Peripheral IV Mera in Place (from [facility]): No Assessment/Plan Chief Complaint/Hosp Course 1. Gallbladder fossa abscess/bile leak. +HIDA s/p ERCP with 2 stents. Leukocytosis ? etiology. MRCP noted. -drain -abx -pain management -pulmonary toilette -pulmonary consult -amylase/lipase 2. Leukocytosis: Recurred but slowly improving. -as above 3. Elevated alk phos: likely 2/2 #1. Slowly improving. -as above 4. Diverticulosis -diet/lifestyle optimization 3. Hiatal hernia: asymptomatic -monitor 4. Atherosclerosis -diet/exercise optimization Thank you, Problems: Subjective 24 Hr Interval Summary Epigastric pain resolved. Min output from drain. Min nausea. No vomiting, fevers, chills, sob, congested cough, cp, palpitations, osorio, dizziness, diarrhea , dysuria. Exam/Review of Systems Vital Signs Vitals Vital Signs Date Time Temp Pulse Resp B/P Pulse Ox O2 Delivery O2 Flow Rate FiO2 06/29/17 20:04 98.7 86 18 163/70 97 Intake and Output 06/28/17 06/28/17 06/29/17 15:00 23:00 07:00 Intake Total 200 ml 1790 ml 1180 ml Output Total 5 ml 5 ml Balance 200 ml 1785 ml 1175 ml Exam Free Text/Dictation Constitutional: alert, oriented Psych: sad Head: atraumatic, normocephalic Eyes: nl lids, nl sclera ENMT: mucosa pink and moist, nl nasal mucosa & septum Neck: non-tender, supple Respiratory: clear to auscultation, normal air movement Cardiovascular: nl pulses, regular rate and rhythm Gastrointestinal: min-tender at drain site, soft, surgical scars (dry without drainage/bruising/discoloration), drain with dark green dc Musculoskeletal: nl extremities to inspection, nl gait and stance Extremities: normal pulses Neurological: nl mental status, nl speech, nl strength Skin: nl turgor, rash or lesions Lymph: nl lymph nodes Results Result Diagram: 06/28/17 0510 06/29/17 1349 RICK JACKSON MD Jun 29, 2017 22:02
[2017-06-30] MEDS: SOD CHLORIDE 0.9% 500 ML IV SCH ×5 (01:27→22:54)
[2017-06-30 02:20] VITALS: BP 156/68; RESP 6
[2017-06-30] MEDS: LINEZOLID 600 MG/D5W (PMX) 300 ML IVPB SCH ×2 (04:49→17:23)
[2017-06-30] MEDS: ONDANSETRON 4 MG INJ IV PRN (06:18)
[2017-06-30] MEDS: metroNIDAZOLE 500 MG/NS (PMX) 100 ML IVPB SCH ×3 (06:19→21:59)
[2017-06-30] MEDS: PANTOPRAZOLE (EC) 40 MG TAB PO SCH (06:19)
[2017-06-30] MEDS: LEVOTHYROXINE 50 MCG TAB PO SCH (06:19)
[2017-06-30 06:45] LABS: BASOPHIL # 0.1 10^3/ul (0.0-0.1); BASOPHILS % 0.7 % (0.0-2.0); EOSINOPHILS # 0.6 10^3/ul (0.0-0.5); EOSINOPHILS % 4.7 % (0.0-7.0); HEMOGLOBIN 9.2 g/dl (12.0-16.0); LYMPHOCYTES # 1.9 10^3/ul (0.8-2.9); LYMPHOCYTES % 15.5 % (15.0-51.0); MEAN CORPUSCULAR HEMOGLOBIN 27.1 pg (29.0-33.0); MEAN CORPUSCULAR HGB CONC 32.9 g/dl (32.0-37.0); MEAN CORPUSCULAR VOLUME 82.6 fl (82.0-101.0); MONOCYTE # 0.8 10^3/ul (0.3-0.9); MONOCYTES % 6.8 % (0.0-11.0); NEUTROPHIL # 8.6 10^3/ul (1.6-7.5); NEUTROPHILS % 71.8 % (39.0-77.0); PLATELET COUNT 420 10^3/UL (140-415); RED BLOOD COUNT 3.39 10^6/ul (4.20-5.40); RED CELL DISTRIBUTION WIDTH 17.2 % (11.5-14.5)
[2017-06-30 06:57] LABS: ALBUMIN 2.7 g/dl (3.3-4.9); ALBUMIN/GLOBULIN RATIO 0.77; BILIRUBIN,INDIRECT 0.4 mg/dl (0-1.1); BILIRUBIN,TOTAL 0.4 mg/dl (0.2-1.3); CREATININE 0.48 mg/dl (0.44-1.00); POTASSIUM 3.3 mmol/L (3.5-5.1); TOTAL PROTEIN 6.2 g/dl (6.1-8.1)
[2017-06-30 08:00] VITALS: BP 175/77; RESP 20
[2017-06-30] MEDS: ACCU-CHEK XX SCH ×4 (08:00→21:00)
[2017-06-30] MEDS: ACARBOSE 50 MG TAB PO SCH ×2 (08:40→17:18)
[2017-06-30] MEDS: SENNA/DOCUSATE NA (8.6MG/50MG) TAB PO SCH ×2 (08:41→21:00)
[2017-06-30] MEDS: FOLIC ACID 1 MG TAB PO SCH (08:41)
[2017-06-30] MEDS: EZETIMIBE 10 MG TAB PO SCH (08:41)
[2017-06-30] MEDS: VALSARTAN 160 MG TAB PO SCH (08:41)
[2017-06-30] MEDS: CHOLECALCIFEROL 1,000 UNIT TAB PO SCH (08:41)
[2017-06-30] MEDS: CHOLECALCIFEROL 2,000 UNIT CAP PO SCH (08:41)
[2017-06-30] MEDS: SOD CHLORIDE 0.9% 1,000 ML IV SCH (10:03)
--- NOTE | 2017-06-30 10:30 | PN ---
Date/Time of Note Date/Time of Note DATE: 06/30/17 TIME: 10:20 Assessment/Plan Lines/Catheters IV Catheter Type (from [facility]): Peripheral IV Mera in Place (from [facility]): No Assessment/Plan Chief Complaint/Hosp Course 1. Gallbladder fossa abscess/bile leak. +HIDA s/p ERCP with 2 stents. MRCP noted. -cont drain care -abx -pain management 2. Leukocytosis: Recurred; improving. -as above 3. Elevated alk phos: likely 2/2 #1. Slowly improving. -as above 4. Diverticulosis -diet/lifestyle optimization 3. Hiatal hernia: asymptomatic -monitor 4. Atherosclerosis -diet/exercise optimization 5. Pleural effusions: -pulmonary toilette -pulmonary consult Thank you. Patient seen and examined in collaboration with Dr. Varun uAguste. Problems: Subjective 24 Hr Interval Summary Vomiting overnight- none today. Improved nausea. Drain with min output. Leukocytosis improved. No fevers, chills, sob, congested cough, cp, palpitations , osorio, dizziness, n/v/d/dysuria. Exam/Review of Systems Vital Signs Vitals Vital Signs Date Time Temp Pulse Resp B/P Pulse Ox O2 Delivery O2 Flow Rate FiO2 06/30/17 08:00 98.3 80 20 175/77 96 Intake and Output 06/29/17 06/29/17 06/30/17 15:00 23:00 07:00 Intake Total 100 ml 1660 ml 1210 ml Output Total 3 ml Balance 100 ml 1660 ml 1207 ml Exam Free Text/Dictation Constitutional: alert, oriented Psych: sad Head: atraumatic, normocephalic Eyes: nl lids, nl sclera ENMT: mucosa pink and moist, nl nasal mucosa & septum Neck: non-tender, supple Respiratory: clear to auscultation, normal air movement Cardiovascular: nl pulses, regular rate and rhythm Gastrointestinal: min-tender at drain site, soft, surgical scars (dry without drainage/bruising/discoloration), drain with dark yellow drainage Musculoskeletal: nl extremities to inspection, nl gait and stance Extremities: normal pulses Neurological: nl mental status, nl speech, nl strength Skin: nl turgor, rash or lesions Lymph: nl lymph nodes Results Result Diagram: 06/30/1714 06/30/17513 MARGARETTE MENJIVAR NP Jun 30, 2017 10:30
--- NOTE | 2017-06-30 10:33 | CONS ---
Date/Time of Note Date/Time of Note DATE: 06/30/17 TIME: 10:31 Assessment/Plan Assessment/Plan Chief Complaint/Hosp Course - Gall bladder fossa abscess with VRE and Bacteroides; s/p CT guided drainage - Biliary leak, s/p ERCP and stent placement into the right hepatic duct and left hepatic duct 06/23/2017 - S/p laparoscopic cholecystectomy 05/28/17. - HTN - Hypothyroid - PCN allergy; tolerated meropenem Recommendations: - monitoring nausea- could be related to metronidazole--if persists then consideration of changing to Ertapenem could be entertained - Continue Linezolid (06/22/2017-) and Metronidazole (06/23/2017-) x 14 days at least - Repeat imaging prior to cessation of abx Problems: Consultation Date/Type/Reason Admit Date/Time Jun 19, 2017 at 14:00 Initial Consult Date 06/23/17 Type of Consultation: Infectious Disease Referring Provider: MUSA AMBROSE MD 24 HR Interval Summary Free Text/Dictation she is complaining about some nausea this am. Care d/w PEDIATRIC CARE COORDINATOR for surgery at bedside. Exam/Review of Systems Vital Signs Vitals Vital Signs Date Time Temp Pulse Resp B/P Pulse Ox O2 Delivery O2 Flow Rate FiO2 06/30/17 08:00 98.3 80 20 175/77 96 Intake and Output 06/29/17 06/29/17 06/30/17 15:00 23:00 07:00 Intake Total 100 ml 1660 ml 1210 ml Output Total 3 ml Balance 100 ml 1660 ml 1207 ml Exam Constitutional: alert, oriented, well developed Psych: nl mood/affect, no complaints Eyes: EOMI, PERRL, nl conjunctiva, nl lids, nl sclera ENMT: nl external ears & nose, nl lips & teeth, nl nasal mucosa & septum Respiratory: clear to auscultation, normal air movement Cardiovascular: nl pulses, regular rate and rhythm Gastrointestinal: nl liver, spleen, non-tender, soft Results Result Diagram: 06/30/17 0514 06/30/17 0514 Results 24 hrs Laboratory Tests Test 06/29/17 12:08 06/29/17 13:49 06/29/17 16:35 06/29/17 20:40 Bedside Glucose 100 124 131 Sodium Level 139 Potassium Level 2.7 *L Chloride Level 105 Carbon Dioxide Level 22 Anion Gap 15 Blood Urea Nitrogen 3 L Creatinine 0.45 Glucose Level 123 Calcium Level 7.7 L Test 06/30/17 05:14 06/30/17 08:10 White Blood Count 12.0 H Red Blood Count 3.39 L Hemoglobin 9.2 L Hematocrit 28.0 L Mean Corpuscular Volume 82.6 Mean Corpuscular Hemoglobin 27.1 L Mean Corpuscular Hemoglobin Concent 32.9 Red Cell Distribution Width 17.2 H Platelet Count 420 H Mean Platelet Volume 9.0 Neutrophils % 71.8 Lymphocytes % 15.5 Monocytes % 6.8 Eosinophils % 4.7 Basophils % 0.7 Nucleated Red Blood Cells % 0.0 Neutrophils # 8.6 H Lymphocytes # 1.9 Monocytes # 0.8 Eosinophils # 0.6 H Basophils # 0.1 Nucleated Red Blood Cells # 0.0 Sodium Level 139 Potassium Level 3.3 L Chloride Level 107 Carbon Dioxide Level 25 Anion Gap 10 # Blood Urea Nitrogen 2 L Creatinine 0.48 Glucose Level 108 Calcium Level 8.0 L Total Bilirubin 0.4 Direct Bilirubin 0.00 Indirect Bilirubin 0.4 Aspartate Amino Transf (AST/SGOT) 13 L Alanine Aminotransferase (ALT/SGPT) 31 Alkaline Phosphatase 139 H Total Protein 6.2 Albumin 2.7 L Globulin 3.50 H Albumin/Globulin Ratio 0.77 Amylase Level 39 Lipase 24 Bedside Glucose 123 Medications Medications Current Medications Hydralazine HCl (Apresoline) 10 mg Q6H PRN IV SBP>170 Last administered on 15:11; Admin Dose 10 MG; Start 06/20/17 at 11:30 Morphine Sulfate (morphine) 1 mg Q4H PRN IV PAIN Last administered on 03:56; Admin Dose 1 MG; Start 06/20/17 at 12:30 Ondansetron HCl (Zofran Inj) 4 mg Q4H PRN IV NAUSEA AND/OR VOMITING Last administered on 06/30/17 06:18; Admin Dose 4 MG; Start 06/20/17 at 13:00 Acetaminophen (Tylenol Tab) 650 mg Q4H PRN PO PAIN AND OR ELEVATED TEMP Last administered on 06/29/17 01:28; Admin Dose 650 MG; Start 06/20/17 at 13:00 Pantoprazole (Protonix Tab) 40 mg DAILY@06 PO Last administered on 06/30/17 06:19; Admin Dose 40 MG; Start 06/21/17 at 06:00 Al Hydrox/Mg Hydrox/Simethicone (Mag-Al Plus) 30 ml Q6H PRN PO GASTROINTESTINAL UPSET; Start 06/20/17 at 20:00 Folic Acid (Folic Acid) 1 mg DAILY PO Last administered on 06/30/17 08:41; Admin Dose 1 MG; Start 06/21/17 at 10:00 Levothyroxine Sodium (Synthroid) 50 mcg DAILY@06 PO Last administered on 06:19; Admin Dose 50 MCG; Start 06/22/17 at 06:00 Valsartan (Diovan) 160 mg DAILY PO Last administered on 06/30/17 08:41; Admin Dose 160 MG; Start 06/21/17 at 10:00 EZETIMIBE (Zetia) 10 mg DAILY PO Last administered on 06/30/17 08:41; Admin Dose 10 MG; Start 06/21/17 at 10:00 Ibuprofen 800 mg 800 mg Q6H PRN PO PAIN; Start 06/21/17 at 10:00 Sodium Chloride (NS) 1,000 ml @ 70 mls/hr [id number] IV Last administered on 10:03; Admin Dose 70 MLS/HR; Start 06/21/17 at 12:30 Tramadol HCl (Ultram) 50 mg Q6H PRN PO PAIN LEVEL 7-10 Last administered on 13:46; Admin Dose 50 MG; Start 06/21/17 at 12:30; Status Future Hold Cholecalciferol (Vitamin D) 4,000 unit DAILY PO Last administered on 08:41; Admin Dose 4,000 UNIT; Start 06/22/17 at 09:00 Cholecalciferol 1000 unit 1,000 unit DAILY PO Last administered on 06/30/17 08:41; Admin Dose 1,000 UNIT; Start 06/22/17 at 09:00 Linezolid 300 ml @ 200 mls/hr Q12H IVPB Last administered on 06/30/17 04:49 ; Admin Dose 200 MLS/HR; Start 06/22/17 at 17:00 Metronidazole (Flagyl 500 Mg (Pmx)) 100 ml @ 100 mls/hr Q8 IVPB Last administered on 06/30/17 06:19; Admin Dose 100 MLS/HR; Start 06/23/17 at 22: 00 Senna/Docusate Sodium (Senokot-S) 1 tab BID PO Last administered on 06/30/17 08:41; Admin Dose 1 TAB; Start 06/23/17 at 21:00 Zolpidem Tartrate 5 mg 5 mg HS PRN PO INSOMNIA; Start 06/27/17 at 19:00 Sodium Chloride (NS) 500 ml @ 70 mls/hr Q7H9M IV Last administered on 10:03; Admin Dose 70 MLS/HR; Start 06/29/17 at 04:00 TING BERRY MD Jun 30, 2017 10:33
[2017-06-30 14:00] VITALS: BP 166/72; RESP 18
[2017-06-30 14:05] VITALS: BP 181/72; PULSE 87; RESP 18
[2017-06-30 14:11] VITALS: BP 166/72
[2017-06-30] MEDS ORDERED: POTASSIUM CHLORIDE 20 MEQ POWDER FOR ORAL SOLN PO ONE (16:30)
--- NOTE | 2017-06-30 17:51 | PN ---
Date/Time of Note Date/Time of Note DATE: 06/30/17 TIME: 17:51 Assessment/Plan VTE Prophylaxis VTE Prophylaxis Intervention: SCD's Lines/Catheters [facility] Peripheral IV Urinary Cath still in place: No Assessment/Plan Chief Complaint/Hosp Course Patient's complains of nausea and poor appetite, minimal amount of drainage from that gallbladder fossa drain. Assessment/Plan -Gallbladder fossa abscess/bile leak. S/p drainage by radiology. Positive HIDA scan. S/p ERCP and stent placement into the right hepatic duct and left hepatic duct on 06/[address] Estrella. Abdominal fluid culture positive for VRE, continue Zyvox. Dr. Mckeon is following in infection disease consultation -S/p laparoscopic cholecystectomy 06/29/17. Dr. Auguste is following in surgical consultation. -Status post ERCP with stent placement status post subsequent stent removal -Hypertension, continue Diovan and hydralazine. -Hypothyroidism -RA Further recommendations based on clinical course. Plan of care discussed with Dr. Shipman Problems: Exam/Review of Systems Vital Signs Vitals Vital Signs Date Time Temp Pulse Resp B/P Pulse Ox O2 Delivery O2 Flow Rate FiO2 06/30/17 14:11 166/72 06/30/17 14:05 98.1 87 18 98 Room Air Intake and Output 06/29/17 06/29/17 06/30/17 15:00 23:00 07:00 Intake Total 100 ml 1660 ml 1210 ml Output Total 3 ml Balance 100 ml 1660 ml 1207 ml Exam Constitutional: alert, oriented Neck: supple Respiratory: normal air movement Cardiovascular: nl pulses Gastrointestinal: other (Right upper quadrant drain), soft Musculoskeletal: nl extremities to inspection Extremities: normal pulses Neurological: nl mental status Results Result Diagram: 06/30/17 0514 06/30/17 0514 Results 24 hrs Laboratory Tests Test 06/29/17 20:40 06/30/17 05:14 06/30/17 08:10 06/30/17 11:58 Bedside Glucose 131 123 153 White Blood Count 12.0 H Red Blood Count 3.39 L Hemoglobin 9.2 L Hematocrit 28.0 L Mean Corpuscular Volume 82.6 Mean Corpuscular Hemoglobin 27.1 L Mean Corpuscular Hemoglobin Concent 32.9 Red Cell Distribution Width 17.2 H Platelet Count 420 H Mean Platelet Volume 9.0 Neutrophils % 71.8 Lymphocytes % 15.5 Monocytes % 6.8 Eosinophils % 4.7 Basophils % 0.7 Nucleated Red Blood Cells % 0.0 Neutrophils # 8.6 H Lymphocytes # 1.9 Monocytes # 0.8 Eosinophils # 0.6 H Basophils # 0.1 Nucleated Red Blood Cells # 0.0 Sodium Level 139 Potassium Level 3.3 L Chloride Level 107 Carbon Dioxide Level 25 Anion Gap 10 # Blood Urea Nitrogen 2 L Creatinine 0.48 Glucose Level 108 Calcium Level 8.0 L Total Bilirubin 0.4 Direct Bilirubin 0.00 Indirect Bilirubin 0.4 Aspartate Amino Transf (AST/SGOT) 13 L Alanine Aminotransferase (ALT/SGPT) 31 Alkaline Phosphatase 139 H Total Protein 6.2 Albumin 2.7 L Globulin 3.50 H Albumin/Globulin Ratio 0.77 Amylase Level 39 Lipase 24 Test 06/30/17 17:16 Bedside Glucose 124 Medications Medications Current Medications Hydralazine HCl (Apresoline) 10 mg Q6H PRN IV SBP>170 Last administered on 15:11; Admin Dose 10 MG; Start 06/20/17 at 11:30 Morphine Sulfate (morphine) 1 mg Q4H PRN IV PAIN Last administered on 03:56; Admin Dose 1 MG; Start 06/20/17 at 12:30 Ondansetron HCl (Zofran Inj) 4 mg Q4H PRN IV NAUSEA AND/OR VOMITING Last administered on 06/30/17 06:18; Admin Dose 4 MG; Start 06/20/17 at 13:00 Acetaminophen (Tylenol Tab) 650 mg Q4H PRN PO PAIN AND OR ELEVATED TEMP Last administered on 06/29/17 01:28; Admin Dose 650 MG; Start 06/20/17 at 13:00 Pantoprazole (Protonix Tab) 40 mg DAILY@06 PO Last administered on 06/30/17 06:19; Admin Dose 40 MG; Start 06/21/17 at 06:00 Al Hydrox/Mg Hydrox/Simethicone (Mag-Al Plus) 30 ml Q6H PRN PO GASTROINTESTINAL UPSET; Start 06/20/17 at 20:00 Folic Acid (Folic Acid) 1 mg DAILY PO Last administered on 06/30/17 08:41; Admin Dose 1 MG; Start 06/21/17 at 10:00 Levothyroxine Sodium (Synthroid) 50 mcg DAILY@06 PO Last administered on 06:19; Admin Dose 50 MCG; Start 06/22/17 at 06:00 Valsartan (Diovan) 160 mg DAILY PO Last administered on 06/30/17 08:41; Admin Dose 160 MG; Start 06/21/17 at 10:00 EZETIMIBE (Zetia) 10 mg DAILY PO Last administered on 06/30/17 08:41; Admin Dose 10 MG; Start 06/21/17 at 10:00 Ibuprofen 800 mg 800 mg Q6H PRN PO PAIN; Start 06/21/17 at 10:00 Sodium Chloride (NS) 1,000 ml @ 70 mls/hr [id number] IV Last administered on 10:03; Admin Dose 70 MLS/HR; Start 06/21/17 at 12:30 Tramadol HCl (Ultram) 50 mg Q6H PRN PO PAIN LEVEL 7-10 Last administered on 13:46; Admin Dose 50 MG; Start 06/21/17 at 12:30; Status Future Hold Cholecalciferol (Vitamin D) 4,000 unit DAILY PO Last administered on 08:41; Admin Dose 4,000 UNIT; Start 06/22/17 at 09:00 Cholecalciferol 1000 unit 1,000 unit DAILY PO Last administered on 06/30/17 08:41; Admin Dose 1,000 UNIT; Start 06/22/17 at 09:00 Linezolid 300 ml @ 200 mls/hr Q12H IVPB Last administered on 06/30/17 17:23 ; Admin Dose 200 MLS/HR; Start 06/22/17 at 17:00 Metronidazole (Flagyl 500 Mg (Pmx)) 100 ml @ 100 mls/hr Q8 IVPB Last administered on 06/30/17 13:58; Admin Dose 100 MLS/HR; Start 06/23/17 at 22: 00 Senna/Docusate Sodium (Senokot-S) 1 tab BID PO Last administered on 06/30/17 08:41; Admin Dose 1 TAB; Start 06/23/17 at 21:00 Zolpidem Tartrate 5 mg 5 mg HS PRN PO INSOMNIA; Start 06/27/17 at 19:00 Sodium Chloride (NS) 500 ml @ 70 mls/hr Q7H9M IV Last administered on t 01:27; Admin Dose 70 MLS/HR; Start 06/29/17 at 04:00 BOB HUBER Jun 30, 2017 17:51
[2017-06-30 21:06] VITALS: BP 159/73; RESP 20
[2017-07-01] MEDS: NYSTATIN SUSP 5 ML CUP PO SCH ×5 (01:01→23:35)
[2017-07-01] MEDS: SOD CHLORIDE 0.9% 1,000 ML IV SCH ×3 (01:18→14:59)
[2017-07-01 02:17] VITALS: BP 164/75; RESP 20
[2017-07-01] MEDS: LINEZOLID 600 MG/D5W (PMX) 300 ML IVPB SCH ×2 (04:37→16:16)
[2017-07-01] MEDS: LEVOTHYROXINE 50 MCG TAB PO SCH ×2 (06:00→06:18)
[2017-07-01] MEDS: SOD CHLORIDE 0.9% 500 ML IV SCH ×2 (06:03→13:12)
[2017-07-01] MEDS: ONDANSETRON 4 MG INJ IV PRN (06:18)
[2017-07-01] MEDS: metroNIDAZOLE 500 MG/NS (PMX) 100 ML IVPB SCH ×3 (06:18→21:40)
[2017-07-01] MEDS: PANTOPRAZOLE (EC) 40 MG TAB PO SCH (06:18)
[2017-07-01] MEDS: ACCU-CHEK XX SCH ×4 (07:30→21:05)
--- NOTE | 2017-07-01 07:54 | PN ---
Date/Time of Note Date/Time of Note DATE: 07/01/17 TIME: 07:45 Assessment/Plan Lines/Catheters IV C[facility]ter Type (from [facility]): Peripheral IV Mera in Place (from Nrs): No Assessment/Plan Chief Complaint/Hosp Course 1. Gallbladder fossa abscess/bile leak. +HIDA s/p ERCP with 2 stents. MRCP noted. -cont drain care- please keep sterile dressing on -abx -pain management -consider dc home if wbc improving 2. Leukocytosis: Recurred; improving. -as above 3. Elevated alk phos: likely 2/2 #1. Slowly improving. -as above 4. Diverticulosis -diet/lifestyle optimization 3. Hiatal hernia: asymptomatic -monitor 4. Atherosclerosis -diet/exercise optimization 5. Pleural effusions: -pulmonary toilette -pulmonary consult 6. Thrush -medical management 7. Persistent nausea: -abx change per ID -supportive 8. Hypertension: -improve bp control Thank you. Patient seen and examined in collaboration with Dr. Varun Auguste. Problems: Subjective 24 Hr Interval Summary Anxious. Continues to have nausea, but no vomiting. Hypertensive. No fevers, chills, sob, congested cough, cp, palpitations, osorio, dizziness, n/v/d/dysuria. Scant output from drain. Exam/Review of Systems Vital Signs Vitals Vital Signs Date Time Temp Pulse Resp B/P Pulse Ox O2 Delivery O2 Flow Rate FiO2 07/01/17 02:17 98.8 80 20 164/75 98 06/30/17 14:05 Room Air Intake and Output 06/30/17 06/30/17 07/01/17 14:59 22:59 06:59 Intake Total 770 ml 620 ml 1200 ml Output Total 5 ml Balance 770 ml 615 ml 1200 ml Exam Free Text/Dictation Constitutional: alert, oriented Psych: anxious Head: atraumatic, normocephalic Eyes: nl lids, nl sclera ENMT: mucosa pink and moist, nl nasal mucosa & septum, tongue with white plaques Neck: non-tender, supple Respiratory: clear to auscultation, normal air movement Cardiovascular: nl pulses, regular rate and rhythm Gastrointestinal: min-tender at drain site, soft, surgical scars (dry without drainage/bruising/discoloration), drain with dark yellow drainage Musculoskeletal: nl extremities to inspection, nl gait and stance Extremities: normal pulses Neurological: nl mental status, nl speech, nl strength Skin: nl turgor, rash or lesions Lymph: nl lymph nodes Results Result Diagram: 06/30/17 0514 06/30/17 0514 MARGARETTE MENJIVAR NP Jul 01, 2017 07:54
[2017-07-01 08:00] VITALS: BP 139/65; RESP 16
[2017-07-01 08:15] LABS: BASOPHIL # 0.1 10^3/ul (0.0-0.1); BASOPHILS % 0.8 % (0.0-2.0); EOSINOPHILS # 0.5 10^3/ul (0.0-0.5); EOSINOPHILS % 5.7 % (0.0-7.0); HEMATOCRIT 29.2 % (37.0-47.0); HEMOGLOBIN 9.4 g/dl (12.0-16.0); LYMPHOCYTES # 1.2 10^3/ul (0.8-2.9); LYMPHOCYTES % 13.9 % (15.0-51.0); MEAN CORPUSCULAR HEMOGLOBIN 26.5 pg (29.0-33.0); MEAN CORPUSCULAR HGB CONC 32.2 g/dl (32.0-37.0); MEAN CORPUSCULAR VOLUME 82.3 fl (82.0-101.0); MEAN PLATELET VOLUME 8.3 fl (7.4-10.4); MONOCYTE # 0.7 10^3/ul (0.3-0.9); MONOCYTES % 7.9 % (0.0-11.0); NEUTROPHIL # 5.9 10^3/ul (1.6-7.5); NEUTROPHILS % 71.2 % (39.0-77.0); PLATELET COUNT 373 10^3/UL (140-415); RED BLOOD COUNT 3.55 10^6/ul (4.20-5.40); RED CELL DISTRIBUTION WIDTH 17.2 % (11.5-14.5); WHITE BLOOD COUNT 8.3 10^3/ul (4.8-10.8)
[2017-07-01 08:33] LABS: ANION GAP 12 (8-16); CARBON DIOXIDE 25 mmol/L (21-31); CHLORIDE 103 mmol/L (97-110); CREATININE 0.43 mg/dl (0.44-1.00); GLUCOSE 128 mg/dl (70-220); POTASSIUM 3.1 mmol/L (3.5-5.1); SODIUM 137 mmol/L (135-144)
[2017-07-01] MEDS: CHOLECALCIFEROL 1,000 UNIT TAB PO SCH (08:38)
[2017-07-01] MEDS: ACARBOSE 50 MG TAB PO SCH ×2 (08:39→17:37)
[2017-07-01] MEDS: EZETIMIBE 10 MG TAB PO SCH (08:39)
[2017-07-01] MEDS: VALSARTAN 160 MG TAB PO SCH ×2 (08:39→20:48)
[2017-07-01] MEDS: FOLIC ACID 1 MG TAB PO SCH (08:39)
[2017-07-01] MEDS: CHOLECALCIFEROL 2,000 UNIT CAP PO SCH (08:39)
[2017-07-01] MEDS: SENNA/DOCUSATE NA (8.6MG/50MG) TAB PO SCH ×2 (08:39→20:49)
[2017-07-01 08:43] LABS: BLOOD UREA NITROGEN < 2 mg/dl (7-20)
[2017-07-01 14:40] VITALS: BP 155/71; RESP 16
[2017-07-01] MEDS ORDERED: POTASSIUM CHLORIDE 250 ML IVPB ONE (15:00)
[2017-07-01] MEDS: 1/2 NS + KCL 20 MEQ 1,000 ML IV SCH (16:17)
--- NOTE | 2017-07-01 18:16 | PN ---
Date/Time of Note Date/Time of Note DATE: 07/01/17 TIME: 18:11 Assessment/Plan VTE Prophylaxis VTE Prophylaxis Intervention: SCD's Lines/Catheters IV [facility] ([facility] Peripheral IV Urinary Cath still in place: No Assessment/Plan Chief Complaint/Hosp Course Patient complains of occasional nausea, oral candidiasis noted. Mild hypokalemia, potassium replaced. Hypertensive, will increase Diovan to twice daily Assessment/Plan -Gallbladder fossa abscess/bile leak. S/p drainage by radiology. Positive HIDA scan. S/p ERCP and stent placement into the right hepatic duct and left hepatic duct on 06/[address] Estrella. Abdominal fluid culture positive for VRE, continue Zyvox. Dr. Mckeon is following in infection disease consultation -S/p laparoscopic cholecystectomy 06/29/17. Dr. Auguste is following in surgical consultation. -Status post ERCP with stent placement status post subsequent stent removal -Oral candidiasis, continue nystatin -Hypertension, continue Diovan and hydralazine. -Hypothyroidism, continue Synthroid -RA Further recommendations based on clinical course. Plan of care discussed with Dr. Shipman Problems: Exam/Review of Systems Vital Signs Vitals Vital Signs Date Time Temp Pulse Resp B/P Pulse Ox O2 Delivery O2 Flow Rate FiO2 07/01/17 14:40 98.1 84 16 155/71 98 06/30/17 14:05 Room Air Intake and Output 06/30/17 06/30/17 07/01/17 14:59 22:59 06:59 Intake Total 770 ml 620 ml 1200 ml Output Total 5 ml Balance 770 ml 615 ml 1200 ml Exam Constitutional: alert, oriented Neck: supple Respiratory: normal air movement Cardiovascular: nl pulses Gastrointestinal: other (Right upper quadrant drain), soft Musculoskeletal: nl extremities to inspection Extremities: normal pulses Neurological: nl mental status Results Result Diagram: 07/01/17 0806 07/01/17 0806 Results 24 hrs Laboratory Tests Test 06/30/17 21:14 07/01/17 08:06 07/01/17 08:35 07/01/17 11:59 Bedside Glucose 113 116 122 White Blood Count 8.3 # Red Blood Count 3.55 L Hemoglobin 9.4 L Hematocrit 29.2 L Mean Corpuscular Volume 82.3 Mean Corpuscular Hemoglobin 26.5 L Mean Corpuscular Hemoglobin Concent 32.2 Red Cell Distribution Width 17.2 H Platelet Count 373 Mean Platelet Volume 8.3 Neutrophils % 71.2 Lymphocytes % 13.9 L Monocytes % 7.9 Eosinophils % 5.7 Basophils % 0.8 Nucleated Red Blood Cells % 0.0 Neutrophils # 5.9 Lymphocytes # 1.2 Monocytes # 0.7 Eosinophils # 0.5 Basophils # 0.1 Nucleated Red Blood Cells # 0.0 Sodium Level 137 Potassium Level 3.1 L Chloride Level 103 Carbon Dioxide Level 25 Anion Gap 12 Blood Urea Nitrogen < 2 L Creatinine 0.43 L Glucose Level 128 Calcium Level 8.0 L Test 07/01/17 17:22 Bedside Glucose 134 Medications Medications Current Medications Hydralazine HCl (Apresoline) 10 mg Q6H PRN IV SBP>170 Last administered on 15:11; Admin Dose 10 MG; Start 06/20/17 at 11:30 Morphine Sulfate (morphine) 1 mg Q4H PRN IV PAIN Last administered on 03:56; Admin Dose 1 MG; Start 06/20/17 at 12:30 Ondansetron HCl (Zofran Inj) 4 mg Q4H PRN IV NAUSEA AND/OR VOMITING Last administered on 07/01/17 06:18; Admin Dose 4 MG; Start 06/20/17 at 13:00 Acetaminophen (Tylenol Tab) 650 mg Q4H PRN PO PAIN AND OR ELEVATED TEMP Last administered on 06/29/17 01:28; Admin Dose 650 MG; Start 06/20/17 at 13:00 Pantoprazole (Protonix Tab) 40 mg DAILY@06 PO Last administered on 07/01/17 06:18; Admin Dose 40 MG; Start 06/21/17 at 06:00 Al Hydrox/Mg Hydrox/Simethicone (Mag-Al Plus) 30 ml Q6H PRN PO GASTROINTESTINAL UPSET; Start 06/20/17 at 20:00 Folic Acid (Folic Acid) 1 mg DAILY PO Last administered on 07/01/17 08:39; Admin Dose 1 MG; Start 06/21/17 at 10:00 Levothyroxine Sodium (Synthroid) 50 mcg DAILY@06 PO Last administered on 06:19; Admin Dose 50 MCG; Start 06/22/17 at 06:00 Valsartan (Diovan) 160 mg DAILY PO Last administered on 07/01/17 08:39; Admin Dose 160 MG; Start 06/21/17 at 10:00 EZETIMIBE (Zetia) 10 mg DAILY PO Last administered on 07/01/17 08:39; Admin Dose 10 MG; Start 06/21/17 at 10:00 Ibuprofen (Motrin) 800 mg Q6H PRN PO PAIN; Start 06/21/17 at 10:00 Tramadol HCl (Ultram) 50 mg Q6H PRN PO PAIN LEVEL 7-10 Last administered on 13:46; Admin Dose 50 MG; Start 06/21/17 at 12:30; Status Future Hold Cholecalciferol (Vitamin D) 4,000 unit DAILY PO Last administered on 08:39; Admin Dose 4,000 UNIT; Start 06/22/17 at 09:00 Cholecalciferol 1000 unit 1,000 unit DAILY PO Last administered on 07/01/17 08:38; Admin Dose 1,000 UNIT; Start 06/22/17 at 09:00 Linezolid 300 ml @ 200 mls/hr Q12H IVPB Last administered on 07/01/17 16:16 ; Admin Dose 200 MLS/HR; Start 06/22/17 at 17:00 Metronidazole (Flagyl 500 Mg (Pmx)) 100 ml @ 100 mls/hr Q8 IVPB Last administered on 07/01/17 14:58; Admin Dose 100 MLS/HR; Start 06/23/17 at 22: 00 Senna/Docusate Sodium (Senokot-S) 1 tab BID PO Last administered on 07/01/17 08:39; Admin Dose 1 TAB; Start 06/23/17 at 21:00 Zolpidem Tartrate (Ambien) 5 mg HS PRN PO INSOMNIA; Start 06/27/17 at 19:00 Nystatin 5 ml 5 ml Q6 PO Last administered on 07/01/17 17:37; Admin Dose 5 ML ; Start 07/01/17 at 01:00 Potassium Chloride 250 ml @ 62.5 mls/hr ONCE ONCE IVPB Last administered on 07/01/17 17:37; Admin Dose 62.5 MLS/HR; Start 07/01/17 at 15:00; Stop at 18:59 Potassium Chloride/Sodium Chloride (1/2 NS + KCl 20 Meq) 1,000 ml @ 50 mls/hr Q20H IV Last administered on 07/01/17t 16:17; Admin Dose 50 MLS/HR; Start at 15:00 Phenyleph/Shark Oil/Min Oil/Petrol (Formulation R Oint) 1 applic BID [place] ; Start 07/01/17 at 21:00 BOB HUBER Jul 01, 2017 18:16
[2017-07-01] MEDS ORDERED: VALSARTAN 160 MG TAB ONE (20:00)
--- NOTE | 2017-07-01 20:06 | CONS ---
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 - Leukocytosis - resolved - Moderate to large hiatal hernia per MRCP - Diverticulosis without diverticulitis per MRCP - HTN - Hypothyroid - Oral candidiasis - PCN allergy; tolerated meropenem Recommendations: - Monitor for nausea- could be related to metronidazole--if persists then consideration of changing to Ertapenem could be entertained - Continue Linezolid (06/22/2017-) and Metronidazole (06/23/2017-) x 14 days at least - Repeat imaging prior to cessation of abx - Continue nystatin Management d/w Dr. Mckeon Problems: Consultation Date/Type/Reason Admit Date/Time Jun 19, 2017 at 14:00 Initial Consult Date 06/23/17 Type of Consultation: Infectious Disease Referring Provider: MUSA AMBROSE MD 24 HR Interval Summary Free Text/Dictation Denies pain, SOB, n/v/d but per chart review, pt was medicated with zofran for nausea earlier this AM. States eating w/o difficulty. Exam/Review of Systems Vital Signs Vitals Vital Signs Date Time Temp Pulse Resp B/P Pulse Ox O2 Delivery O2 Flow Rate FiO2 07/01/17 14:40 98.1 84 16 155/71 98 06/30/17 14:05 Room Air Intake and Output 06/30/17 06/30/17 07/01/17 15:00 23:00 07:00 Intake Total 770 ml 620 ml 1200 ml Output Total 5 ml Balance 770 ml 615 ml 1200 ml Exam Constitutional: alert, oriented, well developed Head: atraumatic, normocephalic ENMT: mucosa pink and moist, other (tongue with off white coating) Neck: supple Respiratory: clear to auscultation, normal air movement Cardiovascular: nl pulses, regular rate and rhythm Gastrointestinal: other (RUQ drain with min TTP), soft, surgical scars Extremities: normal pulses Neurological: nl mental status Skin: nl turgor, No rash or lesions Results Result Diagram: 07/01/17 0806 07/01/17 0806 Results 24 hrs Laboratory Tests Test 06/30/17 21:14 07/01/17 08:06 07/01/17 08:35 07/01/17 11:59 Bedside Glucose 113 116 122 White Blood Count 8.3 # Red Blood Count 3.55 L Hemoglobin 9.4 L Hematocrit 29.2 L Mean Corpuscular Volume 82.3 Mean Corpuscular Hemoglobin 26.5 L Mean Corpuscular Hemoglobin Concent 32.2 Red Cell Distribution Width 17.2 H Platelet Count 373 Mean Platelet Volume 8.3 Neutrophils % 71.2 Lymphocytes % 13.9 L Monocytes % 7.9 Eosinophils % 5.7 Basophils % 0.8 Nucleated Red Blood Cells % 0.0 Neutrophils # 5.9 Lymphocytes # 1.2 Monocytes # 0.7 Eosinophils # 0.5 Basophils # 0.1 Nucleated Red Blood Cells # 0.0 Sodium Level 137 Potassium Level 3.1 L Chloride Level 103 Carbon Dioxide Level 25 Anion Gap 12 Blood Urea Nitrogen < 2 L Creatinine 0.43 L Glucose Level 128 Calcium Level 8.0 L Test 07/01/17 17:22 Bedside Glucose 134 Medications Medications Current Medications Hydralazine HCl (Apresoline) 10 mg Q6H PRN IV SBP>170 Last administered on 15:11; Admin Dose 10 MG; Start 06/20/17 at 11:30 Morphine Sulfate (morphine) 1 mg Q4H PRN IV PAIN Last administered on 03:56; Admin Dose 1 MG; Start 06/20/17 at 12:30 Ondansetron HCl (Zofran Inj) 4 mg Q4H PRN IV NAUSEA AND/OR VOMITING Last administered on 07/01/17 06:18; Admin Dose 4 MG; Start 06/20/17 at 13:00 Acetaminophen (Tylenol Tab) 650 mg Q4H PRN PO PAIN AND OR ELEVATED TEMP Last administered on 06/29/17 01:28; Admin Dose 650 MG; Start 06/20/17 at 13:00 Pantoprazole (Protonix Tab) 40 mg DAILY@06 PO Last administered on 07/01/17 06:18; Admin Dose 40 MG; Start 06/21/17 at 06:00 Al Hydrox/Mg Hydrox/Simethicone (Mag-Al Plus) 30 ml Q6H PRN PO GASTROINTESTINAL UPSET; Start 06/20/17 at 20:00 Folic Acid (Folic Acid) 1 mg DAILY PO Last administered on 07/01/17 08:39; Admin Dose 1 MG; Start 06/21/17 at 10:00 Levothyroxine Sodium (Synthroid) 50 mcg DAILY@06 PO Last administered on 06:19; Admin Dose 50 MCG; Start 06/22/17 at 06:00 EZETIMIBE (Zetia) 10 mg DAILY PO Last administered on 07/01/17 08:39; Admin Dose 10 MG; Start 06/21/17 at 10:00 Ibuprofen (Motrin) 800 mg Q6H PRN PO PAIN; Start 06/21/17 at 10:00 Tramadol HCl (Ultram) 50 mg Q6H PRN PO PAIN LEVEL 7-10 Last administered on 13:46; Admin Dose 50 MG; Start 06/21/17 at 12:30; Status Future Hold Cholecalciferol (Vitamin D) 4,000 unit DAILY PO Last administered on 08:39; Admin Dose 4,000 UNIT; Start 06/22/17 at 09:00 Cholecalciferol 1000 unit 1,000 unit DAILY PO Last administered on 07/01/17 08:38; Admin Dose 1,000 UNIT; Start 06/22/17 at 09:00 Linezolid 300 ml @ 200 mls/hr Q12H IVPB Last administered on 07/01/17 16:16 ; Admin Dose 200 MLS/HR; Start 06/22/17 at 17:00 Metronidazole (Flagyl 500 Mg (Pmx)) 100 ml @ 100 mls/hr Q8 IVPB Last administered on 07/01/17 14:58; Admin Dose 100 MLS/HR; Start 06/23/17 at 22: 00 Senna/Docusate Sodium (Senokot-S) 1 tab BID PO Last administered on 07/01/17 08:39; Admin Dose 1 TAB; Start 06/23/17 at 21:00 Zolpidem Tartrate (Ambien) 5 mg HS PRN PO INSOMNIA; Start 06/27/17 at 19:00 Nystatin 5 ml 5 ml Q6 PO Last administered on 07/01/17 17:37; Admin Dose 5 ML ; Start 07/01/17 at 01:00 Potassium Chloride/Sodium Chloride (1/2 NS + KCl 20 Meq) 1,000 ml @ 50 mls/hr Q20H IV Last administered on 07/01/17 16:17; Admin Dose 50 MLS/HR; Start at 15:00 Phenyleph/Shark Oil/Min Oil/Petrol (Formulation R Oint) 1 applic BID OR ; Start 07/01/17 at 21:00 Valsartan (Diovan) 160 mg BID PO ; Start 07/01/17 at 21:00 Procedures Procedures MRCP 06/27/17: 1. Gallbladder is surgically absent. Percutaneous drainage catheter tip remains within the gallbladder fossa. There has been near-complete interval resolution of previously seen complex collection in this area. 2. No biliary dilatation or evidence of choledocholithiasis is identified. 3. Mild right and small left pleural effusions are noted, increased from the prior CT. 4. Moderate to large hiatal hernia is again noted, grossly unchanged. 5. Colonic diverticulosis is seen without diverticulitis. KEVIN ELDRIDGE NP Jul 01, 2017 20:06 KEVIN ELDRIDGE NP Jul 01, 2017 20:06
[2017-07-01 20:17] VITALS: BP 182/74; RESP 17
[2017-07-01] MEDS ORDERED: PE/SHARK OIL/MO/PETROL 30 GM OINT PR SCH ×2 (21:00→21:35)
[2017-07-02 02:03] VITALS: BP 157/70; RESP 18
[2017-07-02] MEDS: LINEZOLID 600 MG/D5W (PMX) 300 ML IVPB SCH (04:34)
[2017-07-02] MEDS: NYSTATIN SUSP 5 ML CUP PO SCH ×2 (05:47→11:35)
[2017-07-02] MEDS: PANTOPRAZOLE (EC) 40 MG TAB PO SCH (05:47)
[2017-07-02] MEDS: LEVOTHYROXINE 50 MCG TAB PO SCH (05:47)
[2017-07-02 05:50] LABS: BASOPHIL # 0.1 10^3/ul (0.0-0.1); BASOPHILS % 1.1 % (0.0-2.0); EOSINOPHILS # 0.4 10^3/ul (0.0-0.5); EOSINOPHILS % 5.7 % (0.0-7.0); HEMOGLOBIN 8.5 g/dl (12.0-16.0); LYMPHOCYTES # 1.3 10^3/ul (0.8-2.9); LYMPHOCYTES % 18.1 % (15.0-51.0); MEAN CORPUSCULAR HGB CONC 32.7 g/dl (32.0-37.0); MEAN CORPUSCULAR VOLUME 82.5 fl (82.0-101.0); MONOCYTE # 0.8 10^3/ul (0.3-0.9); MONOCYTES % 10.2 % (0.0-11.0); NEUTROPHIL # 4.7 10^3/ul (1.6-7.5); NEUTROPHILS % 64.6 % (39.0-77.0); PLATELET COUNT 343 10^3/UL (140-415); RED BLOOD COUNT 3.15 10^6/ul (4.20-5.40); RED CELL DISTRIBUTION WIDTH 17.3 % (11.5-14.5); WHITE BLOOD COUNT 7.3 10^3/ul (4.8-10.8)
[2017-07-02] MEDS: metroNIDAZOLE 500 MG/NS (PMX) 100 ML IVPB SCH ×2 (06:41→13:00)
[2017-07-02 06:45] LABS: ANION GAP 10 (8-16); CALCIUM 7.8 mg/dl (8.4-10.2); CARBON DIOXIDE 25 mmol/L (21-31); CHLORIDE 105 mmol/L (97-110); CREATININE 0.46 mg/dl (0.44-1.00); GLUCOSE 140 mg/dl (70-220); POTASSIUM 3.7 mmol/L (3.5-5.1); SODIUM 136 mmol/L (135-144)
[2017-07-02 06:46] LABS: BLOOD UREA NITROGEN < 2 mg/dl (7-20)
[2017-07-02] MEDS: ACCU-CHEK XX SCH ×2 (07:30→11:30)
[2017-07-02 08:36] VITALS: BP 165/70; RESP 16
[2017-07-02] MEDS: SENNA/DOCUSATE NA (8.6MG/50MG) TAB PO SCH (09:23)
[2017-07-02] MEDS: CHOLECALCIFEROL 2,000 UNIT CAP PO SCH (09:23)
[2017-07-02] MEDS: FOLIC ACID 1 MG TAB PO SCH (09:23)
[2017-07-02] MEDS: CHOLECALCIFEROL 1,000 UNIT TAB PO SCH (09:23)
[2017-07-02] MEDS: EZETIMIBE 10 MG TAB PO SCH (09:24)
[2017-07-02] MEDS: ACARBOSE 50 MG TAB PO SCH (09:24)
[2017-07-02] MEDS: VALSARTAN 160 MG TAB PO SCH (09:24)
[2017-07-02] MEDS: 1/2 NS + KCL 20 MEQ 1,000 ML IV SCH (11:00)
--- NOTE | 2017-07-02 12:15 | PN ---
Date/Time of Note Date/Time of Note DATE: 07/02/17 TIME: 12:12 Assessment/Plan Lines/Catheters IV Catheter Type (from Nrs): Peripheral IV Mera in Place (from Nrs): No Assessment/Plan Chief Complaint/Hosp Course 1. Gallbladder fossa abscess/bile leak. +HIDA s/p ERCP with 2 stents. MRCP noted. -cont drain care- please keep sterile dressing on -abx -pain management -consider dc home if wbc improving 2. Leukocytosis: Recurred; improving. -as above 3. Elevated alk phos: likely 2/2 #1. Slowly improving. -as above 4. Diverticulosis -diet/lifestyle optimization 3. Hiatal hernia: asymptomatic -monitor 4. Atherosclerosis -diet/exercise optimization 5. Pleural effusions: -pulmonary toilette -pulmonary consult 6. Thrush -medical management 7. Persistent nausea: -abx change per ID -supportive 8. Hypertension: -improve bp control Thank you. Patient seen and examined in collaboration with Dr. Varun Auguste. Problems: Subjective 24 Hr Interval Summary Feels well. Eager to go home. Pending discharge. Nausea improved. No fevers, chills, sob, congested cough, cp, palpitations, osorio, dizziness, n/v/d/dysuria. Exam/Review of Systems Vital Signs Vitals Vital Signs Date Time Temp Pulse Resp B/P Pulse Ox O2 Delivery O2 Flow Rate FiO2 07/02/17 08:36 97.7 85 16 165/70 96 06/30/17 14:05 Room Air Intake and Output 07/01/17 07/01/17 07/02/17 15:00 23:00 07:00 Intake Total 1850 ml 1200 ml Balance 1850 ml 1200 ml Exam Free Text/Dictation 1. Gallbladder fossa abscess/bile leak. +HIDA s/p ERCP with 2 stents. MRCP noted. -cont drain care- please keep sterile dressing on -pain management -May be discharged per medical team with abx and hh for drain care. To follow in office in 1 week. 2. Leukocytosis: resolved 3. Elevated alk phos: likely 2/2 #1. Slowly improving. -as above 4. Diverticulosis -diet/lifestyle optimization 3. Hiatal hernia: asymptomatic -monitor 4. Atherosclerosis -diet/exercise optimization 5. Pleural effusions: -pulmonary toilette -pulmonary consult 6. Thrush -medical management 7. Persistent nausea: resolved 8. Hypertension: -improve bp control 9. Hypocalcemia: -nutrition optimization Thank you. Patient seen and examined in collaboration with Dr. Varun Auguste. Results Result Diagram: 07/02/17 0505 07/02/17 0505 MARGARETTE MENJIVAR NP Jul 02, 2017 12:15
[2017-07-02] MEDS ORDERED: METR500T14 PO (12:19)
[2017-07-02] MEDS ORDERED: VALS160T26 PO (12:19)
[2017-07-02] MEDS ORDERED: LINE600T PO (12:19)
[2017-07-02] MEDS ORDERED: HYDR-906 PO (12:28)
[2017-07-02] MEDS ORDERED: PRPH30O PR (14:25)
[2017-07-02] MEDS ORDERED: NYST1000 PO (14:25)
--- NOTE | 2017-07-02 14:29 | DS ---
Date/Time of Note Date/Time of Note DATE: 07/02/17 TIME: 14:28 Discharge Summary Admission/Discharge Info Admit Date/Time Jun 19, 2017 at 14:00 Discharge Date/Time Patient Condition: Stable Hx of Present Illness Patient is 81-year-old pleasant female who underwent laparoscopic cholecystectomy in May [address] Auguste. Patient was evaluated by Dr. Auguste in the office and noted to have leukocytosis and patient was sent for further evaluation and management to emergency room. Patient complains of nausea, especially in the morning, also complains of dysuria, denies any shortness of breath, denies any chest pain. Patient underwent CT abdomen and pelvis revealed fluid collection in the right upper quadrant consistent with postop infection versus biloma per radiology. Urinalysis did not reveal reveal any signs of infection. Chest x-ray is unremarkable. Patient will be admitted for further evaluation and management. Hospital Course Patient discharged home with home health for drain care, and p.o. antibiotics per infectious disease recommendations. -Gallbladder fossa abscess/bile leak. S/p drainage by radiology. Positive HIDA scan. S/p ERCP and stent placement into the right hepatic duct and left hepatic duct on 06/[address] Estrella. Abdominal fluid culture positive for VRE, continue Zyvox. Dr. Mckeon is following in infection disease consultation -S/p laparoscopic cholecystectomy 06/29/17. Dr. Auguste is following in surgical consultation. -Status post ERCP with stent placement status post subsequent stent removal -Oral candidiasis, continue nystatin -Hypertension, continue Diovan and hydralazine. -Hypothyroidism, continue Synthroid -RA Home Meds Active Scripts Phenyleph/Shark Oil/Mo/Petrol* (FORMULATION R OINT*) 1 Applic Oint, 1 APPLIC PA BID for 7 Days Prov:BOB HUBER 07/02/17 Nystatin (Nystatin) 100,000 Unit/1 Ml Oral.susp, 5 ML PO Q6 for 7 Days Prov:BOB HUBER 07/02/17 Metronidazole (Flagyl) 500 Mg Tab, 500 MG PO Q8 for 5 Days, TAB Prov:MARCO ANTONIOBARRONBOB 07/02/17 Linezolid* (Zyvox*) 600 Mg Tablet, 600 MG PO BID for 5 Days, TAB Prov:BOB HUBER 07/02/17 Valsartan (Valsartan) 160 Mg Tablet, 160 MG PO BID for 30 Days, TAB Prov:BOB HUBER 07/02/17 Docusate Sodium* (Colace*) 100 Mg Capsule, 100 MG PO DAILY, #30 CAP Prov:AMADOALEJANDRARONEY 11/24/16 Hydrocodone/Acetaminophen ([place] 5-325 Tablet) 1 Each Tablet, 1 EACH PO Q6, #14 TAB Prov:RONEY SAMPSNO 11/24/16 Reported Medications Acarbose* (Precose*) 50 Mg Tablet, 50 MG PO WITH BREAKFAST DINNE, TAB 06/21/17 Ibuprofen* (Ibuprofen*) 800 Mg Tab, 800 MG PO DAILY Y for PAIN, TAB 06/21/17 Folic Acid* (Folic Acid*) 1 Mg Tablet, 1 MG PO DAILY, TAB 06/21/17 Ezetimibe* (Zetia*) 10 Mg Tablet, 10 MG PO HS, TAB 06/19/17 Cholecalciferol* (Vitamin D3*) 1,000 Unit Tablet, 5000 UNIT PO DAILY, TAB 11/08/16 Levothyroxine Sodium* (Levoxyl*) 50 Mcg Tablet, 50 MCG PO BEFORE BREAKFAST, #30 TAB 11/08/16 Valsartan* (Diovan*) 160 Mg Tablet, 160 MG PO DAILY, TAB 07/09/16 Esomeprazole Mag Trihydrate (Nexium) 40 Mg Capsule.dr 40 MG PO DAILY 05/23/12 Follow-up Plan Follow-up with Dr. Auguste in 1 week follow-up with PMD in 2 weeks. Primary Care Provider Albert Grimm MD Time spent on discharge: > 30 minutes Pending Labs Laboratory Tests Test 07/01/17 17:22 07/01/17 20:54 07/02/17 05:05 07/02/17 08:23 Bedside Glucose 134mg/dL (70-220) 91mg/dL (70-220) 106mg/dL (70-220) White Blood Count 7.310^3/ul (4.8-10.8) Red Blood Count 3.1510^6/ul (4.20-5.40) Hemoglobin 8.5g/dl (12.0-16.0) Hematocrit 26.0% (37.0-47.0) Mean Corpuscular Volume 82.5fl (82.0-101.0) Mean Corpuscular Hemoglobin 27.0pg (29.0-33.0) Mean Corpuscular Hemoglobin Concent 32.7g/dl (32.0-37.0) Red Cell Distribution Width 17.3% (11.5-14.5) Platelet Count 55177^3/UL (140-415) Mean Platelet Volume 9.0fl (7.4-10.4) Neutrophils % 64.6% (39.0-77.0) Lymphocytes % 18.1% (15.0-51.0) Monocytes % 10.2% (0.0-11.0) Eosinophils % 5.7% (0.0-7.0) Basophils % 1.1% (0.0-2.0) Nucleated Red Blood Cells % 0.0/100WBC (0.0-0.0) Neutrophils # 4.710^3/ul (1.6-7.5) Lymphocytes # 1.310^3/ul (0.8-2.9) Monocytes # 0.810^3/ul (0.3-0.9) Eosinophils # 0.410^3/ul (0.0-0.5) Basophils # 0.110^3/ul (0.0-0.1) Nucleated Red Blood Cells # 0.010^3/ul (0.0-0.0) Sodium Level 136mmol/L (135-144) Potassium Level 3.7mmol/L (3.5-5.1) Chloride Level 105mmol/L (97-110) Carbon Dioxide Level 25mmol/L (21-31) Anion Gap 10 (8-16) Blood Urea Nitrogen < 2mg/dl (7-20) Creatinine 0.46mg/dl (0.44-1.00) Glucose Level 140mg/dl (70-220) Calcium Level 7.8mg/dl (8.4-10.2) Test 07/02/17 11:34 Bedside Glucose 109mg/dL (70-220) BOB HUBER Jul 02, 2017 14:29
[2017-07-02 15:12] VITALS: BP 144/66; RESP 18
== END 2017-07-02 16:50 | disposition home health service (06) | DRG 863 ==
LOC: E/R 11:54 → PP2 14:00
PROVIDERS: ADMIT Internal Medicine; ATTEND Internal Medicine
PROC: 0W9G3ZZ Drainage of Peritoneal Cavity, Percutaneous Approach (ICD-10-PCS; principal; 2017-06-20)
PROC: 0F768DZ Dilation of Left Hepatic Duct with Intraluminal Device, Via Natural or Artificial Opening Endoscopic (ICD-10-PCS; 2017-06-23)
PROC: 0F758DZ Dilation of Right Hepatic Duct with Intraluminal Device, Via Natural or Artificial Opening Endoscopic (ICD-10-PCS; 2017-06-23)
DX: K68.11 Postprocedural retroperitoneal abscess (principal); K91.89 Other postprocedural complications and disorders of digestive system; J90 Pleural effusion, not elsewhere classified; B37.0 Candidal stomatitis; D64.9 Anemia, unspecified; E83.51 Hypocalcemia; M06.9 Rheumatoid arthritis, unspecified; I10 Essential (primary) hypertension; K57.90 Diverticulosis of intestine, part unspecified, without perforation or abscess without bleeding; Z90.49 Acquired absence of other specified parts of digestive tract; E03.9 Hypothyroidism, unspecified; K44.9 Diaphragmatic hernia without obstruction or gangrene; I70.90 Unspecified atherosclerosis; E87.6 Hypokalemia; Z88.0 Allergy status to penicillin; B95.2 Enterococcus as the cause of diseases classified elsewhere; Z16.21 Resistance to vancomycin; Y83.8 Other surgical procedures as the cause of abnormal reaction of the patient, or of later complication, without mention of misadventure at the time of the procedure
CPT/HCPCS: 36415; 71010; 74176; 74181; 74330; 77012; 78226; 80048; 80053; 80076; 81001; 82150; 82962; 83605; 83690; 84145; 85025; 85610; 85730; 87040; 87070; 87075; 87081; 87086; 96374; 96375; A9537; C2617; J0360; J1100; J1885; J2185; J2250; J2270; J2405; J3010; J3370; J3480; J7030; J7040; J7042; Q9967

== ENCOUNTER 2017-09-18 11:26 | Day surgery (SDC) | END 2017-09-18 16:20 | disposition home or self-care (01) ==

== ENCOUNTER → 2018-06-10 | Outpatient (CLI) | END | disposition home or self-care (01) ==

== ENCOUNTER 2018-06-17 09:21 | Day surgery (SDC) | END 2018-06-17 15:19 | disposition home or self-care (01) ==